=== PATIENT | female | born 1960 | race Caucasian/White ===

== ENCOUNTER 2023-11-01 08:44 | Outpatient (AMB) | payer OTHER, SELFPAY ==
[2023-11-01 08:47] VITALS: BP 150/90; PULSE 76; O2SAT 97; BMI 45.4
--- NOTE | 2023-11-01 08:47 | MHC.PC.OV ---
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: No Accompanied by: Self / Same As Patient Allergies dexamethasone Allergy (Severe, Verified 11/01/23 08:53) Dizziness midazolam Allergy (Severe, Verified 11/01/23 08:53) Dizziness diazepam [Valium] Allergy (Unknown, Verified 11/01/23 08:50) Hypertension escitalopram [Lexapro] Allergy (Unknown, Verified 11/01/23 08:50) Rash lisinopril Allergy (Unknown, Verified 11/01/23 08:50) Difficulty Swallowing oxcarbazepine [Trileptal] Allergy (Unknown, Verified 11/01/23 08:50) Hives oxycodone [Percocet] Allergy (Unknown, Verified 11/01/23 08:50) Hives rosuvastatin [Crestor] Allergy (Unknown, Verified 11/01/23 08:50) Eye Swelling losartan Adverse Reaction (Intermediate, Verified 11/01/23 09:19) not sure Medication List - Last Reconciled 11/01/23 by Kuldip Prakash MD [Bariatric Fusion ] blood sugar diagnostic (FreeStyle Lite Strips) As directed bupropion HCl 150 mg PO QAM 30 days CPAP (CPAP Machine/Device) As directed fluoxetine 40 mg PO DAILY 30 days pramipexole 0.125 mg PO BEDTIME Tobacco use date assessed: 11/01/23 Fall risk assessment: No Falls in past year Last assessed Fall Risk: 11/01/23 Dental Screening Dental Screen Date: 11/01/23 Did you have a dental visit in the last 12 months?: Yes Did you have a dental problem in the last 6 months where you did not have access to dental care?: No Was dental information given to patient?: Patient has dentist HPI Transfer of care from [facility], requesting PE HPI Details 63-year-old morbidly obese female history of gastric bypass surgery for severe obesity, with diabetes mellitus hypercholesterolemia obstructive sleep apnea (2002) CPAP titration June 2010 periodic limb movement, generalized anxiety disorder hypertension coming in for follow-up. Patient is seen for the 1st time.. Review of the notes. September 2023 Sleep Medicine office notes. For the periodic limb movement disorder started off with gabapentin but had muscle aches and it is later pramipexole PFSH Medical History (Updated 11/01/23 @ 09:32 by Kuldip Prakash MD) Type 2 diabetes mellitus with hyperglycemia Menopausal and postmenopausal disorder History of ankle fracture Screening for osteoporosis Eating disorder with ongoing treatment Dizziness Low serum potassium Fungal rash of torso Seasonal allergies Anxiety with depression Restless leg syndrome Diabetes mellitus TMJ (dislocation of temporomandibular joint) Periodic limb movements of sleep Obstructive sleep apnea Morbid obesity Hypertension Hypercholesterolemia Heart murmur Depression Anxiety Surgical History (Updated 11/01/23 @ 09:28 by Kuldip Prakash MD) S/P LALITA-BSO (total abdominal hysterectomy and bilateral salpingo-oophorectomy) Bilateral carpal tunnel syndrome 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 H/O ventral hernia repair History of cholecystectomy Gastric banding status Family History (Updated 11/01/23 @ 09:29 by Kuldip Prakash MD) Mother Cancer of colon Hyperlipidemia Father CAD (coronary artery disease) Heart attack Social History (Updated 11/01/23 @ 09:29 by Kuldip Prakash MD) Housing: House Alcohol intake: current Comment: once drink Q 3 months Patient Tobacco Use Status: Never used Tobacco e-Cigarette/Vaping Use: Never Used Current occupational status: employed Cognitive needs: No Hearing needs: No Vision needs: Yes Questionnaire Thrive Questionnaire Date Thrive assessed: 01/19/23 KUMAR-7 AMB Questionnaire KUMAR-7 Date KUMAR - 7 assessed: 01/19/23 Source: Developed by Drs. Star Culp, Ambar Witt, Guanako Devine and colleagues, with an educational yarelis from [employer]. Physical exam (Primary Care) Vital Signs: Last Vital Signs Pulse 76 11/01/23 08:47 BP 150/90 H 11/01/23 08:47 Pulse Ox 97 11/01/23 08:47 Oxygen Delivery Method Room Air 11/01/23 08:47 BMI result Body Mass Index 45.4 Tobacco/Smoking Status: Tobacco use Status Tobacco use date assessed 11/01/23 11/01/23 08:49 Patient Tobacco Use Status Never used Tobacco 11/01/23 08:49 e-Cigarette/Vaping Use Never Used 11/01/23 08:49 Thrive Assessment: Date of Thrive Assessment Date Thrive assessed 01/19/23 11/01/23 08:49 Const General: alert; No acute distress Eyes Conjunctivae: conjunctivae normal Resp Auscultation: clear to auscultation bilaterally Cardio Rate: regular rate Rhythm: regular rhythm GI Inspection: Yes normal to inspection Extrem General: Yes normal to inspection and No edema Assessment and Plan Assessment & Plan (1) Morbid obesity due to excess calories: Code(s): E66.01 - Morbid (severe) obesity due to excess calories Plan: Diet and exercise (2) Hypercholesterolemia: Code(s): E78.00 - Pure hypercholesterolemia, unspecified Plan: Avoid fried foods, chicken skin, eggs, butter margarine, pastries and meat. Be it pork or beef they have a lot of cholesterol LDL goal of less than 100 and triglyceride of less than 150 (3) Sleep apnea with use of continuous positive airway pressure (CPAP): Code(s): G47.30 - Sleep apnea, unspecified Plan: .Continue to use this CPAP for the obstructive sleep apnea and patient follows up with Neurology. uses > 4 hours a night and benefits from this (4) Periodic limb movements of sleep: Code(s): G47.61 - Periodic limb movement disorder Plan: Patient has been placed on pramipexole (5) Hypertension: Code(s): I10 - Essential (primary) hypertension Plan: Continue with blood pressure medication. Decrease salt intake and exercise on hydrochlorothiazide 12.5 mg once a day (6) Generalized anxiety disorder: Comment: Private counselling Code(s): F41.1 - Generalized anxiety disorder Plan: Continue with therapy (7) History of gastric bypass: Comment: 2020 Dr. Jerome Arciniega Code(s): Z98.84 - Bariatric surgery status Plan: follows up with bariatric team in [place] (8) Breast cancer screening by mammogram: Code(s): Z12.31 - Encounter for screening mammogram for malignant neoplasm of breast (9) Colon cancer screening: Code(s): Z12.11 - Encounter for screening for malignant neoplasm of colon Orders: Referrals Gastroenterology Referral Z12.11 - Encounter for screening for malignant neoplasm of colon Medications: Changed From bupropion HCl 150 mg PO QAM 30 days 30 tabs 2RF F41.1 - Generalized anxiety disorder To bupropion HCl 150 mg PO QAM 90 days 90 tabs 2RF F41.1 - Generalized anxiety disorder From fluoxetine 40 mg PO DAILY 30 days 30 caps 2RF F41.1 - Generalized anxiety disorder To fluoxetine 40 mg PO DAILY 90 days 90 caps 1RF F41.1 - Generalized anxiety disorder From pramipexole 0.125 mg PO BEDTIME G47.61 - Periodic limb movement disorder To pramipexole 0.125 mg PO BEDTIME 90 days 90 tabs 1RF G47.61 - Periodic limb movement disorder Refilled hydrochlorothiazide 12.5 mg PO DAILY 90 days 90 tabs 2RF I10 - Essential (primary) hypertension Coding Level of Care Code Est Pt Level 4 (25057) Diagnoses Morbid obesity due to excess calories E66.01 Hypercholesterolemia E78.00 Sleep apnea with use of continuous positive airway pressure (CPAP) G47.30 Periodic limb movements of sleep G47.61 Hypertension I10 Generalized anxiety disorder F41.1 History of gastric bypass Z98.84 Breast cancer screening by mammogram Z12.31 Colon cancer screening Z12.11
[2023-11-01 09:14] VITALS: BP 142/70
== END 2023-11-01 09:52 | disposition home or self-care (01) ==
PROVIDERS: PCP Hospitalist; Visit Provider Internal Medicine
DX: E78.00 Pure hypercholesterolemia, unspecified (principal); G47.30 Sleep apnea, unspecified; E66.01 Morbid (severe) obesity due to excess calories; Z68.42 Body mass index [BMI] 45.0-49.9, adult; G47.61 Periodic limb movement disorder; I10 Essential (primary) hypertension; F41.1 Generalized anxiety disorder; Z98.84 Bariatric surgery status; Z12.31 Encounter for screening mammogram for malignant neoplasm of breast; Z12.11 Encounter for screening for malignant neoplasm of colon
CPT/HCPCS: 99214

== ENCOUNTER 2024-02-26 10:20 | Outpatient (AMB) | payer OTHER, SELFPAY ==
[2024-02-26 10:25] VITALS: BP 168/98; PULSE 81; O2SAT 98; BMI 44.8
--- NOTE | 2024-02-26 10:25 | A.OFFPC_ITS ---
Vital Signs 02/26/24 10:25 02/26/24 11:22 Height 5 ft 2 in Weight 245 lb BMI 44.8 BP 168/98 H 138/80 Blood Pressure Location Lt brachial Lt brachial Position Sitting Sitting Pulse 81 Pulse Source Pulse Oximeter Pulse Oximetry (%) 98 Oxygen Delivery Method Room Air Intake Visit Reasons: Annual exam Allergies dexamethasone Allergy (Severe, Verified 02/26/24 10:26) Dizziness midazolam Allergy (Severe, Verified 02/26/24 10:26) Dizziness diazepam [Valium] Allergy (Unknown, Verified 02/26/24 10:26) Hypertension escitalopram [Lexapro] Allergy (Unknown, Verified 02/26/24 10:26) Rash lisinopril Allergy (Unknown, Verified 02/26/24 10:26) Difficulty Swallowing oxcarbazepine [Trileptal] Allergy (Unknown, Verified 02/26/24 10:26) Hives oxycodone [Percocet] Allergy (Unknown, Verified 02/26/24 10:26) Hives rosuvastatin [Crestor] Allergy (Unknown, Verified 02/26/24 10:26) Eye Swelling losartan Adverse Reaction (Intermediate, Verified 02/26/24 10:26) not sure Medication List - Last Reconciled 02/26/24 by Kuldip Prakash MD [Bariatric fusion 2 caps PO BID] [Bariatric Fusion ] blood sugar diagnostic (FreeStyle Lite Strips) As directed bupropion HCl XL 150 mg PO QAM 90 days CPAP (CPAP Machine/Device) As directed fluoxetine 40 mg PO DAILY 90 days hydrochlorothiazide 12.5 mg PO DAILY 90 days pramipexole 0.125 mg PO BEDTIME 90 days Tobacco use date assessed: 02/26/24 Fall risk assessment: No Falls in past year Last assessed Fall Risk: 02/26/24 Dental Screening Dental Screen Date: 02/26/24 Did you have a dental visit in the last 12 months?: Yes Did you have a dental problem in the last 6 months where you did not have access to dental care?: No Was dental information given to patient?: Patient has dentist HPI Annual exam HPI Details 63-year-old morbidly obese female with o bstructive sleep apnea hypercholesterolemia hypertension generalized anxiety disorder history of gastric bypass coming in for annual physical. Last seen in October 2023. Patient is due for mammogram. Discussed about colon cancer screening. Patient has followed up with sleep Medicine January 2024 for the sleep apnea and periodic limb movement patient has excellent CPAP adherence more than 4 hours a night and benefits from this. Patient has also been placed on pramipexole 0.125 mg once a day. Patient follows up with bariatric surgery nutrition follow-up December regarding panniculectomy advised weight loss 75 lb to have surgery needing BMI closer to 35. BP at home is 144/81 PFSH Medical History (Updated 02/26/24 @ 11:16 by Kuldip Prakash MD) Type 2 diabetes mellitus with hyperglycemia Menopausal and postmenopausal disorder History of ankle fracture Screening for osteoporosis Eating disorder with ongoing treatment Dizziness Low serum potassium Fungal rash of torso Seasonal allergies Anxiety with depression Restless leg syndrome Diabetes mellitus TMJ (dislocation of temporomandibular joint) Periodic limb movements of sleep Obstructive sleep apnea Morbid obesity Hypertension Hypercholesterolemia Heart murmur Depression Anxiety Surgical History (Updated 11/01/23 @ 09:28 by Kuldip Prakash MD) S/P LALITA-BSO (total abdominal hysterectomy and bilateral salpingo-oophorectomy) Bilateral carpal tunnel syndrome 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 H/O ventral hernia repair History of cholecystectomy Gastric banding status Family History (Updated 02/26/24 @ 11:27 by Kuldip Prakash MD) Mother Cancer of colon Hyperlipidemia Father CAD (coronary artery disease) Heart attack Paternal Uncle Heart attack Social History (Updated 11/01/23 @ 09:29 by Kuldip Prakash MD) Housing: House Alcohol intake: current Comment: once drink Q 3 months Patient Tobacco Use Status: Never used Tobacco e-Cigarette/Vaping Use: Never Used Current occupational status: employed Cognitive needs: No Hearing needs: No Vision needs: Yes Questionnaire PHQ-9 Over the last 2 weeks, how often have you been bothered by any of the following problems? 1. Little interest or pleasure in doing things: not at all 2. Feeling down, depressed, or hopeless: not at all 3. Trouble falling or staying asleep, or sleeping too much: not at all 4. Feeling tired or having little energy: not at all 5. Poor appetite or overeating: not at all 6. Feeling bad about yourself - or that you are a failure or have let yourself or your family down: not at all 7. Trouble concentrating on things, such as reading the newspaper or watching television: not at all 8. Moving or speaking so slowly that other people could have noticed. Or the opposite - being so fidgety or restless that you have been moving around a lot more than usual: not at all 9. Thoughts that you would be better off or of hurting yourself in some way: not at all Total score: 0 Depression Screening Interpretation: Negative Depression Screening Done: Yes Source: Developed by Drs. Star Culp, Ambar Witt, Guanako Devine and colleagues, with an educational yarelis from [employer]. Thrive Questionnaire Date Thrive assessed: 02/26/24 I am a: Patient What is your living situation today?: I have a steady place to live Within the past 12 months, did the food you bought not last and you didn't have the money to get more?: Never true Within the past 12 months, did you worry whether your food would run out before you got money to buy more?: Never true Do you have trouble paying for medicines?: No Do you have trouble getting transportation to medical appointments?: No Do you have trouble paying your heating and electricity bill?: No Do you have trouble taking care of your child, family member or friend?: No Do you have trouble with day-to-day activities such as bathing, preparing meals, shopping, managing finances, etc.?: No Are you currently unemployed and looking for a job?: No Are you interested in more education?: No Currently or been in a relationship where the following occur: no concerns reported THRIVE Score: 0 AUDIT C Alcohol Use Questionnaire (AUDIT-C) 1. How often do you have a drink containing alcohol?: Never 3. How often do you have six or more drinks on one occasion?: Never Total Score: 0 Score Reviewed/Action Taken: No KUMAR-7 AMB Questionnaire KUMAR-7 Date KUMAR - 7 assessed: 02/26/24 Feeling nervous, anxious, or on edge: 0 = Not at all Not being able to stop or control worryin = Not at all Worrying too much about different things: 0 = Not at all Trouble relaxin = Not at all Being so restless that it is hard to sit still: 0 = Not at all Becoming easily annoyed or irritable: 0 = Not at all Feeling afraid as if something awful might happen: 0 = Not at all Total KUMAR-7 score (0-4 normal; 5-9 mild; 10-14 moderate; 15-21 severe): 0 Source: Developed by Drs. Star Culp, Ambar Witt, Guanako Devine and colleagues, with an educational yarelis from [employer]. Review of Systems Const Denies poor appetite and Denies weakness Eyes Denies no additional complaints ENT Reports Normal hearing present, Denies dizziness, Denies nasal congestion, Denies tinnitus and Denies sore throat Card Denies chest pain, Denies syncope, Denies rapid heart rate and Denies dyspnea Resp Denies cough and Denies dyspnea GI Denies change in stool character, Reports constipation, Denies diarrhea, Denies nausea and Denies vomiting Denies urinary frequency, Denies difficulty voiding and Denies dysuria Neuro Reports Normal hearing present, Denies confusion, Denies dizziness, Denies syncope and Denies weakness Psych Denies confusion Physical exam (Primary Care) Vital Signs: Last Vital Signs Pulse 81 02/26/24 10:25 BP 168/98 H 02/26/24 10:25 Pulse Ox 98 02/26/24 10:25 Oxygen Delivery Method Room Air 02/26/24 10:25 BMI result Body Mass Index 44.8 Tobacco/Smoking Status: Tobacco use Status Tobacco use date assessed 02/26/24 02/26/24 10:27 Patient Tobacco Use Status Never used Tobacco 02/26/24 10:27 e-Cigarette/Vaping Use Never Used 02/26/24 10:27 PHQ-9: PHQ-9 Score PHQ-9: Total score 0 02/26/24 10:45 Depression Screening Interpretation: Negative Thrive Assessment: Date of Thrive Assessment Date Thrive assessed 02/26/24 02/26/24 10:27 Currently or been in a relationship where the following occur: no concerns reported Const General: No confusion Orientation/consciousness: No confusion HENMT Head: Yes normocephalic Ears: external ears normal and TM's normal bilaterally Face and sinus: Yes normal facial exam Mouth: moist mucous membranes Throat: Yes tonsils normal Eyes Conjunctivae: conjunctivae normal Pupils: Equal, round and reactive pupils present and Pupil accommodation reflex normal Direct Ophthalmoscopy: normal light reflex Neck Neck: No lymphadenopathy Thyroid: Thyroid normal Chest Chest palpation & inspection: normal inspection of the chest Resp Effort & Inspection: normal respiratory effort and no audible wheezes Auscultation: clear to auscultation bilaterally, no crackles, no wheezes and lung sounds not diminished Cardio Rate: regular rate Rhythm: regular rhythm Peripheral pulses: radial pulses present and dorsalis pedis present GI Other: colon test pendfing Palpation (GI): no masses Auscultation: normal bowel sounds and normoactive bowel sounds Rectal Exam - Female: deferred Skin General skin exam: no rashes or lesions noted Rashes: no rashes Neuro General: No confusion Cranial nerves: Yes Equal, round and reactive pupils present and Yes Normal hearing present Cognition (Neuro): normal cognition Gait exam (Neuro): Normal gait present Motor exam (neuro): 5/5 motor strength present throughout Deep tendon reflexes (DTR's): Right brachioradialis reflex intensity grade: 2+, Left brachioradialis reflex intensity grade: 2+, Right patellar reflex intensity grade: 2+ and Left patellar reflex intensity grade: 2+ Extrem General: No edema Assessment and Plan Assessment & Plan (1) Annual physical exam: Code(s): Z00.00 - Encounter for general adult medical examination without abnormal findings Plan: continue to use the CPAP > 4 hours and benefits from this (2) Morbid obesity due to excess calories: Code(s): E66.01 - Morbid (severe) obesity due to excess calories Plan: Continue follow-up with bariatric surgeon and nutrition (3) Sleep apnea with use of continuous positive airway pressure (CPAP): Code(s): G47.30 - Sleep apnea, unspecified Plan: Continue to use the CPAP more than 4 hours a night and benefits from this. (4) Hypercholesterolemia: Code(s): E78.00 - Pure hypercholesterolemia, unspecified Plan: Avoid fried foods, chicken skin, eggs, butter margarine, pastries and meat. Be it pork or beef they have a lot of cholesterol LDL goal of less than 130 and triglyceride of less than 150. (5) Hypertension: Code(s): I10 - Essential (primary) hypertension Plan: Continue with blood pressure medication. Decrease salt intake and exercise on hydrochlorothiazide 12.5 mg once a day (6) Generalized anxiety disorder: Comment: Private counselling Code(s): F41.1 - Generalized anxiety disorder Plan: Continue with present medication and counseling (7) History of gastric bypass: Comment: 2020 Dr. Jerome Arciniega Code(s): Z98.84 - Bariatric surgery status Plan: Continue to follow-up with bariatric surgeon (8) Colon cancer screening: Code(s): Z12.11 - Encounter for screening for malignant neoplasm of colon Plan: Reminded about colon cancer screening will schedule- (9) Breast cancer screening by mammogram: Code(s): Z12.31 - Encounter for screening mammogram for malignant neoplasm of breast Plan: Reminded about mammogram Medications: New tirzepatide (weight loss) (Zepbound) 2.5 mg (0.5 mL) subcut QWEEK 4 weeks 2 mL 0RF E66.01 - Morbid (severe) obesity due to excess calories Coding Level of Care Code Est Pt Prev Care 40-64y(45188) Diagnoses Annual physical exam Z00.00 Morbid obesity due to excess calories E66.01 Sleep apnea with use of continuous positive airway pressure (CPAP) G47.30 Hypercholesterolemia E78.00 Hypertension I10 Generalized anxiety disorder F41.1 History of gastric bypass Z98.84 Colon cancer screening Z12.11 Breast cancer screening by mammogram Z11.05
[2024-02-26 11:22] VITALS: BP 138/80
== END 2024-02-26 11:46 | disposition home or self-care (01) ==
LOC: HO.HMGH 10:24
PROVIDERS: PCP Internal Medicine; Visit Provider Internal Medicine
DX: Z00.00 Encounter for general adult medical examination without abnormal findings (principal); E66.01 Morbid (severe) obesity due to excess calories; Z68.41 Body mass index [BMI] 40.0-44.9, adult; E78.00 Pure hypercholesterolemia, unspecified; I10 Essential (primary) hypertension; F41.1 Generalized anxiety disorder; Z98.84 Bariatric surgery status; Z12.11 Encounter for screening for malignant neoplasm of colon; Z12.31 Encounter for screening mammogram for malignant neoplasm of breast
CPT/HCPCS: 99396

== ENCOUNTER 2024-06-12 13:55 | Outpatient (AMB) | payer MEDICARE, BC, SELFPAY ==
--- NOTE | 2024-06-12 08:37 | A.OFFPC_ITS ---
Vital Signs 06/12/24 13:56 Height 5 ft 2 in Weight 244 lb 0.2 oz BMI 44.6 BP 146/84 H Blood Pressure Location Lt brachial Position Sitting Pulse 75 Pulse Source Pulse Oximeter Pulse Oximetry (%) 98 Oxygen Delivery Method Room Air Intake Visit Reasons: PRE OP Cataract Intake Note: Patient is here for a Pre-op for Cataract extractions scheduled with Dr. Ayo Rondon MD on 06/27/2024 and 08/01/2024. Allergies dexamethasone Allergy (Severe, Verified 06/12/24 14:15) Dizziness midazolam Allergy (Severe, Verified 06/12/24 14:15) Dizziness diazepam [Valium] Allergy (Unknown, Verified 06/12/24 14:15) Hypertension escitalopram [Lexapro] Allergy (Unknown, Verified 06/12/24 14:15) Rash lisinopril Allergy (Unknown, Verified 06/12/24 14:15) Difficulty Swallowing oxcarbazepine [Trileptal] Allergy (Unknown, Verified 06/12/24 14:15) Hives oxycodone [Percocet] Allergy (Unknown, Verified 06/12/24 14:15) Hives rosuvastatin [Crestor] Allergy (Unknown, Verified 06/12/24 14:15) Eye Swelling losartan Adverse Reaction (Intermediate, Verified 06/12/24 14:15) not sure gabapentin Adverse Reaction (Verified 06/12/24 14:17) Muscle Pain Medication List - Last Reviewed 06/12/24 by AMBROSIO Horn [Bariatric fusion 2 caps PO BID] [Bariatric Fusion ] blood sugar diagnostic (FreeStyle Lite Strips) As directed bupropion HCl XL 150 mg PO QAM 90 days CPAP (CPAP Machine/Device) As directed fluoxetine 40 mg PO DAILY 90 days hydrochlorothiazide 12.5 mg PO DAILY 90 days pramipexole 0.125 mg PO BEDTIME 90 days tirzepatide (weight loss) (Zepbound) 2.5 mg (0.5 mL) subcut QWEEK 4 weeks Tobacco use date assessed: 02/26/24 Fall risk assessment: No Falls in past year Last assessed Fall Risk: 06/12/24 Dental Screening Dental Screen Date: 02/26/24 HPI PRE OP Cataract HPI Details 64-year-old female with past medical his tory of hypercholesterolemia, obstructive sleep apnea, hypertension, and generalized anxiety disorder last seen by Dr. Prakash February 2024 coming in for preop appointment.? Patient is scheduled to undergo cataract extractions with intra-ocular lens implants on 06/27/2024 and 08/01/2024 through [facility].? We will be using topical anesthesia for this procedure. HTN: patient regularly takes her medication and takes her blood pressure while at home which have been in the normal range JADE: Regular use of CPAP at night without complications No history of CVA, MO, congestive heart failure, and no active treatment for diabetes. Last A1c 5.6% [facility] Medical History (Updated 06/12/24 @ 13:59 by Kenya Rees PA-C) Type 2 diabetes mellitus with hyperglycemia Menopausal and postmenopausal disorder History of ankle fracture Screening for osteoporosis Eating disorder with ongoing treatment Dizziness Low serum potassium Fungal rash of torso Seasonal allergies Anxiety with depression Restless leg syndrome Diabetes mellitus TMJ (dislocation of temporomandibular joint) Periodic limb movements of sleep Obstructive sleep apnea Morbid obesity Hypertension Hypercholesterolemia Heart murmur Depression Anxiety Surgical History (Updated 11/01/23 @ 09:28 by Kuldip Prakash MD) S/P LALITA-BSO (total abdominal hysterectomy and bilateral salpingo-oophorectomy) Bilateral carpal tunnel syndrome 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 H/O ventral hernia repair History of cholecystectomy Gastric banding status Family History (Updated 02/26/24 @ 11:28 by Kuldip Prakash MD) Mother Cancer of colon Hyperlipidemia Father CAD (coronary artery disease) Heart attack Paternal Uncle Heart attack Social History (Updated 11/01/23 @ 09:29 by Kuldip Prakash MD) Housing: House Alcohol intake: current Comment: once drink Q 3 months Patient Tobacco Use Status: Never used Tobacco e-Cigarette/Vaping Use: Never Used Current occupational status: employed Cognitive needs: No Hearing needs: No Vision needs: Yes Questionnaire Thrive Questionnaire Date Thrive assessed: 02/26/24 AUDIT C Alcohol Use Questionnaire (AUDIT-C) 1. How often do you have a drink containing alcohol?: Never 3. How often do you have six or more drinks on one occasion?: Never Total Score: 0 Score Reviewed/Action Taken: No KUMAR-7 AMB Questionnaire KUMAR-7 Date KUMAR - 7 assessed: 02/26/24 Source: Developed by Drs. Star Culp, Ambar Witt, Guanako Devine and colleagues, with an educational yarelis from [email or web address]. Review of Systems Const Denies body aches, Denies fatigue, Denies fever(s), Denies frequent falls, Denies headache(s) and Denies weakness Eyes Reports no additional complaints and Denies change in vision ENT Denies dysphagia, Denies dizziness, Denies facial pain, Denies headache(s), Hernando es nasal congestion and Denies odynophagia Card Denies chest pain, Denies syncope, Denies irregular heart rhythm, Denies leg edema, Denies lightheadedness and Denies dyspnea Resp Denies cough and Denies dyspnea GI Denies constipation, Denies dysphagia, Denies dyspepsia, Denies diarrhea, Denies nausea, Denies odynophagia and Denies vomiting Denies urinary frequency, Denies dysuria, Denies urinary hesitancy and Denies urinary urgency Musc Denies back pain and Denies myalgias Skin/Breast Reports system reviewed and no additional complaints, except as documented Neuro Denies dizziness, Denies syncope, Denies frequent falls, Denies headache(s) and Denies weakness Psych Reports no additional complaints Endo Denies fatigue Physical exam (Primary Care) Vital Signs: Last Vital Signs Pulse 75 06/12/24 13:56 BP 146/84 H 06/12/24 13:56 Pulse Ox 98 06/12/24 13:56 Oxygen Delivery Method Room Air 06/12/24 13:56 BMI result Body Mass Index 44.6 Tobacco/Smoking Status: Tobacco use Status Tobacco use date assessed 02/26/24 06/12/24 08:39 Patient Tobacco Use Status Never used Tobacco 06/12/24 08:39 e-Cigarette/Vaping Use Never Used 06/12/24 08:39 Thrive Assessment: Date of Thrive Assessment Date Thrive assessed 02/26/24 06/12/24 08:39 Const General: cooperative, healthy appearing, comfortable and no acute distress Orientation/consciousness: patient oriented x3 HENMT Head: Yes normocephalic Ears: hearing grossly normal bilaterally, external ears normal, TM's normal bilaterally and EAC's normal General nose exam: Normal external nose present Face and sinus: Yes normal facial exam and Yes sinuses nontender Mouth: Normal oral and palatal mucosa present and tongue normal Throat: Yes posterior oropharynx normal Eyes General: appearance normal, both eyes and all related structures Conjunctivae: conjunctivae normal Pupils: Equal, round and reactive pupils present EOM: EOMs intact bilaterally and No Nystagmus present Neck Neck: Yes normal visual inspection, Yes full ROM and Yes no lymphadenopathy Chest Chest palpation & inspection: normal inspection of the chest Resp Effort & Inspection: normal respiratory effort Auscultation: clear to auscultation bilaterally, no crackles, no rales, no rhonchi, no wheezes and breath sounds present Cardio Rate: regular rate Rhythm: regular rhythm Peripheral pulses: radial pulses present and dorsalis pedis present GI Inspection: Yes normal to inspection and No Abdominal wall edema Palpation (GI): Soft to palpation, not firm and nontender Auscultation: normal bowel sounds Rectal Exam - Female: deferred General: Yes no CVA tenderness Back/Spine/Pelvis Back: no CVA tenderness Skin General skin exam: no rashes or lesions noted Neuro General: patient oriented x3 Cranial nerves: Yes Equal, round and reactive pupils present, Yes Midline tongue present, Yes Ability to bilaterally elevate shoulders present and No Nystagmus present Gait exam (Neuro): Normal gait present Extrem General: Yes normal to inspection, Yes full ROM, No no pedal edema and No edema Psych Speech and movement: Normal speech and movement present Affect: normal affect Insight: Good insight present (Psych) Judgement: Good judgement present (Psych) Assessment and Plan Assessment & Plan (1) Pre-op evaluation: Code(s): Z01.818 - Encounter for other preprocedural examination Plan: Patient is not currently on any blood thinners, NSAIDs, or antiplatelet medications. Patient must take hydrochlorothiazide prior to the procedure but may defer all other medications until after the procedure is completed. Updated blood work ordered and patient to follow up with surgeon if this is required. Regarding preop clearance, the patient is at low risk for proposed surgery as comorbidities are well managed.? Reviewed with the patient that no surgery is completely free of risk and that this examination is to assist the surgeon in reviewing informed consent. Plan This note was constructed using voice recognition software. While every effort has been made to ensure accuracy and it project manager, still areas may have been included sometimes these areas may affect the content or meeting of the given symptoms. Total time spent caring for the patient today was 30 minutes. This includes time spent before the visit reviewing the chart, time spent during the visit, and time spent after the visit and documentation. Orders: Orders Complete Blood Count Auto Diff Today Z00.00 - Encounter for general adult medical examination without abnormal findings Comprehensive Met. Panel Today Z00.00 - Encounter for general adult medical examination without abnormal findings Medications: Discontinued tirzepatide (weight loss) (Zepbound) Discontinued Reason: Patient no longer taking 2.5 mg (0.5 mL) subcut QWEEK 4 weeks 2 mL 0RF E66.01 - Morbid (severe) obesity due to excess calories Coding Level of Care Code Est Pt Level 4 (70596) Diagnoses Pre-op evaluation Z01.818
[2024-06-12 13:56] VITALS: BP 146/84; PULSE 75; O2SAT 98; BMI 44.6
== END 2024-06-12 14:29 | disposition home or self-care (01) ==
PROVIDERS: PCP Internal Medicine
DX: Z01.818 Encounter for other preprocedural examination (principal)
CPT/HCPCS: 99214

== ENCOUNTER 2024-06-18 15:29 | Outpatient (AMB) | payer MEDICARE, SELFPAY ==
--- NOTE | 2024-06-18 15:36 | A.OFFVIS_ITS ---
Vital Signs 06/18/24 15:38 Height 5 ft 2 in Weight 249 lb 9.012 oz BMI 45.6 BP 148/88 H Blood Pressure Location Rt brachial Position Sitting Pulse 74 Pulse Source Pulse Oximeter Pulse Oximetry (%) 95 Oxygen Delivery Method Room Air Intake Visit Reasons: [place] screening Intake Note: Sade presents in office today for a scheduled colo s/p scrn CC; Pt reports their last colo was approximately 5 years ago. Pt reports that this was performed by [facility]. Pt reports that this is for recall only based on family hx and previous colo hx. Adjunct Teacher Required: No Allergies dexamethasone Allergy (Severe, Verified 06/18/24 15:37) Dizziness midazolam Allergy (Severe, Verified 06/18/24 15:37) Dizziness diazepam [Valium] Allergy (Unknown, Verified 06/18/24 15:37) Hypertension escitalopram [Lexapro] Allergy (Unknown, Verified 06/18/24 15:37) Rash lisinopril Allergy (Unknown, Verified 06/18/24 15:37) Difficulty Swallowing oxcarbazepine [Trileptal] Allergy (Unknown, Verified 06/18/24 15:37) Hives oxycodone [Percocet] Allergy (Unknown, Verified 06/18/24 15:37) Hives rosuvastatin [Crestor] Allergy (Unknown, Verified 06/18/24 15:37) Eye Swelling losartan Adverse Reaction (Intermediate, Verified 06/18/24 15:37) not sure gabapentin Adverse Reaction (Verified 06/18/24 15:37) Muscle Pain HPI HPI [place] screening: Details: 64 Year old? female with past medical history of history of gastric bypass, anxiety, hypertension, morbid obesity, sleep apnea, hypercholesteremia is here today for pre colonoscopy screening.? Patient was sent to us by his/her PCP.? Last colonoscopy 5 years ago at [facility]. Patient believes she had polyp then. Family history of CRC, patient's mother diagnosed with colon cancer. Patient had trouble with anesthesia particularly with midazolam, listed on allergy list. No issues with anesthesia during last colonoscopy.? Patient denies any gastrointestinal symptoms in the past or at present.? Denies any personal or family history of gastrointestinal disease, colon polyps, or CRC.? Denies history of difficulty with sedation or anesthesia in the past.? Patient is using CPAP for sleep apnea for the last 10 years.? Denies any history of cardiac, renal, pulmonary, or hepatic disease.?? No history of infectious? diseases like hepatitis A, B, C, HIV or tuberculosis.? Patient is not on any anticoagulation [facility] Medical History Type 2 diabetes mellitus with hyperglycemia Menopausal and postmenopausal disorder History of ankle fracture Screening for osteoporosis Eating disorder with ongoing treatment Dizziness Low serum potassium Fungal rash of torso Seasonal allergies Anxiety with depression Restless leg syndrome Diabetes mellitus TMJ (dislocation of temporomandibular joint) Periodic limb movements of sleep Obstructive sleep apnea Morbid obesity Hypertension Hypercholesterolemia Heart murmur Depression Anxiety Surgical History S/P LALITA-BSO (total abdominal hysterectomy and bilateral salpingo-oophorectomy) Bilateral carpal tunnel syndrome 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 H/O ventral hernia repair History of cholecystectomy Gastric banding status Family History Mother Cancer of colon Hyperlipidemia Father CAD (coronary artery disease) Heart attack Paternal Uncle Heart attack Social History Housing: House Alcohol intake: current Comment: once drink Q 3 months Patient Tobacco Use Status: Never used Tobacco e-Cigarette/Vaping Use: Never Used Current occupational status: employed Cognitive needs: No Hearing needs: No Vision needs: Yes Review of Systems Const Denies weight gain and Denies weight loss ENT Reports no additional complaints, Denies dysphagia and Denies odynophagia Card Reports no additional complaints Resp Reports no additional complaints GI Denies abdominal pain, Denies belching, Denies melena, Denies bloating, Denies change in bowel habits, Denies dysphagia, Denies excessive flatus, Denies dyspepsia, Denies heartburn, Denies diarrhea, Denies loose stools, Denies nausea, Denies odynophagia and Denies vomiting Musc Reports no additional complaints Neuro Reports no additional complaints Psych Reports no additional complaints Endo Reports no additional complaints Physical Exam Vital Signs: Last Vital Signs Pulse 74 06/18/24 15:38 BP 148/88 H 06/18/24 15:38 Pulse Ox 95 06/18/24 15:38 Oxygen Delivery Method Room Air 06/18/24 15:38 BMI result Body Mass Index 45.6 Const General: healthy appearing and no acute distress Nutritional Appearance: well nourished and obese Orientation/consciousness: patient oriented x3 Resp Effort & Inspection: normal respiratory effort, able to speak in complete sentences, no tracheal deviation and symmetric chest movement Auscultation: clear to auscultation bilaterally Cardio Rate: regular rate GI Inspection: Yes normal to inspection, No distended and Yes obesity Palpation (GI): Soft to palpation, not firm, nontender and No hepatosplenomegaly present Auscultation: normal bowel sounds General: Yes no CVA tenderness Back/Spine/Pelvis Back: no CVA tenderness Skin General skin exam: elasticity normal, turgor normal and dry skin Neuro General: patient oriented x3 Psych Appearance: grossly normal Mental Status: mental status grossly normal Assessment & Plan Assessment & Plan (1) Colon cancer screening: Code(s): Z12.11 - Encounter for screening for malignant neoplasm of colon Category: Medical Plan Patient denies any GI, cardiac or respiratory symptoms.? Denies any issues with anesthesia in the past.? History of sleep apnea using CPAP daily.? No history infectious diseases in the past or present.? Not on any anticoagulation therapy.? Family history of CRC.? Patient denies melena, hematochezia, unintentional weight loss or ribbon like stools.? Discussed at length the pre- procedure,? prep, diet & medications as well as what to expect prior, during and after the procedure.?? Stressed the importance of good bowel prep.? Recommended the use of Vaseline or Calmoseptine OTC & baby wipes with bowel movements to promote comfort.? ?Patient verbalizes understanding and agrees to plan of care.? She was given the opportunity to ask questions and all questions answered.? We will see her after the procedure.? Medications: New polyethylene glycol 3350 (Miralax) As directed by gastroenterology department at [facility] 238 grams PO ONCE 238 grams 0RF Z12.11 - Encounter for screening for malignant neoplasm of colon bisacodyl (Dulcolax (bisacodyl)) take 4 tabs at noon the day before your colonoscopy 20 mg (4 x 5 mg) PO ONCE 4 tabs 0RF 1 day Z12.11 - Encounter for screening for malignant neoplasm of colon Coding Level of Care Code New Pt Level 3 (32589) Diagnoses Colon cancer screening Z12.11 Time Spent (min) 40 Comment 30 minutes spent with patient and additional 10 minutes spent reviewing her records
[2024-06-18 15:38] VITALS: BP 148/88; PULSE 74; O2SAT 95; BMI 45.6
== END 2024-06-18 16:33 | disposition home or self-care (01) ==
PROVIDERS: PCP Internal Medicine; Visit Provider Nurse Practitioner Family
DX: Z01.818 Encounter for other preprocedural examination (principal); Z12.11 Encounter for screening for malignant neoplasm of colon; Z80.0 Family history of malignant neoplasm of digestive organs
CPT/HCPCS: 99024

== ENCOUNTER → 2024-06-18 15:29 | Outpatient (BNVA) | payer MEDICARE, SELFPAY | PROVIDERS: PCP Internal Medicine; Visit Provider Nurse Practitioner Family | DX: Z12.11 Encounter for screening for malignant neoplasm of colon (principal); Z80.0 Family history of malignant neoplasm of digestive organs | CPT/HCPCS: 99212 ==

== ENCOUNTER 2024-07-12 12:57 | Outpatient (AMB) | payer MEDICARE, MEDICAID, SELFPAY ==
--- NOTE | 2024-07-12 12:59 | MHC.PC.OV ---
Vital Signs 07/12/24 13:00 Height 5 ft 2 in Weight 245 lb BMI 44.8 BP 132/80 Blood Pressure Location Rt brachial Position Sitting Pulse 80 Pulse Source Pulse Oximeter Pulse Oximetry (%) 96 Oxygen Delivery Method Room Air Intake Visit Reasons: JADE, Obesity Intake Note: Patient is here to follow up on JADE, Obesity. Controls Technician Required: No Fax Machine Repairer: Not Required per policy Accompanied by: Self / Same As Patient Allergies dexamethasone Allergy (Severe, Verified 07/12/24 12:59) Dizziness midazolam Allergy (Severe, Verified 07/12/24 12:59) Dizziness diazepam [Valium] Allergy (Unknown, Verified 07/12/24 12:59) Hypertension escitalopram [Lexapro] Allergy (Unknown, Verified 07/12/24 12:59) Rash lisinopril Allergy (Unknown, Verified 07/12/24 12:59) Difficulty Swallowing oxcarbazepine [Trileptal] Allergy (Unknown, Verified 07/12/24 12:59) Hives oxycodone [Percocet] Allergy (Unknown, Verified 07/12/24 12:59) Hives rosuvastatin [Crestor] Allergy (Unknown, Verified 07/12/24 12:59) Eye Swelling losartan Adverse Reaction (Intermediate, Verified 07/12/24 12:59) not sure gabapentin Adverse Reaction (Verified 07/12/24 12:59) Muscle Pain Medication List - Last Reconciled 07/12/24 by Kuldip Prakash MD [Bariatric fusion 2 caps PO BID] [Bariatric Fusion ] bisacodyl (Dulcolax (bisacodyl)) 20 mg (4 x 5 mg) PO ONCE 1 day blood sugar diagnostic (FreeStyle Lite Strips) As directed bupropion HCl XL 150 mg PO QAM 90 days CPAP (CPAP Machine/Device) As directed fenofibrate 160 mg PO DAILY fluoxetine 40 mg PO DAILY 90 days hydrochlorothiazide 12.5 mg PO DAILY 90 days liraglutide (weight loss) (Saxenda) inject subcutaneously once daily: week 1 = 0.6 mg; week 2 = 1.2 mg; week 3 = 1.8 mg; week 4 = 2.4 mg; then 3 mg daily subcut polyethylene glycol 3350 (Miralax) 238 grams PO ONCE pramipexole 0.125 mg PO BEDTIME 90 days Tobacco use date assessed: 07/12/24 Fall risk assessment: No Falls in past year Last assessed Fall Risk: 07/12/24 Dental Screening Dental Screen Date: 02/26/24 HPI JADE, Obesity HPI Details 64-year-old morbidly obese female with a history of gastric bypass, with hypercholesterolemia sleep apnea hypertension generalized anxiety disorder coming in for follow-up. Last seen in June 12 for preoperative evaluation for cataract surgery June 27 in August 01.. Review of the notes received from Dr. Benson on evaluation of sleep apnea continue to use the CPAP more than 4 hours a night and benefits from this. On pramipexole for restless leg syndrome. Received notes from Gastroenterology also having a planned colonoscopy.. Patient's last blood work showing total cholesterol is 254 triglyceride of 324 HDL of 45 A1c of 5.9. cholesterol 237 triglyceride 526, HDL 37 CBC 9.84, h/h 13.8/40.8 plt 328 NA 140 K 3.4 BUN11 crea 0.81 BS 118 alb 3.4 LFT LFT N MG 1.8 iron test N B 12 normal HGB AIC 6.2 LDL 117 PFSH Medical History (Updated 07/12/24 @ 13:09 by Kuldip Prakash MD) Breast cancer screening by mammogram Colon cancer screening Type 2 diabetes mellitus with hyperglycemia Menopausal and postmenopausal disorder History of ankle fracture Screening for osteoporosis Eating disorder with ongoing treatment Dizziness Low serum potassium Fungal rash of torso Seasonal allergies Anxiety with depression Restless leg syndrome Diabetes mellitus TMJ (dislocation of temporomandibular joint) Periodic limb movements of sleep Obstructive sleep apnea Morbid obesity Hypertension Hypercholesterolemia Heart murmur Depression Anxiety Surgical History S/P LALITA-BSO (total abdominal hysterectomy and bilateral salpingo-oophorectomy) Bilateral carpal tunnel syndrome 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 H/O ventral hernia repair History of cholecystectomy Gastric banding status Family History Mother Cancer of colon Hyperlipidemia Father CAD (coronary artery disease) Heart attack Paternal Uncle Heart attack Social History Housing: House Alcohol intake: current Comment: once drink Q 3 months Patient Tobacco Use Status: Never used Tobacco e-Cigarette/Vaping Use: Never Used Second Hand Smoke Exposure: No service: No Current occupational status: employed Cognitive needs: No Hearing needs: No Vision needs: Yes Questionnaire Thrive Questionnaire Date Thrive assessed: 02/26/24 KUMAR-7 AMB Questionnaire KUMAR-7 Date KUMAR - 7 assessed: 02/26/24 Source: Developed by Drs. Star Culp, Ambar Witt, Guanako Devine and colleagues, with an educational yarelis from [employer]. Physical exam (Primary Care) BMI result Body Mass Index 44.8 Tobacco/Smoking Status: Tobacco use Status Tobacco use date assessed 07/12/24 07/12/24 13:02 Patient Tobacco Use Status Never used Tobacco 07/12/24 13:02 e-Cigarette/Vaping Use Never Used 07/12/24 13:02 Thrive Assessment: Date of Thrive Assessment Date Thrive assessed 02/26/24 07/12/24 13:02 Const General: alert; No acute distress Eyes Conjunctivae: conjunctivae normal Resp Auscultation: clear to auscultation bilaterally Cardio Rate: regular rate Rhythm: regular rhythm GI Inspection: Yes normal to inspection Extrem General: Yes normal to inspection and No edema Assessment and Plan Assessment & Plan (1) History of gastric bypass: Comment: 2020 Dr. Jerome Arciniega Code(s): Z98.84 - Bariatric surgery status Plan: Eat healthy and keep active (2) Morbid obesity due to excess calories: Code(s): E66.01 - Morbid (severe) obesity due to excess calories Plan: Diet and exercise (3) Hypertension: Code(s): I10 - Essential (primary) hypertension Plan: Continue with blood pressure medication. Decrease salt intake and exercise patient on hydrochlorothiazide 12.5 mg once a day. BP i got was high and advise to monitor (4) Sleep apnea with use of continuous positive airway pressure (CPAP): Code(s): G47.30 - Sleep apnea, unspecified Plan: Continue to use the CPAP more than 4 hours a night and benefits from this. Patient is on pramipexole for periodic limb movement disorder. (5) Hypercholesterolemia: Code(s): E78.00 - Pure hypercholesterolemia, unspecified Plan: Avoid fried foods, chicken skin, eggs, butter margarine, pastries and meat. Be it pork or beef they have a lot of cholesterol LDL goal of less than 130 and triglyceride of less than 150. (6) Generalized anxiety disorder: Comment: Private counselling Code(s): F41.1 - Generalized anxiety disorder Plan: Continue with counseling and therapy on bupropion and fluoxetine (7) Impaired glucose tolerance: Code(s): R73.02 - Impaired glucose tolerance (oral) Plan: Decrease the amount of carbohydrate intake, pasta, bread, rice and potatoes are all sugar and that is aside from all the sweet stuff, remember that fruits are good but they are Sweet also. (8) Cataracts, bilateral: Code(s): H26.9 - Unspecified cataract Orders: Orders Thyroid Stimulating Hormone Today E78.00 - Pure hypercholesterolemia, unspecified UA w Microscopic Today E78.00 - Pure hypercholesterolemia, unspecified Lipid Panel 3 Months E78.00 - Pure hypercholesterolemia, unspecified Comprehensive Met. Panel 3 Months E78.00 - Pure hypercholesterolemia, unspecified Hemoglobin A1c 3 Months R73.02 - Impaired glucose tolerance (oral) Medications: New fenofibrate 160 mg PO DAILY 30 tabs 3RF E78.00 - Pure hypercholesterolemia, unspecified liraglutide (weight loss) (Saxenda) inject subcutaneously once daily: week 1 = 0.6 mg; week 2 = 1.2 mg; week 3 = 1.8 mg; week 4 = 2.4 mg; then 3 mg daily subcut 15 mL 0RF E66.01 - Morbid (severe) obesity due to excess calories Refilled bupropion HCl XL 150 mg PO QAM 90 days 90 tabs 2RF F41.1 - Generalized anxiety disorder pramipexole 0.125 mg PO BEDTIME 90 days 90 tabs 1RF G47.61 - Periodic limb movement disorder hydrochlorothiazide 12.5 mg PO DAILY 90 days 90 tabs 2RF I10 - Essential (primary) hypertension fluoxetine 40 mg PO DAILY 90 days 90 caps 1RF F41.1 - Generalized anxiety disorder Coding Level of Care Code Est Pt Level 4 (47586) Diagnoses History of gastric bypass Z98.84 Morbid obesity due to excess calories E66.01 Hypertension I10 Sleep apnea with use of continuous positive airway pressure (CPAP) G47.30 Hypercholesterolemia E78.00 Generalized anxiety disorder F41.1 Impaired glucose tolerance R73.02 Cataracts, bilateral H26.9
[2024-07-12 13:00] VITALS: BP 132/80; PULSE 80; O2SAT 96; BMI 44.8
== END 2024-07-12 13:39 | disposition home or self-care (01) ==
PROVIDERS: PCP Internal Medicine; Visit Provider Internal Medicine
DX: G47.30 Sleep apnea, unspecified (principal); E66.01 Morbid (severe) obesity due to excess calories; Z68.41 Body mass index [BMI] 40.0-44.9, adult; E11.65 Type 2 diabetes mellitus with hyperglycemia; Z98.84 Bariatric surgery status; I10 Essential (primary) hypertension; E78.00 Pure hypercholesterolemia, unspecified; F41.1 Generalized anxiety disorder; H26.9 Unspecified cataract
CPT/HCPCS: 99214

== ENCOUNTER 2024-12-02 07:32 | Day surgery (SDC) | payer MEDICARE, MEDICAID, SELFPAY ==
--- NOTE | 2024-11-29 09:54 | HO.ANESPROP2 ---
Documented by User: Reina Delvalle NP 11/29/24 09:55 HPI - Anesthesia Eval Consult details Narrative: 64yo F for Colonoscopy Anesthesia Pre-Procedure Meds Is the patient on any of the following meds?: GLP1/DPP4 PMFSH Active Problems Active Problems: All Active Problems Cataracts, bilateral (Acute) Impaired glucose tolerance (Acute) Pre-op evaluation (Acute) Work-related condition (Acute) Annual physical exam (Acute) History of gastric bypass (Acute) Generalized anxiety disorder (Acute) Periodic limb movements of sleep (Acute) Preoperative clearance (Acute) Hypertension (Acute) Morbid obesity due to excess calories (Acute) Sleep apnea with use of continuous positive airway pressure (CPAP) (Acute) Hypercholesterolemia (Acute) Past Medical History Medical History (Updated 07/12/24 @ 13:09 by Kuldip Prakash MD) Breast cancer screening by mammogram Colon cancer screening Type 2 diabetes mellitus with hyperglycemia Menopausal and postmenopausal disorder History of ankle fracture Screening for osteoporosis Eating disorder with ongoing treatment Dizziness Low serum potassium Fungal rash of torso Seasonal allergies Anxiety with depression Restless leg syndrome Diabetes mellitus TMJ (dislocation of temporomandibular joint) Periodic limb movements of sleep Obstructive sleep apnea Morbid obesity Hypertension Hypercholesterolemia Heart murmur Depression Anxiety Family History Family History Mother Cancer of colon Hyperlipidemia Father CAD (coronary artery disease) Heart attack Paternal Uncle Heart attack Surgical History Surgical History S/P LALITA-BSO (total abdominal hysterectomy and bilateral salpingo-oophorectomy) Bilateral carpal tunnel syndrome 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 H/O ventral hernia repair History of cholecystectomy Gastric banding status Social History Social History Housing: House Alcohol intake: current Comment: once drink Q 3 months Patient Tobacco Use Status: Never used Tobacco e-Cigarette/Vaping Use: Never Used Second Hand Smoke Exposure: No service: No Current occupational status: employed Cognitive needs: No Hearing needs: No Vision needs: Yes Meds Allergies Allergy/AdvReac Type Severity Reaction Status Date / Time dexamethasone Allergy Severe Dizziness Verified 12/02/24 07:58 midazolam Allergy Severe Dizziness Verified 12/02/24 07:58 diazepam [Valium] Allergy Unknown Hypertensio Verified 12/02/24 07:58 n escitalopram [Lexapro] Allergy Unknown Rash Verified 12/02/24 07:58 lisinopril Allergy Unknown Difficulty Verified 12/02/24 07:58 Swallowing oxcarbazepine [Trileptal] Allergy Unknown Hives Verified 12/02/24 07:58 oxycodone [Percocet] Allergy Unknown Hives Verified 12/02/24 07:58 rosuvastatin [Crestor] Allergy Unknown Eye Verified 12/02/24 07:58 Swelling losartan AdvReac Intermediate not sure Verified 12/02/24 07:58 heparin AdvReac Mild Rash Verified 12/02/24 07:58 gabapentin AdvReac Muscle Pain Verified 12/02/24 07:58 Home Medications ?Medication ?Instructions ?Recorded ?Confirmed ?Last Taken ?Type CPAP (CPAP Machine/Device) 10/13/22 12/02/24 Unknown History blood sugar diagnostic (FreeStyle 10/13/22 12/02/24 Unknown History Lite Strips) Bariatric Fusion 11/01/23 07/12/24 Unknown History Bariatric fusion 2 cap PO BID 02/26/24 07/12/24 Unknown History Assessment and Plan Assessment Anesthesia Assessment: Chart Reviewed Documented by User: Pedrito Alonso MD 12/02/24 08:53 [facility] Past Medical History Medical History (Updated 07/12/24 @ 13:09 by Kuldip Prakash MD) Breast cancer screening by mammogram Colon cancer screening Type 2 diabetes mellitus with hyperglycemia Menopausal and postmenopausal disorder History of ankle fracture Screening for osteoporosis Eating disorder with ongoing treatment Dizziness Low serum potassium Fungal rash of torso Seasonal allergies Anxiety with depression Restless leg syndrome Diabetes mellitus TMJ (dislocation of temporomandibular joint) Periodic limb movements of sleep Obstructive sleep apnea Morbid obesity Hypertension Hypercholesterolemia Heart murmur Depression Anxiety Family History Family History Mother Cancer of colon Hyperlipidemia Father CAD (coronary artery disease) Heart attack Paternal Uncle Heart attack Family history of problems with anesthesia: No Surgical History Surgical History S/P LALITA-BSO (total abdominal hysterectomy and bilateral salpingo-oophorectomy) Bilateral carpal tunnel syndrome 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 H/O ventral hernia repair History of cholecystectomy Gastric banding status History of Problems with Anesthesia: No Social History Social History Housing: House Alcohol intake: current Comment: once drink Q 3 months Patient Tobacco Use Status: Never used Tobacco e-Cigarette/Vaping Use: Never Used Second Hand Smoke Exposure: No service: No Current occupational status: employed Cognitive needs: No Hearing needs: No Vision needs: Yes Meds Allergies Allergy/AdvReac Type Severity Reaction Status Date / Time dexamethasone Allergy Severe Dizziness Verified 12/02/24 07:58 midazolam Allergy Severe Dizziness Verified 12/02/24 07:58 diazepam [Valium] Allergy Unknown Hypertensio Verified 12/02/24 07:58 n escitalopram [Lexapro] Allergy Unknown Rash Verified 12/02/24 07:58 lisinopril Allergy Unknown Difficulty Verified 12/02/24 07:58 Swallowing oxcarbazepine [Trileptal] Allergy Unknown Hives Verified 12/02/24 07:58 oxycodone [Percocet] Allergy Unknown Hives Verified 12/02/24 07:58 rosuvastatin [Crestor] Allergy Unknown Eye Verified 12/02/24 07:58 Swelling losartan AdvReac Intermediate not sure Verified 12/02/24 07:58 heparin AdvReac Mild Rash Verified 12/02/24 07:58 gabapentin AdvReac Muscle Pain Verified 12/02/24 07:58 Home Medications ?Medication ?Instructions ?Recorded ?Confirmed ?Last Taken ?Type CPAP (CPAP Machine/Device) 10/13/22 12/02/24 Unknown History blood sugar diagnostic (FreeStyle 10/13/22 12/02/24 Unknown History Lite Strips) Bariatric Fusion 11/01/23 07/12/24 Unknown History Bariatric fusion 2 cap PO BID 02/26/24 07/12/24 Unknown History Exam Airway Mallampati Class: III TM Dist: >3cm Neck ROM: Full Assessment and Plan Assessment Anesthesia Assessment: Anesthesia Plan Discussed Final Anesthetic Review Family History of Problems with Anesthesia: No History of Problems with Anesthesia: No NPO: Yes ASA Class: III Final Preanesthetic Review: No Changes in Pt Med Stat, Meds/Allgs Chart Reviewed, Consent Obtained/Reviewed and Anes Risks/Benef Reviewed Patient Risk: Intermediate Procedure Risk: Low Anesthetic Plan Anesthetic Plan: TIVA Disposition: Standard PACU
--- OUTSIDE RECORDS SUMMARY | 2024-12-02 07:36 | XMS_ITS | Encounter Summary ---
Author Organization [facility] [employer] [facility] Address [address] [place] [address] Care Team Providers Care Vault Clerk Name Role Phone Shey Gallardo Unassigned Primary Care Provider U navailable Encounter Details Date Type Department Care Team (Latest Contact Info) Description 06/28/2021 [facility] CONVERSIONS Dental, Provider, DDS Social History Tobacco Use Types Packs/Day Years Used Date Smoking Tobacco: Never Assessed Comments Unknown Sex and Gender Information Value Date Recorded Sex Assigned at Female 02/09/2023 3:06 PM EDT Legal Sex Female 5:34 PM EDT Gender Identity Female 02/09/2023 3:06 PM EDT Sexual Orientation Choose not to disclose 2022 3:06 PM EDT documented as of this encounter Plan of Treatment Not on file documented as of this encounter Visit Diagnoses Not on filedocumented in this encounter Care Teams Vault Clerk Relationship Specialty Start Date End Date Shey Gallardo Unassigned PCP - General Family Medicine 03/06/23 documented as of this encounter
--- OUTSIDE RECORDS SUMMARY | 2024-12-02 07:36 | XMS_ITS | Encounter Summary ---
Author Organization [facility] [employer] [facility] Address [address] [place] [address] Care Team Providers Care Oil Gauger Name Role Phone Shey Gallardo Unassigned Primary Care Provider U navailable Encounter Details Date Type Department Care Team (Latest Contact Info) Description 12/31/2019 [facility] CONVERSION[facility] Dental, Provider, DDS Social [...] on filedocumented in this encounter Care Teams Oil Gauger Relationship Specialty Start Date End Date Shey Gallardossabiodun PCP - General Family Medicine 03/06/23 documented as of this encounter
--- OUTSIDE RECORDS SUMMARY | 2024-12-02 07:36 | XMS_ITS | Encounter Summary ---
Author Organization [facility] [employer] Address [address] [place] [address] Care Team Providers Care Rn Correctional Name Role Phone Shey Gallardo Unassigned Primary Care Provider U navailable Encounter Details Date Type Department Care Team (Latest Contact Info) Description 05/08/2019 [facility] CONVERSION[facility] Dental, Provider, DDS Social [...] on filedocumented in this encounter Care Teams Rn Correctional Relationship Specialty Start Date End Date Shey Gallardossabiodun PCP - General Family Medicine 03/06/23 documented as of this encounter
--- OUTSIDE RECORDS SUMMARY | 2024-12-02 07:36 | XMS_ITS | Patient Health Record ---
Author Organization [facility] Address [address] [place] [address] Care Team Providers Care Forensic Accountant Name Role Phone CIELO BARKSDALE Primary Care Provider UnavailFelipa Salinas Unavailable [phone] Allergies Allergen (clinical drug ingredient) Drug/Non Drug Allergy documented on EMR Reaction Allergy Type Onset Date Status escitalopram LEXAPRO Unknown Drug Allergy Acti ve lisinopril LISINOPRIL Unknown Drug Allergy Activ e acetaminophen / oxycodone PERCOCET ITCHING Drug Allergy Active oxcarbazepine TRILEPTAL Unknown Drug Allergy Act cat diazepam VALIUM Unknown Drug Allergy Active Reason For Referral No Information Medications Medication SIG (Take, Route, Frequency, Duration) Notes Start Date End Date Status Wellbutrin SR 200MG 1 ORAL twice daily for -3 [facility] 01/03/2012 Active hydroCHLOROthiazide 25mg 1 ORAL daily for -3 [facility] 07/17 Active Estrace Vaginal Cream 42.5GM Vaginal 1GM 3X A WEEK for -3 [facility] 06/04/2013 Not-Taking FLUoxetine HCl 40MG 1 ORAL daily for -3 [facility] 01/03/2012 Active Social History Tobacco Use: Social History Observation Description Date Details (start date - stop date) Never Smoker NA - NA Tobacco Use/Smoking Question Answer Notes Are you a nonsmoker Problems Problem Type SNOMED Code ICD Code Onset Dates Problem Status W/U Status Risk Notes Problem Depressive disorder (28561612) Depressive disorder, not elsewhere classified (311) Active confirmed Major Problem Essential hypertension (42908048) Unspecified essential hypertension (401.9) Active confirmed Major Problem Menopausal symptom (94263399) Symptomatic menopausal or female climacteric states (627.2) Active confirmed Major Problem Gynecological examination normal (335950408749171) Routine gynecological examination (V72.31) Active confirmed Major Problem Screening for malignant neoplasm of colon (341622387) Special screening for malignant neoplasms, colon (V76.51) Active confirmed Major Plan Of Treatment Pending Test Test Name Order Date PT AND PTT 12/31/2015 Insurance Providers Payer Name Payer Address Payer Phone Subscriber Number Group Number Insured Name Patient Relationship to Insured Coverage Start Date Coverage End Date [employer] [place] [address] [place] [address] [id number] LESLYE DORANTES Self - patient is the insured Medical (General) History Medical History History ICD Code Depressive disorder, not elsewhere class ified 311 Unspecified essential hypertension 401.9 Symptomatic menopausal or female climact glen states 627.2 Surgical History Surgery Date(Month/Year) SUBTOTAL HYST & BSO LAP BAND SURGERY CARPAL TUNNEL CHOLECYSTECTOMY INSICIONAL HERNIA REPAIR WISDOM TEETH COLONOSCOPY Hospitalization History Reason Date(Month/Year) SEE SURGICAL HX
--- OUTSIDE RECORDS SUMMARY | 2024-12-02 07:36 | XMS_ITS | Clinical Summary ---
Author Organization [employer] Address [address] [facility] [address] [place] [address] Care Team Providers Care Merchandise Associate Name Role Phone PcpShey Unassigned Primary Care Provider U navailable Allergies Active Allergy Reactions Criticality Noted Date Comments Diazepam Unknown 08/16/2016 Other reaction(s): HYPER Enoxaparin Rash Low 09/10/2021 Escitalopram Rash Low 08/16/2016 Other reaction(s): Unknown Gabapentin Low 10/19/2022 Other reaction(s): Musculoskeletal Pain Gemfibrozil Tinnitus 08/16/2016 Heparin 08/25/2022 Lisinopril Unknown 08/16/2016 Other reaction(s): pt doesnt remember Oxcarbazepine Unknown 08/16/2016 Other reaction(s): Double Vision, Other (See Comments) Oxycodone-Acetaminophen Hives,Itching 6 Other reaction(s): ITCY Rosuvastatin Other 08/16/2016 Other reaction(s): Muscle Pain Medications buPROPion XL (Wellbutrin XL) 150 MG 24 hr tablet Take 150 mg by mouth in the morning. 3 Active FLUoxetine (PROzac) 40 MG capsule Take 40 mg by mouth in the morning. 2 Active hydroCHLOROthia zide (HYDRODiuril) 12.5 MG tablet Take 12.5 mg by mouth in the morning. 3 Active pramipexole (Mirapex) 0.125 MG tablet TAKE 1 TABLET BY MOUTH DAILY TAKE 2 HOURS BEFORE BEDTIME EVERY NIGHT 3 Active nystatin (Mycostatin) 843832 UNIT/GM powder Apply topically. 1 Active metFORMIN (Glucophage) 500 MG tablet Take 500 mg by mouth in the morning. Active losartan-hydroC HLOROthiazide (Hyzaar) 100-12.5 MG tablet Take 1 tablet by mouth in the morning. Active amLODIPine (Norvasc) 5 MG tablet Take 5 mg by mouth in the morning. 2 Active glucose blood test strip See Instructions, # 100 each, Refills 3, Tot. Refills 3, Maintenance, Use to measure blood sugar daily E11.9, 08/10/21 17:53:00 EDT, Supply, 155, cm, 05/06/21 9:35:00 EDT, Height 1 Active Multiple Vitamins-Minera ls (Bariatric Fusion) chewable tablet 0 Refills, Maintenance, 09/16/22 11:49:00 EST, Partial fill upon patient request if the prescription is for a schedule II opioid drug. 2 Active Immunizations Name Administration Dates Next Due Influenza injectable quadriv alent preservative free 09/28/2022 Influenza, IIV3, injectable 07/27/2021,1 ,10/02/2019,07/24 Pneumococcal Polysaccharide PPSV23 09/19/2016, Td (adult), unspecified 05/03/2007 Tdap 07/12/2022 Zoster, Recombinant 09/28/2022 Social History Tobacco Use Types Packs/Day Years Used Date Smoking Tobacco: Never Assessed Comments Unknown Sex and Gender Information Value Date Recorded Sex Assigned at Female 02/09/2023 3:06 PM EDT Legal Sex Female 5:34 PM EDT Gender Identity Female 02/09/2023 3:06 PM EDT Sexual Orientation Choose not to disclose 2022 3:06 PM EDT Plan of Treatment Health Maintenance Due Date Last Done Comments CT Colonography 1959 Colonoscopy 1959 Colorectal Cancer Screening 1959 Depression Screening 1959 FIT DNA/Cologuard 1959 FIT 1959 FOBT 1959 Lipid Panel 1959 SDOH Screening 1959 Sigmoidoscopy 1959 Alcohol/Substance Use Screening 1971 Tobacco Screening 1971 Hepatitis C Screening 1977 Hepatitis A Vaccines (1 of 2 - Risk 2-dose series) 1978 Pap Smear 1980 Cervical Cancer Screening 1989 HPV/Cotest 1989 Mammogram 1999 Hepatitis B Vaccines (1 of 3 - Risk 3-dose series) 2019 RSV Patients and Patients Aged 60 years or older (1 - Risk 60-74 years 1-dose series) 2019 Dental X-Ray: Full Mouth 05/19/2019 05/18/2016 Zoster Vaccines (2 of 2) 11/23/2022 09/28/2022 Dental Oral Exam 08/24/2023 02/21/2023, , 12/31/2019, Additional history exists Dental Prophylaxis 08/24/2023 02/21/2023, 0 06/28/2021, 12/31/2019, Additional history exists Dental X-Ray: Bitewings 02/23/2024 02/22/20, 06/28/2021, 12/31/2019, Additional history exists Pneumococcal Vaccine: 65+ Years (2 of 2 - PCV) 2024 09/19/2016, 05/03/2007 COVID-19 Vaccine (3 - season) 2024 08/25/2022, 09/15/2021 Influenza Vaccine (#1) 2024 , 07/27/2021, 08/21/2020, Additional history exists Diabetes: Hemoglobin A1C 07/03/2025 024, 08/04/2023, 07/14/2021, Additional history exists DTaP/Tdap/Td Vaccines (2 - Td or Tdap) 07/12/2032 07/12/2022, 05/03/2007 HIB Vaccines Aged Out No longer eligi ble based on patient's age to complete this topic HPV Vaccines Aged Out No longer eligi ble based on patient's age to complete this topic IPV Vaccines Aged Out No longer eligi ble based on patient's age to complete this topic Meningococcal Vaccine Aged Out No chema andrea eligible based on patient's age to complete this topic RSV under 20 months Aged Out No longe r eligible based on patient's age to complete this topic Rotavirus Vaccines Aged Out No longer eligible based on patient's age to complete this topic Procedures Procedure Name Priority Date/Time Associated Diagnosis Comments PROPHYLAXIS - ADULT Routine 02/21/2023 9 :40 AM EDT BITEWINGS - 4 RADIOGRAPHIC IMAGES Routine 02/21/2023 9:40 AM EDT PERIODIC ORAL EVALUATION - ESTABLISHED PATIENT Routine 02/21/2023 9:40 AM EDT DIAGNOSTIC - DIAGNOSTIC IMAGING - INTRAORAL - COMPREHENSIVE SERIES OF RADIOGRAPHIC IMAGES Routine 05/18/2016 12:00 AM EDT from Last 3 Months or Most Recently Relevant to Health Maintenance Insurance DENTAL - HSN PARTIAL (MEDICAID) Care Teams Merchandise Associate Relationship Specialty Start Date End Date Shey Gallardo Unassigned PCP - General Family Medicine 03/06/23
--- OUTSIDE RECORDS SUMMARY | 2024-12-02 07:36 | XMS_ITS | Data Portability ---
Author Organization [facility] Address [address] [place] [address] Care Team Providers Care Poultry Eviscerator Name Role Phone TUSHAR DALLAS Geothermal Installer Assessment No assessment recorded. Plan of Treatment Reminders Order Date Submit Date Provider Last Modified By Organization Details Last Modified Time Details Appointments None recorded. Lab rapid strep group A, throat 2023 [email or web address] [facility], [address] [place] [address], [id number], 11:57:45 Referral physical therapist referral - Low back pain from driving a lot . no trauma. pain is spastic and affects ambulation. 2023 024 [email or web address] [facility] - [address], [address], [place], [address], 15:52:40 Procedures None recorded. Surgeries None recorded. Imaging None recorded. Medication Orders amoxicillin 875 mg tablet 2023 [id number], [address], [place], [id number], 4 11:43:53 Voltaren Arthritis Pain 1 % topical gel 2023 [facility] #[id number], [address], [place], [id number], 4 12:10:19 Patient TargetsNo targets recorded. Patient Instructions Encounter Date Encounter Id Patient Instructions Last Modified By Organization Details Last Modified Time 12/23/2023 [id number] Acute Sinusitis: Care Instructions [email or web address] Not available 12/23/2023 11:57:43 Discussed potential complications and intervention options with the patient during this visit. Patient was instructed to increase room humidity and eat soft bland foods. Raising the head of the bed, lozenges, and saline nasal spray were also recommended. Patient may take ibuprofen or acetaminophen as needed for pain control. If the issue does not improve in 24-48 hours, patient should return to the clinic for follow-up. You have been prescribed an antibiotic for your bacterial illness. While antibiotics are sometimes necessary, they can have a negative impact upon the healthy bacteria within your body. This can result in diarrhea/loose stools and yeast infections. By taking probiotics during the course of your prescription, you can lessen the probability of these undesirable side effects. Probiotics can be purchased [id number] at your pharmacy in the form of capsules or gummies. They are also found naturally in yogurt with live cultures. Mix salt into a quarter-glass of warm water and stir until no more salt will dissolve. Gargle and spit out the salt water mixture one mouthful at a time until the glass is empty. Repeat 4 times daily. Hand hygiene is a willis measure for preventing spread to others, especially after coughing or sneezing and before preparing foods or eating, and we remind all patients of its importance. Please discard of your current tooth brush and get a new one after being on the antibiotic for 3-4 days to prevent reinfection. You are considered contagious until you have the antibiotic for 24 hours. We have sent out for lab results, typically take 3-5 days to return. [email or web address] Not available 12/23/2023 11:55:39 Reason for Referral Physical Therapist Referral for Acute low back pain evaluation and management Low back pain from driving a lot . no trauma. pain is spastic and affects ambulation. Referring Physician: Nereida Cardona, Urgent Care, Encounter Date: 04/22/2024 Results Created Date Observation Date Name Description Value Unit Range Abnormal Flag Note LastModifiedBy Organization Detail LastModifiedTime 12/23/19 24 12/23/2023 rapid strep group A, throa t Unknown Analyte positi ve Not Available [id number] [place], [address], 12/23/2023 11:54:21 12/23/19 24 12/23/2023 rapid strep group A, throa t Unknown Analyte yes Not Available [address] [facility] [address] [place], [address], 12/23/2023 11:54:21 Result Notes None recorded. Problems Name Problem SNOMED Code Status Onset Date Resolution Date Notes Provider Name and Address Organization Details Recorded Time Hypertensive disorder 54737447 Active 2023 HEIDI LOPEZICA null, PA - [facility] 4 11:30:07 Sore throat 743983634 Active 2023 HEIDI LUPICA null, PA - [facility] 4 11:54:29 Acute low back pain 314620411 Active 2023 Nereida Cardona NP [address] [place], [address] [place] - [facility] 4 12:03:02 Problem Notes None recorded. Procedures Surgical History Date Name Laterality Status Provider Name and Address Organization Details Recorded Time Gastric bypass for obesity completed HEIDI CARTER PA - [facility] 12/23/2023 11:29:30 Imaging Results None recorded. Procedure Notes None recorded. Medical Equipment None Reported. Allergies Allergen ID Allergen Name Allergen Category Reaction Reaction Severity Criticality Documentation Date Start Date Code Code System Note Provider Name and Address Organization Details Recorded Time 939347 Valium medicatio n other Not available Not available 12/23/2023 23883 2 RxNorm HEIDI LUPICA null, PA - [facility] 4 11:26:11 841206 Crestor medicatio n myalgias (muscle pain) Not available Not available 12/23/2023 98768 4 RxNorm HEIDI LUPICA null, PA - [facility] 4 11:26:22 025374 acetamino phen / oxycodone medicatio n itching Not available Not available 12/23/2023 88314 3 RxNorm HEIDI LUPICA null, PA - [facility] 4 11:26:32 299461 lisinopri l medicatio n other Not available Not available 12/23/2023 89067 RxNorm chachol e viskallie CARTER null, PA - [facility] 4 11:27:00 075595 Lexapro medicatio n rash Not available Not available 12/23/2023 08112 1 RxNorm HEIDI CARTER null, PA - [facility] 4 11:27:09 629589 Trileptal medicatio n other Not available Not available 12/23/2023 29981 0 RxNorm chachol viviane cunningham n HEIDI CARTER null, PA - [facility] 4 11:27:26 154606 heparin medicatio n rash Not available Not available 12/23/2023 5224 RxNorm HEIDI CARTER null, PA - [facility] 4 11:27:37 364715 gabapenti n medicatio n myalgias (muscle pain) Not available Not available 12/23/2023 50340 RxNorm HEIDI CARTER null, PA - [facility] 4 11:27:48 Medications Name Sig Start Date Stop Date Status Note LastModified by Organization Details LastModified Time fluoxetine 40 mg capsule Take 1 capsule every day by oral route. active Not Available Not Available No t Available pramipexole 0.125 mg tablet Take 1 tablet 3 times a day by oral route. active Not Available Not Available No t Available Hctz/Reserpin e/Hydralazine 12.5 mg daily active Not Available Not Available No t Available bupropion HCl 150 mg tablet,12 hr sustained-rel ease(smoking deterrent) Take 1 tablet twice a day by oral route. active Not Available Not Available No t Available Voltaren Arthritis Pain 1 % topical gel APPLY 2 GRAMS TO THE AFFECTED AREA(S) BY TOPICAL ROUTE 4 TIMES PER DAY as needed for 10 days 2023 active Not Available Not Available Not Avai lable Vitals Date Recorded Body height Provider Name an d Address Organization Details Last Updated DateTime 12/23/2023 154.94 cm HEIDI CARTER PA - [facility] 12/23/2023 11:24:44 Date Recorded Body mass index (BMI) Provider Name and Address Organization Details Last Updated DateTime 12/23/2023 46.3 kg/m2 HEIDI CARTER PA - [facility] 12/23/2023 11:24:47 Date Recorded Body weight Provider Name an d Address Organization Details Last Updated DateTime 12/23/2023 629004.13 g HEIDI CARTER PA - [facility] 12/23/2023 11:24:48 Date Recorded Pain severity - 0-10 verbal numeric rating [Score] - Reported Provider Name and Address Organization Details Last Updated DateTime 12/23/2023 6 HEIDI CARTER PA - [facility] 12/23/2023 11:25:05 Date Recorded Respiratory rate Provider Name a nd Address Organization Details Last Updated DateTime 12/23/2023 18 /min HEIDI CARTER PA - [facility] 12/23/2023 11:31:09 Date Recorded Body temperature Provider Name a nd Address Organization Details Last Updated DateTime 12/23/2023 97.7 [degF] HEIDI CARTER PA - [facility] 12/23/2023 11:31:22 Date Recorded Oxygen saturation Oxygen saturation in Arterial blood by Pulse oximetry Provider Name and Address Organization Details Last Updated DateTime 12/23/2023 96 % 96 % HEIDI CARTER PA - [facility] 12/23/2023 11:31:42 Date Recorded Heart rate Provider Name an d Address Organization Details Last Updated DateTime 12/23/2023 99 /min HEIDI CARTER PA - [facility] 12/23/2023 11:31:45 Date Recorded Body height Provider Name an d Address Organization Details Last Updated DateTime 04/22/2024 154.94 cm Leann Chopra PA - [facility] 04/22/2024 11:40:14 Date Recorded Body mass index (BMI) Body weight Provider Name and Address Organization Details Last Updated DateTime 04/22/2024 46.3 kg/m2 504875.13 g Leann Chopra PA - [facility] 04/22/2024 11:40:30 Date Recorded Oxygen saturation Oxygen saturation in Arterial blood by Pulse oximetry Provider Name and Address Organization Details Last Updated DateTime 04/22/2024 96 % 96 % Leann Chopra PA - [facility] 04/22/2024 11:42:13 Date Recorded Pain severity - 0-10 verbal numeric rating [Score] - Reported Provider Name and Address Organization Details Last Updated DateTime 04/22/2024 10 Leann Chopra PA - [facility] 04/22/2024 11:42:25 Date Recorded Heart rate Provider Name an d Address Organization Details Last Updated DateTime 04/22/2024 78 /min Leann SteinbergMoisesZaki PA - [facility] 04/22/2024 11:42:30 Date Recorded Respiratory rate Provider Name a nd Address Organization Details Last Updated DateTime 04/22/2024 18 /min Leann SteinbergMoisesZaki PA - [facility] 04/22/2024 11:42:34 Date Recorded Body temperature Provider Name a nd Address Organization Details Last Updated DateTime 04/22/2024 98.3 [degF] Leann Chopra PA - [facility] 04/22/2024 11:42:47 Date Recorded Systolic blood pressure Diastolic blood pressure Provider Name and Address Organization Details Last Updated DateTime 12/23/2023 127 mm[Hg] 84 mm[Hg] HEIDI CARTER PA - [facility] 12/23/2023 11:32:39 Date Recorded Systolic blood pressure Diastolic blood pressure Provider Name and Address Organization Details Last Updated DateTime 04/22/2024 149 mm[Hg] 92 mm[Hg] Leann Chopra PA - [facility] 04/22/2024 11:42:07 Social History Question Answer Notes LastModified by Organizat ion Details LastModified Time Tobacco Smoking Status Never Smoker HEIDI CARTER null, PA - [facility] 12/23/2023 11:30:40 What Is Your Level Of Alcohol Consumption? None [email or web address] Information not available 12/23/2023 Are You Currently Employed? Yes Information not available 04/22/2024 Have You Had A Flu Shot This Season? Yes Information not available 04/22/2024 If No, Would You Like A Flu Shot Today? No Information not available 04/22/2024 What Is Your Relationship Status? Single Information not available 04/22/2024 Do You Use Any Illicit Or Recreational Drugs? No [email or web address] Information not available 12/23/2023 Have You Recently Traveled Abroad? No [email or web address] Information not available 12/23/2023 Are You Currently In School? No Information not available 04/22/2024 Do You Or Have You Ever Used Any Other Forms Of Tobacco Or Nicotine? No [email or web address] Information not available 12/23/2023 Sex: Unknown Functional Status None recorded. Mental Status None recorded. Family History Relationship Description Onset Age of this Age Resolved Age Notes LastModified by Organization Details LastModified Time Father No current problems or disability [email or web address] Not available 12/23 11:30:26 Mother No current problems or disability [email or web address] Not available 12/23 11:30:26 Medical History No medical history recorded. Gynecological History Statement/Question Response Date of LMP Is there any chance of ? No LMP N/A Obstetrics History GPAL:G 0 P 0 0 0 0 Past Encounters Encounter ID Performer Location Encounter Start Date Encounter Closed Date Diagnosis/Indication Diagnosis SNOMED-CT Code Diagnosis ICD10 Code Diagnosis Note [id number] [address] [address] 12/15/2017 16:35:58 12/15/2017 18:14:31 [id number] [address] [address] 08/14/2021 08:39:23 08/14/2021 10:52:38 [id number] [place] [address] [facility] [address] [place] [address] 12/23/2023 10:41:25 12/23/2023 12:05:27 Sore throat 623372070 J02.9 Streptococ sarai sore throat 73976129 J02.0 [id number] [place] [address] [address] 04/22/2024 11:22:03 04/22/2024 12:18:05 Acute low back pain 112498105 M54.50 The following are my recommenda tions to help with your symptoms:1 . Heating pad to the back of the back2. Stretch your back and hip regularly3 . Try to sleep in flat position to not aggravate your back .4. It is ok to Take Tylenol and ibuprofen with what I gave you5. I advise applying some topical Aspircream I would give this a 1-2 weeks to start to improve. If at this time you still aren't feeling better. I would suggest a follow up visit. Please go immediatel y to the Emergency room if you develop any:1. Shortness of breath2. Coughing up blood3. Significan t chest pain4. or Dizziness. light headedness Thank you for using [facility] - please don't hesistate to call our office if you have any questions or concerns. Health Concerns Section Related Observation LastModified by Organization Detai ls LastModified Time None Recorded Concern Status LastModified by Organization Details LastModified Time None Recorded Advance Directives Directive None Recorded Payers Encounter Date Sequence Insurance Name Policy Number Policy Xavier Covered Member ID Xavier Member ID Guarantor Name 08/14/[address] [facility] [employer] - TOGETHER WITH [employer] (MEDICAID REPLACEMENT - HMO) [id number] Sade Perales Annitain [id number] 1 Sade Lutz 12/23/[address] [facility] [employer] - TOGETHER WITH [employer] (MEDICAID REPLACEMENT - HMO) [id number] Sade Perales Coffin [id number] 1 Sade Lutz 04/22/[address] [facility] [employer] - TOGETHER (MEDICAID HMO) [id number] Sade Arizain [id number] 1 Sade Lutz Notes Date Note Type Note Provider Name and Address Organization Details Recorded Time 12/23/2023 text/html Sinus Complaints UCReported bypatient.Location: sinus pain;facial pain;sinus pressure; 63-year-old female presented with nasal congestion, postnasal drip. Stating now she develop sore throat feels like burning in her throat and coughing a lot. Also have pain with swallowing. Denies any fever fever chills denies any shortness of breath or respiratory distress. Denies any nausea, vomiting or diarrhea. Denies any chest pain or palpitations. Patient further explaining she used to get strep throat a lot and due to her burning in her throat she is really hurting and have some exudate on her tonsils also. Associated Symptoms:no fever; no nausea or vomiting; no ear fullness; no nasal itching; no eye itching; no dizziness;nasal discharge from nostrils;difficulty breathing;headache forehead;sore throat;Post nasal drip;nasal passage blockage;cough Onset/Timing:worse in am; worse in pm Quality:minimal discomfort;worsenin g; clear;purulent Duration:constant Severity:moderate Context:no recent sick contacts; not worse with seasonal allergen exposure;recent upper respiratory infection;worse with environmental exposure Risk Factors:no current smoking or tobacco use; no history of nasal trauma Alleviating factors:antibiotics Aggravating factors:worse during an upper respiratory infection (a cold); worse with excess fatigue Prior Treatmentoral decongestant Maxwell Gonzalez NP [address], [address], [employer] 12/23/2023 11:58:33 04/22/2024 text/html Lower BackReport ed bypatient.Location: bilateral; posterior Quality:aching; gnawing; throbbing Severity:moderate Duration:1 weeks Timing:acute; abrupt Context:overuse Alleviating Factors:nothing helps Aggravating Factors:sitting; standing; walking; twisting; bending/squatting; ROM Associated Symptoms:radiation down leg Previous Surgery:none Prior Imaging:none Previous PT:did not help Work Related:no Presents with low back pain onset 1 week ago . 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 Denies trauma or prior similar pain. Denies any changes in bowel and bladder. Nereida Cardona NP [address], [address], [employer] [facility] 04/22/2024 14:51:06 OBGyn Episode No OBEpisode recorded.
[2024-12-02 08:00] VITALS: BMI 47.1
--- NOTE | 2024-12-02 08:11 | MHC.SHP ---
Pre-Procedural Eval Section A - 24 Hr Update-Section A only Date of Service: 12/02/24 The patient is an INPATIENT: No The patient has been examined within 24 hours of the surgical procedure. The History & Physical has been completed within 30 days and I have reviewed it.: No Section B - Complete if H&P > 30 days Chief Complaint: Surveillance for colon polyps Relevant Family History (Specify if Yes): Yes Relevant Social History: None Present Medications: see Short Stay Collaborative assessment Medical History: Significant History (Type 2 diabetes mellitus with hyperglycemia Menopausal and postmenopausal disorder History of ankle fracture Screening for osteoporosis Eating disorder with ongoing treatment Dizziness Low serum potassium Fungal rash of torso Seasonal allergies Anxiety with depression) History of Previous Operations: Relevant previous surgery/procedure and date(s) (S/P LALITA-BSO (total abdominal hysterectomy and bilateral salpingo-oophorectomy) Bilateral carpal tunnel syndrome 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 H/O ventral hernia repair History of cholecystectomy Gastric banding status) Allergies: Allergies Allergy/AdvReac Type Severity Reaction Status Date / Time dexamethasone Allergy Severe Dizziness Verified 12/02/24 07:58 midazolam Allergy Severe Dizziness Verified 12/02/24 07:58 diazepam [Valium] Allergy Unknown Hypertensio Verified 12/02/24 07:58 n escitalopram [Lexapro] Allergy Unknown Rash Verified 12/02/24 07:58 lisinopril Allergy Unknown Difficulty Verified 12/02/24 07:58 Swallowing oxcarbazepine [Trileptal] Allergy Unknown Hives Verified 12/02/24 07:58 oxycodone [Percocet] Allergy Unknown Hives Verified 12/02/24 07:58 rosuvastatin [Crestor] Allergy Unknown Eye Verified 12/02/24 07:58 Swelling losartan AdvReac Intermediate not sure Verified 12/02/24 07:58 heparin AdvReac Mild Rash Verified 12/02/24 07:58 gabapentin AdvReac Muscle Pain Verified 12/02/24 07:58 Review of Systems Sugical H&P ROS: Negative: Constitution, Cardiovascular, Respiratory and Gastrointestinal Exam Surgical H&P Exam: Normal: Heart, Normal: Lungs, Normal: Extremities and Normal: Abdomen Plan Diagnosis/Plan: Unchanged I have reviewed the history and physical and performed a pertinent physical examination on my patient. No changes have occurred unless specified. Time Spent With Patient Time: Total time managing care of this patient today ____ minutes.
[2024-12-02 08:19] VITALS: BP 164/98; PULSE 77; RESP 16; TEMP 36; O2SAT 95
[2024-12-02] MEDS: Lactated Ringers 1,000 ML 100 ML IVCONT (08:33)
--- NOTE | 2024-12-02 09:20 | P.OPN-COLO_ITS ---
Colonoscopy Operative Note Operative Note Date of Service: 12/02/24 Narrative: COLONOSCOPY TILL CECUM WITH SNARE POLYPECTOMY Pre-op diagnosis: Surveillance for colon polyps. Post-op diagnosis:? Colon polyp, Diverticulosis, hemorrhoids Endoscopist:? Ge Camacho MD Anesthesia:?MAC Consent: Indications for the procedure and potential complications of bleeding, perforation, reaction to medications and missed diagnosis were discussed with the patient and informed consent was obtained. Instrument: Olympus PCF H 190 L variable stiffness pediatric colonoscope Monitoring: Vital signs and clinical assessment, intermittent blood pressure monitoring, continuous EKG monitoring, Pulse oximetry and Carbon Dioxide monitoring were done throughout the procedure. Please see anesthesia flowsheet. Colon withdrawl time was 22 minutes. Procedure: The patient was placed in the left lateral decubitis position and pre-procedure medications were administered. After a digital rectal examination of the ano-rectum, the video colonoscope was inserted into the rectum and advanced through the colon to the cecum. The colonoscope was slowly withdrawn in a retrograde panoramic fashion and the colon mucosa was carefully examined including a retroflexed view of the rectum. Findings and interventions are described below. Procedure Difficulty: Colon was long and tortuous and there was recurrent loop formation Findings: Terminal Ileum: Not evaluated Cecum: A 4-5 mm sessile polyp adjacent to the appendical orifice - removed with a cold snare. Ascending Colon: Moderate diverticulosis throughout the entire colon Transverse Colon: Moderate diverticulosis throughout the entire colon Descending Colon: Moderate diverticulosis throughout the entire colon Sigmoid Colon: Severe diverticulosis with luminal narrowing Rectum: Normal Ano-rectum: Moderate internal hemorrhoids Colon preparation: Good after copious irrigation. [place] Bowel Preparation Scale Right colon; 2 Transverse colon: 2 Left colon; 2 (0 = Unprepared colon segment with mucosa not seen due to solid stool that cannot be cleared. 1 = Portion of mucosa of the colon segment seen, but other areas of the colon segment not well seen due to staining, residual stool and/or opaque liquid. 2 = Minor amount of residual staining, small fragments of stool and/or opaque liquid, but mucosa of colon segment seen well. 3 = Entire mucosa of colon segment seen well with no residual staining, small fragments of stool or opaque liquid) Impression and Post Procedure Diagnosis: Colonoscopy Findings: One small polyp was removed Moderate to severe diverticulosis seen in the entire colon Moderate hemorrhoids on retroflexed exam. Plan: I will send a letter with biopsy results. Repeat Colonoscopy in 5 years if polyps are adenomatous and due to a history of adenomatous colon polyp Above findings were reviewed with the patient and relevant handouts were given and the discharge area.
[2024-12-02 09:22] VITALS: BP 117/70; PULSE 68; RESP 15; TEMP 36.2; O2SAT 96
[2024-12-02 09:37] VITALS: BP 128/70; PULSE 66; RESP 16; O2SAT 95
[2024-12-02 09:48] VITALS: BP 129/73; PULSE 70; RESP 18; TEMP 36.3; O2SAT 96
== END 2024-12-02 10:13 | disposition home or self-care (01) ==
PROVIDERS: PCP Internal Medicine; Visit Provider Internal Medicine Gastroenterology
PROC: 0DJD8ZZ Inspection of Lower Intestinal Tract, Via Natural or Artificial Opening Endoscopic (ICD-10-PCS; CPT 45378; principal; 2024-12-02 08:30)
DX: Z12.11 Encounter for screening for malignant neoplasm of colon (principal); Z86.0101 Personal history of adenomatous and serrated colon polyps; Z80.0 Family history of malignant neoplasm of digestive organs; D12.0 Benign neoplasm of cecum; K57.30 Diverticulosis of large intestine without perforation or abscess without bleeding; K64.8 Other hemorrhoids; I10 Essential (primary) hypertension; E11.65 Type 2 diabetes mellitus with hyperglycemia; E78.00 Pure hypercholesterolemia, unspecified; F41.8 Other specified anxiety disorders; G47.33 Obstructive sleep apnea (adult) (pediatric); E66.01 Morbid (severe) obesity due to excess calories; Z68.42 Body mass index [BMI] 45.0-49.9, adult; Z79.899 Other long term (current) drug therapy; Z99.89 Dependence on other enabling machines and devices; Z88.5 Allergy status to narcotic agent; Z88.8 Allergy status to other drugs, medicaments and biological substances; Z98.84 Bariatric surgery status; Z90.49 Acquired absence of other specified parts of digestive tract; Z98.890 Other specified postprocedural states
CPT/HCPCS: 45385; 36415; 80053; 80061; 81001; 83036; 84443; 86481; 86735; 86762; 86765; 86787; 88305; J2003; J2704

== ENCOUNTER → 2024-12-02 07:32 | Outpatient (BNV) | payer MEDICARE, MEDICAID, SELFPAY | PROVIDERS: PCP Internal Medicine; Visit Provider Internal Medicine Gastroenterology | DX: Z12.11 Encounter for screening for malignant neoplasm of colon (principal); Z86.0100 Personal history of colon polyps, unspecified; D12.0 Benign neoplasm of cecum; K57.90 Diverticulosis of intestine, part unspecified, without perforation or abscess without bleeding | CPT/HCPCS: 45385 ==

== ENCOUNTER 2024-12-02 07:50 | Outpatient (REF) | payer MEDICARE, MEDICAID, SELFPAY ==
--- OUTSIDE RECORDS SUMMARY | 2024-12-02 07:54 | XMS_ITS | Encounter Summary ---
Author Organization [facility] Address [address] [place] [address] Care Team Providers Care Associate Professor Of Chemistry Name Role Phone Kevin Gibson MD Primary Care Provider Unavail able Encounter Details Date Type Department Care Team Description 08/19/2016 Release of Information Medical Records [address] [place] [address] Abstract, Provider Social History Tobacco Use Types Packs/Day Years Used Date Smoking Tobacco: Never Alcohol Use Standard Drinks/Week Comments Not Asked 0 (1 standard drink = 0.6 oz pur e alcohol) Sex Assigned at Date Recorded Not on file documented as of this encounter Plan of Treatment Not on file documented as of this encounter Visit Diagnoses Not on filedocumented in this encounter Care Teams Associate Professor Of Chemistry Relationship Specialty Start Date End Date Kevin Gibson MD PCP - General Internal Medicine 07/13/16 documented as of this encounter
--- OUTSIDE RECORDS SUMMARY | 2024-12-02 07:54 | XMS_ITS | Encounter Summary ---
Author Organization [facility] Address [address] [place] [address] Care Team Providers Care Sheet Rocker Name Role Phone Kevin Gibson MD Primary Care Provider Unavail able Encounter Details Date Type Department Care Team Description 12/12/2018 Shoe Repairman Report Medical Records [address] [place] [address] Phillip Hogan MD [address] [place] [address] for Breast [place] [address] Social History Tobacco Use Types Packs/Day Years Used Date Smoking Tobacco: Never Smokeless Tobacco: Never Alcohol Use Standard Drinks/Week Comments Not Asked 0 (1 standard drink = 0.6 oz pur e alcohol) Sex Assigned at Date Recorded Not on file documented as of this encounter Plan of Treatment Not on file documented as of this encounter Visit Diagnoses Not on filedocumented in this encounter Care Teams Sheet Rocker Relationship Specialty Start Date End Date Kevin Gibson MD PCP - General Internal Medicine 07/13/16 documented as of this encounter
--- OUTSIDE RECORDS SUMMARY | 2024-12-02 07:54 | XMS_ITS | Encounter Summary ---
Author Organization [facility] Address [address] [place] [address] Care Team Providers Care Animal Science Instructor Name Role Phone Kevin Gibson MD Primary Care Provider Unavail able Reason for Visit * Reason Onset Date Comments Medical Records 09/08/2020 Encounter Details Date Type Department Care Team Description 09/08/2020 Telephone [facility] - [facility] [address] [place] [address] Marcy Walsh MD [address] [place] [id number] Medical Records Social History Tobacco Use Types Packs/Day Years Used Date Smoking Tobacco: Never Smokeless Tobacco: Never Alcohol Use Standard Drinks/Week Comments No 0 (1 standard drink = 0.6 oz pur e alcohol) Sex Assigned at Date Recorded Not on file documented as of this encounter Miscellaneous Notes * Telephone Encounter - Dorcas Walton - 09/08/2020 9:51 AM EST Pt sent randa at home address for surgical notes etc- pt aware her appt is w/Dr Patel at [facility] documented in this encounter Plan of Treatment Not on file documented as of this encounter Visit Diagnoses Not on filedocumented in this encounter Care Teams Animal Science Instructor Relationship Specialty Start Date End Date Kevin Gibson MD PCP - General Internal Medicine 07/13/16 documented as of this encounter
[2024-12-02 08:52] LABS: Appearance Urine Clear; Color Urine Dark Yellow; Glucose Urine UA Negative (Negative); Leukocyte Esterase Urine Small (1+) (Negative); Nitrite Urine Negative (Negative); PH 5.5 (5.0-9.0); UMIC TRIGGER UA YES; Urine Blood Negative (Negative); Urine Ketones Negative (Negative); Urine Protein Trace mg/dL (Neg-Trace)
[2024-12-02 08:56] LABS: Estimated Average Glucose 137 mg/dL; Hemoglobin A1c % 6.4 % (<6.0)
[2024-12-02 09:06] LABS: Bacteria Urine Trace (None Seen); RBC Urine 0-2 /HPF (0-2); WBC Urine 0-5 /HPF (0-5)
[2024-12-02 10:06] LABS: Alanine Aminotransferase 46 U/L (0-31); Albumin Level 4.3 g/dL (3.5-5.0); Alkaline Phosphatase 62 U/L (39-117); Anion Gap 13 (12-20); Aspartate Amino Transferase 44 U/L (5-31); Bilirubin Total 0.6 mg/dL (0.0-1.0); Blood Urea Nitrogen 14 mg/dL (9-16); Calcium 9.4 mg/dL (8.4-10.2); Carbon Dioxide 27 mmol/L (22-29); Chloride 105 mmol/L (96-108); Cholesterol 252 mg/dL (<200); Estimated Glomerular Filt Rate 59; Glucose Random 129 mg/dL (60-115); HDL Cholesterol 45 mg/dL (>40); LDL Cholesterol Calculated 134 mg/dL (<100); Potassium 3.6 mmol/L (3.3-5.1); Sodium 141 mmol/L (135-145); Total Protein 7.6 g/dL (6.5-8.0); Triglycerides 369 mg/dL (<150)
[2024-12-02 10:07] LABS: Thyroid Stimulating Hormone 3.01 uIU/mL (0.32-4.0)
[2024-12-03 09:39] LABS: Mumps Virus IgG Antibody >300.00 AU/mL
[2024-12-03 13:13] LABS: Rubella IgG Antibody 3.85 Index
[2024-12-05 11:53] LABS: TS Negative Control Passed; TS Panel A 0; TS Panel B 0; TS Positive Control Passed; TSpotTB Negative (Negative)
== END 2024-12-02 07:51 | disposition home or self-care (01) ==
LOC: HO.LAB 07:50
PROVIDERS: PCP Internal Medicine; Visit Provider Internal Medicine
DX: Z13.89 Encounter for screening for other disorder (principal)
CPT/HCPCS: 36415; 80053; 80061; 81001; 83036; 84443; 86481; 86735; 86762; 86765; 86787

== ENCOUNTER → 2024-12-04 08:36 | Outpatient (BNVA) | payer MEDICARE, MEDICAID, SELFPAY | PROVIDERS: PCP Internal Medicine; Visit Provider Internal Medicine | DX: E11.65 Type 2 diabetes mellitus with hyperglycemia (principal); E66.01 Morbid (severe) obesity due to excess calories; E78.00 Pure hypercholesterolemia, unspecified; G47.30 Sleep apnea, unspecified; I10 Essential (primary) hypertension; F41.1 Generalized anxiety disorder; Z98.84 Bariatric surgery status | CPT/HCPCS: 99212 ==

== ENCOUNTER 2024-12-16 10:34 | Outpatient (AMB) | payer MEDICARE, MEDICAID, SELFPAY ==
--- NOTE | 2024-12-16 10:39 | MHC.AMNUTRGE ---
VS Expanded 12/16/24 10:40 Height 5 ft 0.5 in Weight 251 lb 12.286 oz BMI 48.4 Intake Visit Reasons: T2DM/Confirmed Allergies dexamethasone Allergy (Severe, Verified 12/04/24 08:48) Dizziness midazolam Allergy (Severe, Verified 12/04/24 08:48) Dizziness diazepam [Valium] Allergy (Unknown, Verified 12/04/24 08:48) Hypertension escitalopram [Lexapro] Allergy (Unknown, Verified 12/04/24 08:48) Rash lisinopril Allergy (Unknown, Verified 12/04/24 08:48) Difficulty Swallowing oxcarbazepine [Trileptal] Allergy (Unknown, Verified 12/04/24 08:48) Hives oxycodone [Percocet] Allergy (Unknown, Verified 12/04/24 08:48) Hives rosuvastatin [Crestor] Allergy (Unknown, Verified 12/04/24 08:48) Eye Swelling losartan Adverse Reaction (Intermediate, Verified 12/04/24 08:48) not sure heparin Adverse Reaction (Mild, Verified 12/04/24 08:48) Rash gabapentin Adverse Reaction (Verified 12/04/24 08:48) Muscle Pain Nutrition Presentation Details: Pt presents for MNT for Type 2 DM with hyperglycemia Pt reports having had gastric bypass surgery in 2020, takes bariatric fusion MVI -takes 2 tabs twice/day Fluid: 16-24 oz/day , low sugar beverages Has meal replacements, reports having participated in multiple diet programs in the past Pt reports keeping sedentary food frequency fruits: 0-1/d vex/wk starches > 25 dairy: 1/d protein : bars/shakes 2-3/day +, 4-6 oz poultry/day eoth/smoking - denies BS Monitoring Most Recent Diabetes Results: Cholesterol 252 mg/dL (<200) H 12/02/24 HDL Cholesterol 45 mg/dL (>40) 12/02/24 Triglycerides 369 mg/dL (<150) H 12/02/24 Creatinine 0.95 mg/dL (0.5-1.4) 12/02/24 Blood Urea Nitrogen 14 mg/dL (9-16) 12/02/24 Sodium 141 mmol/L (135-145) 12/02/24 Potassium 3.6 mmol/L (3.3-5.1) 12/02/24 Chloride 105 mmol/L (96-108) 12/02/24 Carbon Dioxide 27 mmol/L (22-29) 12/02/24 Calcium 9.4 mg/dL (8.4-10.2) 12/02/24 AST 44 U/L (5-31) H 12/02/24 ALT 46 U/L (0-31) H 12/02/24 Total Protein 7.6 g/dL (6.5-8.0) 12/02/24 Albumin 4.3 g/dL (3.5-5.0) 12/02/24 OLA-Hdmzrds-Lw.Jeor Equation Height: 5 ft 0.5 in Weight: 252 lb Resting Metabolic Rate: 1621.55 Calculated Activity Level: Sedentary Calories Needed to Maintain Weight: 1945.86 Diagnosis Nutrition problem #1: excessive energy intake As related to (etiology) #1: diagnosis and physical inactivity As evidenced by (sign/symptom) #1: high BMI (and T2DM) Monitoring/Goals Nutrition problem monitoring: glucose, fasting and weight Outcome progress: verbalized understanding Learning/Education Readiness to learn: good Stages of change: preparation Educational materials provided: Yes (healthy plate method ) [facility] Medical History (Updated 12/16/24 @ 14:15 by Yuridia El, RD, LDN) Impaired glucose tolerance Type 2 diabetes mellitus with hyperglycemia Breast cancer screening by mammogram Colon cancer screening Menopausal and postmenopausal disorder History of ankle fracture Screening for osteoporosis Eating disorder with ongoing treatment Dizziness Low serum potassium Fungal rash of torso Seasonal allergies Anxiety with depression Restless leg syndrome Diabetes mellitus TMJ (dislocation of temporomandibular joint) Periodic limb movements of sleep Obstructive sleep apnea Morbid obesity Hypertension Hypercholesterolemia Heart murmur Depression Anxiety Surgical History S/P LALITA-BSO (total abdominal hysterectomy and bilateral salpingo-oophorectomy) Bilateral carpal tunnel syndrome 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 H/O ventral hernia repair History of cholecystectomy Gastric banding status Family History Mother Cancer of colon Hyperlipidemia Father CAD (coronary artery disease) Heart attack Paternal Uncle Heart attack Social History (Reviewed 07/12/24 @ 12:59 by DIMPLE Garcia Housing: House Alcohol intake: current Comment: once drink Q 3 months Patient Tobacco Use Status: Never used Tobacco Tobacco use type: Cigarette e-Cigarette/Vaping Use: Never Used Second Hand Smoke Exposure: No service: No Current occupational status: employed Cognitive needs: No Hearing needs: No Vision needs: Yes Assessment & Plan Assessment & Plan (1) Type 2 diabetes mellitus with hyperglycemia: Code(s): E11.65 - Type 2 diabetes mellitus with hyperglycemia Category: Medical Plan: Wt: 114 Kg (12/31 ) Est kcal needs as per MSJ: 2000 (40% carb, 30% protein/fat) Est fluid needs as per 25-30 ml/d:3426 Est prot per day as per 1 g/kg bw: 114 Recommend fiber intake : 8-10 g per day and gradually increase to 25-28 g per day for women and 35-38 g for men or as tolerated Recommend sodium intake per day : less than 2300 mg Educated patient on: ( R = reviewed V = verbalizes understanding N/R = needs review N/A = not applicable Food sources of carbohydrate, adequate serving sizes and its role in various health conditions: R Differences between complex carbohydrates a simple carbohydrates, role of fiber in diet: R V N/R Lean protein sources of foods: R Differences between types of fats and role in diet (mono on saturated fat fatty acids, saturated fatty acids, trans fats): R V N/R Food sources of sodium in salt and healthy modifications for heart health in kidney health: R V R/V Vitamins and minerals: R V N/R Healthy plate method concept: R V N/R Physical activity: Benefits a precaution: R Hypoglycemia protocol (rule of 15): R V N/R Dietary prevention of Hyperglycemia: R Patient Instructions: Engage in movement , start with 10 minutes and gradually increase to 30 minutes 3 times a week Drink water with meals Follow mindful eating Coding Level of Care Code Nutr Indiv Intake (10389) Diagnoses Type 2 diabetes mellitus with hyperglycemia E11.65 Time Spent (min) 30
[2024-12-16 10:40] VITALS: BMI 48.4
[2024-12-16 14:17] VITALS: BMI 48.4
== END 2024-12-16 11:17 | disposition home or self-care (01) ==
PROVIDERS: PCP Internal Medicine; Visit Provider Dietitian, Registered
DX: E11.65 Type 2 diabetes mellitus with hyperglycemia (principal)

== ENCOUNTER → 2024-12-16 10:34 | Outpatient (BNVA) | payer MEDICARE, MEDICAID, SELFPAY | PROVIDERS: PCP Internal Medicine; Visit Provider Dietitian, Registered | DX: E11.65 Type 2 diabetes mellitus with hyperglycemia (principal) | CPT/HCPCS: 97802 ==

== ENCOUNTER 2025-01-02 09:39 | Outpatient (AMB) | payer MEDICARE, MEDICAID, SELFPAY ==
[2025-01-02 09:50] VITALS: BP 152/90; PULSE 72; O2SAT 96; BMI 47.1
--- NOTE | 2025-01-02 09:50 | A.OFFPC_ITS ---
Vital Signs 01/02/25 09:50 Height 5 ft 0.5 in Weight 245 lb BMI 47.1 BP 152/90 H Blood Pressure Location Lt brachial Position Sitting Pulse 72 Pulse Source Pulse Oximeter Pulse Oximetry (%) 96 Oxygen Delivery Method Room Air Intake Visit Reasons: Cardio referral Intake Note: Patient states she is taking metoprolol not amlodipine but does not know the dose. Allergies dexamethasone Allergy (Severe, Verified 01/02/25 09:51) Dizziness midazolam Allergy (Severe, Verified 01/02/25 09:51) Dizziness enoxaparin [From Lovenox] Allergy (Intermediate, Verified 01/02/25 10:21) Rash diazepam [Valium] Allergy (Unknown, Verified 01/02/25 09:51) Hypertension escitalopram [Lexapro] Allergy (Unknown, Verified 01/02/25 09:51) Rash lisinopril Allergy (Unknown, Verified 01/02/25 09:51) Difficulty Swallowing oxcarbazepine [Trileptal] Allergy (Unknown, Verified 01/02/25 09:51) Hives oxycodone [Percocet] Allergy (Unknown, Verified 01/02/25 09:51) Hives rosuvastatin [Crestor] Allergy (Unknown, Verified 01/02/25 09:51) Eye Swelling losartan Adverse Reaction (Intermediate, Verified 01/02/25 09:51) not sure metoprolol Adverse Reaction (Intermediate, Verified 01/02/25 09:51) leg pain gabapentin Adverse Reaction (Verified 01/02/25 09:51) Muscle Pain Medication List - Last Reconciled 01/02/25 by Kuldip Prakash MD [Bariatric fusion 2 caps PO BID] [Bariatric Fusion ] blood sugar diagnostic (FreeStyle Lite Strips) As directed bupropion HCl XL 150 mg PO QAM 90 days CPAP (CPAP Machine/Device) As directed fenofibrate 160 mg PO DAILY fluoxetine 40 mg PO DAILY 90 days fondaparinux 10 mg subcut DAILY pramipexole 0.125 mg PO BEDTIME 90 days warfarin 5 mg PO .QD Tobacco use date assessed: 12/04/24 Fall risk assessment: No Falls in past year Last assessed Fall Risk: 01/02/25 Dental Screening Dental Screen Date: 12/04/24 Did you have a dental visit in the last 12 months?: Yes Did you have a dental problem in the last 6 months where you did not have access to dental care?: No Was dental information given to patient?: Patient has dentist [facility] Medical History (Updated 01/02/25 @ 09:57 by Kuldip Prakash MD) Impaired glucose tolerance Type 2 diabetes mellitus with hyperglycemia Breast cancer screening by mammogram Colon cancer screening Menopausal and postmenopausal disorder History of ankle fracture Screening for osteoporosis Eating disorder with ongoing treatment Dizziness Low serum potassium Fungal rash of torso Seasonal allergies Anxiety with depression Restless leg syndrome Diabetes mellitus TMJ (dislocation of temporomandibular joint) Periodic limb movements of sleep Obstructive sleep apnea Morbid obesity Hypertension Hypercholesterolemia Heart murmur Depression Anxiety Surgical History S/P LALITA-BSO (total abdominal hysterectomy and bilateral salpingo-oophorectomy) Bilateral carpal tunnel syndrome 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 H/O ventral hernia repair History of cholecystectomy Gastric banding status Family History Mother Cancer of colon Hyperlipidemia Father CAD (coronary artery disease) Heart attack Paternal Uncle Heart attack Social History Housing: House Alcohol intake: current Comment: once drink Q 3 months Patient Tobacco Use Status: Never used Tobacco Tobacco use type: Cigarette e-Cigarette/Vaping Use: Never Used Second Hand Smoke Exposure: No service: No Current occupational status: employed Cognitive needs: No Hearing needs: No Vision needs: Yes Questionnaire PHQ-9 Over the last 2 weeks, how often have you been bothered by any of the following problems? 1. Little interest or pleasure in doing things: not at all 2. Feeling down, depressed, or hopeless: not at all 3. Trouble falling or staying asleep, or sleeping too much: not at all 4. Feeling tired or having little energy: not at all 5. Poor appetite or overeating: not at all 6. Feeling bad about yourself - or that you are a failure or have let yourself or your family down: not at all 7. Trouble concentrating on things, such as reading the newspaper or watching television: not at all 8. Moving or speaking so slowly that other people could have noticed. Or the opposite - being so fidgety or restless that you have been moving around a lot more than usual: not at all 9. Thoughts that you would be better off or of hurting yourself in some way: not at all Total score: 0 Depression Screening Interpretation: Negative Depression Screening Done: Yes Source: Developed by Drs. Star Culp, Ambar Witt, Guanako Devine and colleagues, with an educational yarelis from [email or web address]. Thrive Questionnaire Date Thrive assessed: 01/02/25 I am a: Patient What is your living situation today?: I have a steady place to live Within the past 12 months, did the food you bought not last and you didn't have the money to get more?: Never true Within the past 12 months, did you worry whether your food would run out before you got money to buy more?: Never true Do you have trouble paying for medicines?: No Do you have trouble getting transportation to medical appointments?: No Do you have trouble paying your heating and electricity bill?: No Do you have trouble taking care of your child, family member or friend?: No Do you have trouble with day-to-day activities such as bathing, preparing meals, shopping, managing finances, etc.?: No Are you currently unemployed and looking for a job?: No Are you interested in more education?: No Currently or been in a relationship where the following occur: No concerns reported THRIVE Score: 0 AUDIT C Alcohol Use Questionnaire (AUDIT-C) 3. How often do you have six or more drinks on one occasion?: Never Total Score: 0 KUMAR-7 AMB Questionnaire KUMAR-7 Date KUMAR - 7 assessed: 12/04/24 Source: Developed by Drs. Star Culp, Ambar Witt, Guanako Devine and colleagues, with an educational yarelis from [email or web address]. Physical exam (Primary Care) Vital Signs: Last Vital Signs Pulse 72 01/02/25 09:50 BP 152/90 H 01/02/25 09:50 Pulse Ox 96 01/02/25 09:50 Oxygen Delivery Method Room Air 01/02/25 09:50 BMI result Body Mass Index 47.1 Tobacco/Smoking Status: Tobacco use Status Tobacco use date assessed 12/04/24 01/02/25 09:52 Patient Tobacco Use Status Never used Tobacco 01/02/25 09:52 Tobacco use type Cigarette 01/02/25 09:52 e-Cigarette/Vaping Use Never Used 01/02/25 09:52 PHQ-9: PHQ-9 Score PHQ-9: Total score 0 01/02/25 09:59 Depression Screening Interpretation: Negative Thrive Assessment: Date of Thrive Assessment Date Thrive assessed 01/02/25 01/02/25 09:52 Currently or been in a relationship where the following occur: No concerns reported Const General: alert; No acute distress Eyes Conjunctivae: conjunctivae normal Resp Auscultation: clear to auscultation bilaterally Cardio Rate: regular rate Rhythm: regular rhythm GI Inspection: Yes normal to inspection Extrem General: Yes normal to inspection and No edema Coding Level of Care Code Est Pt Level 4 (59896) Complex EM visit Add On G2211 Diagnoses Left leg DVT I82.402 Morbid obesity due to excess calories E66.01 Sleep apnea with use of continuous positive airway pressure (CPAP) G47.30 Hypercholesterolemia E78.00 Hypertension I10 Type 2 diabetes mellitus with hyperglycemia E11.65 History of gastric bypass Z98.84 Generalized anxiety disorder F41.1 Assessment & Plan Assessment & Plan (1) Left leg DVT: Comment: November 2024 Code(s): I82.402 - Acute embolism and thrombosis of unspecified deep veins of left lower extremity Category: Medical Plan: Patient has been started on Coumadin (2) Morbid obesity due to excess calories: Code(s): E66.01 - Morbid (severe) obesity due to excess calories Category: Medical Plan: Diet and exercise (3) Sleep apnea with use of continuous positive airway pressure (CPAP): Code(s): G47.30 - Sleep apnea, unspecified Category: Medical Plan: Continue to use the CPAP more than 4 hours a night and benefits from this (4) Hypercholesterolemia: Code(s): E78.00 - Pure hypercholesterolemia, unspecified Category: Medical Plan: Avoid fried foods, chicken skin, eggs, butter margarine, pastries and meat. Be it pork or beef they have a lot of cholesterol LDL goal of less than 100 and triglyceride of less than 150 on fenofibrate only right now (5) Hypertension: Code(s): I10 - Essential (primary) hypertension Category: Medical Plan: Continue with blood pressure medication. Decrease salt intake and exercise on amlodipine 2.5 mg once a day (6) Type 2 diabetes mellitus with hyperglycemia: Code(s): E11.65 - Type 2 diabetes mellitus with hyperglycemia Category: Medical Plan: Decrease the amount of carbohydrate intake, pasta, bread, rice and potatoes are all sugar and that is aside from all the sweet stuff, remember that fruits are good but they are Sweet also. Hemoglobin A1c goal of less than 6.5. (7) History of gastric bypass: Comment: 2020 Dr. Jerome Arciniega Code(s): Z98.84 - Bariatric surgery status Category: Surgical Plan: Continue to follow-up with bariatric surgeon (8) Generalized anxiety disorder: Comment: Private counselling Code(s): F41.1 - Generalized anxiety disorder Category: Medical Plan: Continue with counseling and therapy Plan History of Present Illness The patient is a 64-year-old female presenting for follow-up on hypertension, hyperlipidemia, and deep vein thrombosis management. She has a significant history of morbid obesity and underwent gastric bypass in 2020. The patient's hypertension was initially being managed with metoprolol, which she switched back to hydrochlorothiazide. She utilizes CPAP therapy for her obstructive sleep apnea and reports compliance. Additionally, the patient's dyslipidemia management includes Onzeria, with target LDL and triglyceride levels set below 100 mg/dL and 150 mg/dL, respectively. Recent reviews showed elevated triglyceride levels at 369 mg/dL, prompting dietary counseling and lifestyle modification recommendations. She engages with a bariatric surgeon for post-surgery management. In November 2024, the patient experienced a left leg deep vein thrombosis, and her treatment involves the use of warfarin, with discussions around bridging anticoagulation therapy for upcoming procedures to ensure continuity of care. Health Maintenance - Dyslipidemia management withfenofibrate aiming for LDL < 100 mg/dL and triglycerides < 150 mg/dL. - Hypertension management with hydrochlorothiazide. - Type 2 Diabetes management aiming for Hgb A1c < 6.5%. - Obesity management continues with post-bariatric surgery follow-up. - Continuous positive airway pressure (CPAP) usage for obstructive sleep apnea. - Advised lifestyle modifications to include regular exercise and dietary changes to improve hyperlipidemia and overall cardiovascular health. - Ongoing dietary counseling with a box office clerk. - Routine surveillance for gastroesophageal complications post-gastric bypass. - Bridging anticoagulation therapy discussed for procedural preparations. Social History - Post-gastric bypass dietary compliance discussed; managing weight post-surgery with box office clerk support. - Reports participation in limited exercise activities; encouraged to increase physical activity. - Dietary modifications advised to manage elevated triglycerides and weight. - Consults with a bariatric surgeon for ongoing weight management and nutritional advice post-gastric bypass. Review of Systems - Cardiovascular: Reports concerns about blood pressure variability. - Endocrine: Denies recent hypoglycemic episodes. - Respiratory: Reports improvement in sleep quality with CPAP use. Physical Exam Results - Lab: Elevated triglycerides at 369 mg/dL; implication for ongoing hyperlipidemia management. - Lab: Peripheral function tests show elevated markers. - Imaging: History of left popliteal nonocclusive cystic thrombus detected. Plan 1. 5%. The patient's CPAP compliance will be monitored regularly, and she will maintain follow-ups with both the bariatric surgeon and box office clerk for effective weight and diet management post-surgery. Anxiety disorder management adjustments will be considered as necessary.: Patient was informed and verbally consented to the use of an ambient scribe for clinic note documentation during this visit. Discussion Notes I discussed with the patient the management options for her hypertension, emphasizing the continuation of hydrochlorothiazide and regular blood pressure checks. For hyperlipidemia, we reviewed the need for adherence to cholesterol- lowering therapy along with dietary changes. Regarding her left leg DVT, the significance of warfarin management and anticoagulation bridging for upcoming procedures were detailed. We discussed diabetic goals, reinforcing the importance of stable glycemic control with an A1c target under 6.5%. The patient was encouraged to continue using CPAP and follow through with her bariatric surgeon's recommendations, while regular consultations with the box office clerk will support her nutritional adjustments. The ongoing aspects of her anxiety disorder were addressed in the context of her comprehensive care. Patient Instructions - Continue taking hydrochlorothiazide as prescribed for blood pressure control. - Maintain adherence to fenofibrate for cholesterol management; avoid fast foods and follow dietary advice. - Use CPAP every night for sleep apnea; aim for at least 4 hours per night. - Continue warfarin therapy; follow guidelines for procedure-related anticoagulation management. - Manage diabetes by keeping up with medication and diet to achieve an A1c below 6.5%. - Engage regularly in physical exercise and follow up with the bariatric surgeon for post-surgery care. - Report any new or worsening symptoms, particularly concerning leg swelling or pain. - Schedule follow-up appointments as advised and attend routine blood work assessments. Orders: Referrals Hematology & Oncology Referral I82.402 - Acute embolism and thrombosis of unspecified deep veins of left lower extremity Medications: New warfarin 5 mg PO .QD 30 tabs 0RF Refilled metoprolol succinate ER 25 mg PO DAILY 90 tabs 1RF I10 - Essential (primary) hypertension fenofibrate 160 mg PO DAILY 90 tabs 2RF E78.00 - Pure hypercholesterolemia, unspecified
--- OUTSIDE RECORDS SUMMARY | 2025-01-02 11:01 | XMS_ITS | Encounter Summary ---
Author Organization [facility] Address [address] [place] [address] Care Team Providers Care Yarding Supervisor Name Role Phone Kevin Gibson MD Primary Care Provider Unavail able Reason for Visit * Reason Onset Date Comments Medical Records 09/08/2020 Encounter Details Date Type Department Care Team Description 09/08/2020 Telephone [employer] [employer] [address] [place] [address] Marcy Walsh MD [address] [place] [id number] Medical Records Social History Tobacco Use Types [...] aware her appt is w/Dr Patel at [facility] documented in this encounter Plan of Treatment Not on file documented as of this encounter Visit Diagnoses Not on filedocumented in this encounter Care Teams Yarding Supervisor Relationship Specialty Start Date End Date Kevin Gibson MD PCP - General Internal Medicine 07/13/16 documented as of this encounter
--- OUTSIDE RECORDS SUMMARY | 2025-01-02 11:01 | XMS_ITS | Encounter Summary ---
Author Organization [facility] Address [address] [place] [address] Care Team Providers Care Hotel Supplies Salesperson Name Role Phone Kevin Gibson MD Primary Care Provider Unavail able Encounter Details Date Type Department Care Team Description 03/07/2019 Supervisor [employer] Report Medical Records [address] [place] [address] Martiniquais, Mindy Social History Tobacco Use Types Packs/Day Years [...] on filedocumented in this encounter Care Teams Hotel Supplies Salesperson Relationship Specialty Start Date End Date Kevin Gibson MD PCP - General Internal Medicine 07/13/16 documented as of this encounter
--- OUTSIDE RECORDS SUMMARY | 2025-01-02 11:02 | XMS_ITS | Encounter Summary ---
Author Organization [facility] Address [address] [place] [address] Care Team Providers Care Waste Management Recycling Technician Name Role Phone Shey Gallardo Unassigned Primary [...] on filedocumented in this encounter Care Teams Waste Management Recycling Technician Relationship Specialty Start Date End Date Shey Gallardossabiodun PCP - General Family Medicine 03/06/23 documented as of this encounter
--- OUTSIDE RECORDS SUMMARY | 2025-01-02 11:02 | XMS_ITS | Data Portability ---
Author Organization [facility], [address] Address [address] [place] [address] Care Team Providers Care Shirrer Name Role Phone TUSHAR DALLAS Sampler And Test Preparer [phone] Assessment No assessment recorded. Plan of Treatment Reminders Order Date Submit Date Provider Last Modified By Organization Details Last Modified Time Details Appointments None recorded. Lab rapid strep group A, throat 2023 024 [email or web address] [facility], [address] [place] [address], [id number], 4 11:57:45 Referral physical therapist referral - Low back pain from driving a lot . no trauma. pain is spastic and affects ambulation. 2023 024 [email or web address] [facility] - [address], [address], [place], [address], 4 15:52:40 Procedures None recorded. Surgeries None recorded. Imaging None recorded. Medication Orders Voltaren Arthritis Pain 1 % topical gel 2023 [id number], [address] [place], [place], [id number], 4 12:10:19 amoxicillin 875 mg tablet 2023 024 [id number], [address], [place], [id number], 4 11:43:53 Patient TargetsNo targets recorded. Patient Instructions Encounter Date Encounter Id Patient Instructions Last Modified By Organization Details Last Modified Time 12/23/2023 [id number] Acute Sinusitis: Care Instructions [email or web address] Not available [...] undesirable side effects. Probiotics can be purchased [id number] at your pharmacy in the form of [...] ve Not Available [id number] [place], [address], 12/23/2023 11:54:21 12/23/19 24 12/23/2023 rapid strep group A, throa t Unknown Analyte yes Not Available 2099Yolanda villareal [facility] [address] [place], [address], 12/23/2023 11:54:21 Result Notes None recorded. Problems Name Problem SNOMED Code Status Onset Date Resolution Date Notes Provider Name and Address Organization Details Recorded Time Hypertensive disorder 76156141 Active 2023 HEIDI LOPEZICA null, [place] - [facility] 4 11:30:07 Sore throat 090524675 Active 2023 HEIDI LUPICA null, PA - [facility] 4 11:54:29 Acute low back pain 045198290 Active 2023 Nereida Cardona NP [address] [place] [place], [address] , [place] - [facility] 4 12:03:02 [...] Name and Address Organization Details Recorded Time 957712 Valium medicatio n other Not available Not available 12/23/2023 88708 2 RxNorm HEIDI LUPICA null, PA - [facility] 4 11:26:11 802631 Crestor medicatio n myalgias (muscle pain) Not available Not available 12/23/2023 08238 4 RxNorm HEIDI LUPICA null, PA - [facility] 4 11:26:22 986574 acetamino phen / oxycodone medicatio n itching Not available Not available 12/23/2023 81455 3 RxNorm HEIDI LUPICA null, PA - [facility] 4 11:26:32 446545 lisinopri l medicatio n other Not available Not available 12/23/2023 94214 RxNorm chachol e viskallie n HEIDI CARTER null, PA - [facility] 4 11:27:00 216267 Lexapro medicatio n rash Not available Not available 12/23/2023 00573 1 RxNorm HEIDI CARTER null, PA - [facility] 4 11:27:09 672985 Trileptal medicatio n other Not available Not available 12/23/2023 66430 0 RxNorm chachol viviane cunningham n HEIDI CARTER null, PA - [facility] 4 11:27:26 117951 heparin medicatio n rash Not available Not available 12/23/2023 5224 RxNorm HEIDI CARTER null, PA - [facility] 4 11:27:37 336878 gabapenti n medicatio n myalgias (muscle pain) Not available Not available 12/23/2023 21369 RxNorm HEIDI CARTER null, [facility] - [facility] [...] Avai lable Vitals Date Recorded Body height Body mass index (BMI) Body weight Pain severity - 0-10 verbal numeric rating [Score] - Reported Respiratory rate Body temperature Oxygen saturation Oxygen saturation in Arterial blood by Pulse oximetry Heart rate Systolic blood pressure Diastolic blood pressure Provider Name and Address Organization Details Last Updated DateTime 4 154.94 cm 46.3 kg/m2 277972. 13 g 6 18 /min 97.7 [degF] 96 % 96 % 99 /min 127 mm[Hg] 84 mm[Hg] HEIDI CARTER PA - [facility] 4 11:32:39 Date Recorded Body height Body mass index (BMI) Body weight Oxygen saturation Oxygen saturation in Arterial blood by Pulse oximetry Pain severity - 0-10 verbal numeric rating [Score] - Reported Heart rate Respiratory rate Body temperature Systolic blood pressure Diastolic blood pressure Provider Name and Address Organization Details Last Updated DateTime 4 154.94 cm 46.3 kg/m2 279968. 13 g 96 % 96 % 10 78 /min 18 /min 98.3 [degF] 149 mm[Hg] 92 mm[Hg] Leann Chopra [place] - [facility] 4 11:42:07 Social History Question Answer Notes LastModified by [employer] ion Details LastModified Time Tobacco Smoking Status Never Smoker HEIDI valencia [place] - [facility] 12/23/2023 11:30:40 What Is Your Level Of Alcohol Consumption? None [email or web address] Information not available 12/23/2023 Are You Currently Employed? Yes Information not available 04/22/2024 Have You Had A Flu Shot This Season? Yes Information not available 04/22/2024 If No, Would You Like A Flu Shot Today? No Information not available 04/22/2024 What Is Your Relationship Status? Single Information not available 04/22/2024 Do You Use Any Illicit Or Recreational Drugs? No Information not available 12/23/2023 Have You Recently Traveled Abroad? No [email or web address] Information not available 12/23/2023 Are You Currently In School? No Information not available 04/22/2024 Do You Or Have You Ever Used Any Other Forms Of Tobacco Or Nicotine? No [email or web address] Information not available 12/23/2023 Sex: Unknown Functional Status None recorded. Mental Status None recorded. Family History Relationship Description Onset Age of this Age Resolved Age Notes LastModified by Organization Details LastModified Time Father No current problems or disability [email or web address] Not available 12/23 11:30:26 Mother No current problems or disability [email or web address] Not available 12/23 11:30:26 Medical History No medical history recorded. Gynecological History Statement/Question Response Date of LMP Is there any chance of ? No LMP N/A Obstetrics History GPAL:G 0 P 0 0 0 0 Past Encounters Encounter ID Performer Location Encounter Start Date Encounter Closed Date Diagnosis/Indication Diagnosis SNOMED-CT Code Diagnosis ICD10 Code Diagnosis Note [id number] [address] [address] 12/15/2017 16:35:58 12/15/2017 18:14:[id number] [address] 08/14/2021 08:39:23 08/14/2021 10:52:38 [id number] [place] [id number] [address] [place] [address] 12/23/2023 10:41:25 12/23/2023 12:05:27 Sore throat 076869935 J02.9 Streptococ sarai sore throat 45855180 J02.0 [id number] [place] [address] [address] 04/22/2024 11:22:03 04/22/2024 12:18:05 Acute low back pain 751713009 M54.50 The following are my recommenda tions [...] Dizziness. light headedness Thank you for using [facility] - please don't hesistate to call our office if you have any questions or concerns. Health Concerns Section Related Observation LastModified by Organization Emmett ls LastModified Time None Recorded Concern Status LastModified by Organization Details LastModified Time None Recorded Advance Directives Directive None Recorded Payers Encounter Date Sequence Insurance Name Policy Number Policy Xavier Covered Member ID Xavier Member ID Guarantor Name 08/14/2021 1 [facility] [employer] - TOGETHER WITH [employer] (MEDICAID REPLACEMENT - HMO) [id number] Sade L Coffin [id number] Sade Coffin 12/23/2023 1 [facility] [employer] - TOGETHER WITH [employer] (MEDICAID REPLACEMENT - HMO) [id number] Sade L Coffin [id number] 1 Sade Coffin 04/22/2024 1 [facility] [employer] - TOGETHER (MEDICAID HMO) [id number] Sade L Coffin [id number] Sade Lutz Notes Date Note Type [...] Maxwell Gonzalez NP [address], [address], [place] - [facility] 12/23/2023 11:58:33 04/22/2024 text/html Lower BackReport ed [...] Nereida Cardona NP [address], [address], [place] - [facility] 04/22/2024 14:51:06 OBGyn Episode No OBEpisode recorded.
--- OUTSIDE RECORDS SUMMARY | 2025-01-02 11:02 | XMS_ITS | Encounter Summary ---
Author Organization [facility] [employer] Address [address] [place] [address] Care Team Providers Care Senior Manager Asset Protection Name Role Phone Shey Gallardo Unassigned Primary [...] on filedocumented in this encounter Care Teams Senior Manager Asset Protection Relationship Specialty Start Date End Date Shey Gallardossabiodun PCP - General Family Medicine 03/06/23 documented as of this encounter
--- OUTSIDE RECORDS SUMMARY | 2025-01-02 11:02 | XMS_ITS | Clinical Summary ---
Author Organization [facility] Address [address] [place] [address] Care Team Providers Care Church Warden Name Role Phone Kevin Gibson MD Primary Care Provider Unavail able Allergies Active Allergy Reactions Severity Noted Date Comments Rosuvastatin Calcium 08/16/2016 Gemfibrozil 08/16/2016 Lexapro 08/16/2016 Lisinopril 08/16/2016 Apap-Fd&C Red #40 Al Cavanaugh-Oxycodone 08/16/2016 Trileptal 08/16/2016 Valium 08/16/2016 Medications Medication Sig Dispensed Refills Start Date End Date Status buPROPion (WELLBUTRIN XL) 150 MG 24 hr tablet Take 150 mg by mouth every morning. 0 Active metformin (GLUCOPHAGE) 500 MG tablet Take 500 mg by mouth daily. 0 Active losartan-hydrochloroth iazide (HYZAAR) 100-12.5 MG per tablet Take 1 tablet by mouth daily. 0 Active fluoxetine (PROZAC) 40 MG capsule Take 40 mg by mouth daily. 0 Active Doxycycline Hyclate (DOXY-CAPS OR) Take by mouth. 0 Active Social History Tobacco Use Types Packs/Day Years Used Date Smoking Tobacco: Never Smokeless Tobacco: Never Alcohol Use Standard Drinks/Week Comments No 0 (1 standard drink = 0.6 oz pur e alcohol) Sex Assigned at Date Recorded Not on file Last Filed Vital Signs Vital Sign Reading Time Taken Comments Blood Pressure 140/91 11/30/2020 1:43 PM EST Pulse 91 11/30/2020 1:43 PM EST Temperature 36.7 ??C (98.1 ??F) 08/16/2016 3:07 PM ED T Respiratory Rate 16 01/25/2019 2:05 PM EDT Oxygen Saturation - - Inhaled Oxygen Concentration - - Weight 117 kg (258 lb) 11/30/2020 1:43 PM EST Height 149.9 cm (4' 11 ) 11/30/2020 1:43 PM EST Body Mass Index 52.11 11/30/2020 1:43 PM EST Plan of Treatment Health Maintenance Due Date Last Done Comments Covid-19 Vaccine (#1) 1959 HEPATITIS C SCREENING 1977 DTAP/TDAP/TD (1 - Tdap) 1978 CHOLESTEROL SCREENING 1979 MAMMOGRAM 1999 COLON CANCER SCREENING 2009 SHINGLES VACCINE (1 of 2) 2009 CERVICAL CANCER SCREENING 11/30/2023 11/30/2020 BONE DENSITY SCREENING 2024 PNEUMOCOCCAL VACCINE (1 - PCV) 2024 INFLUENZA (#1) 2024 BMI CHECK/ADVISE 11/06/2024 11/30/2020, 08/16/2016 DEPRESSION SCREENING/FOLLOWUP 11/06/2024 Care Teams Church Warden Relationship Specialty Start Date End Date Kevin Gibson MD PCP - General Internal Medicine 07/13/16
--- OUTSIDE RECORDS SUMMARY | 2025-01-02 11:02 | XMS_ITS | Encounter Summary ---
Author Organization [facility] [employer] Address [address] [place] [address] Care Team Providers Care Pick Up Worker Name Role Phone Shey Gallardo Unassigned Primary [...] on filedocumented in this encounter Care Teams Pick Up Worker Relationship Specialty Start Date End Date Shey Gallardo Unassigned PCP - General Family Medicine 03/06/23 documented as of this encounter
--- OUTSIDE RECORDS SUMMARY | 2025-01-02 11:02 | XMS_ITS | Clinical Summary ---
Author Organization [employer] Address [address] [place] [address] Care Team Providers Care Enterprise Resource Planner Name Role Phone PcpShey Unassigned Primary Care [...] BEDTIME EVERY NIGHT 3 Active nystatin (Mycostatin) 360615 UNIT/GM powder Apply topically. 1 Active metFORMIN [...] Cancer Screening 1989 HPV/Cotest 1989 Mammogram 1999 Pneumococcal Vaccine: 50+ Years (2 of 2 - PCV) 09/19/2017 09/19/2016, 05/03/2007 Hepatitis B Vaccines (1 of 3 - [...] 02/23/2024 02/22/20, 06/28/2021, 12/31/2019, Additional history exists COVID-19 Vaccine ( season) 2024 08/25/2022, 09/15/2021 Influenza Vaccine (#1) [...] ESTABLISHED PATIENT Routine 02/21/2023 9:40 AM EDT INTRAORAL - COMPLETE SERIES OF RADIOGRAPHIC IMAGES Routine 05/18/2016 12:00 AM EDT from Last 3 Months or Most Recently Relevant to Health Maintenance Insurance DENTAL - HSN PARTIAL (MEDICAID) Care Teams Enterprise Resource Planner Relationship Specialty Start Date End Date Shey Gallardo Unassigned PCP - General Family Medicine 03/06/23
--- OUTSIDE RECORDS SUMMARY | 2025-01-02 11:02 | XMS_ITS | Patient Health Record ---
Author Organization [facility] Address [address] [place] [address] Care Team Providers Care Black Leather Trimmer Name Role Phone SHAMIR CIELO Primary Care Provider Felipa Reyes Unavailable [phone] Allergies Allergen (clinical drug ingredient) Drug/Non Drug Allergy documented on EMR Reaction Allergy Type Onset Date Status escitalopram LEXAPRO Unknown Drug Allergy Acti ve LISINOPRIL Unknown Drug Allergy Active acetaminophen / oxycodone PERCOCET ITCHING Drug Allergy Active oxcarbazepine TRILEPTAL Unknown Drug Allergy Act cat diazepam VALIUM Unknown Drug Allergy Active Reason For Referral No Information Medications Medication SIG (Take, Route, Frequency, Duration) Notes Start Date End Date Status Wellbutrin SR 200MG 1 ORAL twice daily for -3 [facility] 01/03/2012 Active hydroCHLOROthiazide 25mg 1 ORAL daily for -3 [facility] 07/17 Active Estrace Vaginal Cream 42.5GM Vaginal 1GM 3X A WEEK for -3 [facility] 06/04/2013 Not-Taking FLUoxetine HCl 40MG 1 ORAL daily for -3 [facility] 01/03/2012 Active Social History Tobacco Use: Social History Observation Description Date Details (start date - stop date) Never Smoker NA - NA Tobacco Use/Smoking Question Answer Notes Are you a nonsmoker Problems Problem Type SNOMED Code ICD Code Onset Dates Problem Status W/U Status Risk Notes Problem Depressive disorder (23073334) Depressive disorder, not elsewhere classified (311) Active confirmed Major Problem Essential hypertension (35348975) Unspecified essential hypertension (401.9) Active confirmed Major Problem Menopausal symptom (72180984) Symptomatic menopausal or female climacteric states (627.2) Active confirmed Major Problem Gynecological examination normal (437165645951625) Routine gynecological examination (V72.31) Active confirmed Major Problem Screening for malignant neoplasm of colon (266389212) Special screening for malignant neoplasms, colon (V76.51) Active confirmed Major Plan Of Treatment Pending Test Test Name Order Date PT AND PTT 12/31/2015 Insurance Providers Payer Name Payer Address Payer Phone Subscriber Number Group Number Insured Name Patient Relationship to Insured Coverage Start Date Coverage End Date [employer] [place] [address] [place] [address] [id number] LESLYE DORANTES Self - patient is the [...]
== END 2025-01-02 10:44 | disposition home or self-care (01) ==
PROVIDERS: PCP Internal Medicine; Visit Provider Internal Medicine
DX: I82.402 Acute embolism and thrombosis of unspecified deep veins of left lower extremity (principal); E66.01 Morbid (severe) obesity due to excess calories; E11.65 Type 2 diabetes mellitus with hyperglycemia; Z68.42 Body mass index [BMI] 45.0-49.9, adult; G47.30 Sleep apnea, unspecified; E78.00 Pure hypercholesterolemia, unspecified; I10 Essential (primary) hypertension; Z98.84 Bariatric surgery status; F41.1 Generalized anxiety disorder

== ENCOUNTER → 2025-01-02 09:39 | Outpatient (BNVA) | payer MEDICARE, MEDICAID, SELFPAY | PROVIDERS: PCP Internal Medicine; Visit Provider Internal Medicine | DX: I82.402 Acute embolism and thrombosis of unspecified deep veins of left lower extremity (principal); E66.01 Morbid (severe) obesity due to excess calories; G47.30 Sleep apnea, unspecified; E78.00 Pure hypercholesterolemia, unspecified; I10 Essential (primary) hypertension; E11.65 Type 2 diabetes mellitus with hyperglycemia; F41.1 Generalized anxiety disorder; Z98.84 Bariatric surgery status | CPT/HCPCS: 99212 ==

== ENCOUNTER → 2025-01-09 08:36 | Outpatient (BNV) | payer MEDICARE, MEDICAID, SELFPAY | PROVIDERS: PCP Internal Medicine; Referring Provider Internal Medicine; Visit Provider Nurse Practitioner Family | DX: Z86.718 Personal history of other venous thrombosis and embolism (principal); Z79.01 Long term (current) use of anticoagulants | CPT/HCPCS: 99204 ==

== ENCOUNTER 2025-03-01 08:41 | Outpatient (REF) | payer MEDICARE, MEDICAID, SELFPAY ==
--- OUTSIDE RECORDS SUMMARY | 2025-03-01 08:43 | XMS_ITS | Encounter Summary ---
Author Organization [facility] Address [address] [place] [address] Care Team Providers Care Residential Substance Abuse Counselor Name Role Phone Shey Gallardo Unassigned Primary [...] on filedocumented in this encounter Care Teams Residential Substance Abuse Counselor Relationship Specialty Start Date End Date Shey Gallardossabiodun PCP - General Family Medicine 03/06/23 documented as of this encounter
--- OUTSIDE RECORDS SUMMARY | 2025-03-01 08:43 | XMS_ITS | Patient Health Record ---
Author Organization [facility] Address [address] [place] [address] Care Team Providers Care Truck Rental Clerk Name Role Phone SHAMIR CIELO Primary Care Provider Felipa Reyes Unavailable [phone] Allergies Allergen (clinical drug ingredient) Drug/Non Drug [...] 200MG 1 ORAL twice daily for -3 [facility] 01/03/2012 Active hydroCHLOROthiazide 25mg 1 ORAL daily for -3 [facility] 07/17 Active Estrace Vaginal Cream 42.5GM Vaginal 1GM 3X A WEEK for -3 [facility] 06/04/2013 Not-Taking FLUoxetine HCl 40MG 1 ORAL daily for -3 [facility] 01/03/2012 Active Social History Tobacco Use: Social History Observation Description Date Details (start date - stop date) Never Smoker NA - NA Tobacco Use/Smoking Question Answer Notes Are you a nonsmoker Problems Problem Type SNOMED Code ICD Code Onset Dates Problem Status W/U Status Risk Notes Problem Depressive disorder (01048610) Depressive disorder, not elsewhere classified (311) Active confirmed Major Problem Essential hypertension (45489683) Unspecified essential hypertension (401.9) Active confirmed Major Problem Menopausal symptom (17673746) Symptomatic menopausal or female climacteric states (627.2) Active confirmed Major Problem Gynecological examination normal (223265232608982) Routine gynecological examination (V72.31) Active confirmed Major Problem Screening for malignant neoplasm of colon (417879184) Special screening for malignant neoplasms, colon (V76.51) Active confirmed Major Plan Of Treatment Pending Test Test Name Order Date PT AND PTT 12/31/2015 Insurance Providers Payer Name Payer Address Payer Phone Subscriber Number Group Number Insured Name Patient Relationship to Insured Coverage Start Date Coverage End Date [employer] [place] [address] [place] [address] [phone] [id number] LESLYE DORANTES Self - patient is the [...]
--- OUTSIDE RECORDS SUMMARY | 2025-03-01 08:43 | XMS_ITS | Clinical Summary ---
Author Organization [facility] Address [address] [place] [address] Care Team Providers Care Fire Alarm Repairer Name Role Phone PcpShey Unassigned Primary Care [...] BEDTIME EVERY NIGHT 3 Active nystatin (Mycostatin) 160046 UNIT/GM powder Apply topically. 1 Active metFORMIN [...] DENTAL - HSN PARTIAL (MEDICAID) Care Teams Fire Alarm Repairer Relationship Specialty Start Date End Date Shey Gallardo Unassigned PCP - General Family Medicine 03/06/23
--- OUTSIDE RECORDS SUMMARY | 2025-03-01 08:43 | XMS_ITS | Encounter Summary ---
Author Organization [facility] Address [address] [place] [address] Care Team Providers Care Retail Service Lead Merchandiser Name Role Phone Shey Gallardo Unassigned Primary [...] on filedocumented in this encounter Care Teams Retail Service Lead Merchandiser Relationship Specialty Start Date End Date Shey Gallardo Unassigned PCP - General Family Medicine 03/06/23 documented as of this encounter
--- OUTSIDE RECORDS SUMMARY | 2025-03-01 08:43 | XMS_ITS | Data Portability ---
Author Organization [facility], [address] Address [address] [place] [address] Care Team Providers Care Permit Coordinator Name Role Phone TUSHAR DALLAS Lockstitch Tunnel Elastic Operator Assessment No assessment recorded. Plan of Treatment Reminders Order Date Submit Date Provider Last Modified By Organization Details Last Modified Time Details Appointments None recorded. Lab rapid strep group A, throat 2023 024 [email or web address] [facility], [address] [place] [address], [phone], 4 11:57:45 Referral physical therapist referral - Low back pain from driving a lot . no trauma. pain is spastic and affects ambulation. 2023 024 [email or web address] At [facility] - [address], [address], [place], [address], 4 15:52:40 Procedures None recorded. Surgeries None recorded. Imaging None recorded. Medication Orders Voltaren Arthritis Pain 1 % topical gel 2023 [id number], [address], [place], [id number], 4 12:10:19 amoxicillin 875 mg tablet 2023 024 [id number], [address], [place], [phone], 4 11:43:53 Patient TargetsNo targets recorded. Patient Instructions Encounter Date Encounter Id Patient Instructions Last Modified By Organization Details Last Modified Time 12/23/2023 [id number] Acute Sinusitis: Care Instructions [email or web address] Not available [...] undesirable side effects. Probiotics can be purchased [id number] at your pharmacy in the form of [...] ve Not Available [address] [place], [address], 12/23/2023 11:54:21 12/23/19 24 12/23/2023 rapid strep group A, throa t Unknown Analyte yes Not Available [address] [address] [place], [address], 12/23/2023 11:54:21 Result Notes None recorded. Problems Name Problem SNOMED Code Status Onset Date Resolution Date Notes Provider Name and Address Organization Details Recorded Time Hypertensive disorder 27975454 Active 2023 HEIDI LOPEZICA null, [place] - [facility] 4 11:30:07 Sore throat 460409844 Active 2023 HEIDI LUPICA null, [place] - [facility] 4 11:54:29 Acute low back pain 669096064 Active 2023 Nereida Cardona NP [address] [place], [address] , [place] - [facility] 4 12:03:02 [...] Name and Address Organization Details Recorded Time 507618 Valium medicatio n other Not available Not available 12/23/2023 45046 2 RxNorm HEIDI LUPICA null, [place] - [facility] 4 11:26:11 689344 Crestor medicatio n myalgias (muscle pain) Not available Not available 12/23/2023 43289 4 RxNorm HEIDI LUPICA null, [place] - [facility] 4 11:26:22 553448 acetamino phen / oxycodone medicatio n itching Not available Not available 12/23/2023 96955 3 RxNorm HEIDI LUPICA null, [place] - [facility] 4 11:26:32 621886 lisinopri l medicatio n other Not available Not available 12/23/2023 23388 RxNorm chachol e viskallie n HEIDI CARTER null, [place] - [facility] 4 11:27:00 396825 Lexapro medicatio n rash Not available Not available 12/23/2023 17836 1 RxNorm HEIDI CARTER null, [place] - [facility] 4 11:27:09 088597 Trileptal medicatio n other Not available Not available 12/23/2023 58841 0 RxNorm chachol viviane cunningham n HEIDI CARTER null, PA - [facility] 4 11:27:26 658205 heparin medicatio n rash Not available Not available 12/23/2023 5224 RxNorm HEIDI CARTER null, PA - [facility] 4 11:27:37 820301 gabapenti n medicatio n myalgias (muscle pain) Not available Not available 12/23/2023 30737 RxNorm HEIDI CARTER null, [facility] - [facility] [...] Updated DateTime 4 154.94 cm 46.3 kg/m2 408261. 13 g 6 18 /min 97.7 [degF] [...] Updated DateTime 4 154.94 cm 46.3 kg/m2 899125. 13 g 96 % 96 % 10 78 /min 18 /min 98.3 [degF] 149 mm[Hg] 92 mm[Hg] Leann Chopra CT - [facility] 4 11:42:07 Social History Question Answer Notes LastModified by [employer] ion Details LastModified Time Tobacco Smoking Status Never Smoker HEIDI valencia [place] - [facility] 12/23/2023 11:30:40 What Is Your Level Of Alcohol Consumption? None [email or web address] Information not available 12/23/2023 Are You Currently Employed? Yes Information not available 04/22/2024 Have You Had A Flu Shot This Season? Yes Information not available 04/22/2024 If No, Would You Like A Flu Shot Today? No Information not available 04/22/2024 What Is Your Relationship Status? Single Information not available 04/22/2024 Do You Use Any Illicit Or Recreational Drugs? No [email or web address] Information not available 12/23/2023 Have You Recently Traveled Abroad? No Information not available 12/23/2023 Are You Currently In School? No Information not available 04/22/2024 Do You Or Have You Ever Used Any Other Forms Of Tobacco Or Nicotine? No [email or web address] Information not available 12/23/2023 Sex: Unknown Functional Status None recorded. Mental Status None recorded. Family History Relationship Description Onset Age of this Age Resolved Age Notes LastModified by Organization Details LastModified Time Father No current problems or disability [email or web address] Not available 12/23 11:30:26 Mother No current problems or disability [email or web address] Not available 12/23 11:30:26 Medical History No medical history recorded. Gynecological History Statement/Question Response Date of LMP Is there any chance of ? No LMP N/A Obstetrics History GPAL:G 0 P 0 0 0 0 Past Encounters Encounter ID Performer Location Encounter Start Date Encounter Closed Date Diagnosis/Indication Diagnosis SNOMED-CT Code Diagnosis ICD10 Code Diagnosis Note [id number] [address] [address] 12/15/2017 16:35:58 12/15/2017 18:14:[id number] [address] 08/14/2021 08:39:23 08/14/2021 10:52:38 [id number] [place] [address] [address] [place] [address] 12/23/2023 10:41:25 12/23/2023 12:05:27 Sore throat 567898206 J02.9 Streptococ sarai sore throat 11051904 J02.0 [id number] [place] [address] [address] 04/22/2024 11:22:03 04/22/2024 12:18:05 Acute low back pain 783111013 M54.50 The following are my recommenda tions [...] Dizziness. light headedness Thank you for using [employer] - please don't hesistate to call our [...] Xavier Member ID Guarantor Name 08/14/2021 1 [facility] [employer] - TOGETHER WITH [employer] (MEDICAID REPLACEMENT - HMO) [id number] Sade L Coffin [id number] 1 Sade Coffin 12/23/2023 1 [facility] [employer] - TOGETHER WITH [employer] (MEDICAID REPLACEMENT - HMO) [id number] Sade L Coffin [id number] 1 Sade Coffin 04/22/2024 1 [facility] [employer] - TOGETHER (MEDICAID HMO) [id number] Sade L Coffin [id number] 1 Sade Lutz Notes Date Note Type [...] Maxwell Gonzalez NP [address], [address], [place] - [facility] 12/23/2023 11:58:33 04/22/2024 text/html Lower BackReport [...] Nereida Cardona NP [address], [address], [place] - [facility] 04/22/2024 14:51:06 OBGyn Episode No OBEpisode recorded.
--- OUTSIDE RECORDS SUMMARY | 2025-03-01 08:43 | XMS_ITS | Encounter Summary ---
Author Organization [facility] Address [address] [place] [address] Care Team Providers Care General Office Clerk Name Role Phone Kevin Gibson MD Primary Care Provider Unavail able Encounter Details Date Type Department Care Team Description 08/19/2016 Release of Information Medical Records [address] [place] [address] Abstract, Provider Social History Tobacco Use Types [...] on filedocumented in this encounter Care Teams General Office Clerk Relationship Specialty Start Date End Date Kevin Gibson MD PCP - General Internal Medicine 07/13/16 documented as of this encounter
--- OUTSIDE RECORDS SUMMARY | 2025-03-01 08:43 | XMS_ITS | Encounter Summary ---
Author Organization [facility] Address [address] [facility] 7t [place] [address] Care Team Providers Care Tenoner Operator Name Role Phone Shey Gallardo Unassigned Primary [...] on filedocumented in this encounter Care Teams Tenoner Operator Relationship Specialty Start Date End Date Shey Gallardossabiodun PCP - General Family Medicine 03/06/23 documented as of this encounter
--- OUTSIDE RECORDS SUMMARY | 2025-03-01 08:43 | XMS_ITS | Encounter Summary ---
Author Organization [facility] Address [address] [place] [address] Care Team Providers Care Trucker Hand Name Role Phone Kevin Gibson MD Primary Care Provider Unavail able Encounter Details Date Type Department Care Team Description 12/12/2018 Wad Printing Machine Operator Report Medical Records [address] [place] [address] Phillip Hogan MD [address] [place] [address] for Breast Health [place] [address] Social History Tobacco Use Types Packs/Day Years [...] on filedocumented in this encounter Care Teams Trucker Hand Relationship Specialty Start Date End Date Kevin Gibson MD PCP - General Internal Medicine 07/13/16 documented as of this encounter
--- OUTSIDE RECORDS SUMMARY | 2025-03-01 08:43 | XMS_ITS | Encounter Summary ---
Author Organization [facility] Address [address] [place] [address] Care Team Providers Care Payer Specialist Name Role Phone Kevin Gibson MD Primary Care Provider Unavail able Encounter Details Date Type Department Care Team Description 03/07/2019 Gasket Inspector Report Medical Records [address] [place] [address] [place], [place] Social History Tobacco Use Types Packs/Day [...] on filedocumented in this encounter Care Teams Payer Specialist Relationship Specialty Start Date End Date Kevin Gibson MD PCP - General Internal Medicine 07/13/16 documented as of this encounter
[2025-03-01 10:30] LABS: Estimated Average Glucose 128 mg/dL; Hemoglobin A1C 158.6399 umol/L; Hemoglobin A1c % 6.1 % (<6.0); Total Hemoglobin (HGBA1C) 3669.5352 umol/L
[2025-03-01 11:02] LABS: Alanine Aminotransferase 37 U/L (0-31); Albumin Level 3.9 g/dL (3.5-5.0); Alkaline Phosphatase 64 U/L (39-117); Anion Gap 11 (12-20); Aspartate Amino Transferase 30 U/L (5-31); Bilirubin Direct 0.1 mg/dL (0.0-0.5); Bilirubin Total 0.5 mg/dL (0.0-1.0); Blood Urea Nitrogen 18 mg/dL (9-16); Calcium 9.4 mg/dL (8.4-10.2); Carbon Dioxide 28 mmol/L (22-29); Chloride 105 mmol/L (96-108); Cholesterol 254 mg/dL (<200); Estimated Glomerular Filt Rate > 60; Glucose Random 118 mg/dL (60-115); HDL Cholesterol 45 mg/dL (>40); LDL Cholesterol Calculated 149 mg/dL (<100); Sodium 140 mmol/L (135-145); Total Protein 6.7 g/dL (6.5-8.0); Triglycerides 303 mg/dL (<150)
[2025-03-01 11:10] LABS: Creatinine Urine 168.02 mg/dL; Microalbum/Creatinine Ratio Ur 17.2 ug/mg cr (<30)
[2025-03-03 08:15] LABS: HBS Num1 41.29 mIU/mL (0-7.99); HBc Num1 0.26 S/CO (0.00-0.79); HBsAGNum1 0.42 S/CO (0.00-0.99); Hepatitis B Core Antibody Nonreactive (Nonreactive); Hepatitis B Surface Antigen Negative (Negative); ~HepC Num1 0.06 S/CO (0.00-0.79); ~Hepatitis B Surface Antibody REACTIVE (Nonreactive); ~Hepatitis C Antibody Nonreactive (Nonreactive)
== END 2025-03-01 08:42 | disposition home or self-care (01) ==
LOC: HO.LAB 08:41
PROVIDERS: PCP Internal Medicine; Visit Provider Internal Medicine
DX: E78.00 Pure hypercholesterolemia, unspecified (principal); E11.65 Type 2 diabetes mellitus with hyperglycemia; R79.89 Other specified abnormal findings of blood chemistry
CPT/HCPCS: 36415; 80053; 80061; 82043; 82248; 82570; 83036; 86704; 86706; 86803; 87340

== ENCOUNTER 2025-03-03 11:14 | Outpatient (AMB) | payer MEDICARE, MEDICAID, SELFPAY ==
[2025-03-03 11:44] VITALS: BMI 47.0
--- NOTE | 2025-03-03 11:44 | A.OFFVIS_ITS ---
VS Expanded 03/03/25 11:44 03/03/25 12:10 Height 5 ft 1 in 5 ft 1 in Weight 248 lb 14.43 oz 249 lb BMI 47.0 47.0 Intake Visit Reasons: Pre DM Allergies dexamethasone Allergy (Severe, Verified 02/10/25 14:22) Dizziness midazolam Allergy (Severe, Verified 02/10/25 14:22) Dizziness enoxaparin [From Lovenox] Allergy (Intermediate, Verified 02/10/25 14:22) Rash diazepam [Valium] Allergy (Unknown, Verified 02/10/25 14:22) Hypertension escitalopram [Lexapro] Allergy (Unknown, Verified 02/10/25 14:22) Rash lisinopril Allergy (Unknown, Verified 02/10/25 14:22) Difficulty Swallowing oxcarbazepine [Trileptal] Allergy (Unknown, Verified 02/10/25 14:22) Hives oxycodone [Percocet] Allergy (Unknown, Verified 02/10/25 14:22) Hives rosuvastatin [Crestor] Allergy (Unknown, Verified 02/10/25 14:22) Eye Swelling losartan Adverse Reaction (Intermediate, Verified 02/10/25 14:22) not sure metoprolol Adverse Reaction (Intermediate, Verified 02/10/25 14:22) leg pain gabapentin Adverse Reaction (Verified 02/10/25 14:22) Muscle Pain Nutrition Presentation Details: Pt presents for MNT f/u for T2DM A1c at 6.1% on 02/28 Pt reports inconsistent diet modifications BS Monitoring Most Recent Diabetes Results: Microalb/Creat Ratio 17.2 ug/mg cr (<30) 03/01/25 Cholesterol 254 mg/dL (<200) H 03/01/25 HDL Cholesterol 45 mg/dL (>40) 03/01/25 Triglycerides 303 mg/dL (<150) H 03/01/25 Creatinine 0.81 mg/dL (0.5-1.4) 03/01/25 Blood Urea Nitrogen 18 mg/dL (9-16) H 03/01/25 Sodium 140 mmol/L (135-145) 03/01/25 Potassium 4.0 mmol/L (3.3-5.1) 03/01/25 Chloride 105 mmol/L (96-108) 03/01/25 Carbon Dioxide 28 mmol/L (22-29) 03/01/25 Calcium 9.4 mg/dL (8.4-10.2) 03/01/25 AST 30 U/L (5-31) 03/01/25 ALT 37 U/L (0-31) H 03/01/25 Total Protein 6.7 g/dL (6.5-8.0) 03/01/25 Albumin 3.9 g/dL (3.5-5.0) 03/01/25 QVE-Rfujvbn-Pr.Jeor Equation Height: 5 ft 1 in Weight: 249 lb Resting Metabolic Rate: 1615.89 Calculated Activity Level: Sedentary Calories Needed to Maintain Weight: 1939.07 PFSH Medical History Impaired glucose tolerance Type 2 diabetes mellitus with hyperglycemia Breast cancer screening by mammogram Colon cancer screening Menopausal and postmenopausal disorder History of ankle fracture Screening for osteoporosis Eating disorder with ongoing treatment Dizziness Low serum potassium Fungal rash of torso Seasonal allergies Anxiety with depression Restless leg syndrome Diabetes mellitus TMJ (dislocation of temporomandibular joint) Periodic limb movements of sleep Obstructive sleep apnea Morbid obesity Hypertension Hypercholesterolemia Heart murmur Depression Anxiety Surgical History S/P LALITA-BSO (total abdominal hysterectomy and bilateral salpingo-oophorectomy) Bilateral carpal tunnel syndrome 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 H/O ventral hernia repair History of cholecystectomy Gastric banding status Family History Mother Cancer of colon Hyperlipidemia Father CAD (coronary artery disease) Heart attack Paternal Uncle Heart attack Social History Housing: House Alcohol intake: current Comment: once drink Q 3 months Patient Tobacco Use Status: Never used Tobacco Tobacco use type: Cigarette e-Cigarette/Vaping Use: Never Used Second Hand Smoke Exposure: No service: No Current occupational status: employed Cognitive needs: No Hearing needs: No Vision needs: Yes Assessment & Plan Assessment & Plan (1) Type 2 diabetes mellitus with hyperglycemia: Code(s): E11.65 - Type 2 diabetes mellitus with hyperglycemia Category: Medical Plan: Wt: 114 Kg (12/31 ), 113 kg (02/28) Est kcal needs as per MSJ: 2000 (40% carb, 30% protein/fat) Est fluid needs as per 25-30 ml/d:3426 Est prot per day as per 1 g/kg bw: 114 Recommend fiber intake : 8-10 g per day and gradually increase to 25-28 g per day for women and 35-38 g for men or as tolerated Recommend sodium intake per day : less than 2300 mg Educated patient on: ( R = reviewed V = verbalizes understanding N/R = needs review N/A = not applicable * Food sources of carbohydrate, adequate serving sizes and its role in various health conditions: R * Differences between complex carbohydrates a simple carbohydrates, role of fiber in diet: R * Lean protein sources of foods: R * Differences between types of fats and role in diet (mono on saturated fat fatty acids, saturated fatty acids, trans fats): R V N/R * Food sources of sodium in salt and healthy modifications for heart health in kidney health: R V R/V * Vitamins and minerals: R V N/R * Healthy plate method concept: R V N/R * Physical activity: Benefits a precaution: R * Hypoglycemia protocol (rule of 15): R V N/R * Dietary prevention of Hyperglycemia: R Patient Instructions: Reduce total carb to less than 60 g at meal , Choose non starchy veg/ fruits, veg and whole grain foods , following healthy plate method see meal ideas Coding Level of Care Code Nutr Indiv Subseq (13448) Diagnoses Type 2 diabetes mellitus with hyperglycemia E11.65 Time Spent (min) 25
[2025-03-03 12:10] VITALS: BMI 47.0
--- OUTSIDE RECORDS SUMMARY | 2025-03-03 13:31 | XMS_ITS | Encounter Summary ---
Author Organization [facility] Address [address] [place] [address] Care Team Providers Care Judo Teacher Name Role Phone Kevin Gibson MD Primary Care Provider Unavail able Reason for Visit * Reason Onset Date Comments Medical Records 09/08/2020 Encounter Details Date Type Department Care Team Description 09/08/2020 Telephone [facility] [employer] [address] [place] [address] Marcy Walsh MD [address] [place] [address] Medical Records Social History Tobacco Use Types [...] aware her appt is w/Dr Patel at [facility] documented in this encounter Plan of Treatment Not on file documented as of this encounter Visit Diagnoses Not on filedocumented in this encounter Care Teams Judo Teacher Relationship Specialty Start Date End Date Kevin Gibson MD PCP - General Internal Medicine 07/13/16 documented as of this encounter
--- OUTSIDE RECORDS SUMMARY | 2025-03-03 13:32 | XMS_ITS | Encounter Summary ---
Author Organization [facility] Address [address] [facility] 7 [place] [address] Care Team Providers Care Cadworx Piping Designer Name Role Phone Shey Gallardo Unassigned Primary [...] on filedocumented in this encounter Care Teams Cadworx Piping Designer Relationship Specialty Start Date End Date Shey Gallardossabiodun PCP - General Family Medicine 03/06/23 documented as of this encounter
--- OUTSIDE RECORDS SUMMARY | 2025-03-03 13:32 | XMS_ITS | Patient Health Record ---
Author Organization [facility] Address [address] [address] [facility] [address] [place] [address] Care Team Providers Care Administration Intern Name Role Phone SHAMIR CIELO Primary Care Provider Felipa Reyes Unavailable [phone] Allergies Allergen (clinical drug ingredient) Drug/Non Drug [...] 200MG 1 ORAL twice daily for -3 [facility] 01/03/2012 Active hydroCHLOROthiazide 25mg 1 ORAL daily for -3 [facility] 07/17 Active Estrace Vaginal Cream 42.5GM Vaginal 1GM 3X A WEEK for -3 [facility] 06/04/2013 Not-Taking FLUoxetine HCl 40MG 1 ORAL daily for -3 [facility] 01/03/2012 Active Social History Tobacco Use: Social History Observation Description Date Details (start date - stop date) Never Smoker NA - NA Tobacco Use/Smoking Question Answer Notes Are you a nonsmoker Problems Problem Type SNOMED Code ICD Code Onset Dates Problem Status W/U Status Risk Notes Problem Depressive disorder (49137086) Depressive disorder, not elsewhere classified (311) Active confirmed Major Problem Essential hypertension (66264001) Unspecified essential hypertension (401.9) Active confirmed Major Problem Menopausal symptom (62618325) Symptomatic menopausal or female climacteric states (627.2) Active confirmed Major Problem Gynecological examination normal (200919237301384) Routine gynecological examination (V72.31) Active confirmed Major Problem Screening for malignant neoplasm of colon (873805291) Special screening for malignant neoplasms, colon (V76.51) Active confirmed Major Plan Of Treatment Pending Test Test Name Order Date PT AND PTT 12/31/2015 Insurance Providers Payer Name Payer Address Payer Phone Subscriber Number Group Number Insured Name Patient Relationship to Insured Coverage Start Date Coverage End Date [employer] [place] [address] [place] [address] [id number] LESLYE DORANTES Self - patient is the [...]
--- OUTSIDE RECORDS SUMMARY | 2025-03-03 13:32 | XMS_ITS | Clinical Summary ---
Author Organization [employer] Address [address] [facility] 7t [place] [address] Care Team Providers Care Project Engineer Name Role Phone PcpShey Unassigned Primary Care [...] BEDTIME EVERY NIGHT 3 Active nystatin (Mycostatin) 790419 UNIT/GM powder Apply topically. 1 Active metFORMIN [...] history exists Diabetes: Hemoglobin A1C 07/03/2025 024, 07/03/2024, 08/04/2023, Additional history exists DTaP/Tdap/Td Vaccines (2 - [...] DENTAL - HSN PARTIAL (MEDICAID) Care Teams Project Engineer Relationship Specialty Start Date End Date Shey Gallardo Unassigned PCP - General Family Medicine 03/06/23
--- OUTSIDE RECORDS SUMMARY | 2025-03-03 13:32 | XMS_ITS | Encounter Summary ---
Author Organization [facility] Address [address] [place] [address] Care Team Providers Care General Merchandise Salesperson Name Role Phone Kevin Gibson MD Primary Care Provider Unavail able Encounter Details Date Type Department Care Team Description 12/12/2018 Visual Inspector Report Medical Records [address] [place] [address] Phillip Hogan MD [address] [place] [address] for Breast Health [place] [address] Social History Tobacco Use Types Packs/Day Years [...] filedocumented in this encounter Care Teams General Merchandise Salesperson Relationship Specialty Start Date End Date Kevin Gibson MD PCP - General Internal Medicine 07/13/16 documented as of this encounter
--- OUTSIDE RECORDS SUMMARY | 2025-03-03 13:32 | XMS_ITS | Encounter Summary ---
Author Organization [facility] Address [address] [facility] [address] [place] [address] Care Team Providers Care Fleecer Name Role Phone Shey Gallardo Unassigned Primary [...] on filedocumented in this encounter Care Teams Fleecer Relationship Specialty Start Date End Date Shey Gallardossabiodun PCP - General Family Medicine 03/06/23 documented as of this encounter
--- OUTSIDE RECORDS SUMMARY | 2025-03-03 13:32 | XMS_ITS | Encounter Summary ---
Author Organization [facility] Address [address] [facility] [address]t [place] [address] Care Team Providers Care Manager Bank Name Role Phone Shey Gallardo Unassigned Primary [...] on filedocumented in this encounter Care Teams Manager Bank Relationship Specialty Start Date End Date Shey Gallardo Unassigned PCP - General Family Medicine 03/06/23 documented as of this encounter
--- OUTSIDE RECORDS SUMMARY | 2025-03-03 13:32 | XMS_ITS | Clinical Summary ---
Author Organization [facility] Address [address] [facility] [place] [address] Care Team Providers Care Frame Expander Name Role Phone Kevin Gibson MD Primary [...] 2024 PNEUMOCOCCAL VACCINE (1 - PCV) 2024 BMI CHECK/ADVISE 11/06/2024 11/30/2020, 08/16/2016 DEPRESSION SCREENING/FOLLOWUP 11/06/2024 INFLUENZA (Season Ended) 2025 Care Teams Frame Expander Relationship Specialty Start Date End Date Kevin Gibson MD PCP - General Internal Medicine 07/13/16
--- OUTSIDE RECORDS SUMMARY | 2025-03-03 13:32 | XMS_ITS | Data Portability ---
Author Organization [facility], [address] Address [address] [place] [address] Care Team Providers Care Civil Attorney Name Role Phone TUSHAR DALLAS Coat Feller [phone] Assessment No assessment recorded. Plan of Treatment Reminders Order Date Submit Date Provider Last Modified By Organization Details Last Modified Time Details Appointments None recorded. Lab rapid strep group A, throat 2023 024 [email or web address] [facility], [address] [place] [address], [id number], 4 11:57:45 Referral physical therapist referral - Low back pain from driving a lot . no trauma. pain is spastic and affects ambulation. 2023 024 [email or web address] [facility] - [address], [place] [address], [place], [address], 4 15:52:40 Procedures None recorded. Surgeries None recorded. Imaging None recorded. Medication Orders Voltaren Arthritis Pain 1 % topical gel 2023 [id number], [address], [place], [id number], 4 12:10:19 amoxicillin 875 mg tablet 2023 024 [id number], [address], [place], [phone], 4 11:43:53 Patient TargetsNo targets recorded. Patient Instructions Encounter Date Encounter Id Patient Instructions Last Modified By Organization Details Last Modified Time 12/23/2023 [id number] Acute Sinusitis: Care Instructions [email or web address] Not available [...] undesirable side effects. Probiotics can be purchased [id number] at your pharmacy in the form of [...] ve Not Available [id number] [place], [address], 12/23/2023 11:54:21 12/23/19 24 12/23/2023 rapid strep group A, throa t Unknown Analyte yes Not Available [id number] [facility]al [facility] [address] [place], [address], 12/23/2023 11:54:21 Result Notes None recorded. Problems Name Problem SNOMED Code Status Onset Date Resolution Date Notes Provider Name and Address Organization Details Recorded Time Hypertensive disorder 48818136 Active 2023 HEIDI LOPEZICA null, [place] - [facility] 4 11:30:07 Sore throat 611919643 Active 2023 HEIDI LUPICA null, PA - [facility] 4 11:54:29 Acute low back pain 056681678 Active 2023 Nereida Cardona NP [address] [place], [address] , [place] - [facility] 4 12:03:02 [...] Name and Address Organization Details Recorded Time 150004 Valium medicatio n other Not available Not available 12/23/2023 20331 2 RxNorm HEIDI LUPICA null, [place] - [facility] 4 11:26:11 [id number] Crestor medicatio n myalgias (muscle pain) Not available Not available 12/23/2023 51012 4 RxNorm HEIDI LUPICA null, [place] - [facility] 4 11:26:22 [id number] acetamino phen / oxycodone medicatio n itching Not available Not available 12/23/2023 66197 3 RxNorm HEIDI LUPICA null, [place] - [facility] 4 11:26:32 [id number] lisinopri l medicatio n other Not available Not available 12/23/2023 46703 RxNorm chachol e viskallie n HEIDI CARETR null, PA - [facility] 4 11:27:00 [id number] Lexapro medicatio n rash Not available Not available 12/23/2023 95038 1 RxNorm HEIDI CARTER null, PA - [facility] 4 11:27:09 949650 Trileptal medicatio n other Not available Not available 12/23/2023 36529 0 RxNorm chachol viviane cunningham n HEIDI CARTER null, PA - [facility] 4 11:27:26 220685 heparin medicatio n rash Not available Not available 12/23/2023 5224 RxNorm HEIDI CARTER null, PA - [facility] 4 11:27:37 785490 gabapenti n medicatio n myalgias (muscle pain) Not available Not available 12/23/2023 50383 RxNorm HEIDI CARTER null, [place] - [facility] [...] Updated DateTime 4 154.94 cm 46.3 kg/m2 585040. 13 g 6 18 /min 97.7 [degF] [...] Updated DateTime 4 154.94 cm 46.3 kg/m2 420228. 13 g 96 % 96 % 10 78 /min 18 /min 98.3 [degF] 149 mm[Hg] 92 mm[Hg] Leann Chopra [place] - [facility] 4 11:42:07 Social History Question Answer Notes LastModified by Madefire ion Details LastModified Time Tobacco Smoking Status Never Smoker HEIDI valencia [place] - [facility] 12/23/2023 11:30:40 What Is Your Level Of Alcohol Consumption? None [email or web address] Information not available 12/23/2023 Are You Currently [...] 12/23/2023 Have You Recently Traveled Abroad? No [email or web address] Information not available 12/23/2023 Are You Currently In School? No Information not available 04/22/2024 Do You Or Have You Ever Used Any Other Forms Of Tobacco Or Nicotine? No [email or web address] Information not available 12/23/2023 Sex: Unknown Functional Status None recorded. Mental Status None recorded. Family History Relationship Description Onset Age of this Age Resolved Age Notes LastModified by Organization Details LastModified Time Father No current problems or disability [email or web address] Not available 12/23 11:30:26 Mother No current problems or disability [email or web address] Not available 12/23 11:30:26 Medical History No medical history recorded. Gynecological History Statement/Question Response Date of LMP Is there any chance of ? No LMP N/A Obstetrics History GPAL:G 0 P 0 0 0 0 Past Encounters Encounter ID Performer Location Encounter Start Date Encounter Closed Date Diagnosis/Indication Diagnosis SNOMED-CT Code Diagnosis ICD10 Code Diagnosis Note [id number] [id number] [address] 12/15/2017 16:35:58 12/15/2017 18:14:[id number] [address] 08/14/2021 08:39:23 08/14/2021 10:52:38 [id number] [place] [id number] [address] [place] [address] 12/23/2023 10:41:25 12/23/2023 12:05:27 Sore throat 740226192 J02.9 Streptococ sarai sore throat 34455685 J02.0 [id number] [place] [address] [address] 04/22/2024 11:22:03 04/22/2024 12:18:05 Acute low back pain 110690127 M54.50 The following are my recommenda tions [...] Dizziness. light headedness Thank you for using [employer] - please don't hesistate to call our [...] Xavier Member ID Guarantor Name 08/14/2021 1 [facility] [employer] - TOGETHER WITH [employer] (MEDICAID REPLACEMENT - HMO) [id number] Sade L Coffin [id number] 1 Sade Coffin 12/23/2023 1 [facility] [employer] - TOGETHER WITH [employer] (MEDICAID REPLACEMENT - HMO) [id number] Sade L Coffin [id number] 1 Sade Coffin 04/22/2024 1 [facility] [employer] - TOGETHER (MEDICAID HMO) [id number] Sade L Coffin [id number] 1 Sade Lutz Notes Date Note Type [...] Maxwell Gonzalez NP [address], [address], [place] - [facility] 12/23/2023 11:58:33 04/22/2024 text/html Lower BackReport [...] Nereida Cardona NP [address], [address], [place] - [facility] 04/22/2024 14:51:06 OBGyn Episode No OBEpisode recorded.
== END 2025-03-03 12:20 | disposition home or self-care (01) ==
LOC: HO.ENCR 11:15
PROVIDERS: PCP Internal Medicine; Visit Provider Dietitian, Registered
DX: E11.65 Type 2 diabetes mellitus with hyperglycemia (principal)

== ENCOUNTER → 2025-03-03 11:14 | Outpatient (BNVA) | payer MEDICARE, MEDICAID, SELFPAY | PROVIDERS: PCP Internal Medicine; Visit Provider Dietitian, Registered | DX: E11.65 Type 2 diabetes mellitus with hyperglycemia (principal); Z71.3 Dietary counseling and surveillance | CPT/HCPCS: 97803 ==

== ENCOUNTER 2025-03-07 09:38 | Outpatient (AMB) | payer MEDICARE, MEDICAID, SELFPAY ==
[2025-03-07 09:44] VITALS: BP 136/82; PULSE 74; O2SAT 97; BMI 46.3
--- NOTE | 2025-03-07 09:44 | A.OFFPC_ITS ---
Vital Signs 03/07/25 09:44 Height 5 ft 1 in Weight 245 lb BMI 46.3 BP 136/82 Blood Pressure Location Lt brachial Position Sitting Pulse 74 Pulse Source Pulse Oximeter Pulse Oximetry (%) 97 Oxygen Delivery Method Room Air Intake Visit Reasons: DM Day Care Worker Required: No Accompanied by: Self / Same As Patient Allergies dexamethasone Allergy (Severe, Verified 03/07/25 09:45) Dizziness midazolam Allergy (Severe, Verified 03/07/25 09:45) Dizziness enoxaparin [From Lovenox] Allergy (Intermediate, Verified 03/07/25 09:45) Rash diazepam [Valium] Allergy (Unknown, Verified 03/07/25 09:45) Hypertension escitalopram [Lexapro] Allergy (Unknown, Verified 03/07/25 09:45) Rash lisinopril Allergy (Unknown, Verified 03/07/25 09:45) Difficulty Swallowing oxcarbazepine [Trileptal] Allergy (Unknown, Verified 03/07/25 09:45) Hives oxycodone [Percocet] Allergy (Unknown, Verified 03/07/25 09:45) Hives rosuvastatin [Crestor] Allergy (Unknown, Verified 03/07/25 09:45) Eye Swelling losartan Adverse Reaction (Intermediate, Verified 03/07/25 09:45) not sure metoprolol Adverse Reaction (Intermediate, Verified 03/07/25 09:45) leg pain gabapentin Adverse Reaction (Verified 03/07/25 09:45) Muscle Pain Medication List - Last Reconciled 03/07/25 by Kuldip Prakash MD [Bariatric fusion 2 caps PO BID] [Bariatric Fusion ] blood sugar diagnostic (FreeStyle Lite Strips) As directed bupropion HCl XL 150 mg PO QAM 90 days CPAP (CPAP Machine/Device) As directed fenofibrate 160 mg PO DAILY fluoxetine 40 mg PO DAILY 90 days metoprolol succinate ER 25 mg PO DAILY pramipexole 0.125 mg PO BEDTIME 90 days warfarin 5 mg PO .QD Tobacco use date assessed: 03/07/25 Fall risk assessment: 2 + Falls in past year Last assessed Fall Risk: 03/07/25 Dental Screening Dental Screen Date: 03/07/25 Did you have a dental visit in the last 12 months?: Yes Did you have a dental problem in the last 6 months where you did not have access to dental care?: No Was dental information given to patient?: Patient has dentist HPI DM HPI Details fall L knee and er visit xray done has had swelling plan of stopping the coumadin in April and do the blood work [facility] Medical History Impaired glucose tolerance Type 2 diabetes mellitus with hyperglycemia Breast cancer screening by mammogram Colon cancer screening Menopausal and postmenopausal disorder History of ankle fracture Screening for osteoporosis Eating disorder with ongoing treatment Dizziness Low serum potassium Fungal rash of torso Seasonal allergies Anxiety with depression Restless leg syndrome Diabetes mellitus TMJ (dislocation of temporomandibular joint) Periodic limb movements of sleep Obstructive sleep apnea Morbid obesity Hypertension Hypercholesterolemia Heart murmur Depression Anxiety Surgical History S/P LALITA-BSO (total abdominal hysterectomy and bilateral salpingo-oophorectomy) Bilateral carpal tunnel syndrome 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 H/O ventral hernia repair History of cholecystectomy Gastric banding status Family History Mother Cancer of colon Hyperlipidemia Father CAD (coronary artery disease) Heart attack Paternal Uncle Heart attack Social History Housing: House Alcohol intake: current Comment: once drink Q 3 months Patient Tobacco Use Status: Never used Tobacco Tobacco use type: Cigarette e-Cigarette/Vaping Use: Never Used Second Hand Smoke Exposure: No service: No Current occupational status: employed Cognitive needs: No Hearing needs: No Vision needs: Yes Questionnaire PHQ-9 Over the last 2 weeks, how often have you been bothered by any of the following problems? 1. Little interest or pleasure in doing things: not at all 2. Feeling down, depressed, or hopeless: not at all 3. Trouble falling or staying asleep, or sleeping too much: not at all 4. Feeling tired or having little energy: not at all 5. Poor appetite or overeating: not at all 6. Feeling bad about yourself - or that you are a failure or have let yourself or your family down: not at all 7. Trouble concentrating on things, such as reading the newspaper or watching television: not at all 8. Moving or speaking so slowly that other people could have noticed. Or the opposite - being so fidgety or restless that you have been moving around a lot more than usual: not at all 9. Thoughts that you would be better off or of hurting yourself in some way: not at all Total score: 0 Source: Developed by Drs. Star Culp, Ambar Witt, Guanako Devine and colleagues, with an educational yarelis from [employer]. Thrive Questionnaire Date Thrive assessed: 03/07/25 I am a: Patient What is your living situation today?: I have a steady place to live Within the past 12 months, did the food you bought not last and you didn't have the money to get more?: Sometimes True Within the past 12 months, did you worry whether your food would run out before you got money to buy more?: Sometimes True Do you have trouble paying for medicines?: Yes Do you have trouble getting transportation to medical appointments?: No Do you have trouble paying your heating and electricity bill?: Yes Do you have trouble taking care of your child, family member or friend?: No Do you have trouble with day-to-day activities such as bathing, preparing meals, shopping, managing finances, etc.?: No Are you currently unemployed and looking for a job?: No Are you interested in more education?: No Please select the resources that you would like help with: None Currently or been in a relationship where the following occur: No concerns reported THRIVE Score: 3 AUDIT C Alcohol Use Questionnaire (AUDIT-C) 1. How often do you have a drink containing alcohol?: Never 3. How often do you have six or more drinks on one occasion?: Never Total Score: 0 KUMAR-7 AMB Questionnaire KUMAR-7 Date KUMAR - 7 assessed: 03/07/25 Feeling nervous, anxious, or on edge: 1 = Several days Not being able to stop or control worryin = Several days Worrying too much about different things: 1 = Several days Trouble relaxin = Several days Being so restless that it is hard to sit still: 1 = Several days Becoming easily annoyed or irritable: 1 = Several days Feeling afraid as if something awful might happen: 1 = Several days Total KUMAR-7 score (0-4 normal; 5-9 mild; 10-14 moderate; 15-21 severe): 7 Source: Developed by Drs. Star Culp, Ambar Witt, Guanako Devine and colleagues, with an educational yarelis from [employer]. Physical exam (Primary Care) Vital Signs: Last Vital Signs Pulse 74 03/07/25 09:44 BP 136/82 03/07/25 09:44 Pulse Ox 97 03/07/25 09:44 Oxygen Delivery Method Room Air 03/07/25 09:44 BMI result Body Mass Index 46.3 Tobacco/Smoking Status: Tobacco use Status Tobacco use date assessed 03/07/25 03/07/25 09:48 Patient Tobacco Use Status Never used Tobacco 03/07/25 09:48 Tobacco use type Cigarette 03/07/25 09:48 e-Cigarette/Vaping Use Never Used 03/07/25 09:48 PHQ-9: PHQ-9 Score PHQ-9: Total score 0 03/07/25 10:04 Thrive Assessment: Date of Thrive Assessment Date Thrive assessed 03/07/25 03/07/25 09:48 Currently or been in a relationship where the following occur: No concerns reported Const General: alert; No acute distress Eyes Conjunctivae: conjunctivae normal Resp Auscultation: clear to auscultation bilaterally Cardio Rate: regular rate Rhythm: regular rhythm GI Inspection: Yes normal to inspection Extrem General: Yes normal to inspection and No edema Coding Level of Care Code Est Pt Level 4 (56730) Complex EM visit Add On G2211 Diagnoses Type 2 diabetes mellitus with hyperglycemia E11.65 Left leg DVT I82.402 History of gastric bypass Z98.84 Sleep apnea with use of continuous positive airway pressure (CPAP) G47.30 Hypercholesterolemia E78.00 Morbid obesity due to excess calories E66.01 Hypertension I10 Generalized anxiety disorder F41.1 Assessment & Plan Assessment & Plan (1) Type 2 diabetes mellitus with hyperglycemia: Code(s): E11.65 - Type 2 diabetes mellitus with hyperglycemia Category: Medical Plan: -Decrease the amount of carbohydrate intake, pasta, bread, rice and potatoes are all sugar and that is aside from all the sweet stuff, remember that fruits are good but they are Sweet also. Hemoglobin A1c goal of less than 6.5 patient is controlled (2) Left leg DVT: Comment: November 2024 Code(s): I82.402 - Acute embolism and thrombosis of unspecified deep veins of left lower extremity Category: Medical Plan: Patient has seen hematology oncology on Coumadin was advised 3 months of anticoagulation. (3) History of gastric bypass: Comment: 2020 Dr. Jerome Arciniega Code(s): Z98.84 - Bariatric surgery status Category: Surgical Plan: Continue to follow-up with bariatric (4) Sleep apnea with use of continuous positive airway pressure (CPAP): Code(s): G47.30 - Sleep apnea, unspecified Category: Medical Plan: Continue to use the CPAP more than 4 hours a night and benefits from this. (5) Hypercholesterolemia: Code(s): E78.00 - Pure hypercholesterolemia, unspecified Category: Medical Plan: Avoid fried foods, chicken skin, eggs, butter margarine, pastries and meat. Be it pork or beef they have a lot of cholesterol LDL goal of less than 100 and triglyceride of less than 150. Patient on fenofibrate.. decline cholesterol med (6) Morbid obesity due to excess calories: Code(s): E66.01 - Morbid (severe) obesity due to excess calories Category: Medical Plan: Diet and exercise (7) Hypertension: Code(s): I10 - Essential (primary) hypertension Category: Medical Plan: Continue with blood pressure medication. Decrease salt intake and exercise on metoprolol 25 mg once a day (8) Generalized anxiety disorder: Comment: Private counselling Code(s): F41.1 - Generalized anxiety disorder Category: Medical Plan: Continue with present medication Plan History of Present Illness The patient is a 64-year-old female presenting for follow-up of left leg pain and swelling and management of chronic conditions. She currently experiences discomfort posterior to the left knee since a fall in November 2024, where a left leg DVT was initially diagnosed. There's a history of hemoglobin A1c of 6.1% demonstrating controlled diabetes mellitus, albeit with elevated fasting blood sugar levels in the past. Despite gastric bypass surgery, the patient remains obese and faces challenges with weight management. She reports adherence to fenofibrate, resulting in a reduction of her triglyceride levels from the 500s to 303 mg/dL, yet her cholesterol remains elevated. She continues using CPAP for obstructive sleep apnea, which appears effective with consistent usage, and manages her anxiety and hypertension with fluoxetine and metoprolol, respectively. Health Maintenance - Follow-up with bariatrics for ongoing weight management - Advised to maintain CPAP use for effective management of obstructive sleep apnea - Blood pressure control with ongoing use of metoprolol 25 mg daily - Diabetes management aimed at keeping hemoglobin A1c below 6.5% - Cholesterol management with a goal LDL of less than 100 mg/dL and triglycerides less than 150 mg/dL - Upcoming mammogram scheduled - Previous colonoscopy performed in November 2024 Social History - Profession implicated as a factor in the provoked DVT event - Reports adherence to dietary recommendations from bariatric director child abuse therapy post gastric bypass surgery in 2020 - Plans to increase physical activity with a potential job change, seeking a better work-life balance Review of Systems - Cardiovascular: Reports left leg swelling - Endocrine: Denies any new symptoms; managing diabetes - Gastrointestinal: Denies any abdominal pain post-surgery - Musculoskeletal: Reports pain and swelling in the left leg - Neurological: Denies any new neurological symptoms - Respiratory: Denies increased shortness of breath, maintains CPAP adherence Physical Exam - Cardiovascular- Normal circulation in feet, good posterior tibial and dorsalis pedis pulses reported - Musculoskeletal- Pain noted behind left knee upon palpation - Other systems- Not explicitly noted Results - Labs: Blood work from January showing elevated blood sugar at 118 mg/dL, hemoglobin A1c at 6.1%, elevated cholesterol at 254 mg/dL, LDL at 149 mg/dL, triglycerides at 303 mg/dL. Normal blood count without anemia; normal electrolytes and liver function improvement noted. Plan 1. Monitoring hemoglobin A1c and triglyceride levels will remain ongoing, with consideration of non-statin cholesterol management if necessary in the future. Additionally, the patient will continue lifestyle modifications for weight management and dietary optimization, aided by bariatric nutritional support, with scheduled mammography screening.: Patient was informed and verbally consented to the use of an ambient scribe for clinic note documentation during this visit. Discussion Notes I reviewed the patient's history of left leg DVT and confirmed the continuation of anticoagulation therapy until April 2025. I emphasized to the patient the importance of the follow-up ultrasound to assess the resolution of the clot. We discussed cholesterol management, opting to continue fenofibrate while considering ezetimibe as a non-statin option if tolerated in the future. Diabetes is being managed with a focus on lifestyle optimization to prevent complications. I explained the rationale for maintaining CPAP usage and blood pressure management, aiming for optimal control within recommended parameters. Mammogram screening and adherence to planned follow-up appointments were highlighted for comprehensive care. Patient Instructions - Continue using your CPAP machine every night for at least four hours - Take metoprolol 25 mg once a day as prescribed for blood pressure - Maintain fenofibrate medication for your cholesterol - Continue to monitor and manage your blood sugar levels, striving to keep A1c below 6.5% - Undergo a mammogram this month as scheduled - Expect a follow up on your anticoagulation with a planned ultrasound in April 2025 - Follow a balanced diet and engage in regular exercise as advised by your bariatric director child abuse therapy - Try to avoid situations that may lead to prolonged inactivity to reduce DVT risk Orders: Orders US venous duplex LE LT Today I82.402 - Acute embolism and thrombosis of unspecified deep veins of left lower extremity Cortisol Random Today E11.65 - Type 2 diabetes mellitus with hyperglycemia Medications: Refilled ezetimibe (Zetia) 10 mg PO DAILY 90 tabs 3RF E78.00 - Pure hypercholesterolemia, unspecified
--- OUTSIDE RECORDS SUMMARY | 2025-03-07 10:26 | XMS_ITS | Data Portability ---
Author Organization [facility], [address] Address [address] [place] [address] Care Team Providers Care Receiver Name Role Phone TUSHAR DALLAS Country Printer [phone] Assessment No assessment recorded. Plan of Treatment Reminders Order Date Submit Date Provider Last Modified By Organization Details Last Modified Time Details Appointments None recorded. Lab rapid strep group A, throat 2023 024 [email or web address] [facility], [address] [place] [address], [phone], 4 11:57:45 Referral physical therapist referral - Low back pain from driving a lot . no trauma. pain is spastic and affects ambulation. 2023 024 [email or web address] [facility] - [address], [place], [address], 4 15:52:40 Procedures None recorded. Surgeries None recorded. Imaging None recorded. Medication Orders Voltaren Arthritis Pain 1 % topical gel 2023 [id number], [address], [place], [id number], 4 12:10:19 amoxicillin 875 mg tablet 2023 024 [id number], [address], [place], [id number], 4 11:43:53 Patient TargetsNo targets recorded. Patient Instructions Encounter Date Encounter Id Patient Instructions Last Modified By Organization Details Last Modified Time 12/23/2023 [id number] Acute Sinusitis: Care Instructions [email or web address] Not available [...] undesirable side effects. Probiotics can be purchased [id number] at your pharmacy in the form of [...] ve Not Available [address] [place], [address], 12/23/2023 11:54:21 12/23/19 24 12/23/2023 rapid strep group A, throa t Unknown Analyte yes Not Available 2099Yolanda villareal [facility] [address] [place], [address], 12/23/2023 11:54:21 Result Notes None recorded. Problems Name Problem SNOMED Code Status Onset Date Resolution Date Notes Provider Name and Address Organization Details Recorded Time Hypertensive disorder 54118715 Active 2023 HEIDI LOPEZICA null, [place] - [facility] 4 11:30:07 Sore throat 342092027 Active 2023 HEIDI LUPICA null, PA - [facility] 4 11:54:29 Acute low back pain 388008399 Active 2023 Neredia Cardona NP [address] [place], [address] , [place] - [facility] 4 12:03:02 [...] Name and Address Organization Details Recorded Time 674313 Valium medicatio n other Not available Not available 12/23/2023 88689 2 RxNorm HEIDI LUPICA null, PA - [facility] 4 11:26:11 357424 Crestor medicatio n myalgias (muscle pain) Not available Not available 12/23/2023 95093 4 RxNorm HEIDI LUPICA null, PA - [facility] 4 11:26:22 217975 acetamino phen / oxycodone medicatio n itching Not available Not available 12/23/2023 47181 3 RxNorm HEIDI LUPICA null, PA - [facility] 4 11:26:32 877318 lisinopri l medicatio n other Not available Not available 12/23/2023 11610 RxNorm chachol e viskallie n HEIDI CARTER null, PA - [facility] 4 11:27:00 047842 Lexapro medicatio n rash Not available Not available 12/23/2023 48493 1 RxNorm HEIDI CARTER null, PA - [facility] 4 11:27:09 292185 Trileptal medicatio n other Not available Not available 12/23/2023 83685 0 RxNorm chachol viviane cunningham n HEIDI CARTER null, PA - [facility] 4 11:27:26 084365 heparin medicatio n rash Not available Not available 12/23/2023 5224 RxNorm HEIDI CARTER null, PA - [facility] 4 11:27:37 319226 gabapenti n medicatio n myalgias (muscle pain) Not available Not available 12/23/2023 83953 RxNorm HEIDI CARTER null, [facility] - [facility] [...] Updated DateTime 4 154.94 cm 46.3 kg/m2 388612. 13 g 6 18 /min 97.7 [degF] [...] Updated DateTime 4 154.94 cm 46.3 kg/m2 773899. 13 g 96 % 96 % 10 78 /min 18 /min 98.3 [degF] 149 mm[Hg] 92 mm[Hg] Leann Chopra MS - [facility] 4 11:42:07 Social History Question Answer Notes LastModified by [employer] ion Details LastModified Time Tobacco Smoking Status Never Smoker HEIDI valencia PA - [facility] 12/23/2023 11:30:40 What Is Your Level Of Alcohol Consumption? None [email or web address] Information not available 12/23/2023 Are You Currently Employed? Yes Information not available 04/22/2024 Have You Had A Flu Shot This Season? Yes Information not available 04/22/2024 If No, Would You Like A Flu Shot Today? No Information not available 04/22/2024 What Is Your Relationship Status? Single Information not available 04/22/2024 Do You Use Any Illicit Or Recreational Drugs? No [email or web address] Information not available 12/23/2023 Have You Recently Traveled Abroad? No [email or web address] Information not available 12/23/2023 Are You Currently In School? No Information not available 04/22/2024 Do You Or Have You Ever Used Any Other Forms Of Tobacco Or Nicotine? No [email or web address] Information not available 12/23/2023 Sex: Unknown Functional Status None recorded. Mental Status None recorded. Family History Relationship Description Onset Age of this Age Resolved Age Notes LastModified by Organization Details LastModified Time Father No current problems or disability [email or web address] Not available 12/23 11:30:26 Mother No current problems or disability [email or web address] Not available 12/23 11:30:26 Medical History No medical history recorded. Gynecological History Statement/Question Response Date of LMP Is there any chance of ? No LMP N/A Obstetrics History GPAL:G 0 P 0 0 0 0 Past Encounters Encounter ID Performer Location Encounter Start Date Encounter Closed Date Diagnosis/Indication Diagnosis SNOMED-CT Code Diagnosis ICD10 Code Diagnosis Note [id number] 2099_[facility] _[address] [address] 12/15/2017 16:35:58 12/15/2017 18:14:31 [id number] 2099[facility] [address] [address] 08/14/2021 08:39:23 08/14/2021 10:52:38 [id number] [place] [address] [place] [address] 12/23/2023 10:41:25 12/23/2023 12:05:27 Sore throat 599161608 J02.9 Streptococ sarai sore throat 08165423 J02.0 [id number] [place] [address] [address] 04/22/2024 11:22:03 04/22/2024 12:18:05 Acute low back pain 532901921 M54.50 The following are my recommenda tions [...] Dizziness. light headedness Thank you for using [employer] - please don't hesistate to call our [...] Xavier Member ID Guarantor Name 08/14/2021 1 [facility] [employer] - TOGETHER WITH [employer] (MEDICAID REPLACEMENT - HMO) [id number] Sade L Coffin [id number] 1 Sade Annitain 12/23/2023 1 [facility] [employer] - TOGETHER WITH [employer] (MEDICAID REPLACEMENT - HMO) [id number] Sade L Coffin [id number] 1 Sade Annitain 04/22/2024 1 [facility] [employer] - TOGETHER (MEDICAID HMO) [id number] Sade L Coffin [id number] 1 Sade Lutz Notes Date Note Type [...] Maxwell Gonzalez NP [address], [address], [place] - [facility] 12/23/2023 11:58:33 04/22/2024 text/html Lower BackReport [...] Nereida Cardona NP [address], [address], [place] - [facility] 04/22/2024 14:51:06 OBGyn Episode No OBEpisode recorded.
--- OUTSIDE RECORDS SUMMARY | 2025-03-07 10:26 | XMS_ITS | Encounter Summary ---
Author Organization [facility] Address [address] [place] [address] Care Team Providers Care Associate Of Science In Nursing Name Role Phone Kevin Gibson MD Primary Care Provider Unavail able Reason for Visit * Reason Onset Date Comments Medical Records 09/08/2020 Encounter Details Date Type Department Care Team Description 09/08/2020 Telephone [facility] [address] [place] [address] Marcy Walsh MD [address] [place] [id number] Medical Records Social History Tobacco Use Types [...] aware her appt is w/Dr Patel at [facility] documented in this encounter Plan of Treatment Not on file documented as of this encounter Visit Diagnoses Not on filedocumented in this encounter Care Teams Associate Of Science In Nursing Relationship Specialty Start Date End Date Kevin Gibson MD PCP - General Internal Medicine 07/13/16 documented as of this encounter
--- OUTSIDE RECORDS SUMMARY | 2025-03-07 10:26 | XMS_ITS | Clinical Summary ---
Author Organization [employer] Address [address] [facility] [address] [place] [address] Care Team Providers Care Pantograph Ii Engraver Name Role Phone PcpShey Unassigned Primary Care [...] BEDTIME EVERY NIGHT 3 Active nystatin (Mycostatin) 418451 UNIT/GM powder Apply topically. 1 Active metFORMIN [...] DENTAL - HSN PARTIAL (MEDICAID) Care Teams Pantograph Ii Engraver Relationship Specialty Start Date End Date Shey Gallardo Unassigned PCP - General Family Medicine 03/06/23
--- OUTSIDE RECORDS SUMMARY | 2025-03-07 10:26 | XMS_ITS | Encounter Summary ---
Author Organization [facility] [employer] [facility] Address [address] [facility] [address] [place] [address] Care Team Providers Care Cartridge Gauger Name Role Phone Shey Gallardo Unassigned [...] on filedocumented in this encounter Care Teams Cartridge Gauger Relationship Specialty Start Date End Date Shey Gallardo Unassigned PCP - General Family Medicine 03/06/23 documented as of this encounter
--- OUTSIDE RECORDS SUMMARY | 2025-03-07 10:26 | XMS_ITS | Encounter Summary ---
Author Organization [facility] Address [address] [place] [address] Care Team Providers Care Yield Improvement Engineer Name Role Phone Shey Gallardo Unassigned Primary [...] on filedocumented in this encounter Care Teams Yield Improvement Engineer Relationship Specialty Start Date End Date Shey Gallardossabiodun PCP - General Family Medicine 03/06/23 documented as of this encounter
--- OUTSIDE RECORDS SUMMARY | 2025-03-07 10:26 | XMS_ITS | Clinical Summary ---
Author Organization [facility] Address [address] [facility] [place] [address] Care Team Providers Care Rv Technician Name Role Phone Kevin Gibson MD Primary [...] 11/06/2024 INFLUENZA (Season Ended) 2025 Care Teams Rv Technician Relationship Specialty Start Date End Date Kevin Gibson MD PCP - General Internal Medicine 07/13/16
--- OUTSIDE RECORDS SUMMARY | 2025-03-07 10:26 | XMS_ITS | Patient Health Record ---
Author Organization [email or web address] Address [address] [place] [address] Care Team Providers Care Hand Twister Name Role Phone SHAMIR CIELO Primary Care Provider Felipa Reyes Unavailable [phone] Allergies Allergen (clinical drug ingredient) Drug/Non Drug [...] 200MG 1 ORAL twice daily for -3 [facility] 01/03/2012 Active hydroCHLOROthiazide 25mg 1 ORAL daily for -3 [facility] 07/17 Active Estrace Vaginal Cream 42.5GM Vaginal 1GM 3X A WEEK for -3 [facility] 06/04/2013 Not-Taking FLUoxetine HCl 40MG 1 ORAL daily for -3 [facility] 01/03/2012 Active Social History Tobacco Use: Social History Observation Description Date Details (start date - stop date) Never Smoker NA - NA Tobacco Use/Smoking Question Answer Notes Are you a nonsmoker Problems Problem Type SNOMED Code ICD Code Onset Dates Problem Status W/U Status Risk Notes Problem Depressive disorder (50868720) Depressive disorder, not elsewhere classified (311) Active confirmed Major Problem Essential hypertension (84039450) Unspecified essential hypertension (401.9) Active confirmed Major Problem Menopausal symptom (56250243) Symptomatic menopausal or female climacteric states (627.2) Active confirmed Major Problem Gynecological examination normal (211157268566171) Routine gynecological examination (V72.31) Active confirmed Major Problem Screening for malignant neoplasm of colon (707496302) Special screening for malignant neoplasms, colon (V76.51) Active confirmed Major Plan Of Treatment Pending Test Test Name Order Date PT AND PTT 12/31/2015 Insurance Providers Payer Name Payer Address Payer Phone Subscriber Number Group Number Insured Name Patient Relationship to Insured Coverage Start Date Coverage End Date [employer] [place] [address] [place] [address] [id number] LESLYE DORANTES Self - patient is the [...]
--- OUTSIDE RECORDS SUMMARY | 2025-03-07 10:26 | XMS_ITS | Encounter Summary ---
Author Organization [facility] [employer] [facility] Address [address] [facility] [address] [place] [address] Care Team Providers Care Convention Services Director Name Role Phone Shey Gallardo Unassigned Primary [...] on filedocumented in this encounter Care Teams Convention Services Director Relationship Specialty Start Date End Date Shey Gallardossabiodun PCP - General Family Medicine 03/06/23 documented as of this encounter
== END 2025-03-07 10:30 | disposition home or self-care (01) ==
LOC: HO.HMCH 09:39
PROVIDERS: PCP Internal Medicine; Visit Provider Internal Medicine
DX: E11.65 Type 2 diabetes mellitus with hyperglycemia (principal); I82.402 Acute embolism and thrombosis of unspecified deep veins of left lower extremity; E66.01 Morbid (severe) obesity due to excess calories; Z68.42 Body mass index [BMI] 45.0-49.9, adult; Z98.84 Bariatric surgery status; G47.30 Sleep apnea, unspecified; E78.00 Pure hypercholesterolemia, unspecified; I10 Essential (primary) hypertension; F41.1 Generalized anxiety disorder

== ENCOUNTER → 2025-03-07 09:38 | Outpatient (BNVA) | payer MEDICARE, MEDICAID, SELFPAY | PROVIDERS: PCP Internal Medicine; Visit Provider Internal Medicine | DX: E11.65 Type 2 diabetes mellitus with hyperglycemia (principal); I82.402 Acute embolism and thrombosis of unspecified deep veins of left lower extremity; G47.30 Sleep apnea, unspecified; E78.00 Pure hypercholesterolemia, unspecified; E66.01 Morbid (severe) obesity due to excess calories; I10 Essential (primary) hypertension; F41.1 Generalized anxiety disorder; Z98.84 Bariatric surgery status; Z68.42 Body mass index [BMI] 45.0-49.9, adult | CPT/HCPCS: 99212 ==

== ENCOUNTER 2025-04-18 09:21 | Outpatient (REF) | payer MEDICARE, MEDICAID, SELFPAY ==
--- NOTE | ~2025-04-18 | US_ITS ---
CLINICAL HISTORY: R79.89 - Other specified abnormal findings of blood chemistry US abdomen complete Comparison: None Findings: The pancreatic head and proximal body appear within normal limits. The remainder of the pancreas is obscured by overlying bowel gas. The aorta and inferior vena cava are normal caliber. The liver is enlarged in size with the right hepatic lobe measuring 21.8 cm in length. Hepatic echogenicity is increased. No focal hepatic mass is identified. Mild central hepatic ductal dilatation is present. The common duct is 7.7 mm in diameter. The gallbladder is not visualized. The main portal vein is antegrade. The right kidney is 11.3 cm in length. The left kidney is 11.7 cm in length. The spleen is normal. IMPRESSION: 1. Hepatomegaly with hepatic steatosis. 2. Mild central hepatic and extrahepatic ductal dilatation with the CBD measuring 7.7 mm. Findings can be seen in post cholecystectomy patients. This document has been electronically signed by: Ronaldo Burns on 04/19/2025 08:38:06
--- NOTE | ~2025-04-18 | US_ITS ---
EXAMINATION: US TRIPLEX LOWER EXTREMITY, LEFT CLINICAL INFORMATION: Pain, left lower extremity. COMPARISON: None available. TECHNIQUE: Color-flow triplex imaging with spectral analysis and compression Doppler were performed on the left lower extremity. FINDINGS: Respiratory variation, normal compression and augmented flow are present throughout the interrogated common femoral vein, superficial femoral vein, profunda femoral vein, midcalf peroneal and posterior tibial venous segments. There is an intraluminal isoechoic abnormality in the left popliteal vein with partial compressibility respiration augmentation. There is no Knott's cyst. 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 Electronically signed by: Werner Smith MD 04/18/2025 10:27 AM EDT
--- OUTSIDE RECORDS SUMMARY | 2025-04-18 09:46 | XMS_ITS | Continuity of Care Document ---
Author Organization [facility] Address [address] [facility] [address] [place] [address] Insurance Providers Payer Plan Claims Address Claims Phone Policy Number Group Number Relation Employer Guarantor Name Guarantor Guarantor Address Guarantor Phone [place] [place] [employer] [place] [address], [place] [address] tel:[phone] [id number] Blue [employer] Blue Med[employer] re Blue [employer] Blue Medic are [id number] [place] [id number] Problems Condition ICD9 code ICD10 code SNOMED code Start Date End Date S tatus Encounter for screening for other metabolic disorders Z13.228 Results No Results Allergies, adverse reactions, alerts No known allergies and adverse reactions Medications No administered medications reported Vital Signs No vital signs reported Social History No smoking Hx information available
[2025-04-18 13:55] LABS: Cortisol Random 7.7 ug/dL
== END 2025-04-18 09:22 | disposition home or self-care (01) ==
LOC: HO.HMGCX 09:21
PROVIDERS: PCP Internal Medicine; Visit Provider Internal Medicine
DX: R79.89 Other specified abnormal findings of blood chemistry (principal); I82.402 Acute embolism and thrombosis of unspecified deep veins of left lower extremity; E11.65 Type 2 diabetes mellitus with hyperglycemia
CPT/HCPCS: 36415; 76700; 82533; 93971

== ENCOUNTER → 2025-04-18 09:31 | Outpatient (BNV) | payer MEDICARE, MEDICAID, SELFPAY | PROVIDERS: PCP Internal Medicine; Visit Provider Radiology Diagnostic Radiology | DX: I82.532 Chronic embolism and thrombosis of left popliteal vein (principal) | CPT/HCPCS: 93971 ==

== ENCOUNTER 2025-06-04 09:30 | Outpatient (AMB) | payer MEDICARE, MEDICAID, SELFPAY ==
--- NOTE | 2025-06-04 07:50 | MHC.OFFVISWM ---
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 Bypass Intake Note: Bp retaken 184/84 Human Resources Recruiter Required: No Allergies dexamethasone Allergy (Severe, Verified 06/04/25 09:38) Dizziness midazolam Allergy (Severe, Verified 06/04/25 09:38) Dizziness enoxaparin (From Lovenox) Allergy (Intermediate, Verified 06/04/25 09:38) Rash diazepam (Valium) Allergy (Unknown, Verified 06/04/25 09:38) Hypertension escitalopram (Lexapro) Allergy (Unknown, Verified 06/04/25 09:38) Rash lisinopril Allergy (Unknown, Verified 06/04/25 09:38) Difficulty Swallowing oxcarbazepine (Trileptal) Allergy (Unknown, Verified 06/04/25 09:38) Hives oxycodone (Percocet) Allergy (Unknown, Verified 06/04/25 09:38) Hives rosuvastatin (Crestor) Allergy (Unknown, Verified 06/04/25 09:38) Eye Swelling losartan Adverse Reaction (Intermediate, Verified 06/04/25 09:38) not sure metoprolol Adverse Reaction (Intermediate, Verified 06/04/25 09:38) leg pain gabapentin Adverse Reaction (Verified 06/04/25 09:38) Muscle Pain Medication List - Last Reconciled 06/04/25 by RICH Jade [Bariatric fusion 2 caps PO BID] [Bariatric Fusion ] blood sugar diagnostic (FreeStyle Lite Strips) As directed bupropion HCl XL 150 mg PO QAM 90 days CPAP (CPAP Machine/Device) As directed fluoxetine 40 mg PO DAILY 90 days metoprolol succinate ER 25 mg PO DAILY pramipexole 0.125 mg PO BEDTIME 90 days warfarin 5 mg PO .QD HPI Comments Details: Pt is here to start the [facility] weight loss program. Her goal is to lose weight and achieve a healthy lifestyle as well as to improve, if not resolve, obesity related medical conditions, including hypertension hypercholesterolemia fatty liver. She reports first being concerned about her weight 50 years ago, highest weight to date was 306. Current weight is 252.6 pounds with a BMI of 47.7. She has tried multiple methods of weight loss including weight watchers, fad diets, lap band x 2 with ultimate conversion to gastric bypass [place] [address] Arciniega on 08/03/2021 at [facility] without permanent results. She lives with alone. 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 She wakes at:?5 am, and goes to bed at?9 pm. Dinner is at 5 pm. Breakfast: belizean muffin w egg and cheese or overnight oats AM snack: skip Lunch: salad w cottage cheese PM snack: skip Dinner: rhonda's single burger and handful of fries or sausage and peppers or chicken quesedilla After dinner: skip Other snacks: chewy candy Liquids: 52-78 oz iced tea, w splenda and sugar, no juice, no soda Alcohol/marijuana/tobacco intake: none Exercise: none, no gym membership, treadmill at home not sure if working, wants to join [facility] GERD score: 0 TAET score: 3 ESS score: 3 QOL score: 105 [facility] Medical History Impaired glucose tolerance Type 2 diabetes mellitus with hyperglycemia Breast cancer screening by mammogram Colon cancer screening Menopausal and postmenopausal disorder History of ankle fracture Screening for osteoporosis Eating disorder with ongoing treatment Dizziness Low serum potassium Fungal rash of torso Seasonal allergies Anxiety with depression Restless leg syndrome Diabetes mellitus TMJ (dislocation of temporomandibular joint) Periodic limb movements of sleep Obstructive sleep apnea Morbid obesity Hypertension Hypercholesterolemia Heart murmur Depression Anxiety Surgical History History of gastric bypass S/P LALITA-BSO (total abdominal hysterectomy and bilateral salpingo-oophorectomy) Bilateral carpal tunnel syndrome 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 H/O ventral hernia repair History of cholecystectomy Gastric banding status Family History Mother Cancer of colon Hyperlipidemia Father CAD (coronary artery disease) Heart attack Paternal Uncle Heart attack Social History Housing: House Alcohol intake: former Comment: once drink Q 3 months Patient Tobacco Use Status: Never used Tobacco e-Cigarette/Vaping Use: Never Used Second Hand Smoke Exposure: No service: No Current occupational status: employed Cognitive needs: No Hearing needs: No Vision needs: Yes Physical Exam Vital Signs: Last Vital Signs Temp 96.4 F L 06/04/25 09:40 Pulse 67 06/04/25 09:40 BP 202/91 H 06/04/25 09:40 Pulse Ox 96 06/04/25 09:40 Oxygen Delivery Method Room Air 06/04/25 09:40 BMI result Body Mass Index 47.7 Const General: cooperative, healthy appearing and no acute distress Orientation/consciousness: patient oriented x3 HEENT Head: Yes normal to inspection Ears: hearing grossly normal bilaterally General nose exam: Normal external nose present Face and sinus: Yes normal facial exam Eyes General: appearance normal, both eyes and all related structures Resp Effort & Inspection: normal respiratory effort Auscultation: clear to auscultation bilaterally Cardio Rate: regular rate Rhythm: regular rhythm Heart sounds: S1 normal heart sound present and S2 normal heart sound present GI Inspection: Yes normal to inspection, No distended and Yes obesity Palpation (GI): Soft to palpation, nontender and no guarding Auscultation: normal bowel sounds Skin Other: Multiple laparoscopic scars on the abdomen with midline laparotomy scar umbilicus to pubic symphysis General skin exam: no rashes or lesions noted Neuro General: patient oriented x3 Extrem General: No edema Psych Appearance: grossly normal Mental Status: mental status grossly normal Speech and movement: Normal speech and movement present Affect: normal affect Attitude: cooperative Assessment & Plan Assessment & Plan (1) Morbid obesity due to excess calories: Code(s): E66.01 - Morbid (severe) obesity due to excess calories Category: Medical Plan: This is a?65 yo female who will start our [facility] program to prepare for bariatric surgery.? Blood work has been ordered. She is being scheduled for initial consultations. 1. You have been given a paper with a link to our software sofie (The Right [email or web address]) to generate an individualized nutritional and exercise plan specific for you. Please send me a screenshot of the plans you will generate Meal to include lean meat (beef, fish, pork, turkey, chicken), or lithuanian yogurt, or egg whites, or beans with a salad with olive oil and fruits (berries, pears, apples, kiwi). Avoid salt, breads, potatoes, rice, pasta, desserts. 2. If you choose shakes, each shake would be drunk slowly, like coffee over a period of 2 hours. 3. If you choose bars, cut each bar in 4 pieces and eat each piece in 30 min to make each bar last 2 hours. 4. I emphasized the importance of measuring accurately the food portion and measure it when serving the food on a plate 5. The meal portions include a specific number of forks of meat (protein) and salad. You always eat the meat portion but you can replace up to half of salad/vegetables portion with rice, potatoes or pasta, or a fruit ?if you like. The less you do it the better weight loss will be. 6. One full-size fork is what can be scooped on the fork without falling aside and not what can be bit with the fork. Use regular forks like those you find in a typical restaurant. 7.? Please send me weight measurements from your body composition scale as soon as possible and then once a week. Always include your diet and exercise plan. The best time to weigh yourself is first thing in the morning after going to the bathroom. 8. The best choice for exercise would be stationary bike or treadmill. Alternatively start walking outside daily, tracking calories with a goal of 300 calories per day, daily. You can download the sofie ViSSee which can track your time, distance and calories while walking outside. You press start in the sofie when you start and then stop when you are finished. 9.?Goal is to lose at least 1.5-2 lbs per week 10. Please follow the diet plan exactly without any change. If you don't like something about the plan or you feel hungry you need to communicate with me so I can help you revise the plan. My cell phone number to communicate with me by text is [phone] Patient is morbidly obese and is not considered stable at this time.?I spent a total of 70 minutes reviewing/updating records, examining the patient and counseling the patient on weight management as detailed above. Orders: Orders Hemoglobin A1c Today E66.01 - Morbid (severe) obesity due to excess calories, E78.00 - Pure hypercholesterolemia, unspecified, I10 - Essential (primary) hypertension, Z98.84 - Bariatric surgery status Lipid Panel Today E66.01 - Morbid (severe) obesity due to excess calories, E78.00 - Pure hypercholesterolemia, unspecified, I10 - Essential (primary) hypertension, Z98.84 - Bariatric surgery status IRON PROFILE Today E66.01 - Morbid (severe) obesity due to excess calories, E78.00 - Pure hypercholesterolemia, unspecified, I10 - Essential (primary) hypertension, Z98.84 - Bariatric surgery status Vitamin B12 and Folate Today E66.01 - Morbid (severe) obesity due to excess calories, E78.00 - Pure hypercholesterolemia, unspecified, I10 - Essential (primary) hypertension, Z98.84 - Bariatric surgery status Vitamin A Today E66.01 - Morbid (severe) obesity due to excess calories, E78.00 - Pure hypercholesterolemia, unspecified, I10 - Essential (primary) hypertension, Z98.84 - Bariatric surgery status Vitamin D 25-OH Total Today E66.01 - Morbid (severe) obesity due to excess calories, E78.00 - Pure hypercholesterolemia, unspecified, I10 - Essential (primary) hypertension, Z98.84 - Bariatric surgery status Insulin Today E66.01 - Morbid (severe) obesity due to excess calories, E78.00 - Pure hypercholesterolemia, unspecified, I10 - Essential (primary) hypertension, Z98.84 - Bariatric surgery status Complete Blood Count Auto Diff Today E66.01 - Morbid (severe) obesity due to excess calories, E78.00 - Pure hypercholesterolemia, unspecified, I10 - Essential (primary) hypertension, Z98.84 - Bariatric surgery status Comprehensive Met. Panel Today E66.01 - Morbid (severe) obesity due to excess calories, E78.00 - Pure hypercholesterolemia, unspecified, I10 - Essential (primary) hypertension, Z98.84 - Bariatric surgery status Zinc Today E66.01 - Morbid (severe) obesity due to excess calories, E78.00 - Pure hypercholesterolemia, unspecified, I10 - Essential (primary) hypertension, Z98.84 - Bariatric surgery status C Reactive Protein Today E66.01 - Morbid (severe) obesity due to excess calories, E78.00 - Pure hypercholesterolemia, unspecified, I10 - Essential (primary) hypertension, Z98.84 - Bariatric surgery status Vitamin B1 Today E66.01 - Morbid (severe) obesity due to excess calories, E78.00 - Pure hypercholesterolemia, unspecified, I10 - Essential (primary) hypertension, Z98.84 - Bariatric surgery status TSH reflex Free T4 Today E66.01 - Morbid (severe) obesity due to excess calories, E78.00 - Pure hypercholesterolemia, unspecified, I10 - Essential (primary) hypertension, Z98.84 - Bariatric surgery status Ferritin Today E66.01 - Morbid (severe) obesity due to excess calories, E78.00 - Pure hypercholesterolemia, unspecified, I10 - Essential (primary) hypertension, Z98.84 - Bariatric surgery status Referrals Behavioral Health Referral E66.01 - Morbid (severe) obesity due to excess calories, E78.00 - Pure hypercholesterolemia, unspecified, I10 - Essential (primary) hypertension, Z98.84 - Bariatric surgery status
[2025-06-04 09:40] VITALS: BP 202/91; PULSE 67; TEMP 35.8; O2SAT 96; BMI 47.7
--- OUTSIDE RECORDS SUMMARY | 2025-06-04 10:02 | XMS_ITS | Encounter Summary ---
Author Organization [employer] [facility] Address [address] [place] [address] Care Team Providers Care Asbestos Hazard Abatement Worker Name Role Phone PcpShey Unassigned Primary Care Provider U navailable Encounter [...] on filedocumented in this encounter Care Teams Asbestos Hazard Abatement Worker Relationship Specialty Start Date End Date Shey Gallardo Unassigned PCP - General Family Medicine 03/06/23 documented as of this encounter
--- OUTSIDE RECORDS SUMMARY | 2025-06-04 10:02 | XMS_ITS | Patient Health Record ---
Author Organization [employer] [facility] Address [address] [place] [address] Care Team Providers Care Counseling Case Manager Name Role Phone SHAMIR CIELO Primary Care Provider UnavailFelipa Salinas Unavailable [phone] Allergies Allergen (clinical drug ingredient) Drug/Non Drug [...] Status Wellbutrin SR 200MG 1 ORAL twice daily; Duration: -3 [facility]- 01/03/2012 Active hydroCHLOROthiazide 25mg 1 ORAL daily; Duration: -3 [facility]-MJ 07/17/2013 Active Estrace Vaginal Cream 42.5GM Vaginal 1GM 3X A WEEK; Duration: -3 [facility]- 06/04/2013 Not-Taking FLUoxetine HCl 40MG 1 ORAL daily; Duration: -3 [facility]-MJ 01/03/2012 Active Social History Tobacco Use: Social History Observation Description Date Details (start date - stop date) Never Smoker NA - NA Tobacco Use/Smoking Question Answer Notes Are you a nonsmoker Problems Problem Type SNOMED Code ICD Code Onset Dates Problem Status W/U Status Risk Notes Problem Depressive disorder (75627519) Depressive disorder, not elsewhere classified (311) Active confirmed Major Problem Essential hypertension (23038948) Unspecified essential hypertension (401.9) Active confirmed Major Problem Menopausal symptom (81050267) Symptomatic menopausal or female climacteric states (627.2) Active confirmed Major Problem Gynecological examination normal (777539626508928) Routine gynecological examination (V72.31) Active confirmed Major Problem Screening for malignant neoplasm of colon (364803065) Special screening for malignant neoplasms, colon (V76.51) Active confirmed Major Plan Of Treatment Pending Test Test Name Order Date PT AND PTT 12/31/2015 Insurance Providers Payer Name Payer Address Payer Phone Subscriber Number Group Number Insured Name Patient Relationship to Insured Coverage Start Date Coverage End Date [employer] [place] [address] [place] [address] [phone] [id number] LESLYE DORANTES Self - patient is the [...]
--- OUTSIDE RECORDS SUMMARY | 2025-06-04 10:02 | XMS_ITS | Encounter Summary ---
Author Organization [facility] Address [address] [place] [address] Phone Care Team Providers Care Electrician Telephone Name Role Phone Luci Aragon NP Primary Care Provider Kuldip Prakash MD Primary Care Provider [phone] Encounter Details Date Type Department Care Team ([facility] st Contact Info) Description 11/02/2022 Procedure Pass OR Admitting Dept - Virtual Department [address] [place] [address] Social History Tobacco Use Types Packs/Day Years Used Date Smoking Tobacco: Never Smokeless Tobacco: Never Alcohol Use Standard Drinks/Week Comments Yes 0 (1 standard drink = 0.6 oz pur e alcohol) one drink every other month Comments No Sex and Gender Information Value Date Recorded Sex Assigned at Not on file Legal Sex Female 12:15 PM EDT Gender Identity Not on file Sexual Orientation Not on file documented as of this encounter Plan of Treatment Not on file documented as of this encounter Visit Diagnoses Not on filedocumented in this encounter Care Teams Electrician Telephone Relationship Specialty Start Date End Date Luci Aragon NP PCP - General Family Medicine 10/04/22 12/26/24 Kuldip Prakash MD [address] [place] [id number] PCP - General Internal Medicine 12/27/24 documented as of this encounter Additional Source Comments The information contained in this document represents components of the legal health record. It is not the complete legal health record.[facility]
== END 2025-06-04 10:39 | disposition home or self-care (01) ==
LOC: HO.HBS 09:31
PROVIDERS: PCP Internal Medicine; Visit Provider Physician Assistant Surgical
DX: E66.01 Morbid (severe) obesity due to excess calories (principal); Z68.42 Body mass index [BMI] 45.0-49.9, adult
CPT/HCPCS: 99205

== ENCOUNTER → 2025-06-04 09:30 | Outpatient (BNVA) | payer MEDICARE, MEDICAID, SELFPAY | PROVIDERS: PCP Internal Medicine; Visit Provider Physician Assistant Surgical | DX: Z98.84 Bariatric surgery status (principal); E66.01 Morbid (severe) obesity due to excess calories; E78.00 Pure hypercholesterolemia, unspecified; I10 Essential (primary) hypertension | CPT/HCPCS: 99202 ==

== ENCOUNTER 2025-06-14 07:05 | Outpatient (REF) | payer MEDICARE, MEDICAID, SELFPAY ==
--- OUTSIDE RECORDS SUMMARY | 2025-06-14 07:07 | XMS_ITS | Patient Health Record ---
Author Organization [employer] [facility] [facility] Address [address] [place] [address] Care Team Providers Care Mining Speculator Name Role Phone SHAMIR CIELO Primary Care Provider UnavailFelipa Salinas Unavailable [phone] Allergies Allergen (clinical drug ingredient) Drug/Non Drug [...] 200MG 1 ORAL twice daily; Duration: -3 [facility]- 01/03/2012 Active hydroCHLOROthiazide 25mg 1 ORAL daily; [...] W/U Status Risk Notes Problem Depressive disorder (67589869) Depressive disorder, not elsewhere classified (311) Active confirmed Major Problem Essential hypertension (80914512) Unspecified essential hypertension (401.9) Active confirmed Major Problem Menopausal symptom (75403023) Symptomatic menopausal or female climacteric states (627.2) Active confirmed Major Problem Gynecological examination normal (107957281501182) Routine gynecological examination (V72.31) Active confirmed Major Problem Screening for malignant neoplasm of colon (494588206) Special screening for malignant neoplasms, colon (V76.51) Active confirmed Major Plan Of Treatment Pending Test Test Name Order Date PT AND PTT 12/31/2015 Insurance Providers Payer Name Payer Address Payer Phone Subscriber Number Group Number Insured Name Patient Relationship to Insured Coverage Start Date Coverage End Date [employer] [place] [address] [place] [address] [phone] [id number] LESLYE DORANTES Self - patient is the [...]
--- OUTSIDE RECORDS SUMMARY | 2025-06-14 07:07 | XMS_ITS | Encounter Summary ---
Author Organization [employer] [facility] Address [address] [place] [address] Care Team Providers Care Cloth Seconds Sorter Name Role Phone PcpShey Unassigned Primary Care [...] on filedocumented in this encounter Care Teams Cloth Seconds Sorter Relationship Specialty Start Date End Date Shey Gallardo Unassigned PCP - General Family Medicine 03/06/23 documented as of this encounter
[2025-06-14 07:23] LABS: MANUAL DIFF FLAG NO
[2025-06-14 07:44] LABS: Hematocrit 44.7 % (37.0-47.0); Hemoglobin 15.1 g/dl (12.0-16.0); Imm Gran Abs Auto 0.03 X10*3/uL (0.00-0.03); Imm Gran Pct Auto 0.4 % (0.0-0.4); Lymphocytes Absolute Auto 2.0 X10*3/uL (1.2-4.9); Mean Corpuscular HGB Conc 33.8 g/dl (31.0-35.0); Mean Corpuscular Hemoglobin 29.0 pg (27.0-33.0); Mean Corpuscular Volume 85.8 fL (80.0-98.0); NRBC Abs Auto 0.000 X10*3/uL (0.0-0.012); NRBC Pct Auto 0.0 /100WBC (0.0-0.2); Platelet Count 333 X10*3/uL (160-400); Red Blood Count 5.21 X10*6/uL (4.20-5.50); White Blood Count 7.0 X10*3/uL (4.8-10.8)
[2025-06-14 07:58] LABS: Hemoglobin A1C 169.9575 umol/L; Total Hemoglobin (HGBA1C) 4024.0695 umol/L
[2025-06-14 08:26] LABS: Albumin Level 4.3 g/dL (3.5-5.0); Alkaline Phosphatase 88 U/L (39-117); Anion Gap 14 (12-20); Aspartate Amino Transferase 50 U/L (5-31); Blood Urea Nitrogen 19 mg/dL (9-16); Calcium 9.6 mg/dL (8.4-10.2); Carbon Dioxide 25 mmol/L (22-29); Chloride 105 mmol/L (96-108); Cholesterol 246 mg/dL (<200); Estimated Glomerular Filt Rate > 60; HDL Cholesterol 37 mg/dL (>40); Iron 86 mcg/dL (30-160); Percent Iron Saturation 25 % (15-50); Potassium 3.9 mmol/L (3.3-5.1); Sodium 140 mmol/L (135-145); Total Iron Binding Capacity 348 mcg/dL (228-428); Total Protein 7.2 g/dL (6.5-8.0); Triglycerides 255 mg/dL (<150); Unsaturated Iron Binding 262 ug/dL
[2025-06-14 08:50] LABS: Folate 18.5 ng/mL (> or = 4.0); Vitamin B12 1600 pg/mL (200-900)
[2025-06-14 08:53] LABS: Ferritin 159 ng/mL (10-250)
[2025-06-14 10:52] LABS: Alanine Aminotransferase 52 U/L (0-31)
== END 2025-06-14 07:06 | disposition home or self-care (01) ==
LOC: HO.LAB 07:05
PROVIDERS: PCP Internal Medicine; Visit Provider Physician Assistant Surgical
DX: E66.01 Morbid (severe) obesity due to excess calories (principal); E78.00 Pure hypercholesterolemia, unspecified; I10 Essential (primary) hypertension; Z98.84 Bariatric surgery status; Z13.1 Encounter for screening for diabetes mellitus
CPT/HCPCS: 36415; 80053; 80061; 82306; 82607; 82728; 82746; 83036; 83525; 83540; 84425; 84443; 84590; 84630; 85025; 86140

== ENCOUNTER 2025-06-27 09:25 | Outpatient (AMB) | payer MEDICARE, MEDICAID, SELFPAY ==
--- OUTSIDE RECORDS SUMMARY | 2025-06-27 09:31 | XMS_ITS | Patient Health Record ---
Author Organization [facility] Address [address] [place] [address] Care Team Providers Care Associate Professor Of Forestry Name Role Phone SHAMIR CIELO Primary Care Provider UnavailFelipa Salinas Unavailable [phone] Allergies Allergen (clinical drug ingredient) Drug/Non Drug [...] 200MG 1 ORAL twice daily; Duration: -3 [facility]- 01/03/2012 Active hydroCHLOROthiazide 25mg 1 ORAL daily; [...] W/U Status Risk Notes Problem Depressive disorder (85253935) Depressive disorder, not elsewhere classified (311) Active confirmed Major Problem Essential hypertension (59275373) Unspecified essential hypertension (401.9) Active confirmed Major Problem Menopausal symptom (47527547) Symptomatic menopausal or female climacteric states (627.2) Active confirmed Major Problem Gynecological examination normal (817890834244360) Routine gynecological examination (V72.31) Active confirmed Major Problem Screening for malignant neoplasm of colon (875949686) Special screening for malignant neoplasms, colon (V76.51) Active confirmed Major Plan Of Treatment Pending Test Test Name Order Date PT AND PTT 12/31/2015 Insurance Providers Payer Name Payer Address Payer Phone Subscriber Number Group Number Insured Name Patient Relationship to Insured Coverage Start Date Coverage End Date [employer] [place] [address] [place] [address] [phone] [id number] LESLYE DORANTES Self - patient is the [...]
--- OUTSIDE RECORDS SUMMARY | 2025-06-27 09:31 | XMS_ITS | Encounter Summary ---
Author Organization [facility] Address [address] [place] [address] Phone Care Team Providers Care Home Health Nurse Name Role Phone Luci Aragon NP Primary Care Provider Kuldip Prakash MD Primary Care Provider [phone] Encounter Details Date Type Department Care Team (Late st Contact Info) Description 11/02/2022 Procedure Pass OR Admitting Dept - Virtual Department [address] [place] [address] Social History Tobacco Use Types Packs/Day Years [...] on filedocumented in this encounter Care Teams Home Health Nurse Relationship Specialty Start Date End Date Luci Aragon NP PCP - General Family Medicine 10/04/22 12/26/24 Kuldip Prakash MD [address] [place] [address] PCP - General Internal Medicine 12/27/24 documented as of this encounter Additional Source Comments The information contained in this document represents components of the legal health record. It is not the complete legal health record.[facility]
--- OUTSIDE RECORDS SUMMARY | 2025-06-27 09:31 | XMS_ITS | Encounter Summary ---
Author Organization [employer] [facility] Address [address] [place] [address] Care Team Providers Care Cylinder Checker Name Role Phone PcpShey Unassigned Primary Care [...] on filedocumented in this encounter Care Teams Cylinder Checker Relationship Specialty Start Date End Date Shey Gallardo Unassigned PCP - General Family Medicine 03/06/23 documented as of this encounter
--- NOTE | 2025-06-27 10:00 | A.OFFWM_ITS ---
Intake Intake Visit Reasons: OV BH Intake Allergies dexamethasone Allergy (Severe, Verified 07/22/25 09:41) Dizziness midazolam Allergy (Severe, Verified 07/22/25 09:41) Dizziness enoxaparin (From Lovenox) Allergy (Intermediate, Verified 07/22/25 09:41) Rash diazepam (Valium) Allergy (Unknown, Verified 07/22/25 09:41) Hypertension escitalopram (Lexapro) Allergy (Unknown, Verified 07/22/25 09:41) Rash lisinopril Allergy (Unknown, Verified 07/22/25 09:41) Difficulty Swallowing oxcarbazepine (Trileptal) Allergy (Unknown, Verified 07/22/25 09:41) Hives oxycodone (Percocet) Allergy (Unknown, Verified 07/22/25 09:41) Hives rosuvastatin (Crestor) Allergy (Unknown, Verified 07/22/25 09:41) Eye Swelling fenofibrate Adverse Reaction (Severe, Verified 07/22/25 09:41) Muscle cramps losartan Adverse Reaction (Intermediate, Verified 07/22/25 09:41) not sure metoprolol Adverse Reaction (Intermediate, Verified 07/22/25 09:41) leg pain gabapentin Adverse Reaction (Verified 07/22/25 09:41) Muscle Pain PFSH Medical History Impaired glucose tolerance Type 2 diabetes mellitus with hyperglycemia Breast cancer screening by mammogram Colon cancer screening Menopausal and postmenopausal disorder History of ankle fracture Screening for osteoporosis Eating disorder with ongoing treatment Dizziness Low serum potassium Fungal rash of torso Seasonal allergies Anxiety with depression Restless leg syndrome Diabetes mellitus TMJ (dislocation of temporomandibular joint) Periodic limb movements of sleep Obstructive sleep apnea Morbid obesity Hypertension Hypercholesterolemia Heart murmur Depression Anxiety Surgical History History of gastric bypass S/P LALITA-BSO (total abdominal hysterectomy and bilateral salpingo-oophorectomy) Bilateral carpal tunnel syndrome 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 H/O ventral hernia repair History of cholecystectomy Gastric banding status Family History Mother Cancer of colon Hyperlipidemia Father CAD (coronary artery disease) Heart attack Paternal Uncle Heart attack Social History Housing: House Alcohol intake: former Comment: once drink Q 3 months Patient Tobacco Use Status: Never used Tobacco e-Cigarette/Vaping Use: Never Used Second Hand Smoke Exposure: No Patient : No service: No Current occupational status: employed Cognitive needs: No Hearing needs: No Vision needs: Yes Behavioral Health Assessment Weight Management Therapy Therapy Notes Details The patient is a 65-year-old female presenting for a behavioral health assessment as part of a surgical weight loss program. She previously underwent weight-loss surgery in 2020 and is self-referred to this program as a last resort to continue her weight management efforts. The patient reports a history of intensive treatment for binge eating disorder, during which she followed a structured meal plan consisting of three meals and three snacks daily. Although this approach was intended to prevent binge episodes, the high caloric intake contributed to weight gain. As a result, she developed medical issues that were subsequently resolved following her weight- loss surgery. Currently, the patient is uncertain about pursuing another surgical intervention but is seeking support to improve her eating behaviors and overall health. Presenting Concerns Referral Source WMP-Provider, RICH Conteh Reason for referral Completion of behavioral health assessment as part of process for weight-loss surgery. Precipitating Event Weight gain after WLS in 2020. Living Situation Current Living Situation Own At risk of losing current housing? No Satisfied with current living situation? Yes Comments PT lives alone. Food/Weight/Diet Expectations of change Initial goal is to Patient goals are PT is implementing the following: Current meal plan: combination of shakes, bar and 1 meal. She is using [employer]. Exercise plan: Gym - Goal burn 300cal at day. Scale: yes Communication w/ provider: - . History/Relationship with food Example of meals before starting the program: Breakfast: Lunch: Dinner: Snacks: Drinks/Liquids: History/Relationship with weight In the last 10 years, the patient's Lowest weight was and highest Social History Family history and relationship Pt is single, never . Parents are Her family relatives are across the country. She had a brother who and has 2 nephews. Parental/Familial deputy brand inspector obligations None. Developmental history and status None/ Currently WNL Social support Close good friends for over 20 years. Community support None. Restorationism/Spirituality Sikhism-Mu-Ism. Cultural/Ethnic information . Legal Involvement and History Current or historical involvement with the legal system? None. Education Highest grade completed Masters degree in education. [employer] in expressive arts. Preferred learning style Visual Currently enrolled in educational program? No Interested in further educational program? 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 Wellness and MH. 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 No Meaningful activities Kayaking, camping, music Used to do visual journaling Financial Situation Describe current financial situation Comfortable and Occasional struggle Financial assistance? SSI Service Service? No Mental Health and Addiction Treatment Current/Past substance abuse? No Comments Alcohol: none Cigarettes/Tobacco: none Cannabis/Edibles: none Current/Past addictive behavior concerns? No Psychiatric history PT currently attends counseling every 2 weeks. She sees a therapist ([facility]) in private practice via Telehealth. She started depression at age 39 after surgical menopause as she had a full hysterectomy. Her PCP prescribes her with: -Bupropion 150mg -Fluoxetine 40mg Questionnaires PHQ-9 Over the last 2 weeks, how often have you been bothered by any of the following problems? 1. Little interest or pleasure in doing things: not at all 2. Feeling down, depressed, or hopeless: not at all 3. Trouble falling or staying asleep, or sleeping too much: not at all 4. Feeling tired or having little energy: more than half the days 5. Poor appetite or overeating: several days 6. Feeling bad about yourself - or that you are a failure or have let yourself or your family down: not at all 7. Trouble concentrating on things, such as reading the newspaper or watching television: not at all 8. Moving or speaking so slowly that other people could have noticed. Or the opposite - being so fidgety or restless that you have been moving around a lot more than usual: not at all 9. Thoughts that you would be better off or of hurting yourself in some way: not at all Total score: 3 Depression Screening Interpretation: Negative (From new PT pack.) Depression Screening Done: Yes Source: Developed by Drs. Star Culp, Ambar Witt, Guanako Devine and colleagues, with an educational yarelis from [employer]. Binge Eating Scale Group 1 A. I don't feel self-conscious about my wt. or body size when I'm with others. B. I feel concerned about how I look to others, but it normally does not make me fell disappointed with myself C. I do get self-conscious about my appearance and wt. which makes me feel disappointed in myself. D. I feel very self-conscious about my wt. and frequently I feel intense shame and disgust for myself. I try to avoid social contacts because of my self- consciousness. Response Group 1: D Group 2 A. I don't have any difficulty eating slowly in the proper manner. B. Although I seem to gobble down foods, I don't end up feeling stuffed because of eating to much. C. At times, I tend to eat quickly and then, I feel uncomfortably full afterwards. D. I have the habit of bolting down my food, without really chewing it. When this happens I usually feel uncomfortably stuffed because I've eaten to much. Response Group 2: A Group 3 A. I feel capable to control my eating urges when I want to. B. I feel like I have failed to control my eating more than the average person. C. I feel utterly helpless when it comes to feeling in control of my eating urges. D. Because I feel so helpless about controlling my eating I have become very desperate about trying to get control. Response Group 3: A Group 4 A. I don't have the habit of eating when I'm bored. B. I sometimes eat when I'm bored, but often I'm able to get busy and get my mind off food. C. I have a regular habit of eating when I'm bored, but occasionally, I can use some other activity to get my mind off eating. D. I have a strong habit of eating when I'm bored. Nothing seems to help me breath the habit. Response Group 4: C Group 5 A. I'm usually physically hungry when I eat something. B. Occasionally, I eat something on impulse even though I really am not hungry. C. I have the regular habit of eating foods, that I might not really enjoy, to satisfy a hungry feeling even though physically, I don't need the food. D. Although I'm not physically hungry, I get a hungry feeling in my mouth that only seems to be satisfied when I eat a food, like sandwich, that fills my mouth. Sometimes, when I eat the food to satisfy my mouth hunger, I then spit the food out so I won't gain weight. Response Group 5: B Group 6 A. I don't feel any guilt or self-hate after I overeat. B. After I overeat, occasionally I feel guilt or self-hate. C. Almost all the time I experience strong guilt or self-hate after I overeat. Response Group 6: B Group 7 A. I don't lose total control of my eating when dieting even after periods when I overeat. B. Sometimes when I eat a forbidden food on a diet, I feel like I blew it and eat even more. C. Frequently, I have the habit of saying to myself, I've blown it now, why not go all the way, when I overeat on a diet. When that happens I eat more. D. I have a regular habit of starting a strict diets for myself but I break the diets by going on an eating binge. My life seems to be either a feast or famine. Response Group 7: B Group 8 A. I rarely eat so much food that I feel uncomfortably stuffed afterwards. B. Usually about once a month, I each such a quantity of food, I end up feeling very stuffed. C. I have regular periods during the month when I eat large amounts of food, either at mealtime or at snacks. D. I eat so much food that I regularly feel quite uncomfortable after eating and sometimes a bit nauseous. Response Group 8: A Group 9 A. My level of calorie intake does not go up very high or go down very low on a regular basis. B. Sometimes after I overeat, I will try to reduce my caloric intake to almost nothing to compensate for the excess calories I've eaten. C. I have a regular habit of overeating during the night. It seems that my routine is not to be hungry in the morning but overeat in the evening. D. In my adult years, I have had week-long periods where I practically starve myself. This follows periods when I overeat. It seems I live a life of either feast or famine. Response Group 9: A Group 10 A. I usually am able to stop eating when I want to. I know when enough is enough. B. Every so often, I experience a compulsion to eat which I can't seem to control. C. Frequently, I experience strong urges to eat which I seem unable to control, but at other times I can control my eating urges. D. I feel incapable of controlling urges to eat. I have a fear of not being able to stop eating voluntarily. Response Group 10: A Group 11 A. I don't have any problem stopping eating when I feel full. B. I usually can stop eating when I feel full but occasionally overeat leaving me feeling uncomfortably stuffed. C. I have a problem stopping eating once I start and usually I feel uncomfortably stuffed after I eat a meal. D. Because I have a problem not being able to stop eating when I want, I sometimes have to induce vomiting to relieve my stuffed feeling. Response Group 11: A Group 12 A. I seem to eat just as much when I'm with others, Family social gatherings as when I'm by myself. B. Sometimes, when I'm with other persons, I don't eat as much as I want to eat because I'm self-conscious about my eating. C. Frequently, I eat only a small amount of food when others are present, because I'm very embarrassed about my eating. D. I feel so ashamed about overeating that I pick times to overeat when I know no one will see me. I feel like a closet eater. Response Group 12: B Group 13 A. I eat three meals a day with only an occasional between meal snack. B. I eat 3 meals a day, but I also normally snack between meals. C. When I am snacking heavily, I get in the habit of skipping regular meals. D. There are regular periods when I seem to be continually eating, with no planned meals. Response Group 13: B Group 14 A. I don't think much about trying to control unwanted eating urges. B. At least some of the time, I feel my thoughts are pre-occupied with trying to control my eating urges. C. I feel that frequently I spend much time thinking about how much I ate or about trying not to eat anymore. D. It seems to me that most of my waking hours are pre-occupied by thoughts about eating or not eating. I feel like I'm constantly struggling not to eat. Response Group 14: B Group 15 A. I don't think about food a great deal. B. I have strong craving for food but they last only for brief periods of time. C. I have days when I can't seem to think about anything else but food. D. Most of my days seem to be pre-occupied with thoughts about food. I feel like I live to eat. Response Group 15: D Group 16 A. I usually know whether or not I'm physically hungry. I take the right portion of food to satisfy me. B. Occasionally, I feel uncertain about knowing whether or not I'm physically hungry. A these times it's hard to know how much food I should take to satisfy me. C. Even though I might know how many calories I should eat, I don't have any idea what is a normal amount of food for me. Response Group 16: B Binge Eating Score: 15 Score less than 17 Minimal Risk Score between 18-26 Moderate Risk Score between 27-46 High Risk Assessment & Plan Assessment & Plan (1) Anxiety disorder: Code(s): F41.9 - Anxiety disorder, unspecified Qualifiers: Anxiety disorder type: unspecified anxiety disorder Qualified Code(s): F41.9 - Anxiety disorder, unspecified (2) Depression, unspecified: Code(s): F32.A - Depression, unspecified Qualifiers: Depression Type: major depressive disorder Major depression recurrence: recurrent Active/Remission status: in remission of unspecified degree Qualified Code(s): F33.40 - Major depressive disorder, recurrent, in remission, unspecified (3) Eating disorder, unspecified: Code(s): F50.9 - Eating disorder, unspecified Qualifiers: Eating disorder type: binge eating disorder Eating disorder severity or remission status: unspecified severity Qualified Code(s): F50.819 - Binge eating disorder, unspecified (4) Pre-bariatric surgery psychological evaluation: Code(s): Z71.89 - Other specified counseling Plan The patient was not cleared today as the assessment was not completed. The patient will return in 2-4 weeks to continue the evaluation. Next appointment: 07/23/2025 12 via telehealth. Coding Level of Care Code New Pt Psy Diag Eval (44171) Patient Type New Diagnoses Anxiety disorder, unspecified type F41.9 Anxiety disorder type: unspecified anxiety disorder Recurrent major depressive disorder, in remission F33.40 Depression Type: major depressive disorder Major depression recurrence: recurrent Active/Remission status: in remission of unspecified degree Binge eating disorder, unspecified severity F50.819 Eating disorder type: binge eating disorder Eating disorder severity or remission status: unspecified severity Pre-bariatric surgery psychological evaluation Z71.89 Time Spent (min) 60
== END 2025-06-27 11:14 | disposition home or self-care (01) ==
LOC: HO.HBST 09:26
PROVIDERS: PCP Internal Medicine; Visit Provider Counselor Mental Health
DX: F41.9 Anxiety disorder, unspecified (principal); F33.40 Major depressive disorder, recurrent, in remission, unspecified; F50.819 Binge eating disorder, unspecified; Z71.89 Other specified counseling
CPT/HCPCS: 90791

== ENCOUNTER 2025-07-08 10:13 | Outpatient (AMB) | payer MEDICARE, MEDICAID, SELFPAY ==
[2025-07-08 10:17] VITALS: BP 138/78; PULSE 75; O2SAT 97; BMI 44.4
--- NOTE | 2025-07-08 10:17 | A.OFFPC_ITS ---
Vital Signs 07/08/25 10:17 Height 5 ft 1 in Weight 235 lb BMI 44.4 BP 138/78 Blood Pressure Location Lt brachial Position Sitting Pulse 75 Pulse Source Pulse Oximeter Pulse Oximetry (%) 97 Oxygen Delivery Method Room Air Intake Visit Reasons: DM, Constipation Allergies dexamethasone Allergy (Severe, Verified 07/08/25 10:29) Dizziness midazolam Allergy (Severe, Verified 07/08/25 10:29) Dizziness enoxaparin (From Lovenox) Allergy (Intermediate, Verified 07/08/25 10:29) Rash diazepam (Valium) Allergy (Unknown, Verified 07/08/25 10:29) Hypertension escitalopram (Lexapro) Allergy (Unknown, Verified 07/08/25 10:29) Rash lisinopril Allergy (Unknown, Verified 07/08/25 10:29) Difficulty Swallowing oxcarbazepine (Trileptal) Allergy (Unknown, Verified 07/08/25 10:29) Hives oxycodone (Percocet) Allergy (Unknown, Verified 07/08/25 10:29) Hives rosuvastatin (Crestor) Allergy (Unknown, Verified 07/08/25 10:29) Eye Swelling fenofibrate Adverse Reaction (Severe, Verified 07/08/25 10:29) Muscle cramps losartan Adverse Reaction (Intermediate, Verified 07/08/25 10:29) not sure metoprolol Adverse Reaction (Intermediate, Verified 07/08/25 10:29) leg pain gabapentin Adverse Reaction (Verified 07/08/25 10:29) Muscle Pain Tobacco use date assessed: 03/07/25 Fall risk assessment: No Falls in past year Last assessed Fall Risk: 07/08/25 Dental Screening Dental Screen Date: 03/07/25 [facility] Medical History Impaired glucose tolerance Type 2 diabetes mellitus with hyperglycemia Breast cancer screening by mammogram Colon cancer screening Menopausal and postmenopausal disorder History of ankle fracture Screening for osteoporosis Eating disorder with ongoing treatment Dizziness Low serum potassium Fungal rash of torso Seasonal allergies Anxiety with depression Restless leg syndrome Diabetes mellitus TMJ (dislocation of temporomandibular joint) Periodic limb movements of sleep Obstructive sleep apnea Morbid obesity Hypertension Hypercholesterolemia Heart murmur Depression Anxiety Surgical History History of gastric bypass S/P LALITA-BSO (total abdominal hysterectomy and bilateral salpingo-oophorectomy) Bilateral carpal tunnel syndrome 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 H/O ventral hernia repair History of cholecystectomy Gastric banding status Family History Mother Cancer of colon Hyperlipidemia Father CAD (coronary artery disease) Heart attack Paternal Uncle Heart attack Social History Housing: House Alcohol intake: former Comment: once drink Q 3 months Patient Tobacco Use Status: Never used Tobacco e-Cigarette/Vaping Use: Never Used Second Hand Smoke Exposure: No service: No Current occupational status: employed Cognitive needs: No Hearing needs: No Vision needs: Yes Questionnaire PHQ-9 Over the last 2 weeks, how often have you been bothered by any of the following problems? 1. Little interest or pleasure in doing things: not at all 2. Feeling down, depressed, or hopeless: not at all 3. Trouble falling or staying asleep, or sleeping too much: not at all 4. Feeling tired or having little energy: not at all 5. Poor appetite or overeating: not at all 6. Feeling bad about yourself - or that you are a failure or have let yourself or your family down: not at all 7. Trouble concentrating on things, such as reading the newspaper or watching television: not at all 8. Moving or speaking so slowly that other people could have noticed. Or the opposite - being so fidgety or restless that you have been moving around a lot more than usual: not at all 9. Thoughts that you would be better off or of hurting yourself in some way: not at all Total score: 0 Depression Screening Interpretation: Negative Depression Screening Done: Yes Source: Developed by Drs. Star Culp, Ambar Witt, Guanako Devine and colleagues, with an educational yarelis from [employer]. Thrive Questionnaire Date Thrive assessed: 07/08/25 I am a: Patient What is your living situation today?: I have a steady place to live Within the past 12 months, did the food you bought not last and you didn't have the money to get more?: Sometimes True Within the past 12 months, did you worry whether your food would run out before you got money to buy more?: Sometimes True Do you have trouble paying for medicines?: Yes Do you have trouble getting transportation to medical appointments?: No Do you have trouble paying your heating and electricity bill?: Yes Do you have trouble taking care of your child, family member or friend?: No Do you have trouble with day-to-day activities such as bathing, preparing meals, shopping, managing finances, etc.?: No Are you currently unemployed and looking for a job?: No Are you interested in more education?: No Please select the resources that you would like help with: None Currently or been in a relationship where the following occur: No concerns reported THRIVE Score: 3 AUDIT C Alcohol Use Questionnaire (AUDIT-C) 1. How often do you have a drink containing alcohol?: Never 3. How often do you have six or more drinks on one occasion?: Never Total Score: 0 KUMAR-7 AMB Questionnaire KUMAR-7 Date KUMAR - 7 assessed: 03/07/25 Source: Developed by Drs. Star Culp, Ambar Witt, Guanako Devine and colleagues, with an educational yarelis from [employer]. Physical exam (Primary Care) Vital Signs: Last Vital Signs Pulse 75 07/08/25 10:17 BP 138/78 07/08/25 10:17 Pulse Ox 97 07/08/25 10:17 Oxygen Delivery Method Room Air 07/08/25 10:17 BMI result Body Mass Index 44.4 Tobacco/Smoking Status: Tobacco use Status Tobacco use date assessed 03/07/25 07/08/25 10:22 Patient Tobacco Use Status Never used Tobacco 07/08/25 10:22 Tobacco use type Cigarette 07/08/25 10:22 e-Cigarette/Vaping Use Never Used 07/08/25 10:22 PHQ-9: PHQ-9 Score PHQ-9: Total score 0 07/08/25 10:52 Depression Screening Interpretation: Negative Thrive Assessment: Date of Thrive Assessment Date Thrive assessed 07/08/25 07/08/25 10:22 Currently or been in a relationship where the following occur: No concerns reported Const General: alert; No acute distress Eyes Conjunctivae: conjunctivae normal Resp Auscultation: clear to auscultation bilaterally Cardio Rate: regular rate Rhythm: regular rhythm GI Inspection: Yes normal to inspection Extrem General: Yes normal to inspection and No edema Coding Level of Care Code Est Pt Level 4 (68682) Complex EM visit Add On G2211 Diagnoses Type 2 diabetes mellitus with hyperglycemia E11.65 Hypertension I10 Hypercholesterolemia E78.00 Left leg DVT I82.402 Generalized anxiety disorder F41.1 Morbid obesity due to excess calories E66.01 History of gastric bypass Z98.84 Hepatic steatosis K76.0 Sleep apnea with use of continuous positive airway pressure (CPAP) G47.30 Constipation K59.00 Assessment & Plan Assessment & Plan (1) Type 2 diabetes mellitus with hyperglycemia: Code(s): E11.65 - Type 2 diabetes mellitus with hyperglycemia Category: Medical Plan: Decrease the amount of carbohydrate intake, pasta, bread, rice and potatoes are all sugar and that is aside from all the sweet stuff, remember that fruits are good but they are Sweet also. Hemoglobin A1c goal of less than 6.5. Patient is diet controlled (2) Hypertension: Code(s): I10 - Essential (primary) hypertension Category: Medical Plan: Continue with blood pressure medication. Decrease salt intake and exercise on metoprolol 25 mg once a day (3) Hypercholesterolemia: Code(s): E78.00 - Pure hypercholesterolemia, unspecified Category: Medical Plan: Avoid fried foods, chicken skin, eggs, butter margarine, pastries and meat. Be it pork or beef they have a lot of cholesterol LDL goal of less than 100 and triglyceride of less than 150 problems with rosuvastatin and fenofibrate. (4) Left leg DVT: Comment: November 2024 Code(s): I82.402 - Acute embolism and thrombosis of unspecified deep veins of left lower extremity Category: Medical Plan: Continue with anticoagulation with Coumadin (5) Generalized anxiety disorder: Comment: Private counselling Code(s): F41.1 - Generalized anxiety disorder Category: Medical Plan: Continue with counseling and therapy on fluoxetine Bue per prior on (6) Morbid obesity due to excess calories: Code(s): E66.01 - Morbid (severe) obesity due to excess calories Category: Medical Plan: Continue with bariatric (7) History of gastric bypass: Comment: 08/03/[address] Arciniega at [facility] Code(s): Z98.84 - Bariatric surgery status Category: Surgical Plan: Continue with bariatrics (8) Hepatic steatosis: Comment: April 2025 Code(s): K76.0 - Fatty (change of) liver, not elsewhere classified Category: Medical Plan: Low-fat diet and exercise (9) Sleep apnea with use of continuous positive airway pressure (CPAP): Code(s): G47.30 - Sleep apnea, unspecified Category: Medical Plan: Continue to use the CPAP more than 4 hours a night and benefits from this (10) Constipation: Code(s): K59.00 - Constipation, unspecified Category: Medical Plan: Three rules for constipation 1. Diet need to have a high fiber diet less of meat 2. Increase oral fluids 3. Exercise Plan History of Present Illness The patient is a 65-year-old female presenting for a follow-up visit to manage multiple chronic conditions including obesity, sleep apnea, hypercholesterolemia, hypertension, and diabetes mellitus. The patient has a history of morbid obesity and underwent gastric bypass surgery in 2020. Despite the surgery, she has experienced weight fluctuations and is currently engaged in a weight management program, reporting a 20-pound weight loss over five weeks. She exercises regularly, aiming to burn 300 calories a day, and has incorporated both cardio and strength training into her routine. The patient has obstructive sleep apnea, confirmed by a sleep study on June 21, 2025, which showed moderate severity. She uses a CPAP machine set at 14 cm H2O and reports using it for more than four hours a night with noted benefits. Her medical history includes hypercholesterolemia, with recent lab results showing elevated cholesterol levels: total cholesterol at 246 mg/dL, LDL at 158 mg/dL, and triglycerides at 255 mg/dL. She has experienced adverse effects from medications like fenofibrate and is currently managing her cholesterol through diet and exercise. The patient has a history of hypertension, currently managed with metoprolol 25 mg daily. She monitors her blood pressure regularly, noting occasional low readings, and is considering adjustments to her medication regimen. She has type 2 diabetes mellitus, with a recent hemoglobin A1c of 6.0%, indicating good control. Her diabetes is diet-controlled, and she aims to maintain an A1c below 6.5%. 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 She continues anticoagulation therapy with warfarin and is under hematology follow-up. She has hepatic steatosis, confirmed by an abdominal ultrasound in April, and elevated liver enzymes with AST and ALT levels at 50 and 52, respectively. The condition is attributed to fatty liver disease, and she is advised to continue weight management to prevent progression to cirrhosis. The patient reports varicose veins and occasional leg swelling, which she attributes to blood pressure issues rather than thrombosis. She is advised to continue physical activity to improve circulation. She experiences constipation, managed with dietary fiber, hydration, and occasional use of stool softeners like Colace and MiraLAX. She reports rectal bleeding, which she attributes to straining during bowel movements. Health Maintenance - Mammogram and bone density screening completed in May 2025, both results were normal. - Regular exercise regimen including cardio and strength training to aid weight management. - Dietary management for cholesterol and diabetes control, focusing on low-fat diet and fiber intake. - Continued use of CPAP for obstructive sleep apnea management. - Regular blood pressure monitoring and consideration of medication adjustment. - Follow-up with hematology for anticoagulation management. Social History - Engaged in a weight management program, reporting a 20-pound weight loss over five weeks. - Exercises regularly, aiming to burn 300 calories a day, including cardio and strength training. - Reports dietary intake focused on protein and vegetables, with increased fiber for constipation management. - Regular follow-up with a counselor for mental health support, attending sessions every two to three weeks. Review of Systems - Cardiovascular: Denies chest pain or palpitations. - Respiratory: Reports using CPAP for sleep apnea, denies dyspnea. - Gastrointestinal: Reports constipation and rectal bleeding due to straining. - Musculoskeletal: Reports leg swelling, denies significant pain. - Neurological: Denies dizziness or headaches. - Psychological: Reports good mental health status, attending counseling regularly. Physical Exam Results - Labs: Hemoglobin A1c at 6.0%, cholesterol at 246 mg/dL, LDL at 158 mg/dL, triglycerides at 255 mg/dL, AST at 50, ALT at 52. - Imaging: Abdominal ultrasound showing hepatic steatosis, ultrasound of left leg showing chronic non-occlusive thrombus. - Sleep Study: Moderate obstructive sleep apnea confirmed on June 21, 2025. Plan Patient was informed and verbally consented to the use of an ambient scribe for clinic note documentation during this visit. 1. Morbid Obesity The patient is engaged in a weight management program, reporting a 20-pound weight loss over five weeks. She is advised to continue her exercise regimen, aiming to burn 300 calories a day, and maintain a low-fat diet to support further weight loss. 2. Obstructive Sleep Apnea The patient continues to use a CPAP machine set at 14 cm H2O, reporting more than four hours of use per night with noted benefits. She is advised to maintain CPAP usage to manage her sleep apnea effectively. 3. Hypercholesterolemia The patient is managing her cholesterol levels through diet and exercise, as she experienced adverse effects from fenofibrate. She is advised to continue dietary management and regular exercise to achieve LDL and triglyceride goals. 4. Hypertension The patient is currently on metoprolol 25 mg daily and monitors her blood pressure regularly. She is considering medication adjustments due to occasional low readings and is advised to continue monitoring her blood pressure closely. 5. Type 2 Diabetes Mellitus The patient's diabetes is diet-controlled with a recent hemoglobin A1c of 6.0%, indicating good control. She is advised to maintain her current dietary regimen to keep her A1c below 6.5%. 6. Deep Vein Thrombosis Of The Left Leg The patient continues anticoagulation therapy with warfarin and is under regular follow-up with hematology. She is advised to continue her current treatment plan and attend her upcoming hematology appointment. 7. Hepatic Steatosis The patient has elevated liver enzymes and hepatic steatosis confirmed by ultrasound. She is advised to continue weight management to prevent progression to cirrhosis. 8. Constipation The patient manages constipation with dietary fiber, hydration, and occasional use of stool softeners like Colace and MiraLAX. She is advised to continue these measures and report any persistent issues. Discussion Notes During the visit, we discussed the management of the patient's chronic conditions, including obesity, sleep apnea, hypercholesterolemia, hypertension, and diabetes mellitus. We reviewed her current treatment plans, emphasizing the importance of lifestyle modifications such as diet and exercise. The patient was advised to continue using her CPAP machine and to monitor her blood pressure regularly. We also discussed the need for regular follow-ups with hematology for anticoagulation management and the importance of maintaining her current dietary regimen to manage her diabetes and cholesterol levels. Patient Instructions - Continue with the weight management program and aim to burn 300 calories a day through exercise. - Maintain a low-fat diet and monitor cholesterol levels regularly. - Use CPAP machine for at least four hours each night. - Monitor blood pressure daily and report any significant changes. - Follow up with hematology for anticoagulation management. - Use stool softeners like Colace or MiraLAX as needed for constipation.
--- OUTSIDE RECORDS SUMMARY | 2025-07-08 11:42 | XMS_ITS | Encounter Summary ---
Author Organization [facility] Address [address] [place] [address] Phone Care Team Providers Care Magnetic Grinder Operator Name Role Phone Reina Laurent PILOT PLANT RESEARCH TECHNICIAN Primary Care Provide r Luci Aragon NP Primary Care Provider Kuldip Prakash MD Primary Care Provider [phone] Encounter Details Date Type Department Care Team ([facility] st Contact Info) Description 08/25/2022 Prep for Surgery [facility] Podiatry [address] [place] [address] Rancho Franco DPM [address] [place] [address] [address] [place] [address] [email or web address] Verruca plantaris (Primary Dx) Social History Tobacco Use Types Packs/Day Years Used Date Smoking Tobacco: Never Smokeless Tobacco: Never Alcohol Use Standard Drinks/Week Comments Yes 0 (1 standard drink = 0.6 oz pur e alcohol) occ Comments Unknown Sex and Gender Information Value Date Recorded Sex Assigned at Not on file Legal Sex Female 12:15 PM EDT Gender Identity Not on file Sexual Orientation Not on file documented as of this encounter Plan of Treatment Not on file documented as of this encounter Visit Diagnoses Diagnosis Verruca plantaris- Primary Plantar wart documented in this encounter Care Teams Magnetic Grinder Operator Relationship Specialty Start Date End Date Reina Laurent NP [address] [place], [place] [id number] PCP - General Family Medicine 04/21/21 10/03/22 Luci Aragon NP [address] [place] [address] PCP - General Family Medicine 10/04/22 12/26/24 Kuldip Prakash MD [address] [facility] [address] [place] [phone] PCP - General Internal Medicine 12/27/24 documented as of this encounter Additional Source Comments The information contained in this document represents components of the legal health record. It is not the complete legal health record.[facility]
--- OUTSIDE RECORDS SUMMARY | 2025-07-08 11:42 | XMS_ITS | Encounter Summary ---
Author Organization [facility] Address [address] [place] [address] Phone Care Team Providers Care Cardiac Cath Technologist Name Role Phone Luci Aragon NP Primary Care Provider Kuldip Prakash MD Primary Care Provider [phone] Encounter Details Date Type Department Care Team ([facility] st Contact Info) Description 12/11/2024 Documentation [facility] CRP5 [address] [place] [address] Martina Lindsay, YUE [address] [place] [address] [email or web address] Social History Tobacco Use Types Packs/Day Years Used Date Smoking Tobacco: Never Smokeless Tobacco: Never Alcohol Use Standard Drinks/Week Comments Not Currently 0 (1 standard drink = 0.6 oz pur e alcohol) one drink every other month Education Answer Date Recorded Are you interested in more education? Not on haydee e 03/02/2023 Are you concerned about learning? Not on file 03/02/2023 No 03/02/2023 No 03/02/2023 Digital Access Answer Date Recorded No 04/04/2023 No 04/04/2023 Reliable internet access at home? Not on file 04/04/2023 Device with a working camera? Not on file Comments No Sex and Gender Information Value Date Recorded Sex Assigned at Not on file Legal Sex Female 12:15 PM EDT Gender Identity Not on file Sexual Orientation Not on file documented as of this encounter Plan of Treatment Not on file documented as of this encounter Visit Diagnoses Not on filedocumented in this encounter Care Teams Cardiac Cath Technologist Relationship Specialty Start Date End Date Luci Aragon NP PCP - General Family Medicine 10/04/22 12/26/24 Kuldip Prakash MD [address] [place] [address] [address] [place] [phone] PCP - General Internal Medicine 12/27/24 documented as of this encounter Additional Source Comments The information contained in this document represents components of the legal health record. It is not the complete legal health record.[facility]
--- OUTSIDE RECORDS SUMMARY | 2025-07-08 11:42 | XMS_ITS | Encounter Summary ---
Author Organization [facility] Address [address] [place] [address] Phone Care Team Providers Care Conservator Artifacts Name Role Phone Luci Aragon NP Primary Care Provider Kuldip Prakash MD Primary Care Provider [phone] Encounter Details Date Type Department Care Team ([facility] st Contact Info) Description 06/30/2023 Procedure Pass OR Admitting Dept - Virtual Department [address] [place] [address] Social History Tobacco Use Types Packs/Day Years [...] on filedocumented in this encounter Care Teams Conservator Artifacts Relationship Specialty Start Date End Date Luci Aragon NP PCP - General Family Medicine 10/04/22 12/26/24 Kuldip Prakash MD [address] [place] [phone] PCP - General Internal Medicine 12/27/24 documented as of this encounter Additional Source Comments The information contained in this document represents components of the legal health record. It is not the complete legal health record.[facility]
--- OUTSIDE RECORDS SUMMARY | 2025-07-08 11:42 | XMS_ITS | Encounter Summary ---
Author Organization [facility] Address [address] [place] [address] Care Team Providers Care Television Repair Teacher Name Role Phone PcpShey Unassigned Primary Care [...] on filedocumented in this encounter Care Teams Television Repair Teacher Relationship Specialty Start Date End Date Shey Gallardo Unassigned PCP - General Family Medicine 03/06/23 documented as of this encounter
--- OUTSIDE RECORDS SUMMARY | 2025-07-08 11:42 | XMS_ITS | Patient Health Record ---
Author Organization [facility] Address [address] [place] [address] Care Team Providers Care Fur Designer Name Role Phone SHAMIR CIELO Primary Care Provider UnavailFelipa [place] Unavailable [phone] Allergies Allergen (clinical drug ingredient) Drug/Non Drug [...] W/U Status Risk Notes Problem Depressive disorder (13964728) Depressive disorder, not elsewhere classified (311) Active confirmed Major Problem Essential hypertension (10113089) Unspecified essential hypertension (401.9) Active confirmed Major Problem Menopausal symptom (05748125) Symptomatic menopausal or female climacteric states (627.2) Active confirmed Major Problem Gynecological examination normal (065573540744305) Routine gynecological examination (V72.31) Active confirmed Major Problem Screening for malignant neoplasm of colon (047391016) Special screening for malignant neoplasms, colon (V76.51) Active confirmed Major Plan Of Treatment Pending Test Test Name Order Date PT AND PTT 12/31/2015 Insurance Providers Payer Name Payer Address Payer Phone Subscriber Number Group Number Insured Name Patient Relationship to Insured Coverage Start Date Coverage End Date [employer] [place] [address] [place] [address] [phone] [id number] LESLYE DORANTES Self - patient is the [...]
--- OUTSIDE RECORDS SUMMARY | 2025-07-08 11:42 | XMS_ITS | Encounter Summary ---
Author Organization [facility] Address [address] [place] [address] Phone Care Team Providers Care Receptionist Clerk Name Role Phone Luci Aragon NP Primary Care Provider Kuldip Prakash MD Primary Care Provider Encounter Details Date Type Department Care Team (Late st Contact Info) Description 11/02/2022 Procedure Pass OR Admitting Dept - Virtual Department [address] [place] [address] Social History Tobacco Use Types Packs/Day Years [...] on filedocumented in this encounter Care Teams Receptionist Clerk Relationship Specialty Start Date End Date Luci Aragon NP PCP - General Family Medicine 10/04/22 12/26/24 Kuldip Prakash MD [address] [place] [id number] PCP - General Internal Medicine 12/27/24 documented as of this encounter Additional Source Comments The information contained in this document represents components of the legal health record. It is not the complete legal health record.[facility]
--- OUTSIDE RECORDS SUMMARY | 2025-07-08 11:42 | XMS_ITS | Clinical Summary ---
Author Organization [facility] Address [address] [place] [address] Phone Care Team Providers Care Time Piece Repairer Name Role Phone Kuldip Prakash MD Primary Care Provider [phone] Allergies Active Allergy Reactions Criticality Noted Date Comments Diazepam 08/16/2016 Enoxaparin Rash Low 09/10/2021 Escitalopram Oxalate 08/16/2016 Gabapentin Musculoskeletal Pain Low 10/19/2022 Gemfibrozil 08/16/2016 Heparin 08/25/2022 Ibuprofen Unknown 06/30/2023 Lisinopril 08/16/2016 Midazolam Dizziness 05/05/2025 Oxcarbazepine 08/16/2016 Oxycodone-Acetaminophen Hives 05/13/2021 Rosuvastatin Calcium 08/16/2016 Medications buPROPion (WELLBUTRIN XL) 150 MG ER 24 hr tablet Take 150 mg by mouth daily. Active FLUoxetine (PROZAC) 40 MG capsule Take 40 mg by mouth daily. Active metFORMIN (GLUCOPHAGE) 500 MG tablet Take 500 mg by mouth daily. Active hydroCHLOROthiaz tammie (HYDRODIURIL) 12.5 MG tablet Take 12.5 mg by mouth daily. 2 Active pramipexole (MIRAPEX) 0.125 MG tablet Take 0.125 mg by mouth daily. 2 Active Medication-Free TextIndications: Bariatric Fusion supplements Indications: Bariatric Fusion Active therapeutic multivitamin tablet Take 1 tablet by mouth daily. Active hydralazine/rese rpin/hcthiazid (HYDRALAZINE-RES ERPINE-HCTZ ORAL) 12.5 mg daily Active diclofenac sodium (VOLTAREN ARTHRITIS PAIN) 1 % Gel APPLY 2 GRAMS TO THE AFFECTED AREA(S) BY TOPICAL ROUTE 4 TIMES PER DAY as needed for 10 days 4 Active fenofibrate (LOFIBRA) 160 MG tablet Take 160 mg by mouth daily. Active azelaic acid (FINACEA) 15 % gel APPLY A THIN LAYER TO FACE ONCE NIGHTLY 5 Active amLODIPine (NORVASC) 5 MG tablet Take 5 mg by mouth. 2 Active hydrOXYzine (ATARAX) 25 MG tablet Take 25 mg by mouth. 1 Active losartan-hydroCH LOROthiazide (HYZAAR) 100-12.5 mg per tablet Take 1 tablet by mouth every morning. Active metoprolol succinate (TOPROL-XL) 25 MG 24 hr tablet Take 1 tablet by mouth every morning. 5 Active warfarin (COUMADIN) 5 MG tablet TAKE 1 TO 1.5 (ONE & ONE-HALF) TABLETS ONCE DAILY USE DIRECTED Active Active Problems Problem Noted Date Diagnosed Date Heart murmur 05/05/2025 Hypercholesterolemia 05/05/2025 Lesion of vulva 05/05/2025 Severe obesity 05/05/2025 Restless legs syndrome 05/05/2025 Rosacea 05/05/2025 Diabetes mellitus 05/05/2025 Onychogryphosis 08/25/2022 Verruca plantaris 08/25/2022 Multinodular goiter (nontoxic) 01/06/2020 Overview (05/05/2025): Added automatically from request for surgery [id number] Fatty liver 07/10/2019 Overview (05/05/2025): Report prior dx by blood work. Liver US with elastography completed: Hepatic steatosis. No focal liver mass. Fibrosis level 0. Hypertension 07/10/2019 Overview (05/05/2025): Combination medication therapy JADE (obstructive sleep apnea) 07/10/2019 Overview (05/05/2025): with weight loss, had repeat study, saw neuro. Borderline sleep apnea, was told she could stop if she would like. Sleep study showed RLS. Basal cell carcinoma (BCC) of right mormonism regio n Encounters Date Type Department Care Team Description 05/05/2025 9:40 AM EDT Office Visit [facility] [address] [address] Temitope Watkins CNP Foreign body/splinter, skin (Primary Dx) from Last 3 Months Family History Medical History Relation Comments Heart disease Father Cancer Mother Relation Status Comments Father Mother Social History Tobacco Use Types Packs/Day Years Used Date Smoking Tobacco: Never Smokeless Tobacco: Never Tobacco Cessation:Counseling Given: Not Answered Alcohol Use Standard Drinks/Week Comments Not Currently [...] on file Sexual Orientation Not on file Last Filed Vital Signs Vital Sign Reading Time Taken Comments Blood Pressure 159/67 05/05/2025 10:44 AM EDT Pulse 68 05/05/2025 10:44 AM EDT Temperature 36.8 C (98.3 F) 05/05/2025 10:44 AM EDT Respiratory Rate 18 05/05/2025 10:44 AM EDT Oxygen Saturation 97% 05/05/2025 10:44 AM EDT Inhaled Oxygen Concentration - - Weight 111.1 kg (245 lb) 05/05/2025 10:44 AM EDT Height 154.9 cm (5' 1 ) 05/05/2025 10:44 AM EDT Body Mass Index 46.29 05/05/2025 10:44 AM EDT Plan of Treatment Health Maintenance Due Date Last Done Comments CREATININE LEVEL 1959 POTASSIUM LEVEL 1959 DEPRESSION SCREENING 1971 HEPATITIS C SCREENING 1977 MAMMOGRAM 1999 COLOGUARD 2004 COLONOSCOPY 2004 COLORECTAL CANCER SCREENING 2004 FIT TEST 2004 FOBT 2004 SIGMOIDOSCOPY 2004 VIRTUAL COLONOSCOPY 2004 PNEUMOCOCCAL VACCINES (50+ years) (2 of 2 - PCV) 09/19/2017 09/19/2016, 05/03/2007 RSV VACCINE (1 - Risk 60-74 years 1-dose series) 2019 OSTEOPOROSIS SCREENING INITIAL (ONE-TIME) 2024 COVID-19 VACCINE (2023- season) 2024 08/11/2023, 08/25/2022, 09/15/2021, Additional history exists HEMOGLOBIN A1C 01/03/2025 07/03/2024, 06/07, 08/04/2023, Additional history exists DIABETIC EYE EXAM 05/05/2025 LIPID PANEL 07/03/2025 07/03/2024, 06/07, 08/04/2023, Additional history exists BLOOD PRESSURE 11/04/2025 05/05/2025 Adult Td,Tdap Booster 07/12/2032 07/12/2022, 007 ZOSTER VACCINES Completed 04/07/2025, 09/28/2022 SMOKING STATUS SCREENING (Once After 26 Yrs) Completed 05/05/2025 HEPATITIS A VACCINES Aged Out No long er eligible based on patient's age to complete this topic HIB VACCINES Aged Out No longer eligi ble based on patient's age to complete this topic MENINGOCOCCAL VACCINES (ACWY) Aged Out No longer eligible based on patient's age to complete this topic MENINGOCOCCAL VACCINES (B) Aged Out N o longer eligible based on patient's age to complete this topic Medical Devices Not on file Procedures Procedure Name Priority Date/Time Associated Diagnosis Comments FOREIGN BODY REMOVAL Routine 05/05/2025 11:21 AM EDT Foreign body/splinter, skin from Last 3 Months Results * FOREIGN BODY REMOVAL (05/05/2025 11:21 AM EDT) Other Narrative SkTemitope boyd CNP - 05/05/2025 11:21 AM EDT Temitope Watkins CNP 05/05/2025 11:27 AM Foreign Body Removal Date/Time: 05/05/2025 11:21 AM Performed by: Temitope Watkins CNP Authorized by: Temitope Watkins CNP Location: Body area: Skin General location: Upper extremity Location details: Left long finger Patient sedated?: No Procedure Details: Tendon involvement: None Localization method: Magnification Removal mechanism: Forceps Dressing: Antibiotic ointment Depth: Subcutaneous Complexity: Simple Objects recovered (#): 1 Objects recovered: Piece thorn Post-procedure assessment: Foreign body removed Patient tolerance: Patient tolerated the procedure well with no immediate complicationsComments: Patient requested no anesthesia us Temitope Watkins CNP PROCEDURE/MINOR SURGICAL OR DERABLES Final Result from Last 3 Months Insurance [facility] Member Subscriber Plan / Payer (Ef fective 2024-Present) Name:Sade Lutz Relation to Subscriber:Self Name:Sade Lutz Payer ID:[id number] Group ID:Not on file Type:Medicaid Address: [address] [id number] [employer] [place] [employer] [place] [employer] PPO REPLACEMENT [facility] [place] [employer] POS PPO REPLACEMENT [facility] [employer] [place] POS PPO REPLACEMENT [facility] [employer] [place] RE[place]AC[place] [employer] [place] [employer] POS PPO REPLACEMENT Care Teams Time Piece Repairer Relationship Specialty Start Date End Date Kuldip Prakash MD [address] [place] [address] PCP - General Internal Medicine 12/27/24 Additional Source Comments The information contained in this document represents components of the legal health record. It is not the complete legal health record.[facility]
--- OUTSIDE RECORDS SUMMARY | 2025-07-08 11:42 | XMS_ITS | Clinical Summary ---
Author Organization [employer] Address [address] [place] [address] Care Team Providers Care Gas Turbine Mechanic Name Role Phone PcpShey Unassigned Primary Care [...] BEDTIME EVERY NIGHT 3 Active nystatin (Mycostatin) 829324 UNIT/GM powder Apply topically. 1 Active metFORMIN [...] schedule II opioid drug. 2 Active Immunizations Immunization Administration Dates Next Due Influenza injectable quadriv [...] FIT DNA/Cologuard 1959 FIT 1959 FOBT 1959 SDOH Screening 1959 Sigmoidoscopy 1959 Alcohol/Substance Use Screening 1971 Tobacco Screening 1971 Hepatitis C Screening 1977 Hepatitis A Vaccines (1 of 2 - Risk 2-dose series) 1978 Mammogram 1999 Pneumococcal Vaccine: 50+ Years (2 [...] 06/28/2021, 12/31/2019, Additional history exists COVID-19 Vaccine (3 - season) 2024 08/25/2022, 09/15/2021 Lipid Panel 07/10/2024 07/10/2019 Influenza Vaccine (#1) 2025 , 07/27/2021, 08/21/2020, Additional history exists DTaP/Tdap/Td Vaccines (2 - Td or Tdap) 07/12/2032 07/12/2022, 05/03/2007 HIB Vaccines Aged Out No longer eligi ble based on patient's age to complete this topic HPV Vaccines Aged Out No longer eligi ble based on patient's age to complete this topic IPV Vaccines Aged Out No longer eligi ble based on patient's age to complete this topic Meningococcal B Vaccine Aged Out No l onger eligible based on patient's age to complete [...] DENTAL - HSN PARTIAL (MEDICAID) Care Teams Gas Turbine Mechanic Relationship Specialty Start Date End Date PcpShey Unassigned PCP - General Family Medicine 03/06/23
--- OUTSIDE RECORDS SUMMARY | 2025-07-08 11:42 | XMS_ITS | Encounter Summary ---
Author Organization [employer] [facility] Address [address] [place] [address] Care Team Providers Care Graphic Design Specialist Name Role Phone PcpShey Unassigned Primary Care [...] on filedocumented in this encounter Care Teams Graphic Design Specialist Relationship Specialty Start Date End Date Shey Gallardo Unassigned PCP - General Family Medicine 03/06/23 documented as of this encounter
--- OUTSIDE RECORDS SUMMARY | 2025-07-08 11:42 | XMS_ITS | Encounter Summary ---
Author Organization [employer] [facility] Address [address] [place] [address] Care Team Providers Care Insurance Producer Name Role Phone PcpShey Unassigned Primary Care [...] on filedocumented in this encounter Care Teams Insurance Producer Relationship Specialty Start Date End Date Shey Gallardo Unassabiodun PCP - General Family Medicine 03/06/23 documented as of this encounter
== END 2025-07-08 11:17 | disposition home or self-care (01) ==
LOC: HO.HMCH 10:15
PROVIDERS: PCP Internal Medicine; Visit Provider Internal Medicine
DX: E11.65 Type 2 diabetes mellitus with hyperglycemia (principal); I82.402 Acute embolism and thrombosis of unspecified deep veins of left lower extremity; E66.01 Morbid (severe) obesity due to excess calories; Z68.41 Body mass index [BMI] 40.0-44.9, adult; I10 Essential (primary) hypertension; E78.00 Pure hypercholesterolemia, unspecified; F41.1 Generalized anxiety disorder; Z98.84 Bariatric surgery status; K76.0 Fatty (change of) liver, not elsewhere classified; G47.30 Sleep apnea, unspecified; K59.00 Constipation, unspecified

== ENCOUNTER → 2025-07-08 10:13 | Outpatient (BNVA) | payer MEDICARE, MEDICAID, SELFPAY | PROVIDERS: PCP Internal Medicine; Visit Provider Internal Medicine | DX: E11.65 Type 2 diabetes mellitus with hyperglycemia (principal); I10 Essential (primary) hypertension; K59.00 Constipation, unspecified; E78.00 Pure hypercholesterolemia, unspecified; I82.402 Acute embolism and thrombosis of unspecified deep veins of left lower extremity; F41.1 Generalized anxiety disorder; E66.01 Morbid (severe) obesity due to excess calories; K76.0 Fatty (change of) liver, not elsewhere classified; G47.33 Obstructive sleep apnea (adult) (pediatric); Z98.84 Bariatric surgery status; Z99.89 Dependence on other enabling machines and devices; Z79.899 Other long term (current) drug therapy | CPT/HCPCS: 96127; 99212 ==

== ENCOUNTER 2025-07-10 14:44 | Outpatient (AMB) | payer MEDICARE, MEDICAID, SELFPAY ==
--- NOTE | 2025-07-10 11:20 | MHC.OFFVISWM ---
VS Expanded 07/10/25 11:23 Height 5 ft 1 in Weight 237 lb 2 oz BMI 44.8 Intake Visit Reasons: TV F/U SWL Light Bulb Assembler Required: No Allergies dexamethasone Allergy (Severe, Verified 07/08/25 10:29) Dizziness midazolam Allergy (Severe, Verified 07/08/25 10:29) Dizziness enoxaparin (From Lovenox) Allergy (Intermediate, Verified 07/08/25 10:29) Rash diazepam (Valium) Allergy (Unknown, Verified 07/08/25 10:29) Hypertension escitalopram (Lexapro) Allergy (Unknown, Verified 07/08/25 10:29) Rash lisinopril Allergy (Unknown, Verified 07/08/25 10:29) Difficulty Swallowing oxcarbazepine (Trileptal) Allergy (Unknown, Verified 07/08/25 10:29) Hives oxycodone (Percocet) Allergy (Unknown, Verified 07/08/25 10:29) Hives rosuvastatin (Crestor) Allergy (Unknown, Verified 07/08/25 10:29) Eye Swelling fenofibrate Adverse Reaction (Severe, Verified 07/08/25 10:29) Muscle cramps losartan Adverse Reaction (Intermediate, Verified 07/08/25 10:29) not sure metoprolol Adverse Reaction (Intermediate, Verified 07/08/25 10:29) leg pain gabapentin Adverse Reaction (Verified 07/08/25 10:29) Muscle Pain Medication List - Last Reconciled 07/10/25 by RICH Jade [Bariatric fusion 2 caps PO BID] [Bariatric Fusion ] bisacodyl (Dulcolax (bisacodyl)) 10 mg LA DAILY PRN blood sugar diagnostic (FreeStyle Lite Strips) As directed bupropion HCl XL 150 mg PO QAM 90 days CPAP (CPAP Machine/Device) As directed fluoxetine 40 mg PO DAILY 90 days metoprolol succinate ER 25 mg PO DAILY pramipexole 0.125 mg PO BEDTIME 90 days warfarin 5 mg PO .QD HPI Comments Details: Patient is a pleasant 65-year-old female who returns to the office today in follow-up. She was originally seen on 06/04/2025 as a follow-up to her gastric bypass in 2020. At the time of her initial appointment in late May her weight was 252.6 pounds with a BMI of 47.7. She has tried multiple methods of weight loss including weight watchers, fad diets, lap band x 2 with ultimate conversion to gastric bypass in [address] Arciniega on 08/03/2021 at [facility] without permanent results. She lives with alone. 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 Weight today is 237.2 lb with a BMI of 44.8. She has lost a total of 15.4 lb since initiating her weight management program. She has been following the Right BMI plans. Using Miralax daily Meal plan: 5-7 half scoop premier protein in 8 oz of 1% milk 9-11 1 scoop in 8 oz 1% milk 12-2 pure protein bar 3-5 protein bar Meal at 05:30 with 4 forks of protein and 4 forks of vegetables Exercise plan: treadmill stattionary bike [facility] Medical History Impaired glucose tolerance Type 2 diabetes mellitus with hyperglycemia Breast cancer screening by mammogram Colon cancer screening Menopausal and postmenopausal disorder History of ankle fracture Screening for osteoporosis Eating disorder with ongoing treatment Dizziness Low serum potassium Fungal rash of torso Seasonal allergies Anxiety with depression Restless leg syndrome Diabetes mellitus TMJ (dislocation of temporomandibular joint) Periodic limb movements of sleep Obstructive sleep apnea Morbid obesity Hypertension Hypercholesterolemia Heart murmur Depression Anxiety Surgical History History of gastric bypass S/P LALITA-BSO (total abdominal hysterectomy and bilateral salpingo-oophorectomy) Bilateral carpal tunnel syndrome 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 H/O ventral hernia repair History of cholecystectomy Gastric banding status Family History Mother Cancer of colon Hyperlipidemia Father CAD (coronary artery disease) Heart attack Paternal Uncle Heart attack Social History Housing: House Alcohol intake: former Comment: once drink Q 3 months Patient Tobacco Use Status: Never used Tobacco e-Cigarette/Vaping Use: Never Used Second Hand Smoke Exposure: No service: No Current occupational status: employed Cognitive needs: No Hearing needs: No Vision needs: Yes Telehealth Telehealth Telehealth Platform: Telephone Location of provider rendering services: practice address Location of patient: address on file Patient Identification confirmed using: Name, : Yes Telehealth method: voice only Patient verbally consented to treatment: Yes Patient verbally consented to billing insurance company: Yes Patient informed of any privacy concerns related to visit: Yes Minutes spent on Phone/Video with Pt.: 15 Assessment & Plan Assessment & Plan (1) History of gastric bypass: Comment: 08/03/[address] Arciniega at [facility] Code(s): Z98.84 - Bariatric surgery status Category: Surgical Plan: Patient will continue using Herrera BMI at and recommended update with her new weight. Encouraged to continue to increase her exercise capacitance for a goal of burning 300 calories per day Dulcolax suppository added p.r.n. for constipation Encouraged to add a tbsp of Metamucil or Benefiber to 1 of her shakes daily Continue MiraLax Return to clinic as scheduled Medications: New bisacodyl (Dulcolax (bisacodyl)) 10 mg LA DAILY PRN 12 ea 0RF constipation
[2025-07-10 11:23] VITALS: BMI 44.8
--- OUTSIDE RECORDS SUMMARY | 2025-07-10 15:56 | XMS_ITS | Encounter Summary ---
Author Organization [employer] [facility] Address [address] [place] [address] Care Team Providers Care Engineering Officer Name Role Phone PcpShey Unassigned Primary Care [...] on filedocumented in this encounter Care Teams Engineering Officer Relationship Specialty Start Date End Date Shey Gallardo Unassigned PCP - General Family Medicine 03/06/23 documented as of this encounter
--- OUTSIDE RECORDS SUMMARY | 2025-07-10 15:56 | XMS_ITS | Encounter Summary ---
Author Organization [facility] Address [address] [place] [address] Phone Care Team Providers Care Electric Well Logging Operator Name Role Phone Luci Aragon NP Primary Care Provider Kuldip Prakash MD Primary Care Provider [phone] Encounter Details Date Type Department Care Team ([facility] st Contact Info) Description 06/30/2023 Procedure Pass OR Admitting Dept - Virtual Department [address] [place] [address] Social History Tobacco Use Types Packs/Day Years [...] on filedocumented in this encounter Care Teams Electric Well Logging Operator Relationship Specialty Start Date End Date Luci Aragon NP PCP - General Family Medicine 10/04/22 12/26/24 Kuldip Prakash MD [address] [place] [phone] PCP - General Internal Medicine 12/27/24 documented as of this encounter Additional Source Comments The information contained in this document represents components of the legal health record. It is not the complete legal health record.[facility]
--- OUTSIDE RECORDS SUMMARY | 2025-07-10 15:56 | XMS_ITS | Encounter Summary ---
Author Organization [facility] Address [address] [place] [address] Phone Care Team Providers Care Weaver Narrow Fabrics Name Role Phone Luci Aragon NP Primary Care Provider Kuldip Prakash MD Primary Care Provider [phone] Encounter Details Date Type Department Care Team (Late st Contact Info) Description 11/02/2022 Procedure Pass OR Admitting Dept - Virtual Department [address] [place] [address] Social History Tobacco Use Types Packs/Day Years [...] on filedocumented in this encounter Care Teams Weaver Narrow Fabrics Relationship Specialty Start Date End Date Luci Aragon NP PCP - General Family Medicine 10/04/22 12/26/24 Kuldip Prakash MD [address] [place] [phone] PCP - General Internal Medicine 12/27/24 documented as of this encounter Additional Source Comments The information contained in this document represents components of the legal health record. It is not the complete legal health record.[facility]
--- OUTSIDE RECORDS SUMMARY | 2025-07-10 15:56 | XMS_ITS | Clinical Summary ---
Author Organization [facility] Address [address] [place] [address] Phone Care Team Providers Care Fibreglass Laminator Name Role Phone Kuldip Prakash MD Primary Care Provider [phone] Allergies Active Allergy Reactions Criticality Noted Date [...] (05/05/2025): Added automatically from request for surgery [id number] Fatty liver 07/10/2019 Overview (05/05/2025): Report prior [...] RLS. Basal cell carcinoma (BCC) of right holiness regio n Encounters Date Type Department Care Team Description 05/05/2025 9:40 AM EDT Office Visit [facility] [address] [address] Temitope Watkins CNP Foreign body/splinter, skin (Primary [...] Final Result from Last 3 Months Insurance [facility] Member Subscriber Plan / Payer (Ef fective 2024-Present) Name:Sade Lutz Relation to Subscriber:Self Name:Sade Lutz Payer ID:[id number] Group ID:Not on file Type:Medicaid Address: [address] [id number] [employer] [place] [employer] [place] [employer] POS PPO REPLACEMENT [facility] [employer] [place] MED[employer] POS PPO REPLACEMENT [facility] [place] MED[place] POS [facility]PO REPLACEMENT [facility] [employer] [place] RE[place] [employer] [place] [employer] POS PPO REPLACEMENT Care Teams Fibreglass Laminator Relationship Specialty Start Date End Date Kuldip Prakash MD [address] [place] [address] PCP - General Internal Medicine 12/27/24 Additional Source Comments The information contained in this document represents components of the legal health record. It is not the complete legal health record.[facility]
--- OUTSIDE RECORDS SUMMARY | 2025-07-10 15:56 | XMS_ITS | Encounter Summary ---
Author Organization [employer] [facility] Address [address] [place] [address] Care Team Providers Care Aluminum Pourer Name Role Phone PcpShey Unassigned Primary Care [...] on filedocumented in this encounter Care Teams Aluminum Pourer Relationship Specialty Start Date End Date Shey Gallardo Unassigned PCP - General Family Medicine 03/06/23 documented as of this encounter
--- OUTSIDE RECORDS SUMMARY | 2025-07-10 15:56 | XMS_ITS | Clinical Summary ---
Author Organization [employer] Address [address]t [place] [address] Care Team Providers Care Storage Receipt Poster Name Role Phone PcpShey Unassigned Primary Care [...] BEDTIME EVERY NIGHT 3 Active nystatin (Mycostatin) 344259 UNIT/GM powder Apply topically. 1 Active metFORMIN [...] 02/23/2024 02/22/20, 06/28/2021, 12/31/2019, Additional history exists Lipid Panel 07/10/2024 07/10/2019 COVID-19 Vaccine (3 - season) 2025 08/25/2022, 09/15/2021 Influenza Vaccine (#1) 2025 , 07/27/2021, 08/21/2020, [...] DENTAL - HSN PARTIAL (MEDICAID) Care Teams Storage Receipt Poster Relationship Specialty Start Date End Date PcpShey Unassigned PCP - General Family Medicine 03/06/23
--- OUTSIDE RECORDS SUMMARY | 2025-07-10 15:56 | XMS_ITS | Patient Health Record ---
Author Organization [facility] Address [address] [place] [address] Care Team Providers Care Car Restorer Name Role Phone SHAMIR CIELO Primary Care Provider UnavailFelipa Salinas Unavailable [phone] Allergies Allergen (clinical drug ingredient) Drug/Non Drug [...] 200MG 1 ORAL twice daily; Duration: -3 [facility]- 01/03/2012 Active hydroCHLOROthiazide 25mg 1 ORAL daily; Duration: -3 [facility] 07/17/2013 Active Estrace Vaginal Cream 42.5GM Vaginal 1GM 3X A WEEK; Duration: -3 [facility]- 06/04/2013 Not-Taking FLUoxetine HCl 40MG 1 ORAL daily; Duration: -3 [facility]- 01/03/2012 Active Social History Tobacco Use: Social History Observation Description Date Details (start date - stop date) Never Smoker NA - NA Tobacco Use/Smoking Question Answer Notes Are you a nonsmoker Problems Problem Type SNOMED Code ICD Code Onset Dates Problem Status W/U Status Risk Notes Problem Depressive disorder (52975297) Depressive disorder, not elsewhere classified (311) Active confirmed Major Problem Essential hypertension (77512976) Unspecified essential hypertension (401.9) Active confirmed Major Problem Menopausal symptom (34594597) Symptomatic menopausal or female climacteric states (627.2) Active confirmed Major Problem Gynecological examination normal (960172607813302) Routine gynecological examination (V72.31) Active confirmed Major Problem Screening for malignant neoplasm of colon (929003032) Special screening for malignant neoplasms, colon (V76.51) Active confirmed Major Plan Of Treatment Pending Test Test Name Order Date PT AND PTT 12/31/2015 Insurance Providers Payer Name Payer Address Payer Phone Subscriber Number Group Number Insured Name Patient Relationship to Insured Coverage Start Date Coverage End Date [employer] [place] [address] [place] [address] [id number] LESLYE DORANTES Self - patient is the [...]
--- OUTSIDE RECORDS SUMMARY | 2025-07-10 15:56 | XMS_ITS | Encounter Summary ---
Author Organization [facility] Address [address] [place] [address] Phone Care Team Providers Care Welder Assistant Name Role Phone Luci Aragon NP Primary Care Provider Kuldip Prakash MD Primary Care Provider [phone] Encounter Details Date Type Department Care Team ([facility] st Contact Info) Description 12/11/2024 Documentation [facility] CAPD CRP5 [address] [place] [address] Martina Lindsay, YUE [address] [place] [address] [email or web address] Social History Tobacco Use Types Packs/Day Years [...] on filedocumented in this encounter Care Teams Welder Assistant Relationship Specialty Start Date End Date Luci Aragon NP PCP - General Family Medicine 10/04/22 12/26/24 Kuldip Prakash MD [address] [place] [address] Drive [address] [place] [address] PCP - General Internal Medicine 12/27/24 documented as of this encounter Additional Source Comments The information contained in this document represents components of the legal health record. It is not the complete legal health record.[facility]
--- OUTSIDE RECORDS SUMMARY | 2025-07-10 15:56 | XMS_ITS | Encounter Summary ---
Author Organization [employer] [facility] Address [address] [place] [address] Care Team Providers Care Access Spec Name Role Phone PcpShey Unassigned Primary Care [...] on filedocumented in this encounter Care Teams Access Spec Relationship Specialty Start Date End Date Shey Gallardo Unassabiodun PCP - General Family Medicine 03/06/23 documented as of this encounter
--- OUTSIDE RECORDS SUMMARY | 2025-07-10 15:56 | XMS_ITS | Encounter Summary ---
Author Organization [facility] Address [address] [place] [address] Phone Care Team Providers Care Pin Ticket Machine Operator Name Role Phone Reina Laurent FUSING MACHINE FEEDER Primary Care Provide r Luci Aragon NP Primary Care Provider Kuldip Prakash MD Primary Care Provider [phone] Encounter Details Date Type Department Care Team ([facility] st Contact Info) Description 08/25/2022 Prep for Surgery [facility] Podiatry [address] [place] [address] Rancho Franco DPM [address] [place] [address] 7 [place] [address] [email or web address] Verruca plantaris (Primary Dx) Social History Tobacco [...] wart documented in this encounter Care Teams Pin Ticket Machine Operator Relationship Specialty Start Date End Date Reina Laurent NP [address] [place], [place] [id number] PCP - General Family Medicine 04/21/21 10/03/22 Luci Aragon NP [address] [place] [address] PCP - General Family Medicine 10/04/22 12/26/24 Kuldip Prakash MD [address] [facility] [address] [place] [address] PCP - General Internal Medicine 12/27/24 documented as of this encounter Additional Source Comments The information contained in this document represents components of the legal health record. It is not the complete legal health record.[facility]
== END 2025-07-10 14:44 | disposition home or self-care (01) ==
LOC: HO.HBS 14:44
PROVIDERS: PCP Internal Medicine; Visit Provider Physician Assistant Surgical
DX: E66.01 Morbid (severe) obesity due to excess calories (principal); Z68.41 Body mass index [BMI] 40.0-44.9, adult; Z98.84 Bariatric surgery status
CPT/HCPCS: 99213

== ENCOUNTER 2025-07-11 09:28 | Outpatient (AMB) | payer MEDICARE, MEDICAID, SELFPAY ==
[2025-07-11 09:57] VITALS: BP 120/80; PULSE 61; BMI 44.6
--- NOTE | 2025-07-11 09:57 | A.OFFVIS_ITS ---
Vital Signs 07/11/25 09:57 Height 5 ft 1 in Weight 235 lb 14.314 oz BMI 44.6 BP 120/80 Blood Pressure Location Lt brachial Position Sitting Pulse 61 Intake Visit Reasons: COMIC ARTIST/[place]/fam hx CAD.PAD/SOB Intake Note: New patient with ekg c/o sob with stairs fx CAD Bench Mover Required: No Allergies dexamethasone Allergy (Severe, Verified 07/08/25 10:29) Dizziness midazolam Allergy (Severe, Verified 07/08/25 10:29) Dizziness enoxaparin (From Lovenox) Allergy (Intermediate, Verified 07/08/25 10:29) Rash diazepam (Valium) Allergy (Unknown, Verified 07/08/25 10:29) Hypertension escitalopram (Lexapro) Allergy (Unknown, Verified 07/08/25 10:29) Rash lisinopril Allergy (Unknown, Verified 07/08/25 10:29) Difficulty Swallowing oxcarbazepine (Trileptal) Allergy (Unknown, Verified 07/08/25 10:29) Hives oxycodone (Percocet) Allergy (Unknown, Verified 07/08/25 10:29) Hives rosuvastatin (Crestor) Allergy (Unknown, Verified 07/08/25 10:29) Eye Swelling fenofibrate Adverse Reaction (Severe, Verified 07/08/25 10:29) Muscle cramps losartan Adverse Reaction (Intermediate, Verified 07/08/25 10:29) not sure metoprolol Adverse Reaction (Intermediate, Verified 07/08/25 10:29) leg pain gabapentin Adverse Reaction (Verified 07/08/25 10:29) Muscle Pain Medication List - Last Reconciled 07/11/25 by Anand Garvin MD [Bariatric fusion 2 caps PO BID] [Bariatric Fusion ] bisacodyl (Dulcolax (bisacodyl)) 10 mg WA DAILY PRN blood sugar diagnostic (FreeStyle Lite Strips) As directed bupropion HCl XL 150 mg PO QAM 90 days CPAP (CPAP Machine/Device) As directed fluoxetine 40 mg PO DAILY 90 days metoprolol succinate ER 25 mg PO DAILY pramipexole 0.125 mg PO BEDTIME 90 days warfarin 5 mg PO .QD HPI Comments Details: Sade was referred here for symptoms exertional shortness of breath. She is a pleasant 65 year female with prior history of morbid obesity status post gastric bypass surgery, last November in his left leg DVT that has been currently being treated with warfarin. Has prior history of hypertension for which she is on metoprolol therapy as well as borderline diabetes. She also has mixed hyperlipidemia with high triglycerides predominantly but has not been able to tolerate fenofibrate as well as statin therapy and felt unwell on it. Since stopping those 2 medications she says she has been feeling well. She has been noticing increasing exertional shortness of breath. Strong family history of multiple of her male relatives having premature coronary artery disease in his 50s. She has been referred here for further evaluation. She says she has since been participate in more routine lifestyle modification has lost about 10 lb. Routinely exercising. She denies any exertional chest pain. Denies any orthopnea, PND, leg edema. Denies any prolonged palpitation irregular heartbeat. She uses CPAP regularly at nighttime. [facility] Medical History Impaired glucose tolerance Type 2 diabetes mellitus with hyperglycemia Breast cancer screening by mammogram Colon cancer screening Menopausal and postmenopausal disorder History of ankle fracture Screening for osteoporosis Eating disorder with ongoing treatment Dizziness Low serum potassium Fungal rash of torso Seasonal allergies Anxiety with depression Restless leg syndrome Diabetes mellitus TMJ (dislocation of temporomandibular joint) Periodic limb movements of sleep Obstructive sleep apnea Morbid obesity Hypertension Hypercholesterolemia Heart murmur Depression Anxiety Surgical History History of gastric bypass S/P LALITA-BSO (total abdominal hysterectomy and bilateral salpingo-oophorectomy) Bilateral carpal tunnel syndrome 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 H/O ventral hernia repair History of cholecystectomy Gastric banding status Family History Mother Cancer of colon Hyperlipidemia Father CAD (coronary artery disease) Heart attack Paternal Uncle Heart attack Social History Housing: House Alcohol intake: former Comment: once drink Q 3 months Patient Tobacco Use Status: Never used Tobacco e-Cigarette/Vaping Use: Never Used Second Hand Smoke Exposure: No service: No Current occupational status: employed Cognitive needs: No Hearing needs: No Vision needs: Yes Review of Systems Const Denies chills, Denies daytime sleepiness, Denies fatigue, Denies fever(s), Denies frequent falls, Denies poor appetite, Reports snoring, Reports stops br eathing during sleep, Denies weakness, Denies weight gain and Reports weight loss Eyes Denies loss of vision ENT Denies dizziness and Denies hearing loss Card Denies claudication, Reports leg edema, Denies lightheadedness, Denies palpitations, Denies dyspnea, Reports dyspnea on exertion and Denies orthopnea Resp Denies cough, Denies excessive phlegm production, Denies dyspnea, Reports dyspnea on exertion, Reports snoring and Denies wheezing GI Reports abdominal pain, Denies hematochezia, Reports change in bowel habits, Reports nausea and Denies vomiting Denies urinary frequency and Denies dysuria Musc Denies arthralgias, Denies muscle weakness and Denies numbness Skin/Breast Denies nail changes and Denies rash Neuro Denies Abnormal speech present, Denies dizziness, Denies frequent falls, Denies loss of vision, Denies memory loss, Denies numbness and Denies weakness Psych Denies depression and Denies memory loss Endo Denies fatigue and Denies palpitations Boyd/Lymph Reports easy bruising and Reports other (anemia) Aller/Immun Denies wheezing Physical Exam Vital Signs: Last Vital Signs Pulse 61 07/11/25 09:57 BP 120/80 07/11/25 09:57 BMI result Body Mass Index 44.6 Const General: cooperative, comfortable, no acute distress, alert and awake Nutritional Appearance: obese centrally obese Orientation/consciousness: patient oriented x3 Limitations: no limitations HEENT Head: Yes normocephalic and Yes atraumatic Neck Neck: Yes trachea midline, Yes supple and Yes no JVD Resp Effort & Inspection: normal respiratory effort Auscultation: clear to auscultation bilaterally Cardio Jugular venous distension: no JVD Rate: regular rate Rhythm: regular rhythm Heart sounds: S1 normal heart sound present, S2 normal heart sound present, no click, no gallops, no murmurs and no rubs GI Auscultation: normal bowel sounds Skin General skin exam: no rashes or lesions noted Neuro General: patient oriented x3 and no focal motor deficits Speech: No Abnormal speech present Extrem General: Yes no clubbing, cyanosis or edema Psych Appearance: grossly normal Office Procedures EKG Details: EKGs normal sinus rhythm with normal EKG at 61 beats per minute 12547-Cjaqfyhgtzhrtmdvv, Complete Assessment & Plan Assessment & Plan (1) Short of breath on exertion: Code(s): R06.02 - Shortness of breath Category: Medical Plan: Patient with exertional shortness of breath with significant risk factors including hypertension, obesity, hyperlipidemia as strong family history for premature coronary artery disease. Structural heart disease needs to be ruled out. Will suggest a exercise treadmill stress test given her normal baseline EKGs to assess for myocardial ischemia as well as exercise capacity. Also suggest echocardiogram to evaluate for cardiac structure and function especially LV systolic and diastolic function as well as ruled out pulmonary hypertension given her history of DVT as well as sleep apnea as well as to evaluate for left ventricular hypertrophy. Further treatment based on the findings. If these tests are reasonably within normal limits I have suggested her to go screening test with coronary calcium score to guide further treatment especially lipid management given his strong risk factors. She will think about it. Suggest to continue aggressive blood pressure control which is currently well optimized. For now will hold off on anti-lipid medications based off the test results and then further guide treatment options include PCSK9 inhibitor therapy as well as Vascepa therapy. Will readdress this once we have further test results. Encouraged to continue to aggressively participate in weight loss program. Also participate in regular physical activity. Will follow up in the clinic in 6-8 weeks time, sooner p.r.n.. Thank you for allowing me to partake in her care Orders: Orders CA stress test Today R06.02 - Shortness of breath CA echo transthoracic complete Today R06.02 - Shortness of breath CT Coronary Calcium Score 4 Weeks E78.00 - Pure hypercholesterolemia, unspecified Coding Level of Care Code New Pt Level 4 (27616) Complex EM visit Add On G2211 Diagnoses Short of breath on exertion R06.02 CPT Codes EKG - CPT: 22046-[id number], Complete ([id number])
--- OUTSIDE RECORDS SUMMARY | 2025-07-11 10:10 | XMS_ITS | Encounter Summary ---
Author Organization [facility] Address [address] [place] [address] Phone Care Team Providers Care Cash Applications Analyst Name Role Phone Luci Aragon NP Primary Care Provider Kuldip Prakash MD Primary Care Provider Encounter Details Date Type Department Care Team (Late st Contact Info) Description 11/02/2022 Procedure Pass OR Admitting Dept - Virtual Department [address] [place] [address] Social History Tobacco Use Types Packs/Day Years [...] on filedocumented in this encounter Care Teams Cash Applications Analyst Relationship Specialty Start Date End Date Luci Aragon NP PCP - General Family Medicine 10/04/22 12/26/24 Kuldip Prakash MD [address] [place] [address] PCP - General Internal Medicine 12/27/24 documented as of this encounter Additional Source Comments The information contained in this document represents components of the legal health record. It is not the complete legal health record.[facility]
--- OUTSIDE RECORDS SUMMARY | 2025-07-11 10:10 | XMS_ITS | Encounter Summary ---
Author Organization [facility] Address [address] 7[address] [place] [address] Care Team Providers Care Sink Cutter Name Role Phone PcpShey Unassigned Primary Care [...] on filedocumented in this encounter Care Teams Sink Cutter Relationship Specialty Start Date End Date Shey Gallardo Unassabiodun PCP - General Family Medicine 03/06/23 documented as of this encounter
--- OUTSIDE RECORDS SUMMARY | 2025-07-11 10:10 | XMS_ITS | Encounter Summary ---
Author Organization [facility] Address [address] 7t [place] [address] Care Team Providers Care Bulb Farmworker Name Role Phone PcpShey Unassigned Primary Care [...] on filedocumented in this encounter Care Teams Bulb Farmworker Relationship Specialty Start Date End Date Shey Gallardo Unassigned PCP - General Family Medicine 03/06/23 documented as of this encounter
--- OUTSIDE RECORDS SUMMARY | 2025-07-11 10:10 | XMS_ITS | Clinical Summary ---
Author Organization [facility] Address [address] [place] [address] Phone Care Team Providers Care Canine Service Teacher Name Role Phone Kuldip Prakash MD Primary Care Provider [phone] Allergies Active Allergy Reactions Criticality Noted Date [...] (05/05/2025): Added automatically from request for surgery [id number] Fatty liver 07/10/2019 Overview (05/05/2025): Report prior [...] RLS. Basal cell carcinoma (BCC) of right muslim regio n Encounters Date Type Department Care Team Description 05/05/2025 9:40 AM EDT Office Visit [facility] [address] [address] Temitope Watkins CNP Foreign body/splinter, skin (Primary [...] series) 2019 OSTEOPOROSIS SCREENING INITIAL (ONE-TIME) 2024 HEMOGLOBIN A1C 01/03/2025 07/03/2024, 06/07, 08/04/2023, Additional history exists DIABETIC EYE EXAM 05/05/2025 INFLUENZA VACCINE (#1) 2025 , 09/28/2022, 07/27/2021, Additional history exists LIPID PANEL 07/03/2025 07/03/2024, 06/07, 08/04/2023, Additional history exists COVID-19 VACCINE ( season) 2025 08/11/2023, 08/25/2022, 09/15/2021, Additional history exists BLOOD PRESSURE 11/04/2025 05/05/2025 [...] REMOVAL (05/05/2025 11:21 AM EDT) Other Narrative Temitope Watkins CNP - 05/05/2025 11:21 AM EDT Temitope [...] no immediate complicationsComments: Patient requested no anesthesia Temitope Watkins CNP PROCEDURE/MINOR SURGICAL OR DERABLES Final Result from Last 3 Months [place] [id number] [place] [place] POS PPO REPLACEMENT [facility] [employer] [place] POS PPO REPLACEMENT [facility] [place] POS PPO [place]PLACEMENT [facility] [employer] [place] POS PPO REPLACEMENT [facility] [place] [place] POS PPO REPLACEMENT [facility] [employer] [place] MED[place] POS PPO REPLACEMENT Care Teams Canine Service Teacher Relationship Specialty Start Date End Date Kuldip Prakash MD [address] [place] [address] PCP - General Internal Medicine 12/27/24 Additional Source Comments The information contained in this document represents components of the legal health record. It is not the complete legal health record.[facility]
--- OUTSIDE RECORDS SUMMARY | 2025-07-11 10:10 | XMS_ITS | Encounter Summary ---
Author Organization [employer] [facility] Address [address] 7t [place] [address] Care Team Providers Care Health Education Director Name Role Phone PcpShey Unassigned Primary Care [...] on filedocumented in this encounter Care Teams Health Education Director Relationship Specialty Start Date End Date Shey Gallardo Unassigned PCP - General Family Medicine 03/06/23 documented as of this encounter
--- OUTSIDE RECORDS SUMMARY | 2025-07-11 10:11 | XMS_ITS | Patient Health Record ---
Author Organization [facility] Address [address] [place] [address] Care Team Providers Care Leather Currier Name Role Phone SHAMIR CIELO Primary Care Provider UnavailFelipa Salinas Unavailable [phone] Allergies Allergen (clinical drug ingredient) Drug/Non Drug [...] W/U Status Risk Notes Problem Depressive disorder (30617174) Depressive disorder, not elsewhere classified (311) Active confirmed Major Problem Essential hypertension (94627133) Unspecified essential hypertension (401.9) Active confirmed Major Problem Menopausal symptom (76377698) Symptomatic menopausal or female climacteric states (627.2) Active confirmed Major Problem Gynecological examination normal (456933437143656) Routine gynecological examination (V72.31) Active confirmed Major Problem Screening for malignant neoplasm of colon (243951542) Special screening for malignant neoplasms, colon (V76.51) Active confirmed Major Plan Of Treatment Pending Test Test Name Order Date PT AND PTT 12/31/2015 Insurance Providers Payer Name Payer Address Payer Phone Subscriber Number Group Number Insured Name Patient Relationship to Insured Coverage Start Date Coverage End Date [employer] [address] [place] [phone] [id number] LESLYE DORANTES Self - patient is the [...]
--- OUTSIDE RECORDS SUMMARY | 2025-07-11 10:11 | XMS_ITS | Encounter Summary ---
Author Organization [facility] Address [address] [place] [address] Phone Care Team Providers Care Associate Director Data & Analytics Name Role Phone Luci Aragon NP Primary Care Provider Kuldip Prakash MD Primary Care Provider [phone] Encounter Details Date Type Department Care Team ([facility] st Contact Info) Description 12/11/2024 Documentation [facility] CAPD CRP5 [address] [place] [address] Martina Lindsay, YUE [address] [place] [address] [email or web address] Social History Tobacco Use Types [...] filedocumented in this encounter Care Teams Associate Director Data & Analytics Relationship Specialty Start Date End Date Luci Aragon NP PCP - General Family Medicine 10/04/22 12/26/24 Kuldip Prakash MD [address] [place] [address] Drive [address] [place] [address] PCP - General Internal Medicine 12/27/24 documented as of this encounter Additional Source Comments The information contained in this document represents components of the legal health record. It is not the complete legal health record.[facility]
--- OUTSIDE RECORDS SUMMARY | 2025-07-11 10:11 | XMS_ITS | Clinical Summary ---
Author Organization [employer] Address [address] 7t [place] [address] Care Team Providers Care Car Stereo Installer Name Role Phone PcpShey Unassigned Primary Care [...] BEDTIME EVERY NIGHT 3 Active nystatin (Mycostatin) 774941 UNIT/GM powder Apply topically. 1 Active metFORMIN [...] DENTAL - HSN PARTIAL (MEDICAID) Care Teams Car Stereo Installer Relationship Specialty Start Date End Date PcpShey Unassigned PCP - General Family Medicine 03/06/23
--- OUTSIDE RECORDS SUMMARY | 2025-07-11 10:11 | XMS_ITS | Encounter Summary ---
Author Organization [facility] Address [address] [place] [address] Phone Care Team Providers Care Vp Communications Name Role Phone Reina Laurent PADDED PRODUCTS FINISHER Primary Care Provide r Luci Aragon NP Primary Care Provider Kuldip Prakash MD Primary Care Provider [phone] Encounter Details Date Type Department Care Team ([facility] st Contact Info) Description 08/25/2022 Prep for Surgery [facility] Podiatry [address] [place] [address] Rancho Franco DPM [address] [place] [address] [address] [place] [address] [email or web address] Verruca plantaris (Primary Dx) Social History Tobacco [...] wart documented in this encounter Care Teams Vp Communications Relationship Specialty Start Date End Date Reina Laurent NP [address] [place], [place] [phone] PCP - General Family Medicine 04/21/21 10/03/22 Luci Aragon NP [address] [place] [address] PCP - General Family Medicine 10/04/22 12/26/24 Kuldip Prakash MD [address] [facility] [address] [place] [phone] PCP - General Internal Medicine 12/27/24 documented as of this encounter Additional Source Comments The information contained in this document represents components of the legal health record. It is not the complete legal health record.[facility]
--- OUTSIDE RECORDS SUMMARY | 2025-07-11 10:11 | XMS_ITS | Encounter Summary ---
Author Organization [facility] Address [address] [place] [address] Phone Care Team Providers Care Vba Programmer Name Role Phone Luci Aragon NP Primary Care Provider Kuldip Prakash MD Primary Care Provider [phone] Encounter Details Date Type Department Care Team ([facility] st Contact Info) Description 06/30/2023 Procedure Pass OR Admitting Dept - Virtual Department [address] [place] [address] Social History Tobacco Use Types Packs/Day Years [...] on filedocumented in this encounter Care Teams Vba Programmer Relationship Specialty Start Date End Date Luci Aragon NP PCP - General Family Medicine 10/04/22 12/26/24 Kuldip Prakash MD [address] [place] [phone] PCP - General Internal Medicine 12/27/24 documented as of this encounter Additional Source Comments The information contained in this document represents components of the legal health record. It is not the complete legal health record.[facility]
== END 2025-07-11 10:35 | disposition home or self-care (01) ==
LOC: HO.HCS 09:30
PROVIDERS: PCP Internal Medicine; Visit Provider Internal Medicine Cardiovascular Disease
DX: R06.02 Shortness of breath (principal)
CPT/HCPCS: 93010; 99204; G2211

== ENCOUNTER → 2025-07-11 09:28 | Outpatient (BNVA) | payer MEDICARE, MEDICAID, SELFPAY | PROVIDERS: PCP Internal Medicine; Visit Provider Internal Medicine Cardiovascular Disease | DX: R06.02 Shortness of breath (principal); E78.00 Pure hypercholesterolemia, unspecified | CPT/HCPCS: 93005; 99202 ==

== ENCOUNTER 2025-07-14 09:28 | Outpatient (REF) | payer MEDICARE, MEDICAID, SELFPAY ==
--- NOTE | ~2025-07-14 | US_ITS ---
EXAMINATION: US TRIPLEX LOWER EXTREMITY, LEFT CLINICAL INFORMATION: History DVT 04/18/2025 COMPARISON: 04/18/2025 TECHNIQUE: Color-flow triplex imaging with spectral analysis and compression Doppler were performed on the left lower extremity. FINDINGS: Respiratory variation, normal compression and augmented flow are noted throughout the left lower extremity. Isoechoic and hypoechoic material is evident on the blanco of the distal thigh femoral vein and popliteal vein. The vessels are partially compressible with flow. The visualized common femoral vein, proximal and mid superficial femoral vein, profunda femoral vein, and posterior tibial venous segments show no evidence of acute deep venous thrombosis. Peroneal vein was not demonstrated by ultrasound. US/US venous duplex LE LT IMPRESSION: Subacute chronic nonocclusive thrombus in the distal femoral vein and chronic nonocclusive thrombus involving popliteal vein. On the prior study in April 2025, nonocclusive thrombus was demonstrated in the popliteal vein only. Electronically signed by: Oscar Najera MD 07/14/2025 10:06 AM EDT
--- OUTSIDE RECORDS SUMMARY | 2025-07-14 10:43 | XMS_ITS | Encounter Summary ---
Author Organization [facility] Address [address] [facility] 7t [place] [address] Care Team Providers Care Egg Grader Name Role Phone PcpShey Unassigned Primary Care [...] on filedocumented in this encounter Care Teams Egg Grader Relationship Specialty Start Date End Date Shey Gallardo Unassigned PCP - General Family Medicine 03/06/23 documented as of this encounter
--- OUTSIDE RECORDS SUMMARY | 2025-07-14 10:43 | XMS_ITS | Encounter Summary ---
Author Organization [facility] Address [address] [place] [address] Phone Care Team Providers Care Cartoonist Special Effects Name Role Phone Reina Laurent DINING MANAGER Primary Care Provide r Luci Aragon NP Primary Care Provider Kuldip Prakash MD Primary Care Provider [phone] Encounter Details Date Type Department Care Team ([facility] st Contact Info) Description 08/25/2022 Prep for Surgery [facility] Pod[facility]ry [address] [place] [address] Rancho Franco DPM [address] [place] [address] 7 [place] [address] [email or web address] Verruca plantaris (Primary Dx) Social History Tobacco [...] wart documented in this encounter Care Teams Cartoonist Special Effects Relationship Specialty Start Date End Date Reina Laurent NP [address] [place], [place] [id number] PCP - General Family Medicine 04/21/21 10/03/22 Luci Aragon NP [address] [place] [address] PCP - General Family Medicine 10/04/22 12/26/24 Kuldip Prakash MD [address] [facility] [address] [place] [phone] PCP - General Internal Medicine 12/27/24 documented as of this encounter Additional Source Comments The information contained in this document represents components of the legal health record. It is not the complete legal health record.[facility]
--- OUTSIDE RECORDS SUMMARY | 2025-07-14 10:43 | XMS_ITS | Patient Health Record ---
Author Organization [facility] Address [address] [facility] [address] [place] [address] Care Team Providers Care Passenger Interline Clerk Name Role Phone SHAMIR CIELO Primary Care Provider UnavailFelipa Salinas Unavailable [phone] Allergies Allergen (clinical drug ingredient) Drug/Non Drug [...] W/U Status Risk Notes Problem Depressive disorder (14392994) Depressive disorder, not elsewhere classified (311) Active confirmed Major Problem Essential hypertension (56368893) Unspecified essential hypertension (401.9) Active confirmed Major Problem Menopausal symptom (66401879) Symptomatic menopausal or female climacteric states (627.2) Active confirmed Major Problem Gynecological examination normal (955400931445375) Routine gynecological examination (V72.31) Active confirmed Major Problem Screening for malignant neoplasm of colon (171056261) Special screening for malignant neoplasms, colon (V76.51) Active confirmed Major Plan Of Treatment Pending Test Test Name Order Date PT AND PTT 12/31/2015 Insurance Providers Payer Name Payer Address Payer Phone Subscriber Number Group Number Insured Name Patient Relationship to Insured Coverage Start Date Coverage End Date [employer] [place] [address] [place] [phone] [id number] LESLYE DORANTES Self - patient is the [...]
--- OUTSIDE RECORDS SUMMARY | 2025-07-14 10:43 | XMS_ITS | Encounter Summary ---
Author Organization [facility] Address [address] [place] [address] Care Team Providers Care Recruiting Coordinator Name Role Phone Kevin Gibson MD Primary Care Provider Unavail able Encounter Details Date Type Department Care Team Description 01/13/2021 Release of Information Medical Records [address] [place] [address] Abstract, Provider Social History Tobacco Use Types Packs/Day Years Used Date Smoking Tobacco: Never Smokeless Tobacco: Never Alcohol Use Standard Drinks/Week Comments No 0 (1 standard drink = 0.6 oz pur e alcohol) Sex Assigned at Date Recorded Not on file documented as of this encounter Nursing Notes * Samantha Berry - 01/13/2021 12:17 PM EST AUTHORIZATION TO OBTAIN MEDICAL RECORDS FAXED TO [facility] documented in this encounter Plan of Treatment Not on file documented as of this encounter Visit Diagnoses Not on filedocumented in this encounter Care Teams Recruiting Coordinator Relationship Specialty Start Date End Date Kevin Gibson MD PCP - General Internal Medicine 07/13/16 documented as of this encounter
--- OUTSIDE RECORDS SUMMARY | 2025-07-14 10:43 | XMS_ITS | Clinical Summary ---
Author Organization [employer] Address [address] [facility] 7t [place] [address] Care Team Providers Care Bread And Pastry Baker Name Role Phone PcpShey Unassigned Primary Care [...] BEDTIME EVERY NIGHT 3 Active nystatin (Mycostatin) 352023 UNIT/GM powder Apply topically. 1 Active metFORMIN [...] DENTAL - HSN PARTIAL (MEDICAID) Care Teams Bread And Pastry Baker Relationship Specialty Start Date End Date PcpShey Unassigned PCP - General Family Medicine 03/06/23
--- OUTSIDE RECORDS SUMMARY | 2025-07-14 10:43 | XMS_ITS | Encounter Summary ---
Author Organization [facility] Address [address] [facility] 7t [place] [address] Care Team Providers Care Scrap Metal Burner Name Role Phone PcpShey Unassigned Primary Care [...] on filedocumented in this encounter Care Teams Scrap Metal Burner Relationship Specialty Start Date End Date Shey Gallardo Unassigned PCP - General Family Medicine 03/06/23 documented as of this encounter
--- OUTSIDE RECORDS SUMMARY | 2025-07-14 10:43 | XMS_ITS | Encounter Summary ---
Author Organization [facility] Address [address] [place] [address] Care Team Providers Care Outreach Specialist Name Role Phone Kevin Gibson MD Primary Care Provider Unavail able Encounter Details Date Type Department Care Team Description 12/12/2018 Metalworker Report Medical Records [address] [place] [address] Phillip Hogan MD [address] [place] [address] for Breast Health [place] [address] Social History Tobacco Use Types Packs/Day Years [...] on filedocumented in this encounter Care Teams Outreach Specialist Relationship Specialty Start Date End Date Kevin Gibson MD PCP - General Internal Medicine 07/13/16 documented as of this encounter
--- OUTSIDE RECORDS SUMMARY | 2025-07-14 10:43 | XMS_ITS | Encounter Summary ---
Author Organization [facility] Address [address] [place] [address] Phone Care Team Providers Care Director Of Materials Name Role Phone Luci Aragon NP Primary Care Provider Kuldip Prakash MD Primary Care Provider [phone] Encounter Details Date Type Department Care Team ([facility] st Contact Info) Description 06/30/2023 Procedure Pass OR Admitting Dept - Virtual Department [address] [place] [address] Social History Tobacco Use Types Packs/Day Years [...] on filedocumented in this encounter Care Teams Director Of Materials Relationship Specialty Start Date End Date Luci Aragon NP PCP - General Family Medicine 10/04/22 12/26/24 Kuldip Prakash MD [address] [place] [phone] PCP - General Internal Medicine 12/27/24 documented as of this encounter Additional Source Comments The information contained in this document represents components of the legal health record. It is not the complete legal health record.[facility]
--- OUTSIDE RECORDS SUMMARY | 2025-07-14 10:43 | XMS_ITS | Encounter Summary ---
Author Organization [facility] Address [address] [facility] 7t [place] [address] Care Team Providers Care Batting Machine Operator Name Role Phone PcpShey Unassigned Primary Care [...] on filedocumented in this encounter Care Teams Batting Machine Operator Relationship Specialty Start Date End Date Shey Gallardo Unassabiodun PCP - General Family Medicine 03/06/23 documented as of this encounter
--- OUTSIDE RECORDS SUMMARY | 2025-07-14 10:43 | XMS_ITS | Encounter Summary ---
Author Organization [facility] Address [address] [facility] [address] [place] [address] Phone Care Team Providers Care Home Weatherizing Worker Name Role Phone Luci Aragon NP Primary Care Provider Kulidp Prakash MD Primary Care Provider [phone] Encounter Details Date Type Department Care Team (Late st Contact Info) Description 11/02/2022 Procedure Pass OR Admitting Dept - Virtual Department [address] [place] [address] Social History Tobacco Use Types Packs/Day Years [...] filedocumented in this encounter Care Teams Home Weatherizing Worker Relationship Specialty Start Date End Date Luci Aragon NP PCP - General Family Medicine 10/04/22 12/26/24 Kuldip Prakash MD [address] [place] [phone] PCP - General Internal Medicine 12/27/24 documented as of this encounter Additional Source Comments The information contained in this document represents components of the legal health record. It is not the complete legal health record.[facility]
--- OUTSIDE RECORDS SUMMARY | 2025-07-14 10:43 | XMS_ITS | Encounter Summary ---
Author Organization [facility] Address [address] [place] [address] Care Team Providers Care Tube Washer Name Role Phone Kevin Gibson MD Primary Care Provider Unavail able Encounter Details Date Type Department Care Team Description 03/07/2019 Trimming Department Blocker Report Medical Records [address] [place] [address] Belarusian, Mindy Social History Tobacco Use Types Packs/Day [...] on filedocumented in this encounter Care Teams Tube Washer Relationship Specialty Start Date End Date Kevin Gibson MD PCP - General Internal Medicine 07/13/16 documented as of this encounter
--- OUTSIDE RECORDS SUMMARY | 2025-07-14 10:43 | XMS_ITS | Clinical Summary ---
Author Organization [facility] Address [address] [place] [address] Phone Care Team Providers Care Grounds Supervisor Name Role Phone Kuldip Prakash MD Primary Care Provider [phone] Allergies Active Allergy Reactions Criticality Noted Date [...] (05/05/2025): Added automatically from request for surgery [id number] Fatty liver 07/10/2019 Overview (05/05/2025): Report prior [...] RLS. Basal cell carcinoma (BCC) of right roman cath[employer] regio n Encounters Date Type Department Care Team Description 05/05/2025 9:40 AM EDT Office Visit [facility] [address] [address] Temitope Watkins CNP Foreign body/splinter, skin (Primary [...] Final Result from Last 3 Months [place] [phone] [place] POS PPO REPLACEMENT [facility] [place] [place] POS PPO [place]PLACEMENT [facility] [employer] [place] MED[place] POS PPO REPLACEMENT [facility] [employer] [place] POS PPO REPLACEMENT [facility] [place] MED[place] POS PPO REPLACEMENT [facility] [employer] [place] MED[place] POS PPO REPLACEMENT Care Teams Grounds Supervisor Relationship Specialty Start Date End Date Kuldip Prakash MD [address] [place] [phone] PCP - General Internal Medicine 12/27/24 Additional Source Comments The information contained in this document represents components of the legal health record. It is not the complete legal health record.[facility]
--- OUTSIDE RECORDS SUMMARY | 2025-07-14 10:43 | XMS_ITS | Encounter Summary ---
Author Organization [facility] Address [address] [place] [address] Phone Care Team Providers Care Tape Maker Name Role Phone Luci Aragon NP Primary Care Provider Kuldip Prakash MD Primary Care Provider [phone] Encounter Details Date Type Department Care Team ([facility] st Contact Info) Description 12/11/2024 Documentation [facility] [address] [place] [address] Martina Lindsay, YUE [address] [place] [address] [email or web address] Social History Tobacco Use Types [...] on filedocumented in this encounter Care Teams Tape Maker Relationship Specialty Start Date End Date Luci Aragon NP PCP - General Family Medicine 10/04/22 12/26/24 Kuldip Prakash MD [address] [place] [address] Drive [address] [place] [phone] PCP - General Internal Medicine 12/27/24 documented as of this encounter Additional Source Comments The information contained in this document represents components of the legal health record. It is not the complete legal health record.[facility]
--- OUTSIDE RECORDS SUMMARY | 2025-07-14 10:43 | XMS_ITS | Clinical Summary ---
Author Organization [facility] Address [address] [facility] [place] [address] Care Team Providers Care Alliance Manager Name Role Phone Kevin Gibson MD Primary [...] 91 11/30/2020 1:43 PM EST Temperature 36.7 C (98.1 F) 08/16/2016 3:07 PM EDT Respiratory Rate 16 01/25/2019 2:05 PM EDT [...] 2009 SHINGLES VACCINE (1 of 2) 2009 BONE DENSITY SCREENING 2024 PNEUMOCOCCAL VACCINE (1 - PCV) 2024 BMI CHECK/ADVISE 11/06/2024 11/30/2020, 08/16/2016 DEPRESSION SCREENING/FOLLOWUP 11/06/2024 INFLUENZA (#1) 2025 Care Teams Alliance Manager Relationship Specialty Start Date End Date Kevin Gibson MD PCP - General Internal Medicine 07/13/16
== END 2025-07-14 09:29 | disposition home or self-care (01) ==
LOC: HO.HMGCX 09:28
PROVIDERS: PCP Internal Medicine; Visit Provider Nurse Practitioner Family
DX: I82.402 Acute embolism and thrombosis of unspecified deep veins of left lower extremity (principal)
CPT/HCPCS: 93971

== ENCOUNTER → 2025-07-14 09:30 | Outpatient (BNV) | payer MEDICARE, MEDICAID, SELFPAY | PROVIDERS: PCP Internal Medicine; Visit Provider Radiology Diagnostic Radiology | DX: I82.512 Chronic embolism and thrombosis of left femoral vein (principal) | CPT/HCPCS: 93971 ==

== ENCOUNTER 2025-07-23 12:05 | Outpatient (AMB) | payer MEDICARE, MEDICAID, SELFPAY ==
--- NOTE | 2025-07-23 12:00 | A.OFFWM_ITS ---
Intake Intake Visit Reasons: VIDEO BH Intake Part 2 Allergies dexamethasone Allergy (Severe, Verified 07/22/25 09:41) Dizziness midazolam Allergy (Severe, Verified 07/22/25 09:41) Dizziness enoxaparin (From Lovenox) Allergy (Intermediate, Verified 07/22/25 09:41) Rash diazepam (Valium) Allergy (Unknown, Verified 07/22/25 09:41) Hypertension escitalopram (Lexapro) Allergy (Unknown, Verified 07/22/25 09:41) Rash lisinopril Allergy (Unknown, Verified 07/22/25 09:41) Difficulty Swallowing oxcarbazepine (Trileptal) Allergy (Unknown, Verified 07/22/25 09:41) Hives oxycodone (Percocet) Allergy (Unknown, Verified 07/22/25 09:41) Hives rosuvastatin (Crestor) Allergy (Unknown, Verified 07/22/25 09:41) Eye Swelling fenofibrate Adverse Reaction (Severe, Verified 07/22/25 09:41) Muscle cramps losartan Adverse Reaction (Intermediate, Verified 07/22/25 09:41) not sure metoprolol Adverse Reaction (Intermediate, Verified 07/22/25 09:41) leg pain gabapentin Adverse Reaction (Verified 07/22/25 09:41) Muscle Pain PFSH Medical History Impaired glucose tolerance Type 2 diabetes mellitus with hyperglycemia Breast cancer screening by mammogram Colon cancer screening Menopausal and postmenopausal disorder History of ankle fracture Screening for osteoporosis Eating disorder with ongoing treatment Dizziness Low serum potassium Fungal rash of torso Seasonal allergies Anxiety with depression Restless leg syndrome Diabetes mellitus TMJ (dislocation of temporomandibular joint) Periodic limb movements of sleep Obstructive sleep apnea Morbid obesity Hypertension Hypercholesterolemia Heart murmur Depression Anxiety Surgical History History of gastric bypass S/P LALITA-BSO (total abdominal hysterectomy and bilateral salpingo-oophorectomy) Bilateral carpal tunnel syndrome 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 H/O ventral hernia repair History of cholecystectomy Gastric banding status Family History Mother Cancer of colon Hyperlipidemia Father CAD (coronary artery disease) Heart attack Paternal Uncle Heart attack Social History Housing: House Alcohol intake: former Comment: once drink Q 3 months Patient Tobacco Use Status: Never used Tobacco e-Cigarette/Vaping Use: Never Used Second Hand Smoke Exposure: No service: No Current occupational status: employed Cognitive needs: No Hearing needs: No Vision needs: Yes Behavioral Health Assessment Weight Management Therapy Therapy Notes Details Patient presents for a follow-up visit via Telehealth. Patient reports doing well overall and has been consistently losing weight each week. Last recorded weight was 233 lbs. Patient denies feeling hungry but noted experiencing intense impulses to eat candy and deviate from the meal plan last week. Discussed current functioning, needs, and challenges. Utilized ABC (Wouugluxna-Mdddewxe-Pqcqrgymwbg) analysis to identify emotional and behavioral responses, compensatory behaviors, underlying core beliefs, and consequences related to eating impulses. Initiated cognitive restructuring to address identified patterns and explored ways to modify them. Worked with an ABC analysis worksheet and introduced a daily two-part journal for tracking the weight-loss process and emotional eating triggers. Session also addressed challenges related to trauma history and its impact on emotional eating. Assessment not completed as the session focused on trauma history and emotional eating challenges. Patient was engaged and receptive to interventions and demonstrated insight into behavioral patterns. Presenting Concerns Referral Source WMP-Provider, RICH Conteh Reason for referral Completion of behavioral health assessment as part of process for weight-loss surgery. Precipitating Event Weight gain after WLS in 2020. Living Situation Current Living Situation Own At risk of losing current housing? No Satisfied with current living situation? Yes Comments PT lives alone. Food/Weight/Diet Expectations of change Initial goal is to Patient goals are PT is implementing the following: Current meal plan: combination of shakes, bar and 1 meal. She is using ther ightBMI. Exercise plan: Gym - Goal burn 300cal at day. Scale: yes Communication w/ provider: - . History/Relationship with food Example of meals before starting the program: Breakfast: Lunch: Dinner: Snacks: Drinks/Liquids: History/Relationship with weight In the last 10 years, the patient's Lowest weight was and highest Social History Family history and relationship Pt is single, never . Parents are Her family relatives are across the country. She had a brother who and has 2 nephews. 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 Developmental history and status None/ Currently WNL Social support Close good friends for over 20 years. Community support None. Voodoo/Spirituality Jewish-Confucianism. Cultural/Ethnic information . Legal Involvement and History Current or historical involvement with the legal system? None. Education Highest grade completed Masters degree in education. CAGS in expressive arts. Preferred learning style Visual Currently enrolled in educational program? No Interested in further educational program? 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 Wellness and MH. 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 No Meaningful activities Kayaking, camping, music Used to do visual journaling Financial Situation Describe current financial situation Comfortable and Occasional struggle Financial assistance? SSI Service Service? No Mental Health and Addiction Treatment Current/Past substance abuse? No Comments Alcohol: none Cigarettes/Tobacco: none Cannabis/Edibles: none Current/Past addictive behavior concerns? No Psychiatric history PT currently attends counseling every 2 weeks. She sees a therapist ([facility]) in private practice via Telehealth. She started depression at age 39 after surgical menopause as she had a full hysterectomy. Her PCP prescribes her with: -Bupropion 150mg -Fluoxetine 40mg Assessment & Plan Assessment & Plan (1) Anxiety disorder: Code(s): F41.9 - Anxiety disorder, unspecified (2) Depression, unspecified: Code(s): F32.A - Depression, unspecified (3) Eating disorder, unspecified: Code(s): F50.9 - Eating disorder, unspecified (4) Pre-bariatric surgery psychological evaluation: Code(s): Z71.89 - Other specified counseling Plan The patient was not cleared today. Will continue the behavioral health assessment at the next session, scheduled in two weeks. Patient is encouraged to continue utilizing the ABC analysis and complete the daily two-part journal to monitor eating patterns and emotional triggers. Will review progress and address any additional challenges at the next visit. * Next appointment:?08/05/2025 at 10:00 am via Telehealth. Telehealth Telehealth Telehealth Platform: [employer] Location of provider rendering services: other (Home office. [place], [place]) Location of patient: address on file Patient Identification confirmed using: Name, : Yes Telehealth method: video Patient verbally consented to treatment: Yes Patient verbally consented to billing insurance company: Yes Patient informed of any privacy concerns related to visit: Yes Minutes spent on Phone/Video with Pt.: 60 Coding Level of Care Code Established Pt Tele Psytx >53 mins (43672) Patient Type Established Diagnoses Anxiety disorder F41.9 Depression, unspecified F32.A Eating disorder, unspecified F50.9 Pre-bariatric surgery psychological evaluation Z71.89 Time Spent (min) 60
--- OUTSIDE RECORDS SUMMARY | 2025-07-23 15:33 | XMS_ITS | Encounter Summary ---
Author Organization [facility] Address [address] [place] [address] Phone Care Team Providers Care Automation Tender Name Role Phone Luci Aragon NP Primary Care Provider Kuldip Prakash MD Primary Care Provider [phone] Encounter Details Date Type Department Care Team (Late st Contact Info) Description 11/02/2022 Procedure Pass OR Admitting Dept - Virtual Department [address] [place] [address] Social History Tobacco Use Types Packs/Day Years [...] on filedocumented in this encounter Care Teams Automation Tender Relationship Specialty Start Date End Date Luci Aragon NP PCP - General Family Medicine 10/04/22 12/26/24 Kuldip Prakash MD [address] [place] [address] PCP - General Internal Medicine 12/27/24 documented as of this encounter Additional Source Comments The information contained in this document represents components of the legal health record. It is not the complete legal health record.[facility]
--- OUTSIDE RECORDS SUMMARY | 2025-07-23 15:33 | XMS_ITS | Encounter Summary ---
Author Organization [facility] Address [address] 7t [place] [address] Care Team Providers Care Crust Sorter Name Role Phone PcpShey Unassigned Primary [...] on filedocumented in this encounter Care Teams Crust Sorter Relationship Specialty Start Date End Date Shey Gallardo Unassigned PCP - General Family Medicine 03/06/23 documented as of this encounter
--- OUTSIDE RECORDS SUMMARY | 2025-07-23 15:34 | XMS_ITS | Encounter Summary ---
Author Organization [facility] Address [address] [place] [address] Phone Care Team Providers Care Nursery Nurse Name Role Phone Luci Aragon NP Primary Care Provider Kuldip Prakash MD Primary Care Provider [phone] Encounter Details Date Type Department Care Team ([facility] st Contact Info) Description 12/11/2024 Documentation [facility] CRP5 [address] [place] [address] Martina Lindsay, YUE [address] [place] [address] [email or web address] Social History Tobacco Use Types Packs/Day [...] on filedocumented in this encounter Care Teams Nursery Nurse Relationship Specialty Start Date End Date Luci Aragon NP PCP - General Family Medicine 10/04/22 12/26/24 Kuldip Prakash MD [address] [place] [address] Drive [address] [place] [phone] PCP - General Internal Medicine 12/27/24 documented as of this encounter Additional Source Comments The information contained in this document represents components of the legal health record. It is not the complete legal health record.[facility]
--- OUTSIDE RECORDS SUMMARY | 2025-07-23 15:34 | XMS_ITS | Encounter Summary ---
Author Organization [facility] Address [address] [place] [address] Phone Care Team Providers Care Welcome Center Agent Name Role Phone Luci Aragon NP Primary Care Provider Kuldip Prakash MD Primary Care Provider [phone] Encounter Details Date Type Department Care Team ([facility] st Contact Info) Description 06/30/2023 Procedure Pass OR Admitting Dept - Virtual Department [address] [place] [address] Social History Tobacco Use Types Packs/Day Years [...] on filedocumented in this encounter Care Teams Welcome Center Agent Relationship Specialty Start Date End Date Luci Aragon NP PCP - General Family Medicine 10/04/22 12/26/24 Kuldip Prakash MD [address] [place] [phone] PCP - General Internal Medicine 12/27/24 documented as of this encounter Additional Source Comments The information contained in this document represents components of the legal health record. It is not the complete legal health record.[facility]
--- OUTSIDE RECORDS SUMMARY | 2025-07-23 15:34 | XMS_ITS | Clinical Summary ---
Author Organization [facility] Address [address] [place] [address] Phone Care Team Providers Care Strawberry Grower Name Role Phone Kuldip Prakash MD Primary Care Provider [phone] Allergies Active Allergy Reactions Criticality Noted Date [...] (05/05/2025): Added automatically from request for surgery [id number] Fatty liver 07/10/2019 Overview (05/05/2025): Report prior [...] RLS. Basal cell carcinoma (BCC) of right samaritan regio n Encounters Date Type Department Care Team Description 05/05/2025 9:40 AM EDT Office Visit [facility] at [address] [address] Temitope Watkins CNP Foreign body/splinter, skin (Primary [...] Final Result from Last 3 Months [place] [id number] [place] POS PPO REPLACEMENT [facility] [place] MEDIC[place] POS PPO REPLACEMENT [facility] [place] MED[place] POS PPO REPLACEMENT [facility] [place] MED[place] POS PPO REPLACEMENT [facility] [place] MED[place] POS PPO REPLACEMENT [facility] [place] MEDIC[place] POS PPO REPLACEMENT Care Teams Strawberry Grower Relationship Specialty Start Date End Date Kuldip Prakash MD [address] [place] [address] PCP - General Internal Medicine 12/27/24 Additional Source Comments The information contained in this document represents components of the legal health record. It is not the complete legal health record.[facility]
--- OUTSIDE RECORDS SUMMARY | 2025-07-23 15:34 | XMS_ITS | Encounter Summary ---
Author Organization [facility] Address [address] 7t [place] [address] Care Team Providers Care Project Management Professor Name Role Phone PcpShey Unassigned Primary Care [...] on filedocumented in this encounter Care Teams Project Management Professor Relationship Specialty Start Date End Date Shey Gallardo Unassigned PCP - General Family Medicine 03/06/23 documented as of this encounter
--- OUTSIDE RECORDS SUMMARY | 2025-07-23 15:34 | XMS_ITS | Patient Health Record ---
Author Organization [facility] Address [address] [facility] [address] [place] [address] Care Team Providers Care Shorthand Teacher Name Role Phone SHAMIR CIELO Primary Care Provider UnavailFelipa Salinas Unavailable [phone] Allergies Allergen (clinical drug ingredient) Drug/Non Drug [...] 200MG 1 ORAL twice daily; Duration: -3 [facility]- 01/03/2012 Active hydroCHLOROthiazide 25mg 1 ORAL daily; Duration: -3 [facility] 07/17/2013 Active Estrace Vaginal Cream 42.5GM Vaginal 1GM 3X A WEEK; Duration: -3 Ryan- 06/04/2013 Not-Taking FLUoxetine HCl 40MG 1 ORAL daily; Duration: -3 Y[facility]- 01/03/2012 Active Social History Tobacco Use: Social History Observation Description Date Details (start date - stop date) Never Smoker NA - NA Tobacco Use/Smoking Question Answer Notes Are you a nonsmoker Problems Problem Type SNOMED Code ICD Code Onset Dates Problem Status W/U Status Risk Notes Problem Depressive disorder (20140685) Depressive disorder, not elsewhere classified (311) Active confirmed Major Problem Essential hypertension (52962884) Unspecified essential hypertension (401.9) Active confirmed Major Problem Menopausal symptom (64175847) Symptomatic menopausal or female climacteric states (627.2) Active confirmed Major Problem Gynecological examination normal (442033575379852) Routine gynecological examination (V72.31) Active confirmed Major Problem Screening for malignant neoplasm of colon (510145942) Special screening for malignant neoplasms, colon (V76.51) Active confirmed Major Plan Of Treatment Pending Test Test Name Order Date PT AND PTT 12/31/2015 Insurance Providers Payer Name Payer Address Payer Phone Subscriber Number Group Number Insured Name Patient Relationship to Insured Coverage Start Date Coverage End Date [employer] [place] [address] [place] [address] [id number] LESLYE DORANTES Self - patient is the [...]
--- OUTSIDE RECORDS SUMMARY | 2025-07-23 15:34 | XMS_ITS | Encounter Summary ---
Author Organization [facility] Address [address] 7t [place] [address] Care Team Providers Care Silver Solderer Name Role Phone PcpShey Unassigned Primary Care [...] on filedocumented in this encounter Care Teams Silver Solderer Relationship Specialty Start Date End Date Shey Gallardo Unassigned PCP - General Family Medicine 03/06/23 documented as of this encounter
--- OUTSIDE RECORDS SUMMARY | 2025-07-23 15:34 | XMS_ITS | Clinical Summary ---
Author Organization [employer] Address [address] 7t [place] [address] Care Team Providers Care Registered Nurse Maternal Child Name Role Phone PcpShey Unassigned Primary Care [...] BEDTIME EVERY NIGHT 3 Active nystatin (Mycostatin) 209318 UNIT/GM powder Apply topically. 1 Active metFORMIN [...] DENTAL - HSN PARTIAL (MEDICAID) Care Teams Registered Nurse Maternal Child Relationship Specialty Start Date End Date PcpShey Unassigned PCP - General Family Medicine 03/06/23
--- OUTSIDE RECORDS SUMMARY | 2025-07-23 15:34 | XMS_ITS | Encounter Summary ---
Author Organization [facility] Address [address] [place] [address] Phone Care Team Providers Care Biomedical Equipment Support Specialist Name Role Phone Reina Laurent SODA WORKER Primary Care Provide r Luci Aragon NP Primary Care Provider Kuldip Prakash MD Primary Care Provider [phone] Encounter Details Date Type Department Care Team ([facility] st Contact Info) Description 08/25/2022 Prep for Surgery [facility] Podiatry [address] [place] [address] Rancho Franco DPM [address] [place] [address] [address] [place] [address] [email or web address] Verruca plantaris (Primary Dx) Social [...] wart documented in this encounter Care Teams Biomedical Equipment Support Specialist Relationship Specialty Start Date End Date Reina Laurent NP [address] [place], [place] [phone] PCP - General Family Medicine 04/21/21 10/03/22 Luci Aragon NP [address] [place] [address] PCP - General Family Medicine 10/04/22 12/26/24 Kuldip Prakash MD [address] [facility] [address] [place] [phone] PCP - General Internal Medicine 12/27/24 documented as of this encounter Additional Source Comments The information contained in this document represents components of the legal health record. It is not the complete legal health record.[facility]
== END 2025-07-23 13:09 | disposition home or self-care (01) ==
LOC: HO.HBST 12:05
PROVIDERS: PCP Internal Medicine; Visit Provider Counselor Mental Health
DX: F41.9 Anxiety disorder, unspecified (principal); F32.A Depression, unspecified; F50.9 Eating disorder, unspecified; Z71.89 Other specified counseling
CPT/HCPCS: 90837

== ENCOUNTER → 2025-08-01 08:33 | Outpatient (REF) | payer MEDICARE, MEDICAID, SELFPAY ==
--- NOTE | 2025-08-01 08:35 | CA_ITS ---
Transthoracic Echocardiogram Patient (Last, First, Middle): Sade Lutz, Gender: Female Date of : 1960 Age: 65 Procedure Date: 08/01/2025 Procedure Type: Transthoracic Echocardiogram Location: OP Height: 154. cm Weight: 105.24 kg BSA: 2.00 m2 Heart Rate: bpm BP: 125 / 70 mmHg Strand And Binder Controller: BIRGIT Referring MD: Anand Garvin MD Symptoms: R06.02 - Shortness of breath Study Quality: Adequate ECG Rhythm: Sinus Conclusions: - The left ventricular systolic function is normal. The calculated ejection fraction is 60% by biplane method. - There is moderate calcification of the aortic valve. There is mild aortic valve stenosis. - There is moderate mitral annular calcification. Findings Left Ventricle Normal left ventricular cavity size. There is mildly increased left ventricular wall thickness. The left ventricular systolic function is normal. The calculated ejection fraction is 60% by biplane method. There is no evidence of regional wall motion abnormalities. Evidence suggests grade I (mild) diastolic dysfunction. Right Ventricle Normal right ventricular cavity size. There is low normal right ventricular systolic function. Atria Both atria are normal in size. Aortic Valve There is moderate calcification of the aortic valve. There is mild aortic valve stenosis. There is no aortic valve regurgitation. Mitral Valve There is moderate mitral annular calcification. There is mild mitral valve regurgitation. There is no mitral valve stenosis. Pulmonic Valve The pulmonic valve is likely normal. Tricuspid Valve There is mild tricuspid valve regurgitation. There is no evidence of pulmonary hypertension. Great Vessels The asc aorta is normal in size. Venous The inferior vena cava is normal in size and collapses greater than 50% with inspiration. Pericardium/Pleural There is no evidence of pericardial effusion. Prior Study Comparison No prior study available for comparison. Measurements 2D Linear Measurements IVSd: 1.19 0.6-0.9/0.6-1.0 cm LVIDd: 4.63 3.9-5.3/4.2-5.9 cm LVIDd Index: 2.32 2.4-3.2/2.2-3.1 cm/m2 LVIDs: 3.16 2.0-3.6 cm LVPWd: 1.28 0.7-1.1 cm LA Diam: 3.50 2.7-3.8/3.0-4.0 cm LAIDs Index: 1.75 1.5-2.3 cm/m2 LV Mass: 269.00 67-162/88-224 g LV Mass Index: 134.50 43-95/49-115 g/m2 LVOT Diam: 2.00 3.0+(-)1.3 cm 2D Systolic Function EF 4C: 63.00 >55% EF 2C: 53.70 >55% EF BiP: 59.80 >55% Mitral Valve MV Pk E: 1.31 MV PK A: 1.32 MV Decel Time: 238.00 E/A: 1.00 E'Lateral: 6.08 E'Medial: 5.11 E/E' Med: 25.60 E/E' Lat: 21.50 PHT: 70.00 MVA PHT: 3.14 Decel Woodson: 5.51 Aortic Valve AoV Pk Elias: 2.02 AoV Mn Elias: 1.45 AoV VTI: 0.49 AoV Pk Grad: 16.00 Aov Mn Grad: 10.00 ESTEFANÍA Cont.VTI: 1.83 LVOT LVOT Pk Elias: 1.17 LVOT Mn Elias: 0.82 LVOT VTI: 0.28 LVOT Pk Grad: 5.00 LVOT Mn Grad: 3.00 LVOT Diam: 2.00 LVOT Area: 3.14 Diastolic Function MV Pk E: 1.31 MV Pk A: 1.32 E/A: 1.00 E'Medial: 5.11 E/E' Med: 25.60 E' Laterial: 6.08 E/E' Lat: 21.50 Right Ventricle TAPSE (mm): 19.90 TVS' Elias: 9.16 Tricuspid Valve TR Pk Elias: 2.02 TR Pk Grad: 16.00 RA Press: 3.00 RVSP: 19.00 Great Vessels Aorta Sinus of Valsalva: 3.40 2.0-3.5 cm Ao Asc: 3.70 2.1-3.4 cm Ao Arch: 2.60 Pulmonary Veins Pulm Vein S/D 1.80 Pulmonary Valve PV Pk Elias: 0.77 Peak PV Grad: 2.00 Updated in Other Vendor System with Status of Final Wolfgang Harp MD electronically signed on 08/04/2025 10:55:22 AM with status of Final
== END ==
LOC: HO.CARD 08:33
PROVIDERS: PCP Internal Medicine; Visit Provider Internal Medicine Cardiovascular Disease
DX: R06.02 Shortness of breath (principal)
CPT/HCPCS: 93306

== ENCOUNTER → 2025-08-01 08:35 | Outpatient (BNV) | payer MEDICARE, MEDICAID, SELFPAY | PROVIDERS: PCP Internal Medicine; Visit Provider Internal Medicine | DX: I35.8 Other nonrheumatic aortic valve disorders (principal); I34.81 Nonrheumatic mitral (valve) annulus calcification | CPT/HCPCS: 93306 ==

== ENCOUNTER 2025-08-05 10:05 | Outpatient (AMB) | payer MEDICARE, MEDICAID, SELFPAY ==
--- NOTE | 2025-08-05 10:00 | A.OFFWM_ITS ---
Intake Intake Visit Reasons: VIDEO BH F/U Allergies dexamethasone Allergy (Severe, Verified 09/15/25 12:17) Dizziness midazolam Allergy (Severe, Verified 09/15/25 12:17) Dizziness enoxaparin (From Lovenox) Allergy (Intermediate, Verified 09/15/25 12:17) Rash diazepam (Valium) Allergy (Unknown, Verified 09/15/25 12:17) Hypertension escitalopram (Lexapro) Allergy (Unknown, Verified 09/15/25 12:17) Rash lisinopril Allergy (Unknown, Verified 09/15/25 12:17) Difficulty Swallowing oxcarbazepine (Trileptal) Allergy (Unknown, Verified 09/15/25 12:17) Hives oxycodone (Percocet) Allergy (Unknown, Verified 09/15/25 12:17) Hives rosuvastatin (Crestor) Allergy (Unknown, Verified 09/15/25 12:17) Eye Swelling fenofibrate Adverse Reaction (Severe, Verified 09/15/25 12:17) Muscle cramps losartan Adverse Reaction (Intermediate, Verified 09/15/25 12:17) not sure gabapentin Adverse Reaction (Verified 09/15/25 12:17) Muscle Pain PFSH Medical History Impaired glucose tolerance Type 2 diabetes mellitus with hyperglycemia Breast cancer screening by mammogram Colon cancer screening Menopausal and postmenopausal disorder History of ankle fracture Screening for osteoporosis Eating disorder with ongoing treatment Dizziness Low serum potassium Fungal rash of torso Seasonal allergies Anxiety with depression Restless leg syndrome Diabetes mellitus TMJ (dislocation of temporomandibular joint) Periodic limb movements of sleep Obstructive sleep apnea Morbid obesity Hypertension Hypercholesterolemia Heart murmur Depression Anxiety Surgical History History of gastric bypass S/P LALITA-BSO (total abdominal hysterectomy and bilateral salpingo-oophorectomy) Bilateral carpal tunnel syndrome 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 H/O ventral hernia repair History of cholecystectomy Gastric banding status Family History Mother Cancer of colon Hyperlipidemia Father CAD (coronary artery disease) Heart attack Paternal Uncle Heart attack Social History Housing: House Alcohol intake: former Comment: once drink Q 3 months Patient Tobacco Use Status: Never used Tobacco e-Cigarette/Vaping Use: Never Used Second Hand Smoke Exposure: No Advance Directives: No Advance Directives Information Provided: Yes Do you have a plan to hurt others: No Plan service: No Current occupational status: employed Cognitive needs: No Hearing needs: No Vision needs: Yes Behavioral Health Assessment Weight Management Therapy Therapy Notes Details Subjective: The patient presents feeling discouraged. She reports following her meal plan but continues to experience hunger and engages in nighttime snacking, even when not physically hungry. She is not sleeping well and describes vivid dreams and nightmares that increase her anxiety. She notes her mood has been off. A current trigger is an upcoming visit from a friend to help her declutter, which has caused feelings of embarrassment. Objective: During the session, we explored the patient?s current emotional state and identified specific triggers contributing to her anxiety and mood changes. We discussed the distinction between factors within her control (e.g., meal planning, self-care routines) and those outside her control (e.g., others? perceptions). Using cognitive behavioral therapy (CBT) techniques, we examined the cycle of anxiety and self-sabotaging behaviors, focusing on cognitive restructuring to challenge negative thoughts and develop more adaptive coping strategies. Behavioral interventions included developing a structured nighttime routine to improve sleep hygiene, identifying alternative activities to manage urges to snack at night, and practicing mindfulness techniques to reduce anxiety and manage feelings of overwhelm. Psychoeducation was provided regarding the impact of sleep and stress on eating behaviors. Assessment/Response: * Mental status: Alert and oriented, mood described as discouraged, affect congruent with mood, thought process logical and goal-directed, no evidence of psychosis. * Risk reported/identified: No suicidal or homicidal ideation, no self-harm behaviors reported. Assessment & Plan Assessment & Plan (1) Anxiety disorder: Code(s): F41.9 - Anxiety disorder, unspecified (2) Depression, unspecified: Code(s): F32.A - Depression, unspecified (3) Eating disorder, unspecified: Code(s): F50.9 - Eating disorder, unspecified Plan Follow up in 3?4 weeks; next appointment scheduled for 08/25/25 via video. Telehealth Telehealth Telehealth Platform: [employer] Location of provider rendering services: other (Home office. [place], [place]) Location of patient: address on file Patient Identification confirmed using: Name, : Yes Telehealth method: video Patient verbally consented to treatment: Yes Patient verbally consented to billing insurance company: Yes Patient informed of any privacy concerns related to visit: Yes Minutes spent on Phone/Video with Pt.: 60 [place] [address] Tele Psytx >53 mins Patient Type Established Diagnoses Anxiety disorder F41.9 Depression, unspecified F32.A Eating disorder, unspecified F50.9 Time Spent (min) 60
--- OUTSIDE RECORDS SUMMARY | 2025-08-05 11:10 | XMS_ITS | Encounter Summary ---
Author Organization [facility] Address [address] [place] [phone] Phone Care Team Providers Care Slot Machine Key Person Name Role Phone Luci Aragon NP Primary Care Provider Kuldip Prakash MD Primary Care Provider Encounter Details Date Type Department Care Team ([facility] st Contact Info) Description 12/11/2024 Documentation [facility] CRP5 [address] [place] [address] Martina Lindsay, YUE [address] [place] [address] [email or web address] Social History Tobacco Use Types Packs/Day [...] on filedocumented in this encounter Care Teams Slot Machine Key Person Relationship Specialty Start Date End Date Luci Aragon NP PCP - General Family Medicine 10/04/22 12/26/24 Kuldip Prakash MD [address] [place] [address] Drive [address] [place] [phone] PCP - General Internal Medicine 12/27/24 documented as of this encounter Additional Source Comments The information contained in this document represents components of the legal health record. It is not the complete legal health record.[facility]
--- OUTSIDE RECORDS SUMMARY | 2025-08-05 11:10 | XMS_ITS | Encounter Summary ---
Author Organization [facility] Address [address] [facility] [address] 7t [place] [address] Care Team Providers Care First Officer And Flight Instructor Name Role Phone PcpShey Unassigned Primary Care [...] on filedocumented in this encounter Care Teams First Officer And Flight Instructor Relationship Specialty Start Date End Date Shey Gallardo Unassigned PCP - General Family Medicine 03/06/23 documented as of this encounter
--- OUTSIDE RECORDS SUMMARY | 2025-08-05 11:10 | XMS_ITS | Encounter Summary ---
Author Organization [facility] Address [address] [place] [address] Phone Care Team Providers Care Reliability Technicians Name Role Phone Reina Laurent STAFFING MGR Primary Care Provide r Luci Aragon NP Primary Care Provider Kuldip Prakash MD Primary Care Provider [phone] Encounter Details Date Type Department Care Team ([facility] st Contact Info) Description 08/25/2022 Prep for Surgery [facility] Podiatry [address] [place] [address] Rancho Franco DPM [address] [place] [address] 7 [place] [address] [email or web address] Verruca [...] wart documented in this encounter Care Teams Reliability Technicians Relationship Specialty Start Date End Date Reina Laurent NP [address] [place], [place] [phone] PCP - General Family Medicine 04/21/21 10/03/22 Luci Aragon NP [address] [place] [address] PCP - General Family Medicine 10/04/22 12/26/24 Kuldip Prakash MD [address] [facility] [address] [place] [phone] PCP - General Internal Medicine 12/27/24 documented as of this encounter Additional Source Comments The information contained in this document represents components of the legal health record. It is not the complete legal health record.[facility]
--- OUTSIDE RECORDS SUMMARY | 2025-08-05 11:10 | XMS_ITS | Clinical Summary ---
Author Organization [facility] Address [address] [place] [address] Phone Care Team Providers Care Counseling Services Manager Name Role Phone Kuldip Prakash MD Primary Care Provider [phone] Allergies Active Allergy Reactions Criticality Noted Date [...] (05/05/2025): Added automatically from request for surgery [id number] Fatty liver 07/10/2019 Overview (05/05/2025): Report prior [...] Office Visit [facility] at [address] [address] Temitope Watkins CNP Foreign body/splinter, skin (Primary [...] Final Result from Last 3 Months [place] [id number] [employer] [place] [employer] POS PPO REPLACEMENT [facility] [employer] [place] POS PPO REPLACEMENT [facility] [employer] [place] [employer] POS PPO REPLACEMENT [facility] [employer] [place] POS PPO REPLACEMENT [facility] [employer] [place] MED[place] POS PPO REPLACEMENT [facility] [employer] [place] MEDIC[employer] POS PPO REPLACEMENT Care Teams Counseling Services Manager Relationship Specialty Start Date End Date Kuldip Prakash MD [address] [place] [address] PCP - General Internal Medicine 12/27/24 Additional Source Comments The information contained in this document represents components of the legal health record. It is not the complete legal health record.[facility]
--- OUTSIDE RECORDS SUMMARY | 2025-08-05 11:10 | XMS_ITS | Patient Health Record ---
Author Organization [facility] Address [address] [facility] [address] [address] [place] [address] Care Team Providers Care Banquet Attendant Name Role Phone SHAMIR CIELO Primary Care Provider UnavailFelipa Salinas Unavailable [phone] Allergies Allergen (clinical drug ingredient) Drug/Non Drug [...] W/U Status Risk Notes Problem Depressive disorder (61130853) Depressive disorder, not elsewhere classified (311) Active confirmed Major Problem Essential hypertension (86382146) Unspecified essential hypertension (401.9) Active confirmed Major Problem Menopausal symptom (00245254) Symptomatic menopausal or female climacteric states (627.2) Active confirmed Major Problem Gynecological examination normal (232559522385866) Routine gynecological examination (V72.31) Active confirmed Major Problem Screening for malignant neoplasm of colon (386386161) Special screening for malignant neoplasms, colon (V76.51) Active confirmed Major Plan Of Treatment Pending Test Test Name Order Date PT AND PTT 12/31/2015 Insurance Providers Payer Name Payer Address Payer Phone Subscriber Number Group Number Insured Name Patient Relationship to Insured Coverage Start Date Coverage End Date [employer] [place] [address] [place] [phone] [id number] LESLYE DORANTES Self - patient is the [...]
--- OUTSIDE RECORDS SUMMARY | 2025-08-05 11:10 | XMS_ITS | Clinical Summary ---
Author Organization [employer] Address [address] [facility] 7t [place] [address] Care Team Providers Care Manager Pathology Name Role Phone PcpShey Unassigned Primary Care [...] BEDTIME EVERY NIGHT 3 Active nystatin (Mycostatin) 658897 UNIT/GM powder Apply topically. 1 Active metFORMIN [...] DENTAL - HSN PARTIAL (MEDICAID) Care Teams Manager Pathology Relationship Specialty Start Date End Date PcpShey Unassigned PCP - General Family Medicine 03/06/23
--- OUTSIDE RECORDS SUMMARY | 2025-08-05 11:10 | XMS_ITS | Encounter Summary ---
Author Organization [facility] Address [address] [facility] 7t [place] [address] Care Team Providers Care Manager Heart Failure Name Role Phone PcpShey Unassigned Primary Care [...] filedocumented in this encounter Care Teams Manager Heart Failure Relationship Specialty Start Date End Date Shey Gallardo Unassigned PCP - General Family Medicine 03/06/23 documented as of this encounter
--- OUTSIDE RECORDS SUMMARY | 2025-08-05 11:10 | XMS_ITS | Encounter Summary ---
Author Organization [facility] Address [address] [place] [address] Phone Care Team Providers Care Subwarehouse Supervisor Name Role Phone Luci Aragon NP Primary Care Provider Kuldip Prakash MD Primary Care Provider [phone] Encounter Details Date Type Department Care Team ([facility] st Contact Info) Description 06/30/2023 Procedure Pass OR Admitting Dept - Virtual Department [address] [place] [address] Social History Tobacco Use Types Packs/Day Years [...] on filedocumented in this encounter Care Teams Subwarehouse Supervisor Relationship Specialty Start Date End Date Luci Aragon NP PCP - General Family Medicine 10/04/22 12/26/24 Kuldip Prakash MD [address] [place] [phone] PCP - General Internal Medicine 12/27/24 documented as of this encounter Additional Source Comments The information contained in this document represents components of the legal health record. It is not the complete legal health record.[facility]
--- OUTSIDE RECORDS SUMMARY | 2025-08-05 11:10 | XMS_ITS | Encounter Summary ---
Author Organization [facility] Address [address] [address] [place] [address] Phone Care Team Providers Care Draw Fire Operator Name Role Phone Luci Aragon NP Primary Care Provider Kuldip Prakash MD Primary Care Provider [phone] Encounter Details Date Type Department Care Team ([facility] st Contact Info) Description 11/02/2022 Procedure Pass OR Admitting Dept - Virtual Department [address] [place] [address] Social History Tobacco Use Types Packs/Day Years [...] on filedocumented in this encounter Care Teams Draw Fire Operator Relationship Specialty Start Date End Date Luci Aragon NP PCP - General Family Medicine 10/04/22 12/26/24 Kuldip Prakash MD [address] [place] [address] PCP - General Internal Medicine 12/27/24 documented as of this encounter Additional Source Comments The information contained in this document represents components of the legal health record. It is not the complete legal health record.[facility]
--- OUTSIDE RECORDS SUMMARY | 2025-08-05 11:10 | XMS_ITS | Encounter Summary ---
Author Organization [facility] Address [address] [facility] 7t [place] [address] Care Team Providers Care Banking Pin Adjuster Name Role Phone PcpShey Unassigned Primary Care [...] on filedocumented in this encounter Care Teams Banking Pin Adjuster Relationship Specialty Start Date End Date Shey Gallardo Unassigned PCP - General Family Medicine 03/06/23 documented as of this encounter
== END 2025-08-05 11:01 | disposition home or self-care (01) ==
LOC: HO.HBST 10:05
PROVIDERS: PCP Internal Medicine; Visit Provider Counselor Mental Health
DX: F41.9 Anxiety disorder, unspecified (principal); F32.A Depression, unspecified; F50.9 Eating disorder, unspecified
CPT/HCPCS: 90837

== ENCOUNTER → 2025-08-11 07:51 | Outpatient (REF) | payer MEDICARE, MEDICAID, SELFPAY ==
--- NOTE | 2025-08-11 07:53 | CA_ITS ---
Acquisition Time: 2025-08-11 08:06:07 Total Exercise Time: 00:06:09 Test Indications: SOB Medications: SEE H&P Protocol: ARNIE Max HR: 121 BPM 78% of Pred: 154 BPM Max BP: 168/74 mmHG Max Work Load: 7.2 METS Exercise stress test with exercise 6 min 9 sec of Arnie protocol, achieving 78% MPHR, 7.2 METS, with mild sob, fatigue and request to stop, with isolated PAC, with normotensive response to exercise, without EKG changes meeting criteria for ischemia at achieved workload. Test reviewed with Dr Garvin. Referred By: Anand Garvin Electronically Signed By: ANGELINA MOORE
--- OUTSIDE RECORDS SUMMARY | 2025-08-11 07:57 | XMS_ITS | Encounter Summary ---
Author Organization [facility] Address [address] [place] [address] Phone Care Team Providers Care Employee Communications Coordinator Name Role Phone Luci Aragon NP Primary Care Provider Kuldip Prakash MD Primary Care Provider [phone] Encounter Details Date Type Department Care Team ([facility] st Contact Info) Description 06/30/2023 Procedure Pass OR Admitting Dept - Virtual Department [address] [place] [address] Social History Tobacco Use Types Packs/Day Years [...] on filedocumented in this encounter Care Teams Employee Communications Coordinator Relationship Specialty Start Date End Date Luci Aragon NP PCP - General Family Medicine 10/04/22 12/26/24 Kuldip Prakash MD [address] [place] [phone] PCP - General Internal Medicine 12/27/24 documented as of this encounter Additional Source Comments The information contained in this document represents components of the legal health record. It is not the complete legal health record.[facility]
--- OUTSIDE RECORDS SUMMARY | 2025-08-11 07:57 | XMS_ITS | Encounter Summary ---
Author Organization [facility] Address [address] [facility] 7t [place] [address] Care Team Providers Care Flight Paramedic Name Role Phone PcpShey Unassigned Primary Care [...] on filedocumented in this encounter Care Teams Flight Paramedic Relationship Specialty Start Date End Date Shey Gallardo Unassigned PCP - General Family Medicine 03/06/23 documented as of this encounter"
--- OUTSIDE RECORDS SUMMARY | 2025-08-11 07:57 | XMS_ITS | Clinical Summary ---
Author Organization [employer] Address [address] [facility] 7t [place] [address] Care Team Providers Care Water Sponger Name Role Phone PcpShey Unassigned Primary Care [...] BEDTIME EVERY NIGHT 3 Active nystatin (Mycostatin) 985140 UNIT/GM powder Apply topically. 1 Active metFORMIN [...] DENTAL - HSN PARTIAL (MEDICAID) Care Teams Water Sponger Relationship Specialty Start Date End Date PcpShey Unassigned PCP - General Family Medicine 03/06/23
--- OUTSIDE RECORDS SUMMARY | 2025-08-11 07:57 | XMS_ITS | Patient Health Record ---
Author Organization [facility] Address [address] [facility] [address] [place] [address] Care Team Providers Care Waste Duster Name Role Phone SHAMIR CIELO Primary Care Provider UnavailFelipa Salinas Unavailable [phone] Allergies Allergen (clinical drug ingredient) Drug/Non Drug [...] 200MG 1 ORAL twice daily; Duration: -3 [facility]- 01/03/2012 Active hydroCHLOROthiazide 25mg 1 ORAL daily; [...] W/U Status Risk Notes Problem Depressive disorder (56819131) Depressive disorder, not elsewhere classified (311) Active confirmed Major Problem Essential hypertension (54845900) Unspecified essential hypertension (401.9) Active confirmed Major Problem Menopausal symptom (49229399) Symptomatic menopausal or female climacteric states (627.2) Active confirmed Major Problem Gynecological examination normal (437223582618319) Routine gynecological examination (V72.31) Active confirmed Major Problem Screening for malignant neoplasm of colon (367694792) Special screening for malignant neoplasms, colon (V76.51) Active confirmed Major Plan Of Treatment Pending Test Test Name Order Date PT AND PTT 12/31/2015 Insurance Providers Payer Name Payer Address Payer Phone Subscriber Number Group Number Insured Name Patient Relationship to Insured Coverage Start Date Coverage End Date [employer] [place] [address] [place] [phone] [id number] LESLYE DORANTES Self - patient is the [...]
--- OUTSIDE RECORDS SUMMARY | 2025-08-11 07:57 | XMS_ITS | Encounter Summary ---
Author Organization [facility] Address [address] [place] [address] Phone Care Team Providers Care Dental Professional Name Role Phone Luci Aragon NP Primary Care Provider Kuldip Prakash MD Primary Care Provider [phone] Encounter Details Date Type Department Care Team ([facility] st Contact Info) Description 12/11/2024 Documentation [facility] CRP5 [address] [place] [address] Martina Lindsay, YUE [address] [place] [address] [email or web address] Social History Tobacco Use Types Packs/Day [...] on filedocumented in this encounter Care Teams Dental Professional Relationship Specialty Start Date End Date Luci Aragon NP PCP - General Family Medicine 10/04/22 12/26/24 Kuldip Prakash MD [address] [place] [address] Drive [address] [place] [address] PCP - General Internal Medicine 12/27/24 documented as of this encounter Additional Source Comments The information contained in this document represents components of the legal health record. It is not the complete legal health record.[facility]
--- OUTSIDE RECORDS SUMMARY | 2025-08-11 07:57 | XMS_ITS | Encounter Summary ---
Author Organization [facility] Address [address] [facility] 7t [place] [address] Care Team Providers Care Four Corner Former Machine Operator Name Role Phone PcpShey Unassigned [...] on filedocumented in this encounter Care Teams Four Corner Former Machine Operator Relationship Specialty Start Date End Date Shey Gallardo Unassigned PCP - General Family Medicine 03/06/23 documented as of this encounter
--- OUTSIDE RECORDS SUMMARY | 2025-08-11 07:57 | XMS_ITS | Encounter Summary ---
Author Organization [facility] Address [address] [place] [address] Phone Care Team Providers Care Director Of Pupil Personnel Program Name Role Phone Reina Laurent SKULL CHOPPER Primary Care Provide r Luci Aragon NP Primary Care Provider Kuldip Prakash MD Primary Care Provider [phone] Encounter Details Date Type Department Care Team ([facility] st Contact Info) Description 08/25/2022 Prep for Surgery [facility] Podiatry [address] [place] [address] Rancho Franco DPM [address] [place] [address] [address] [place] [address] [email or web address] Verruca plantaris (Primary Dx) [...] wart documented in this encounter Care Teams Director Of Pupil Personnel Program Relationship Specialty Start Date End Date Reina Laurent NP [address] [place], [place] [phone] PCP - General Family Medicine 04/21/21 10/03/22 Luci Aragon NP [address] [place] [address] PCP - General Family Medicine 10/04/22 12/26/24 Kuldip Prakash MD [address] [facility] [address] [place] [phone] PCP - General Internal Medicine 12/27/24 documented as of this encounter Additional Source Comments The information contained in this document represents components of the legal health record. It is not the complete legal health record.[facility]
--- OUTSIDE RECORDS SUMMARY | 2025-08-11 07:57 | XMS_ITS | Clinical Summary ---
Author Organization [facility] Address [address] [place] [address] Phone Care Team Providers Care Sandwich Maker Name Role Phone Kuldip Prakash MD Primary Care Provider [phone] Allergies Active Allergy Reactions Criticality Noted Date [...] (05/05/2025): Added automatically from request for surgery [id number] Fatty liver 07/10/2019 Overview (05/05/2025): Report prior [...] RLS. Basal cell carcinoma (BCC) of right yarsani regio n Family History Medical History Relation Comments Heart [...] FOBT 2004 SIGMOIDOSCOPY 2004 VIRTUAL COLONOSCOPY 2004 RSV VACCINE (1 - Risk 50-74 years 1-dose series) 2009 PNEUMOCOCCAL VACCINES (50+ years) (2 of 2 - PCV) 09/19/2017 09/19/2016, 05/03/2007 OSTEOPOROSIS SCREENING INITIAL (ONE-TIME) 2024 HEMOGLOBIN A1C 01/03/2025 07/03/2024, 06/07, 08/04/2023, Additional history exists DIABETIC EYE EXAM 05/05/2025 INFLUENZA VACCINE (#1) 2025 , 09/28/2022, 07/27/2021, Additional history exists LIPID PANEL 07/03/2025 07/03/2024, 06/07, 08/04/2023, Additional history exists COVID-19 VACCINE (2024- season) 2025 08/11/2023, 08/25/2022, 09/15/2021, Additional history [...] this topic Medical Devices Not on file Insurance [facility] [employer] [place] POS PPO REPLACEMENT [facility] [employer] [place] POS PPO REPLACEMENT [facility] [employer] [place] MEDIC[place] POS PPO REPLACEMENT [facility] [place] [place] POS PPO REPLACEMENT [facility] [employer] [place] MEDIC[place] POS PPO REPLACEMENT [facility] [employer] [place] MEDIC[place] POS PPO REPLACEMENT Care Teams Sandwich Maker Relationship Specialty Start Date End Date Kuldip Prakash MD [address] [place] [address] PCP - General Internal Medicine 12/27/24 Additional Source Comments The information contained in this document represents components of the legal health record. It is not the complete legal health record.[facility]
--- OUTSIDE RECORDS SUMMARY | 2025-08-11 07:57 | XMS_ITS | Encounter Summary ---
Author Organization [facility] Address [address] [facility] 7t [place] [address] Care Team Providers Care Transit Vehicle Inspector Name Role Phone PcpShey Unassigned Primary Care [...] on filedocumented in this encounter Care Teams Transit Vehicle Inspector Relationship Specialty Start Date End Date Shey Gallardo Unassigned PCP - General Family Medicine 03/06/23 documented as of this encounter
--- OUTSIDE RECORDS SUMMARY | 2025-08-11 07:57 | XMS_ITS | Encounter Summary ---
Author Organization [facility] Address [address] [facility] [address] [place] [address] Phone Care Team Providers Care Affiliate Marketing Specialist Name Role Phone Luci Aragon NP Primary Care Provider Kuldip Prakash MD Primary Care Provider [phone] Encounter Details Date Type Department Care Team (Late st Contact Info) Description 11/02/2022 Procedure Pass OR Admitting Dept - Virtual Department [address] [place] [address] Social History Tobacco Use Types Packs/Day Years [...] on filedocumented in this encounter Care Teams Affiliate Marketing Specialist Relationship Specialty Start Date End Date Luci Aragon NP PCP - General Family Medicine 10/04/22 12/26/24 Kuldip Prakash MD [address] [place] [address] PCP - General Internal Medicine 12/27/24 documented as of this encounter Additional Source Comments The information contained in this document represents components of the legal health record. It is not the complete legal health record.[facility]
== END ==
LOC: HO.CARD 07:51
PROVIDERS: PCP Internal Medicine; Visit Provider Internal Medicine Cardiovascular Disease
DX: R06.02 Shortness of breath (principal)
CPT/HCPCS: 93017

== ENCOUNTER → 2025-08-11 07:53 | Outpatient (BNV) | payer MEDICARE, MEDICAID, SELFPAY | PROVIDERS: PCP Internal Medicine; Visit Provider Nurse Practitioner Family | DX: I49.1 Atrial premature depolarization (principal) | CPT/HCPCS: 93016; 93018 ==

== ENCOUNTER 2025-08-25 12:18 | Outpatient (AMB) | payer MEDICARE, MEDICAID, SELFPAY ==
--- NOTE | 2025-08-25 12:00 | A.OFFWM_ITS ---
Intake Intake Visit Reasons: VIDEO BH F/U Allergies dexamethasone Allergy (Severe, Verified 09/15/25 12:17) Dizziness midazolam Allergy (Severe, Verified 09/15/25 12:17) Dizziness enoxaparin (From Lovenox) Allergy (Intermediate, Verified 09/15/25 12:17) Rash diazepam (Valium) Allergy (Unknown, Verified 09/15/25 12:17) Hypertension escitalopram (Lexapro) Allergy (Unknown, Verified 09/15/25 12:17) Rash lisinopril Allergy (Unknown, Verified 09/15/25 12:17) Difficulty Swallowing oxcarbazepine (Trileptal) Allergy (Unknown, Verified 09/15/25 12:17) Hives oxycodone (Percocet) Allergy (Unknown, Verified 09/15/25 12:17) Hives rosuvastatin (Crestor) Allergy (Unknown, Verified 09/15/25 12:17) Eye Swelling fenofibrate Adverse Reaction (Severe, Verified 09/15/25 12:17) Muscle cramps losartan Adverse Reaction (Intermediate, Verified 09/15/25 12:17) not sure gabapentin Adverse Reaction (Verified 09/15/25 12:17) Muscle Pain PFSH Medical History Impaired glucose tolerance Type 2 diabetes mellitus with hyperglycemia Breast cancer screening by mammogram Colon cancer screening Menopausal and postmenopausal disorder History of ankle fracture Screening for osteoporosis Eating disorder with ongoing treatment Dizziness Low serum potassium Fungal rash of torso Seasonal allergies Anxiety with depression Restless leg syndrome Diabetes mellitus TMJ (dislocation of temporomandibular joint) Periodic limb movements of sleep Obstructive sleep apnea Morbid obesity Hypertension Hypercholesterolemia Heart murmur Depression Anxiety Surgical History History of gastric bypass S/P LALITA-BSO (total abdominal hysterectomy and bilateral salpingo-oophorectomy) Bilateral carpal tunnel syndrome 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 H/O ventral hernia repair History of cholecystectomy Gastric banding status Family History Mother Cancer of colon Hyperlipidemia Father CAD (coronary artery disease) Heart attack Paternal Uncle Heart attack Social History Housing: House Alcohol intake: former Comment: once drink Q 3 months Patient Tobacco Use Status: Never used Tobacco e-Cigarette/Vaping Use: Never Used Second Hand Smoke Exposure: No Advance Directives: No Advance Directives Information Provided: Yes Do you have a plan to hurt others: No Plan service: No Current occupational status: employed Cognitive needs: No Hearing needs: No Vision needs: Yes Behavioral Health Assessment Weight Management Therapy Therapy Notes Details Subjective: The patient reports significant improvement in mood and is feeling excited about an upcoming vacation. She expresses a desire to make her meal plan workable during her trip. Her most recent weight is 235 lbs. She plans to leave for vacation on Monday and return the following week. Her goal is to enjoy her vacation while staying on track with her plan, including using meal replacement bars and shakes. Objective: During the session, we reviewed her progress and discussed strategies for maintaining healthy habits while traveling. CBT-based interventions focused on planning ahead for potential challenges, identifying high-risk situations for overeating, and developing coping strategies to manage temptations. We practiced problem-solving skills to help her adapt her meal plan to different environments and reinforced the importance of flexibility and self-compassion. The patient was encouraged to set realistic expectations and to use mindfulness techniques to stay present and enjoy her vacation without guilt. Assessment/Response: * Mental status: Alert and oriented, mood is positive and affect is congruent, thought process is logical and goal-directed, no evidence of psychosis. * Risk reported/identified: No suicidal or homicidal ideation, no self-harm behaviors reported. Assessment & Plan Assessment & Plan (1) Anxiety disorder: Code(s): F41.9 - Anxiety disorder, unspecified (2) Depression, unspecified: Code(s): F32.A - Depression, unspecified (3) Eating disorder, unspecified: Code(s): F50.9 - Eating disorder, unspecified Plan Advised the patient to create a flexible meal plan using the [employer] platform and to incorporate meal replacement bars and shakes as needed during her trip. Follow up in 3 weeks; next appointment scheduled for 09/15/25 at 12pm via video. Telehealth Telehealth Telehealth Platform: [facility] Location of provider rendering services: other (Home office. [place], [place]) Location of patient: address on file Patient Identification confirmed using: Name, : Yes Telehealth method: video Patient verbally consented to treatment: Yes Patient verbally consented to billing insurance company: Yes Patient informed of any privacy concerns related to visit: Yes Minutes spent on Phone/Video with Pt.: 60 [place] [address] Tele Psytx >53 mins Patient Type Established Diagnoses Anxiety disorder F41.9 Depression, unspecified F32.A Eating disorder, unspecified F50.9 Time Spent (min) 60
== END 2025-08-25 13:02 | disposition home or self-care (01) ==
LOC: HO.HBST 12:18
PROVIDERS: PCP Internal Medicine; Visit Provider Counselor Mental Health
DX: F41.9 Anxiety disorder, unspecified (principal); F32.A Depression, unspecified; F50.9 Eating disorder, unspecified
CPT/HCPCS: 90837

== ENCOUNTER 2025-09-15 12:04 | Emergency (ER) | payer MEDICARE, MEDICAID, SELFPAY ==
--- NOTE | ~2025-09-15 | CT_ITS ---
EXAMINATION: CT ANGIOGRAM HEAD AND NECK CLINICAL INFORMATION: Blurry vision, ataxia COMPARISON: None available. TECHNIQUE: Noncontrast axial imaging of the head was performed. This was followed by test bolus sequences and head and neck intravenous bolus administration of 70mL of Omnipaque 350. Helical imaging was performed in the axial plane from the aortic arch to the skull vertex. The data was processed at the radiology technologist's workstation for generation of MIP sequences. Angled MIPs and volume rendered reformatted images were also generated at an offline 3D workstation. Stenoses are assessed in accordance with NASCET criteria unless otherwise indicated. This CT examination was performed using dose optimization techniques as appropriate, variously including the following: *Automated exposure control *Adjustment of mA and/or kV according to patient size (this includes techniques or standardized protocols for targeted exams where dose is matched to indication/reason for exam; i.e. extremities or head) *Use of iterative reconstruction technique FINDINGS: NONCONTRAST HEAD CT: There is no evidence of intracranial hemorrhage or extra-axial fluid collection. There is no mass effect, or edema. No CT evidence of acute territorial infarct. Periventricular white matter hypodensities are present. Ventricles, sulci, and cisterns are normal in size and configuration for patient age. No hydrocephalus. No midline shift. No significant white matter abnormalities. Globes and orbital contents image normally. No extracranial soft tissue abnormalities. The paranasal sinuses, mastoid air cells, and tympanic cavities are normally aerated. There are no suspicious bony abnormalities. NECK CTA: -AORTIC ARCH: Normal in caliber. Mild atheromatous calcification. Three-vessel branching pattern. -GREAT VESSEL ORIGINS: Widely patent. No stenosis. -RIGHT COMMON CAROTID ARTERY: Normal in course and caliber to the level of the bifurcation where there is mild atherosclerotic calcification. -CERVICAL RIGHT INTERNAL CAROTID ARTERY: Normal opacification without focal stenosis or occlusion. -LEFT COMMON CAROTID ARTERY: Normal in course and caliber to the level of the bifurcation. -CERVICAL LEFT INTERNAL CAROTID ARTERY: Mild calcific atherosclerotic disease of the carotid bulb without hemodynamically significant stenosis. -CERVICAL RIGHT VERTEBRAL ARTERY: Codominant. Normal in course and caliber into the skull base. -CERVICAL LEFT VERTEBRAL ARTERY: Codominant. Normal in course and caliber into the skull base. OTHER, SOFT TISSUES: -No lymphadenopathy or mass. No abnormal fluid collection or soft tissue swelling. -Normal thyroid. -Imaged superior mediastinal structures normal. -Imaged lung apices clear. CTA OF THE BRAIN: -INTRACRANIAL INTERNAL CAROTID ARTERIES: Mild atherosclerotic calcification in the carotid siphon without focal stenosis or occlusion. -RIGHT ANTERIOR CEREBRAL ARTERY: Normal A1 segment.. Normal arborization of the distal segments. -LEFT ANTERIOR CEREBRAL ARTERY: Normal A1 segment.. Normal arborization of the distal segments. -ANTERIOR COMMUNICATING ARTERY: Visualized. -RIGHT MIDDLE CEREBRAL ARTERY: Normal M1 segment of the MCA without focal stenosis or occlusion. Normal bifurcation. Normal arborization of the distal segments. -LEFT MIDDLE CEREBRAL ARTERY: Normal M1 segment of the MCA without focal stenosis or occlusion. Normal bifurcation. Normal arborization of the distal segments. -RIGHT VERTEBRAL ARTERY V4: Normal in course and caliber. Normal PICA branch. -LEFT VERTEBRAL ARTERY V4: Normal in course and caliber. Normal PICA branch. -BASILAR ARTERY: There is short focal area of mild narrowing in the midportion of the basilar artery that is less than 50%. Normal appearance of the proximal superior cerebellar arteries. Normal basilar tip. -RIGHT POSTERIOR CEREBRAL ARTERY: origin. Normal opacification of the distal APPLICATION INTEGRATION ARCHITECT segments. -LEFT POSTERIOR CEREBRAL ARTERY: origin of the APPLICATION INTEGRATION ARCHITECT with robust opacification of the posterior communicating artery. Normal opacification of the distal APPLICATION INTEGRATION ARCHITECT segments. -POSTERIOR COMMUNICATING ARTERIES: Robust bilaterally. Normal opacification of the superior sagittal, straight, transverse, and sigmoid sinuses. No venous thrombosis. No space-occupying hemorrhage or definite evolving infarct. CT/CT angio head neck IMPRESSION: NONCONTRAST HEAD CT: No acute intracranial abnormality. Periventricular hypodensities could be related to small vessel disease. CTA NECK: Multifocal atherosclerotic disease without hemodynamically significant stenosis. CTA HEAD: No hemodynamically significant stenosis. Result Read by Dr. Saamniego via [facility] at 2:43 EST Electronically signed by: Oscar Najera MD 09/15/2025 02:43 PM EST
[2025-09-15 12:13] VITALS: BP 183/86; PULSE 60; RESP 16; TEMP 36.5; O2SAT 95; BMI 44.9
--- NOTE | 2025-09-15 12:13 | ED_ITS ---
HPI - General Adult General Chief complaint: Dizziness Stated complaint: Dizziness Time Seen by Provider: 09/15/25 12:25 History of Present Illness ED Provider: Dr. Samaniego HPI narrative: 65 y/o F patient; PMH hx DVT on Coumadin, T2DM, hx gastric bypass, HTN, obesity, JADE, HLD; presents from home reporting dizziness, the sensation of being off balance, and changes in her vision for approx the last 24 hours. The patient states her vision feels like the edges are blurry. She feels better when she shuts her eyes. She denies prior similar symptoms. She denies: fever or chills, SOB, cough/congestion, chest pain, nausea/vomiting, abdominal pain, headache. She denies any falls or injuries. Related Data Home Medications ?Medication ?Instructions ?Recorded ?Confirmed CPAP (CPAP Machine/Device) 10/13/22 07/22/25 blood sugar diagnostic (FreeStyle 10/13/22 07/22/25 Lite Strips) Bariatric Fusion 11/01/23 07/22/25 Bariatric fusion 2 cap PO BID 02/26/24 Previous Rx's ?Medication ?Instructions ?Recorded warfarin 5 mg tablet 5 mg PO .QD #30 tabs 5 fluoxetine 40 mg capsule 40 mg PO DAILY 90 days #90 c aps 02/01/25 pramipexole 0.125 mg tablet 0.125 mg PO BEDTIME 90 day s #90 04/28/25 tabs bupropion HCl 150 mg 24 hr tablet, 150 mg PO QAM 90 da ys #90 tabs 05/04/25 extended release metoprolol succinate 25 mg 25 mg PO DAILY #90 tabs 01/28 tablet,extended release 24 hr bisacodyl 10 mg rectal suppository 10 mg ND DAILY PRN constipation 07/10/25 (Dulcolax (bisacodyl)) #12 ea omeprazole 40 mg capsule,delayed 40 mg PO DAILY #90 ca ps 07/21/25 release warfarin 5 mg tablet 5 mg PO DAILY #90 tabs 07/22 Allergies Allergy/AdvReac Type Severity Reaction Status Date / Time dexamethasone Allergy Severe Dizziness Verified 09/15/25 12:17 midazolam Allergy Severe Dizziness Verified 09/15/25 12:17 enoxaparin (From Lovenox) Allergy Intermediate Rash Verified 09/15/25 12:17 diazepam (Valium) Allergy Unknown Hypertensio Verified 09/15/25 12:17 n escitalopram (Lexapro) Allergy Unknown Rash Verified 09/15/25 12:17 lisinopril Allergy Unknown Difficulty Verified 09/15/25 12:17 Swallowing oxcarbazepine (Trileptal) Allergy Unknown Hives Verified 09/15/25 12:17 oxycodone (Percocet) Allergy Unknown Hives Verified 09/15/25 12:17 rosuvastatin (Crestor) Allergy Unknown Eye Verified 09/15/25 12:17 Swelling fenofibrate AdvReac Severe Muscle Verified 09/15/25 12:17 cramps losartan AdvReac Intermediate not sure Verified 09/15/25 12:17 gabapentin AdvReac Muscle Pain Verified 09/15/25 12:17 Review of Systems 2 Review of Systems: Yes all other systems are reviewed and are negative Neurologic: Denies Abnormal speech present and Denies Sensory deficit (Neuro) PMFSH Past Medical History Attestation statement: The following information was validated with the patient. Source: old records reviewed Medical History Impaired glucose tolerance Type 2 diabetes mellitus with hyperglycemia Breast cancer screening by mammogram Colon cancer screening Menopausal and postmenopausal disorder History of ankle fracture Screening for osteoporosis Eating disorder with ongoing treatment Dizziness Low serum potassium Fungal rash of torso Seasonal allergies Anxiety with depression Restless leg syndrome Diabetes mellitus TMJ (dislocation of temporomandibular joint) Periodic limb movements of sleep Obstructive sleep apnea Morbid obesity Hypertension Hypercholesterolemia Heart murmur Depression Anxiety Surgical History History of gastric bypass S/P LALITA-BSO (total abdominal hysterectomy and bilateral salpingo-oophorectomy) Bilateral carpal tunnel syndrome 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 H/O ventral hernia repair History of cholecystectomy Gastric banding status Family History Family History Mother Cancer of colon Hyperlipidemia Father CAD (coronary artery disease) Heart attack Paternal Uncle Heart attack Social History Social History Housing: House Alcohol intake: former Comment: once drink Q 3 months Patient Tobacco Use Status: Never used Tobacco e-Cigarette/Vaping Use: Never Used Second Hand Smoke Exposure: No Advance Directives: No Advance Directives Information Provided: Yes Do you have a plan to hurt others: No Plan service: No Current occupational status: employed Cognitive needs: No Hearing needs: No Vision needs: Yes Physical Exam ED Vital Signs: Vital Signs - 24 hr 09/15/25 12:13 09/15/25 12:40 09/15/25 16:04 Temperature 97.7 F 97.4 F Pulse Rate 60 61 63 Respiratory Rate 16 14 16 Blood Pressure 183/86 H 157/87 H 179/79 H Pulse Oximetry 95 98 95 Oxygen Delivery Method Room Air Room Air Room Air BMI result Body Mass Index 44.9 Patient is afebrile and hemodynamically stable, mildly hypertensive. Const General: cooperative Orientation/consciousness: patient oriented x3 HENMT Head: Yes normal to inspection and Yes atraumatic Eyes General: appearance normal, both eyes and all related structures Pupils: Equal, round and reactive pupils present EOM: EOMs intact bilaterally Neck Neck: Yes normal visual inspection, Yes full ROM, Yes supple and No tender Chest Chest palpation & inspection: normal inspection of the chest and normal palpation of entire chest wall Resp Effort & Inspection: normal respiratory effort, able to speak in complete sentences and no cough Auscultation: clear to auscultation bilaterally Cardio Rate: regular rate Rhythm: regular rhythm Peripheral pulses: Peripheral pulses 2+ throughout GI Inspection: Yes normal to inspection, No Abdominal wall edema and No distended Palpation (GI): Soft to palpation, not firm, nontender, no guarding and not rigid Auscultation: normal bowel sounds Back/Spine/Pelvis Back: No back tenderness Neuro Other: + left toure beating nystagmus General: patient oriented x3 Cranial nerves: Yes Equal, round and reactive pupils present Cognition (Neuro): normal cognition Speech: No Abnormal speech present Motor exam (neuro): 5/5 motor strength present throughout Sensory Exam: No Sensory deficit (Neuro) Coordination: [id number] test normal Course Course Course Narrative: Rapid medical examination performed in triage by Solange Hwang PA-C: Patient is a 65 year old assigned female at presenting to the emergency department with dizziness. Patient states that she does not feel right and is feeling dizzy. Patient states that her vision is fuzzy . Patient states that she is on Warfarin. Patient states that this started at 4pm on 09/14/2025. Detailed physical exam and review of systems are deferred to the bedspread cutter hand. EKG, labs, imaging, imaging, and swabs ordered. Patient placed back in the waiting room pending room availability and results. Reevaluation(s) Reevaluation #1: Patient is afebrile and hemodynamically stable. Ordered for EKG, labs, and CT scans. Labs reviewed. INR 2.8. No significant leukocytosis. No significant anemia. CT scans are unremarkable for acute abnormalities. Will trial the tayo maneuver. Completed to left and right side, initially patient reported significant improvement in spinning and vision changes. Plan to re-evaluate in 15min. Patient reports 100% improvement after tayo. She is able to ambulate without difficulty. She states no more spinning or vision changes. Patient and friend at bedside aware of how to perform tayo maneuver. Discussed return precautions. Plan: Discharge to home Condition: Stable Medications Administered Discontinued Medications Generic Name Dose Route Start Last Admin Trade Name Sachinq PRN Reason Stop Dose Admin Iohexol 100 ml 09/15/25 14:11 09/15/25 14:15 Iohexol 350 Mg/Ml 100 Ml Infus..Btl IV 09/15/25 14:12 70 ml ONCE ONE Administration Medical Decision Making Lab Data 09/15/25 12:25 09/15/25 12:25 Labs: Lab Results 09/15/25 Range/Units 12:25 WBC 9.1 (4.8-10.8) X10*3/uL RBC 5.01 (4.20-5.50) X10*6/uL Hgb 14.2 (12.0-16.0) g/dl Hct 43.2 (37.0-47.0) % MCV 86.2 (80.0-98.0) fL MCH 28.3 (27.0-33.0) pg MCHC 32.9 (31.0-35.0) g/dl RDW 13.4 (11.0-16.0) % Plt Count 289 (160-400) X10*3/uL MPV 10.0 (9.4-12.3) fL Immature Gran % (Auto) 0.8 H (0.0-0.4) % Neut % (Auto) 61.6 (45-73) % Lymph % (Auto) 24.5 (20-40) % Sibley % (Auto) 7.5 (2-11) % Eos % (Auto) 4.4 H (0-4) % Baso % (Auto) 1.2 (0-2) % Lymph # (Auto) 2.2 (1.2-4.9) X10*3/uL Sibley # (Auto) 0.7 (0.1-1.2) X10*3/uL Eos # (Auto) 0.4 (0.0-0.4) X10*3/uL Baso # (Auto) 0.1 (0.0-0.2) X10*3/uL Abs Immat Gran (auto) 0.07 H (0.00-0.03) X10*3/uL Absolute Neuts (auto) 5.6 (2.0-8.3) x10*3/uL Absolute Nucleated RBC 0.000 (0.0-0.012) X10*3/uL Nucleated RBC % (auto) 0.0 (0.0-0.2) /100WBC PT 33.8 H (11.2-13.5) SEC INR 2.8 H (0.9-1.1) Sodium 142 (135-145) mmol/L Potassium 3.9 (3.3-5.1) mmol/L Chloride 106 (96-108) mmol/L Carbon Dioxide 28 (22-29) mmol/L Anion Gap 12 (12-20) BUN 14 (9-16) mg/dL Creatinine 0.73 (0.5-1.4) mg/dL Estim Creat Clear Calc 85.9 Estimated GFR > 60 Random Glucose 90 (60-115) mg/dL Calcium 9.4 (8.4-10.2) mg/dL Magnesium 2.0 (1.6-2.6) mg/dL Total Bilirubin 0.3 (0.0-1.0) mg/dL AST 38 H (5-31) U/L ALT 30 (0-31) U/L Alkaline Phosphatase 102 (39-117) U/L Troponin I High Sens < 2.7 (<3.5-17.0) ng/L NT-Pro-B Natriuret Pep 117.8 (<300) pg/mL Total Protein 7.2 (6.5-8.0) g/dL Albumin 4.1 (3.5-5.0) g/dL Influenza Type A (PCR) NEGATIVE (Negative) Influenza Type B (PCR) NEGATIVE (Negative) RSV RNA Qual (PCR) NEGATIVE (Negative) SARS-CoV-2 RNA (RT-PCR) NEGATIVE (Negative) Independent Interpretation I performed an independent interpretation of an: EKG Interpretation: EKG independently interpreted by myself as NSR 60BPM with normal intervals Radiology Impression Discussion of test interpretation with radiology: I have reviewed the radiologist's reading. Radiologist Impression: EXAMINATION: CT ANGIOGRAM HEAD AND NECK CLINICAL INFORMATION: Blurry vision, ataxia COMPARISON: None available. TECHNIQUE: Noncontrast axial imaging of the head was performed. This was followed by test bolus sequences and head and neck intravenous bolus administration of 70mL of Omnipaque 350. Helical imaging was performed in the axial plane from the aortic arch to the skull vertex. The data was processed at the staff cytotechnologist's workstation for generation of MIP sequences. Angled MIPs and volume rendered reformatted images were also generated at an offline 3D workstation. Stenoses are assessed in accordance with NASCET criteria unless otherwise indicated. This CT examination was performed using dose optimization techniques as appropriate, variously including the following: *Automated exposure control *Adjustment of mA and/or kV according to patient size (this includes techniques or standardized protocols for targeted exams where dose is matched to indication/reason for exam; i.e. extremities or head) *Use of iterative reconstruction technique FINDINGS: NONCONTRAST HEAD CT: There is no evidence of intracranial hemorrhage or extra-axial fluid collection. There is no mass effect, or edema. No CT evidence of acute territorial infarct. Periventricular white matter hypodensities are present. Ventricles, sulci, and cisterns are normal in size and configuration for patient age. No hydrocephalus. No midline shift. No significant white matter abnormalities. Globes and orbital contents image normally. No extracranial soft tissue abnormalities. The paranasal sinuses, mastoid air cells, and tympanic cavities are normally aerated. There are no suspicious bony abnormalities. NECK CTA: -AORTIC ARCH: Normal in caliber. Mild atheromatous calcification. Three-vessel branching pattern. -GREAT VESSEL ORIGINS: Widely patent. No stenosis. -RIGHT COMMON CAROTID ARTERY: Normal in course and caliber to the level of the bifurcation where there is mild atherosclerotic calcification. -CERVICAL RIGHT INTERNAL CAROTID ARTERY: Normal opacification without focal stenosis or occlusion. -LEFT COMMON CAROTID ARTERY: Normal in course and caliber to the level of the bifurcation. -CERVICAL LEFT INTERNAL CAROTID ARTERY: Mild calcific atherosclerotic disease of the carotid bulb without hemodynamically significant stenosis. -CERVICAL RIGHT VERTEBRAL ARTERY: Codominant. Normal in course and caliber into the skull base. -CERVICAL LEFT VERTEBRAL ARTERY: Codominant. Normal in course and caliber into the skull base. OTHER, SOFT TISSUES: -No lymphadenopathy or mass. No abnormal fluid collection or soft tissue swelling. -Normal thyroid. -Imaged superior mediastinal structures normal. -Imaged lung apices clear. CTA OF THE BRAIN: -INTRACRANIAL INTERNAL CAROTID ARTERIES: Mild atherosclerotic calcification in the carotid siphon without focal stenosis or occlusion. -RIGHT ANTERIOR CEREBRAL ARTERY: Normal A1 segment.. Normal arborization of the distal segments. -LEFT ANTERIOR CEREBRAL ARTERY: Normal A1 segment.. Normal arborization of the distal segments. -ANTERIOR COMMUNICATING ARTERY: Visualized. -RIGHT MIDDLE CEREBRAL ARTERY: Normal M1 segment of the MCA without focal stenosis or occlusion. Normal bifurcation. Normal arborization of the distal segments. -LEFT MIDDLE CEREBRAL ARTERY: Normal M1 segment of the MCA without focal stenosis or occlusion. Normal bifurcation. Normal arborization of the distal segments. -RIGHT VERTEBRAL ARTERY V4: Normal in course and caliber. Normal PICA branch. -LEFT VERTEBRAL ARTERY V4: Normal in course and caliber. Normal PICA branch. -BASILAR ARTERY: There is short focal area of mild narrowing in the midportion of the basilar artery that is less than 50%. Normal appearance of the proximal superior cerebellar arteries. Normal basilar tip. -RIGHT POSTERIOR CEREBRAL ARTERY: origin. Normal opacification of the distal PROFESSIONAL APPLICATION DESIGNER segments. -LEFT POSTERIOR CEREBRAL ARTERY: origin of the PROFESSIONAL APPLICATION DESIGNER with robust opacification of the posterior communicating artery. Normal opacification of the distal PROFESSIONAL APPLICATION DESIGNER segments. -POSTERIOR COMMUNICATING ARTERIES: Robust bilaterally. Normal opacification of the superior sagittal, straight, transverse, and sigmoid sinuses. No venous thrombosis. No space-occupying hemorrhage or definite evolving infarct. CT/CT angio head neck IMPRESSION: NONCONTRAST HEAD CT: No acute intracranial abnormality. Periventricular hypodensities could be related to small vessel disease. CTA NECK: Multifocal atherosclerotic disease without hemodynamically significant stenosis. CTA HEAD: No hemodynamically significant stenosis. Result Read by Dr. Samaniego via [place] at 2:43 EST Electronically signed by: Oscar Najera MD 09/15/2025 02:43 PM EST Discharge Plan Discharge Clinical Impression: Benign paroxysmal positional vertigo Patient Disposition: Home, Self-Care Instructions: Benign Paroxysmal Positional Vertigo (DC) Additional Instructions: You were seen today for dizziness and vision changes. We did labs and a CTA Head/Neck which were reassuring. We discussed you likely have something called BPPV . We did the tayo maneuver and your symptoms resolved. We discussed you can google this at home and perform it as needed with the help of a friend. Return to the emergency department immediately for: Headache Numbness/weakness/tingling in your arms or legs Slurred speech Facial droop Prescriptions: No Action fluoxetine 40 mg capsule 40 mg PO DAILY 90 Days Qty: 90 2RF pramipexole 0.125 mg tablet 0.125 mg PO BEDTIME 90 Days Qty: 90 0RF bupropion HCl 150 mg tablet extended release 24 hr 150 mg PO QAM 90 Days Qty: 90 2RF metoprolol succinate 25 mg tablet extended release 24 hr 25 mg PO DAILY Qty: 90 1RF omeprazole 40 mg capsule,delayed release(DR/EC) 40 mg PO DAILY Qty: 90 3RF warfarin 5 mg Tablet 5 mg PO DAILY Qty: 90 2RF (DME) Bariatric Fusion 0 .Route .MEDSUPPLY Bariatric fusion 2 cap PO BID (DME) CPAP Machine/Device Device See Rx Instructions .Route Rx Instructions: As directed (DME) FreeStyle Lite Strips Strip See Rx Instructions .Route Rx Instructions: As directed warfarin 5 mg tablet 5 mg PO .QD Qty: 30 0RF bisacodyl [Dulcolax (bisacodyl)] 10 mg suppository 10 mg ND DAILY PRN (Reason: constipation) Qty: 12 0RF Discharge Date/Time: 09/15/25 16:04 Print Language: Egyptian
--- NOTE | 2025-09-15 12:14 | ECG_ITS ---
Test Reason : DIZZINESS Blood Pressure : */* mmHG Vent. Rate : 60 BPM Atrial Rate : 60 BPM P-R Int : 146 ms QRS Dur : 80 ms QT Int : 422 ms P-R-T Axes : 38 29 20 degrees QTcB Int : 422 ms Normal sinus rhythm Normal ECG No previous ECGs available Referred By: Solange Hwang Electronically Signed By: MODESTA SHETTY MD
[2025-09-15 12:32] LABS: MANUAL DIFF FLAG NO
[2025-09-15 12:34] LABS: Hematocrit 43.2 % (37.0-47.0); Hemoglobin 14.2 g/dl (12.0-16.0); Imm Gran Abs Auto 0.07 X10*3/uL (0.00-0.03); Imm Gran Pct Auto 0.8 % (0.0-0.4); Lymphocytes Absolute Auto 2.2 X10*3/uL (1.2-4.9); Mean Corpuscular HGB Conc 32.9 g/dl (31.0-35.0); Mean Corpuscular Hemoglobin 28.3 pg (27.0-33.0); Mean Corpuscular Volume 86.2 fL (80.0-98.0); NRBC Abs Auto 0.000 X10*3/uL (0.0-0.012); NRBC Pct Auto 0.0 /100WBC (0.0-0.2); Platelet Count 289 X10*3/uL (160-400); Red Blood Count 5.01 X10*6/uL (4.20-5.50); White Blood Count 9.1 X10*3/uL (4.8-10.8)
[2025-09-15 12:40] VITALS: BP 157/87; PULSE 61; RESP 14; O2SAT 98
[2025-09-15 12:40] LABS: INTERNATIONAL NORM RATIO 2.8 (0.9-1.1); Prothrombin Time 33.8 SEC (11.2-13.5)
[2025-09-15 12:49] LABS: Anion Gap 12 (12-20); Blood Urea Nitrogen 14 mg/dL (9-16); Carbon Dioxide 28 mmol/L (22-29); Chloride 106 mmol/L (96-108); Creatinine Clr Calc Pharmacy 85.9; Potassium 3.9 mmol/L (3.3-5.1); Sodium 142 mmol/L (135-145)
[2025-09-15 12:50] LABS: Alanine Aminotransferase 30 U/L (0-31); Albumin Level 4.1 g/dL (3.5-5.0); Alkaline Phosphatase 102 U/L (39-117); Aspartate Amino Transferase 38 U/L (5-31); Calcium 9.4 mg/dL (8.4-10.2); Estimated Glomerular Filt Rate > 60; Magnesium 2.0 mg/dL (1.6-2.6); Total Protein 7.2 g/dL (6.5-8.0)
[2025-09-15 12:58] LABS: NT Pro B Type Natriuretic Pept 117.8 pg/mL (<300)
[2025-09-15 12:59] LABS: Troponin-I High Sensitivity < 2.7 ng/L (<3.5-17.0)
[2025-09-15 13:16] LABS: Resp Syncy Virus RNA Qual PCR NEGATIVE (Negative); SARS COV2 PCR INHOUSE NEGATIVE (Negative)
--- NOTE | 2025-09-15 13:37 | PC.NURSE ---
patient presents to the ED with complaints of dizziness, patient states she has hx of dvt in right leg. patient is alert and oriented x4, denies any weakness at this time. patient is in normal sinus on tele, #20 placed in LAC.
[2025-09-15] MEDS: iohexoL 350 MG/ML 100 ML INFUS..BTL IV (14:15)
--- OUTSIDE RECORDS SUMMARY | 2025-09-15 14:44 | XMS_ITS | Clinical Summary ---
Author Organization [employer] Address [address] [place] [address] Care Team Providers Care Acid Cleaner Name Role Phone PcpShey Unassigned Primary Care [...] BEDTIME EVERY NIGHT 3 Active nystatin (Mycostatin) 807969 UNIT/GM powder Apply topically. 1 Active metFORMIN [...] DENTAL - HSN PARTIAL (MEDICAID) Care Teams Acid Cleaner Relationship Specialty Start Date End Date PcpShey Unassigned PCP - General Family Medicine 03/06/23
--- OUTSIDE RECORDS SUMMARY | 2025-09-15 14:44 | XMS_ITS | Encounter Summary ---
Author Organization [facility] Address [address] [place] [address] Care Team Providers Care Jewel Inserter Name Role Phone PcpShey Unassigned Primary Care [...] on filedocumented in this encounter Care Teams Jewel Inserter Relationship Specialty Start Date End Date Shey Gallardo Unassigned PCP - General Family Medicine 03/06/23 documented as of this encounter
--- OUTSIDE RECORDS SUMMARY | 2025-09-15 14:44 | XMS_ITS | Encounter Summary ---
Author Organization [facility] Address [address] [place] [id number] Phone Care Team Providers Care Large Animal Husbandry Technician Name Role Phone Luci Aragon NP Primary Care Provider Kuldip Prakash MD Primary Care Provider [phone] Encounter Details Date Type Department Care Team ([facility] st Contact Info) Description 06/30/2023 Procedure Pass OR Admitting Dept - Virtual Department [address] [place] [address] Social History Tobacco Use Types Packs/Day Years [...] on filedocumented in this encounter Care Teams Large Animal Husbandry Technician Relationship Specialty Start Date End Date Luci Aragon NP PCP - General Family Medicine 10/04/22 12/26/24 Kuldip Prakash MD [address] [place] [phone] PCP - General Internal Medicine 12/27/24 documented as of this encounter Additional Source Comments The information contained in this document represents components of the legal health record. It is not the complete legal health record.[facility]
--- OUTSIDE RECORDS SUMMARY | 2025-09-15 14:44 | XMS_ITS | Data Portability ---
Author Organization [facility], [address] Address [address] [place] [address] Care Team Providers Care Manager Behavior Name Role Phone TUSHAR DALLAS Licensing Officer [phone] Assessment No assessment recorded. Plan of Treatment Reminders Order Date Submit Date Provider Last Modified By Organization Details Last Modified Time Details Appointments None recorded. Lab rapid strep group A, throat 2023 024 [email or web address] [facility], [address] [place] [address], [phone], 4 11:57:45 Referral physical therapist referral - Low back pain from driving a lot . no trauma. pain is spastic and affects ambulation. 2023 024 [email or web address] [facility] - [address], [address], [place], [address], 4 15:52:40 Procedures None recorded. Surgeries None recorded. Imaging None recorded. Medication Orders Voltaren Arthritis Pain 1 % topical gel 2023 [id number], [address], [place], [id number], 4 12:10:19 amoxicillin 875 mg tablet 2023 [facility] #[id number], [address], [place], [id number], 4 11:43:53 Patient TargetsNo targets recorded. Patient Instructions Encounter Date Encounter Id Patient Instructions Last Modified By Organization Details Last Modified Time 12/23/2023 [id number] Acute Sinusitis: Care Instructions [email or web address] Not available 12/23/2023 11:57:43 Discussed potential complications [...] undesirable side effects. Probiotics can be purchased [id number] at your pharmacy in the form of [...] t Unknown Analyte positi ve Not Available [address] [place], [address], 12/23/2023 11:54:21 12/23/19 24 12/23/2023 rapid strep group A, throa t Unknown Analyte yes Not Available [facility] [address] [place], [address], 12/23/2023 11:54:21 Result Notes None recorded. Problems Name Problem SNOMED Code Status Onset Date Resolution Date Notes Provider Name and Address Organization Details Recorded Time Hypertensive disorder 80316263 Active 2023 HEIDI LOPEZICA null, PA - [facility] 4 11:30:07 Sore throat 961632385 Active 2023 HEIDI LUPICA null, PA - [facility] 4 11:54:29 Acute low back pain 156807756 Active 2023 Nereida Cardona NP [address] [place], [address] , [place] - [facility] 4 12:03:02 [...] Name and Address Organization Details Recorded Time 341602 Valium medicatio n other Not available Not available 12/23/2023 01203 2 RxNorm HEIDI LUPICA null, PA - [facility] 4 11:26:11 526310 Crestor medicatio n myalgias (muscle pain) Not available Not available 12/23/2023 34384 4 RxNorm HEIDI LUPICA null, PA - [facility] 4 11:26:22 224525 acetamino phen / oxycodone medicatio n itching Not available Not available 12/23/2023 29420 3 RxNorm HEIDI CARTER null, PA - [facility] 4 11:26:32 261275 lisinopri l medicatio n other Not available Not available 12/23/2023 43228 RxNorm doubl e visio n HEIDI CARTER null, PA - [facility] 4 11:27:00 313655 Lexapro medicatio n rash Not available Not available 12/23/2023 48468 1 RxNorm HEIDI CARTER null, PA - [facility] 4 11:27:09 481840 Trileptal medicatio n other Not available Not available 12/23/2023 48295 0 RxNorm doubl e visio n HEIDI CARTER null, PA - [facility] 4 11:27:26 622562 heparin medicatio n rash Not available Not available 12/23/2023 5224 RxNorm HEIDI CARTER null, PA - [facility] 4 11:27:37 739089 gabapenti n medicatio n myalgias (muscle pain) Not available Not available 12/23/2023 24136 RxNorm HEIDI CARTER null, PA - [facility] 4 11:27:48 Medications Name Sig Start Date Stop Date Status Note LastModified by Organization Details LastModified Time fluoxetine 40 mg capsule Take 1 capsule every day by oral route. active Not Available Not Available No t Available amoxicillin 875 mg tablet Take 1 tablet every 12 hours by oral route with meal(s) for 10 days. 04/22 completed Not Available Not Available Not Available pramipexole 0.125 mg tablet Take 1 tablet 3 times a day by oral route. active Not Available Not Available No t Available Hctz/Reserp ine/Hydrala zine 12.5 mg daily active Not Available Not Available No t Available bupropion HCl 150 mg tablet,12 hr sustained-r elease(smok ing deterrent) Take 1 tablet twice a day [...] blood by Pulse oximetry Heart rate Systolic And Diastolic Provider Name and Address Organization Details Last Updated DateTime 4 154.94 cm 46.3 kg/m2 418116. 13 g 6 18 /min 97.7 [degF] 96 % 96 % 99 /min 127/84 mm[Hg] HEIDI CARTER PA - [facility] 4 11:32:39 Date Recorded Body height Body mass index (BMI) Body weight Oxygen saturation Oxygen saturation in Arterial blood by Pulse oximetry Pain severity - 0-10 verbal numeric rating [Score] - Reported Heart rate Respiratory rate Body temperature Systolic And Diastolic Provider Name and Address Organization Details Last Updated DateTime 4 154.94 cm 46.3 kg/m2 186195. 13 g 96 % 96 % 10 78 /min 18 /min 98.3 [degF] 149/92 mm[Hg] Leann Chopra PA - [facility] 4 11:42:07 Social History Question Answer Notes LastModified by Organizat ion Details LastModified Time Tobacco Smoking Status Never Smoker HEIDI valencia PA - [facility] 12/23/2023 11:30:40 Have You Had A Flu Shot This Season? Yes Information not available 04/22/2024 If No, Would You Like A Flu Shot Today? No Information not available 04/22/2024 What Is Your Relationship Status? Single Information not available 04/22/2024 Have You Recently Traveled Abroad? No Information not available 12/23/2023 Are You Currently In School? No Information not available 04/22/2024 Sex: Unknown Functional Status Question Answer Note LastModified by Organizat ion Details LastModified Time Do you use any illicit or recreational drugs? No [email or web address] Information not available 12/23/2023 Do you or have you ever used any other forms of tobacco or nicotine? No [email or web address] Information not available 12/23/2023 What is your level of alcohol consumption? None [email or web address] Information not available 12/23/2023 Are you currently employed? Yes Information not available 04/22/2024 Mental Status None recorded. Family History Relationship Description Onset Age of this Age Resolved Age Notes LastModified by Organization Details LastModified Time Father No current problems or disability [email or web address] Not available 12/23 11:30:26 Mother No current problems or disability Not available 12/23 11:30:26 Medical History No medical history recorded. Gynecological History Statement/Question Response Date of LMP Is there any chance of ? No LMP N/A Obstetrics History GPAL:G 0 P 0 0 0 0 Past Encounters Encounter ID Performer Location Encounter Start Date Encounter Closed Date Diagnosis/Indication Diagnosis SNOMED-CT Code Diagnosis ICD10 Code Diagnosis IMO Codes Diagnosis Note [id number] [address] [place] [address] [address] [address] 12/15/2017 16:35:58 12/15/2017 18:14:[id number] [place] [address] [address] [address] 08/14/2021 08:39:23 08/14/2021 10:52:38 [id number] [place] [address] [place] [address] 12/23/2023 10:41:25 12/23/2023 12:05:27 Sore throat 956680213 J02.9 Streptococ sarai sore throat 03692638 J02.0 [id number] [place] [address] [address] 04/22/2024 11:22:03 04/22/2024 12:18:05 Acute low back pain 642302125 M54.50 The following are my recommenda tions [...] Dizziness. light headedness Thank you for using [facility] - please don't hesistate to call our office if you have any questions or concerns. Health Concerns Section Related Observation LastModified by Organization Detai ls LastModified Time None Recorded Concern Status LastModified by Organization Details LastModified Time None Recorded Advance Directives Directive None Recorded Payers Insurance Date Sequence Insurance Name Policy Number Policy Xavier Covered Member ID Xavier Member ID Guarantor Name 04/22/2024 1 [employer] - TOGETHER (MEDICAID HMO) [id number] Sade Arizain [id number] Sade Nelda 04/22/2024 1 [employer] - TOGETHER WITH [employer] (MEDICAID REPLACEMENT - HMO) [id number] Sade Perales Coffin [id number] 1 Sade Lutz 12/23/2023 [employer] Sade Landerosa Nelda Notes Date Note Type Note Provider Name and Address Organization Details Recorded Time 12/23/19 24 text/ht ml Sinus Complaints UCReported by PatientHPIFor location, patient reportssinus pain,facial pain, andsinus pressure(63-year-old female presented with nasal congestion, postnasal drip. stating now she develop sore throat feels like burning in her throat and coughing a lot. also have pain with swallowing. denies any fever fever chills denies any shortness of breath or respiratory distress. denies any nausea, vomiting or diarrhea. denies any chest pain or palpitations. patient further explaining she used to get strep throat a lot and due to her burning in her throat she is really hurting and have some exudate on her tonsils also.). For associated symptoms, patient reportsnasal discharge from __ nostrils,difficulty breathing,headache forehead,sore throat,post nasal drip,nasal passage blockage __, andcoughbut reportsno fever,no nausea or vomiting,no ear fullness,no nasal itching,no eye itching, andno dizziness. For quality, patient reportsworseningandpurulentbut reportsminimal discomfortandclear. For context, patient reportsrecent upper respiratory infectionandworse with environmental exposurebut reportsno recent sick contactsandnot worse with seasonal allergen exposure. For onset/timing, patient reportsworse in amandworse in pm. For duration, patient reportsconstant. For severity, patient reportsmoderate. For risk factors, patient reportsno current smoking or tobacco useandno history of nasal trauma. For alleviating factors, patient reportsantibiotics. For aggravating factors, patient reportsworse during an upper respiratory infection (a cold)andworse with excess fatigue. For prior treatment, patient reportsoral decongestant. Shortness of BreathReported by Patient Maxwell Gonzalez NP [address], [address], [place] - [facility] 12/23/2023 11:58:33 04/22/20 24 text/ht ml Lower BackReported by PatientHPIFor associated symptoms, patient reportsradiation down leg. For location, patient reportsbilateralandposterior. For quality, patient reportsaching,gnawing, andthrobbing. For severity, patient reportsmoderate. For duration, patient reports1 weeks. For timing, patient reportsacuteandabrupt. For context, patient reportsoveruse. For alleviating factors, patient reportsnothing helps. For aggravating factors, patient reportssitting,standing,walking,t wisting,bending/squatting, androm. For previous surgery, patient reportsnone. For prior imaging, patient reportsnone. For previous pt, patient reportsdid not help. For work related, patient reportsno. Presents with low back pain onset 1 week ago . 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 Denies trauma or prior similar pain. Denies any changes in bowel and bladder. Nereida Cardona NP [address], [address], [place] - [facility] 04/22/2024 14:51:06 OBGyn Episode No OBEpisode recorded.
--- OUTSIDE RECORDS SUMMARY | 2025-09-15 14:44 | XMS_ITS | Encounter Summary ---
Author Organization [facility] Address [address] [place] [address] Phone Care Team Providers Care Rail Bonder Name Role Phone Luci Aragon NP Primary Care Provider Kuldip Prakash MD Primary Care Provider [phone] Encounter Details Date Type Department Care Team ([facility] st Contact Info) Description 12/11/2024 Documentation [facility] [place] CRP5 [address] [place] [address] Martina Lindsay, YUE [address] [place] [address] [email or web address] Social History Tobacco Use Types Packs/Day Years [...] on filedocumented in this encounter Care Teams Rail Bonder Relationship Specialty Start Date End Date Luci Aragon NP PCP - General Family Medicine 10/04/22 12/26/24 Kuldip Prakash MD [address] [place] [address] Drive [address] [place] [address] PCP - General Internal Medicine 12/27/24 documented as of this encounter Additional Source Comments The information contained in this document represents components of the legal health record. It is not the complete legal health record.[facility]
--- OUTSIDE RECORDS SUMMARY | 2025-09-15 14:44 | XMS_ITS | Encounter Summary ---
Author Organization [facility] Address [address] [place] [address] Phone Care Team Providers Care Driver Material Handler Name Role Phone Luci Aragon NP Primary Care Provider Kuldip Prakash MD Primary Care Provider [phone] Encounter Details Date Type Department Care Team (Late st Contact Info) Description 11/02/2022 Procedure Pass OR Admitting Dept - Virtual Department [address] [place] [address] Social History Tobacco Use Types Packs/Day Years [...] on filedocumented in this encounter Care Teams Driver Material Handler Relationship Specialty Start Date End Date Luci Aragon NP PCP - General Family Medicine 10/04/22 12/26/24 Kuldip Prakash MD [address] [place] [address] PCP - General Internal Medicine 12/27/24 documented as of this encounter Additional Source Comments The information contained in this document represents components of the legal health record. It is not the complete legal health record.[facility]
--- OUTSIDE RECORDS SUMMARY | 2025-09-15 14:44 | XMS_ITS | Encounter Summary ---
Author Organization [facility] Address [address] [place] [address] Care Team Providers Care Inshore Undersea Warfare Officer Name Role Phone PcpShey Unassigned Primary [...] on filedocumented in this encounter Care Teams Inshore Undersea Warfare Officer Relationship Specialty Start Date End Date Shey Gallardo Unassigned PCP - General Family Medicine 03/06/23 documented as of this encounter
--- OUTSIDE RECORDS SUMMARY | 2025-09-15 14:44 | XMS_ITS | Clinical Summary ---
Author Organization [facility] Address [address] [place] [address] Phone Care Team Providers Care Federal Mediation Commissioner Name Role Phone Kuldip Prakash MD Primary Care Provider [phone] Allergies Active Allergy Reactions Criticality Noted Date [...] (05/05/2025): Added automatically from request for surgery [id number] Fatty liver 07/10/2019 Overview (05/05/2025): Report prior [...] RLS. Basal cell carcinoma (BCC) of right caodaism regio n Family History Medical History Relation [...] you interested in more education? Not on hadyee e 03/02/2023 Are you concerned about learning? [...] patient's age to complete this topic IPV VACCINES Aged Out No longer eligi ble based on patient's age to complete this topic MENINGOCOCCAL VACCINES (ACWY) Aged Out No longer eligible based on patient's age to complete this topic MENINGOCOCCAL VACCINES (B) Aged Out N o longer eligible based on patient's age to complete this topic Medical Devices Not on file Insurance [facility] [place] MEDIC[place] POS PPO REPLACEMENT [facility] [place] MEDIC[place] POS PPO REPLACEMENT [facility] [place] [place] MEDIC[place] POS PPO [facility]AC[facility] [place] [phone] [place] MED[place] POS PPO REPLACEMENT [facility] [place] MEDIC[place] POS PPO RE[facility]ACEMENT [facility] [place] [phone] [place] MEDIC[place] POS PPO REPLACEMENT Care Teams Federal Mediation Commissioner Relationship Specialty Start Date End Date Kuldip Prakash MD [address] [place] [address] PCP - General Internal Medicine 12/27/24 Additional Source Comments The information contained in this document represents components of the legal health record. It is not the complete legal health record.[facility]
--- OUTSIDE RECORDS SUMMARY | 2025-09-15 14:44 | XMS_ITS | Encounter Summary ---
Author Organization [facility] Address [address] [place] [address] Care Team Providers Care Actimize Architect Name Role Phone PcpShey Unassigned Primary Care [...] on filedocumented in this encounter Care Teams Actimize Architect Relationship Specialty Start Date End Date Shey Gallardo Unassigned PCP - General Family Medicine 03/06/23 documented as of this encounter
--- OUTSIDE RECORDS SUMMARY | 2025-09-15 14:45 | XMS_ITS | Encounter Summary ---
Author Organization [facility] Address [address] [place] [address] Phone Care Team Providers Care Deliverer Outside Name Role Phone Reina Laurent COMPRESSOR MECHANIC BUS Primary Care Provide r Luci Aragon NP Primary Care Provider Kuldip Prakash MD Primary Care Provider [phone] Encounter Details Date Type Department Care Team ([facility] st Contact Info) Description 08/25/2022 Prep for Surgery [facility] [address] [place] [address] Rancho Franco DPM [address] [place] [address] [address] [place] [address] [email or web address] Verruca plantaris (Primary Dx) Social History Tobacco [...] wart documented in this encounter Care Teams Deliverer Outside Relationship Specialty Start Date End Date Reina Laurent NP [address], [place] [phone] PCP - General Family Medicine 04/21/21 10/03/22 Luci Aragon NP [address] [place] [address] PCP - General Family Medicine 10/04/22 12/26/24 Kuldip Prakash MD [address] [place] [address] PCP - General Internal Medicine 12/27/24 documented as of this encounter Additional Source Comments The information contained in this document represents components of the legal health record. It is not the complete legal health record.[facility]
[2025-09-15 16:04] VITALS: BP 179/79; PULSE 63; RESP 16; TEMP 36.3; O2SAT 95
== END 2025-09-15 16:04 | disposition home or self-care (01) ==
PROVIDERS: Physician Assistant Medical; Emergency Provider Emergency Medicine; PCP Internal Medicine
DX: H81.10 Benign paroxysmal vertigo, unspecified ear (principal); I10 Essential (primary) hypertension; F50.9 Eating disorder, unspecified; Z68.41 Body mass index [BMI] 40.0-44.9, adult; E11.9 Type 2 diabetes mellitus without complications; Z86.718 Personal history of other venous thrombosis and embolism; Z79.01 Long term (current) use of anticoagulants; Z79.899 Other long term (current) drug therapy
CPT/HCPCS: 36415; 70496; 70498; 80053; 83735; 83880; 84484; 85025; 85610; 87637; 93005; 99283; 99284; Q9967

== ENCOUNTER → 2025-09-15 12:14 | Outpatient (BNV) | payer MEDICARE, MEDICAID, SELFPAY | PROVIDERS: Emergency Provider Emergency Medicine; PCP Internal Medicine; Visit Provider Internal Medicine Cardiovascular Disease | DX: R42 Dizziness and giddiness (principal) | CPT/HCPCS: 93010 ==

== ENCOUNTER → 2025-09-15 12:30 | Outpatient (BNV) | payer MEDICARE, MEDICAID, SELFPAY | PROVIDERS: Emergency Provider Emergency Medicine; PCP Internal Medicine; Visit Provider Radiology Diagnostic Radiology | DX: R42 Dizziness and giddiness (principal); H53.8 Other visual disturbances | CPT/HCPCS: 70496; 70498 ==

== ENCOUNTER 2025-09-25 13:08 | Outpatient (AMB) | payer MEDICARE, MEDICAID, SELFPAY ==
--- NOTE | 2025-09-25 13:00 | MHC.WMTHER ---
Intake Intake Visit Reasons: VIDEO BH F/U Allergies dexamethasone Allergy (Severe, Verified 09/15/25 12:17) Dizziness midazolam Allergy (Severe, Verified 09/15/25 12:17) Dizziness enoxaparin (From Lovenox) Allergy (Intermediate, Verified 09/15/25 12:17) Rash diazepam (Valium) Allergy (Unknown, Verified 09/15/25 12:17) Hypertension escitalopram (Lexapro) Allergy (Unknown, Verified 09/15/25 12:17) Rash lisinopril Allergy (Unknown, Verified 09/15/25 12:17) Difficulty Swallowing oxcarbazepine (Trileptal) Allergy (Unknown, Verified 09/15/25 12:17) Hives oxycodone (Percocet) Allergy (Unknown, Verified 09/15/25 12:17) Hives rosuvastatin (Crestor) Allergy (Unknown, Verified 09/15/25 12:17) Eye Swelling fenofibrate Adverse Reaction (Severe, Verified 09/15/25 12:17) Muscle cramps losartan Adverse Reaction (Intermediate, Verified 09/15/25 12:17) not sure gabapentin Adverse Reaction (Verified 09/15/25 12:17) Muscle Pain PFSH Medical History Impaired glucose tolerance Type 2 diabetes mellitus with hyperglycemia Breast cancer screening by mammogram Colon cancer screening Menopausal and postmenopausal disorder History of ankle fracture Screening for osteoporosis Eating disorder with ongoing treatment Dizziness Low serum potassium Fungal rash of torso Seasonal allergies Anxiety with depression Restless leg syndrome Diabetes mellitus TMJ (dislocation of temporomandibular joint) Periodic limb movements of sleep Obstructive sleep apnea Morbid obesity Hypertension Hypercholesterolemia Heart murmur Depression Anxiety Surgical History History of gastric bypass S/P LALITA-BSO (total abdominal hysterectomy and bilateral salpingo-oophorectomy) Bilateral carpal tunnel syndrome 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 H/O ventral hernia repair History of cholecystectomy Gastric banding status Family History Mother Cancer of colon Hyperlipidemia Father CAD (coronary artery disease) Heart attack Paternal Uncle Heart attack Social History Housing: House Alcohol intake: former Comment: once drink Q 3 months Patient Tobacco Use Status: Never used Tobacco e-Cigarette/Vaping Use: Never Used Second Hand Smoke Exposure: No service: No Current occupational status: employed Cognitive needs: No Hearing needs: No Vision needs: Yes Behavioral Health Assessment Weight Management Therapy Therapy Notes Details Subjective: The patient reports having enjoyed a recent vacation but is now struggling to get back on track with routines. She did not attend the peer support group yesterday, citing low motivation. She denies feeling depressed but describes experiencing some winter blues and decreased energy. Objective: The patient attended today?s follow-up session via telehealth. Discussion focused on current functioning and challenges with maintaining healthy behaviors post-vacation. Interventions included development of a behavioral activation plan, cognitive reframing techniques, and strategies to prioritize discipline over motivation. Light therapy lamp was recommended to address seasonal mood changes. Assessment/Response: Mental status: Alert and oriented, mood mildly subdued, affect congruent, no evidence of acute distress or psychosis. Insight and judgment intact. Risk reported/identified: none Assessment & Plan Assessment & Plan (1) Anxiety disorder: Code(s): F41.9 - Anxiety disorder, unspecified (2) Depression, unspecified: Code(s): F32.A - Depression, unspecified (3) Eating disorder, unspecified: Code(s): F50.9 - Eating disorder, unspecified Plan Follow-up scheduled for November 12, 2024, at 12:00 PM via video. Patient will continue regular sessions with his primary therapist for ongoing behavioral health support. Telehealth Telehealth [facility] Location of provider rendering services: practice address Location of patient: address on file Patient Identification confirmed using: Name, : Yes Telehealth method: video Patient verbally consented to treatment: Yes Patient verbally consented to billing insurance company: Yes Patient informed of any privacy concerns related to visit: Yes Minutes spent on Phone/Video with Pt.: 60 [place] [address] Tele Psytx >53 mins Patient Type Established Diagnoses Anxiety disorder F41.9 Depression, unspecified F32.A Eating disorder, unspecified F50.9 Time Spent (min) 60
--- OUTSIDE RECORDS SUMMARY | 2025-09-25 18:43 | XMS_ITS | Data Portability ---
Author Organization [facility], [address] Address [address] [place] [address] Care Team Providers Care Manager Drive Name Role Phone TUSHAR DALLAS Morning News Producer Assessment No assessment recorded. Plan of Treatment Reminders Order Date Submit Date Provider Last Modified By Organization Details Last Modified Time Details Appointments None recorded. Lab rapid strep group A, throat 2023 024 [email or web address] [facility], [address] [place] [address], [id number], 4 11:57:45 Referral physical therapist referral - Low back pain from driving a lot . no trauma. pain is spastic and affects ambulation. 2023 024 [email or web address] [facility] - [address], [place], [address], 4 15:52:40 Procedures None recorded. Surgeries None recorded. Imaging None recorded. Medication Orders Voltaren Arthritis Pain 1 % topical gel 2023 [id number], [address], [place], [id number], 4 12:10:19 amoxicillin 875 mg tablet 2023 [id number], [address], [place], [id number], 4 11:43:53 Patient TargetsNo targets recorded. Patient Instructions Encounter Date Encounter Id Patient Instructions Last Modified By Organization Details Last Modified Time 12/23/2023 [id number] Acute Sinusitis: Care Instructions [email or web address] Not available [...] undesirable side effects. Probiotics can be purchased [id number] at your pharmacy in the form of [...] ve Not Available [address] [place], [address], 12/23/2023 11:54:21 12/23/19 24 12/23/2023 rapid strep group A, throa t Unknown Analyte yes Not Available [facility] [address] [place], [address], 12/23/2023 11:54:21 Result Notes None recorded. Problems Name Problem SNOMED Code Status Onset Date Resolution Date Notes Provider Name and Address Organization Details Recorded Time Hypertensive disorder 07375830 Active 2023 HEIDI LOPEZICA null, [place] - [facility] 4 11:30:07 Sore throat 703003126 Active 2023 HEIDI LUPICA null, [place] - [facility] 4 11:54:29 Acute low back pain 262917443 Active 2023 Nereida Cardona NP [address] [place], [address] [place] - [facility] 4 12:03:02 [...] Name and Address Organization Details Recorded Time 426321 Valium medicatio n other Not available Not available 12/23/2023 59284 2 RxNorm HEIDI LUPICA null, [place] - [facility] 4 11:26:11 823979 Crestor medicatio n myalgias (muscle pain) Not available Not available 12/23/2023 70372 4 [facility] HEIDI LUPICA null, [place] - [facility] 4 11:26:22 317711 acetamino phen / oxycodone medicatio n itching Not available Not available 12/23/2023 54055 3 [facility] HEIDI CARTER null, [place] - [facility] 4 11:26:32 925525 lisinopri l medicatio n other Not available Not available 12/23/2023 81670 [facility] doubl e visio n HEIDI CARTER null, [place] - [facility] 4 11:27:00 846886 Lexapro medicatio n rash Not available Not available 12/23/2023 12696 1 Rx[facility] HEIDI CARTER null, [place] - [facility] 4 11:27:09 925703 Trileptal medicatio n other Not available Not available 12/23/2023 21374 0 RxNorm doubl e visio n HEIDI CARTER null, [place] - [facility] 4 11:27:26 519616 heparin medicatio n rash Not available Not available 12/23/2023 5224 RxNorm HEIDI CARTER null, [place] - [facility] 4 11:27:37 023629 gabapenti n medicatio n myalgias (muscle pain) Not available Not available 12/23/2023 21769 [facility] HEIDI CARTER null, [place] - [facility] [...] Updated DateTime 4 154.94 cm 46.3 kg/m2 355641. 13 g 6 18 /min 97.7 [degF] [...] Updated DateTime 4 154.94 cm 46.3 kg/m2 038184. 13 g 96 % 96 % 10 [...] 04/22/2024 Have You Recently Traveled Abroad? No [email or web address] Information not available 12/23/2023 Are You Currently In School? No Information not available 04/22/2024 Sex: Unknown Functional Status Question Answer Note LastModified by Organizat ion Details LastModified Time Do you use any illicit or recreational drugs? No [email or web address] Information not available 12/23/2023 Do you or have you ever used any other forms of tobacco or nicotine? No [email or web address] Information not available 12/23/2023 What is your level of alcohol consumption? None Information not available 12/23/2023 Are you currently employed? Yes Information not available 04/22/2024 Mental Status None recorded. Family History Relationship Description Onset Age of this Age Resolved Age Notes LastModified by Organization Details LastModified Time Father No current problems or disability [email or web address] Not available 12/23 11:30:26 Mother No current [...] ICD10 Code Diagnosis IMO Codes Diagnosis Note [id number] [address] [place] [address] [address] [address] 12/15/2017 16:35:58 12/15/2017 18:14:[id number] [place] [address] [address] [address] 08/14/2021 08:39:23 08/14/2021 10:52:38 [id number] [place] [address] [place] [address] 12/23/2023 10:41:25 12/23/2023 12:05:27 Sore throat 084509644 J02.9 Streptococ sarai sore throat 77459274 J02.0 [id number] [place] [address] [address] 04/22/2024 11:22:03 04/22/2024 12:18:05 Acute low back pain 396119578 M54.50 The following are my recommenda tions [...] Xavier Member ID Guarantor Name 04/22/2024 1 [employer] - TOGETHER (MEDICAID HMO) [id number] Sade Arizain [id number] 1 Sade Nelda 04/22/2024 1 [employer] - TOGETHER WITH [employer] (MEDICAID REPLACEMENT - HMO) [id number] Sade Perales Coffin [id number] 1 Sade Lutz 12/23/2023 [employer] Sade [...] Maxwell Gonzalez NP [address], [address], [place] - [facility] 12/23/2023 11:58:33 04/22/20 24 text/ht ml [...] Nereida Cardona NP [address], [address], [place] - [facility] 04/22/2024 14:51:06 OBGyn Episode No OBEpisode recorded.
--- OUTSIDE RECORDS SUMMARY | 2025-09-25 18:43 | XMS_ITS | Patient Health Record ---
Author Organization [facility] Address [address] [place] [address] Care Team Providers Care Test Development Engineer Name Role Phone SHAMIR CIELO Primary Care Provider UnavailFelipa Salinas Unavailable [phone] Allergies Allergen (clinical drug ingredient) Drug/Non Drug [...] 200MG 1 ORAL twice daily; Duration: -3 [facility]- 01/03/2012 Active hydroCHLOROthiazide 25mg 1 ORAL daily; [...] W/U Status Risk Notes Problem Depressive disorder (83710054) Depressive disorder, not elsewhere classified (311) Active confirmed Major Problem Essential hypertension (94967135) Unspecified essential hypertension (401.9) Active confirmed Major Problem Menopausal symptom (22742199) Symptomatic menopausal or female climacteric states (627.2) Active confirmed Major Problem Gynecological examination normal (550392261437230) Routine gynecological examination (V72.31) Active confirmed Major Problem Screening for malignant neoplasm of colon (645578495) Special screening for malignant neoplasms, colon (V76.51) Active confirmed Major Plan Of Treatment Pending Test Test Name Order Date PT AND PTT 12/31/2015 Insurance Providers Payer Name Payer Address Payer Phone Subscriber Number Group Number Insured Name Patient Relationship to Insured Coverage Start Date Coverage End Date [employer] [place] [address] [place] [phone] [id number] LESLYE DORANTES Self - patient is the [...]
== END 2025-09-25 15:10 | disposition home or self-care (01) ==
LOC: HO.HBST 13:08
PROVIDERS: PCP Internal Medicine; Visit Provider Counselor Mental Health
DX: F41.9 Anxiety disorder, unspecified (principal); F32.A Depression, unspecified; F50.9 Eating disorder, unspecified
CPT/HCPCS: 90837

== ENCOUNTER 2025-10-08 09:52 | Outpatient (REF) | payer MEDICARE, MEDICAID, SELFPAY ==
--- NOTE | ~2025-10-08 | US_ITS ---
EXAMINATION: US TRIPLEX LOWER EXTREMITY, LEFT CLINICAL INFORMATION: Nonocclusive thrombus left lower extremity. Follow-up. COMPARISON: July 14, 2025. TECHNIQUE: Color-flow triplex imaging with spectral analysis and compression Doppler were performed on the left lower extremity. FINDINGS: Respiratory variation, normal compression and augmented flow are demonstrated in the left common femoral vein and left posterior tibialis and peroneal veins. There is partial compressibility in the left femoral vein and left popliteal vein. There is no Knott's cyst. 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 No acute deep venous thrombosis.. Electronically signed by: Werner Smith MD 10/08/2025 12:27 PM JUAN OJSE FONSECA
--- OUTSIDE RECORDS SUMMARY | 2025-10-08 11:06 | XMS_ITS | Encounter Summary ---
Author Organization [facility] Address [address] 7t [place] [address] Care Team Providers Care Hazard Waste Handler Name Role Phone PcpShey Unassigned Primary Care [...] on filedocumented in this encounter Care Teams Hazard Waste Handler Relationship Specialty Start Date End Date Shey Gallardo Unassigned PCP - General Family Medicine 03/06/23 documented as of this encounter
--- OUTSIDE RECORDS SUMMARY | 2025-10-08 11:06 | XMS_ITS | Encounter Summary ---
Author Organization [facility] Address [address] [address] [place] [address] Care Team Providers Care Senior Account Executive Name Role Phone PcpShey Unassigned Primary Care [...] filedocumented in this encounter Care Teams Senior Account Executive Relationship Specialty Start Date End Date Shey Gallardo Unassigned PCP - General Family Medicine 03/06/23 documented as of this encounter
--- OUTSIDE RECORDS SUMMARY | 2025-10-08 11:06 | XMS_ITS | Clinical Summary ---
Author Organization [facility] Address [address] [place] [address] Phone Care Team Providers Care Bull Fiddle Player Name Role Phone Kuldip Prakash MD Primary Care Provider [phone] Allergies Active Allergy Reactions Criticality Noted Date [...] (05/05/2025): Added automatically from request for surgery [id number] Fatty liver 07/10/2019 Overview (05/05/2025): Report prior [...] RLS. Basal cell carcinoma (BCC) of right uatsdin regio n Family History Medical History Relation [...] topic Medical Devices Not on file Insurance [facility] [facility] [place] MEDIC[place] POS PPO REPLACEMENT [facility] [place] [facility] POS PPO REPLACEMENT [facility] [place] MED[place] POS PPO REPLACEMENT [facility] [place] [facility] POS PPO REPLACEMENT [facility] [place] MEDIC[place] POS PPO REPLACEMENT [facility] [place] MEDICARE POS PPO REPLACEMENT Care Teams Bull Fiddle Player Relationship Specialty Start Date End Date Kuldip Prakash MD [address] [place] [address] PCP - General Internal Medicine 12/27/24 Additional Source Comments The information contained in this document represents components of the legal health record. It is not the complete legal health record.[facility]
--- OUTSIDE RECORDS SUMMARY | 2025-10-08 11:06 | XMS_ITS | Clinical Summary ---
Author Organization [employer] Address [address] [facility] 7t [place] [address] Care Team Providers Care Technical Support Manager Name Role Phone PcpShey Unassigned Primary Care [...] BEDTIME EVERY NIGHT 3 Active nystatin (Mycostatin) 178213 UNIT/GM powder Apply topically. 1 Active metFORMIN [...] - Risk 2-dose series) 1978 Mammogram 1999 RSV Patients and Patients Aged 60 years or older (1 - Risk 50-74 years 1-dose series) 2009 Pneumococcal Vaccine: 50+ Years (2 of 2 - PCV) 09/19/2017 09/19/2016, 05/03/2007 Hepatitis B Vaccines (1 of 3 - Risk 3-dose series) 2019 Dental X-Ray: Full Mouth 05/19/2019 05/18/2016 Zoster Vaccines (2 of 2) 11/23/2022 09/28/2022 Dental Oral Exam 08/24/2023 02/21/2023, , 12/31/2019, Additional history exists Dental Prophylaxis 08/24/2023 02/21/2023, 0 06/28/2021, 12/31/2019, Additional history exists Dental X-Ray: Bitewings 02/23/2024 02/22/20, 06/28/2021, 12/31/2019, Additional history exists Lipid Panel 07/10/2024 07/10/2019 COVID-19 Vaccine ( - season) 2025 08/25/2022, 09/15/2021 Influenza Vaccine [...] DENTAL - HSN PARTIAL (MEDICAID) Care Teams Technical Support Manager Relationship Specialty Start Date End Date PcpShey Unassigned PCP - General Family Medicine 03/06/23
--- OUTSIDE RECORDS SUMMARY | 2025-10-08 11:06 | XMS_ITS | Encounter Summary ---
Author Organization [facility] Address [address] [place] [address] Phone Care Team Providers Care Property Claims Adjuster Name Role Phone Reina Laurent PHOTOCOPIER TECHNICIAN Primary Care Provide r Luci Aragon NP Primary Care Provider Kuldip Prakash MD Primary Care Provider [phone] Encounter Details Date Type Department Care Team ([facility] st Contact Info) Description 08/25/2022 Prep for Surgery [facility] [address] [place] [address] Rancho Franco DPM [address] [place] [address] [address] [place] [address] [email or web address] Verruca plantaris (Primary [...] wart documented in this encounter Care Teams Property Claims Adjuster Relationship Specialty Start Date End Date Reina Laurent NP [address] [place], [place] [phone] PCP - General Family Medicine 04/21/21 10/03/22 Luci Aragon NP [address] [place] [address] PCP - General Family Medicine 10/04/22 12/26/24 Kuldip Prakash MD [address] [facility] [address] [place] [address] PCP - General Internal Medicine 12/27/24 documented as of this encounter Additional Source Comments The information contained in this document represents components of the legal health record. It is not the complete legal health record.[facility]
--- OUTSIDE RECORDS SUMMARY | 2025-10-08 11:06 | XMS_ITS | Encounter Summary ---
Author Organization [facility] Address [address] [place] [address] Phone Care Team Providers Care Manager Of School Name Role Phone Luci Aragon NP Primary Care Provider Kuldip Prakash MD Primary Care Provider [phone] Encounter Details Date Type Department Care Team ([facility] st Contact Info) Description 12/11/2024 Documentation [facility] DLYSIS CAPD CRP5 [address] [place] [address] Martina Lindsay, [address] [place] [address] [email or web address] Social History Tobacco Use Types [...] filedocumented in this encounter Care Teams Manager Of School Relationship Specialty Start Date End Date Luci Aragon NP PCP - General Family Medicine 10/04/22 12/26/24 Kuldip Prakash MD [address] [place] [address] Drive [address] [place] [address] PCP - General Internal Medicine 12/27/24 documented as of this encounter Additional Source Comments The information contained in this document represents components of the legal health record. It is not the complete legal health record.[facility]
--- OUTSIDE RECORDS SUMMARY | 2025-10-08 11:06 | XMS_ITS | Encounter Summary ---
Author Organization [facility] Address [address] [facility] 7t [place] [address] Care Team Providers Care Gas Plumbing Inspector Name Role Phone PcpShey Unassigned Primary [...] on filedocumented in this encounter Care Teams Gas Plumbing Inspector Relationship Specialty Start Date End Date Shey Gallardo Unassigned PCP - General Family Medicine 03/06/23 documented as of this encounter
--- OUTSIDE RECORDS SUMMARY | 2025-10-08 11:06 | XMS_ITS | Encounter Summary ---
Author Organization [facility] Address [address] [place] [address] Phone Care Team Providers Care Natural Sciences Department Chair Name Role Phone Luci Aragon NP Primary Care Provider Kuldip Prakash MD Primary Care Provider [phone] Encounter Details Date Type Department Care Team (Late st Contact Info) Description 11/02/2022 Procedure Pass OR Admitting Dept - Virtual Department [address] [place] [address] Social History Tobacco Use Types Packs/Day Years [...] on filedocumented in this encounter Care Teams Natural Sciences Department Chair Relationship Specialty Start Date End Date Luci Aragon NP PCP - General Family Medicine 10/04/22 12/26/24 Kuldip Prakash MD [address] [place] [address] PCP - General Internal Medicine 12/27/24 documented as of this encounter Additional Source Comments The information contained in this document represents components of the legal health record. It is not the complete legal health record.[facility]
--- OUTSIDE RECORDS SUMMARY | 2025-10-08 11:06 | XMS_ITS | Encounter Summary ---
Author Organization [facility] Address [address] [place] [address] Phone Care Team Providers Care Psychological Examiner Name Role Phone Luci Aragon NP Primary Care Provider Kuldip Prakash MD Primary Care Provider [phone] Encounter Details Date Type Department Care Team ([facility] st Contact Info) Description 06/30/2023 Procedure Pass OR Admitting Dept - Virtual Department [address] [place] [address] Social History Tobacco Use Types Packs/Day Years [...] on filedocumented in this encounter Care Teams Psychological Examiner Relationship Specialty Start Date End Date Luci Aragon NP PCP - General Family Medicine 10/04/22 12/26/24 Kuldip Prakash MD [address] [place] [phone] PCP - General Internal Medicine 12/27/24 documented as of this encounter Additional Source Comments The information contained in this document represents components of the legal health record. It is not the complete legal health record.[facility]
== END 2025-10-08 09:53 | disposition home or self-care (01) ==
LOC: HO.US 09:52
PROVIDERS: PCP Internal Medicine; Visit Provider Internal Medicine Medical Oncology
DX: I82.402 Acute embolism and thrombosis of unspecified deep veins of left lower extremity (principal)
CPT/HCPCS: 93971

== ENCOUNTER → 2025-10-08 09:54 | Outpatient (BNV) | payer MEDICARE, MEDICAID, SELFPAY | PROVIDERS: PCP Internal Medicine; Visit Provider Radiology Diagnostic Radiology | DX: I82.402 Acute embolism and thrombosis of unspecified deep veins of left lower extremity (principal) | CPT/HCPCS: 93971 ==